=== PATIENT | male | born 1960 | race Caucasian/White ===

== ENCOUNTER 2017-04-12 10:30 | Outpatient (RCR) | payer MEDICARE, MEDICAID, SELFPAY ==
[2017-03-22 10:36] VITALS: BP 139/85; PULSE 89; RESP 20; TEMP 37.2; BMI 22.3
--- NOTE | 2017-03-22 16:49 | PCM.WC.HP ---
(1) Open wound of left forearm Status: Acute Current Visit: Yes Qualifiers: Encounter type: initial encounter Qualified Code(s): S51.802A - Unspecified open wound of left forearm, initial encounter Code(s): S51.802A - Unspecified open wound of left forearm, initial encounter (2) Hx of malignant neoplasm of colon Status: Chronic Current Visit: No Code(s): Z85.038 - Personal history of other malignant neoplasm of large intestine (3) Hx of venous thrombosis and embolism Status: Chronic Current Visit: No Code(s): Z86.718 - Personal history of other venous thrombosis and embolism (4) Status post ventricular shunt placement Status: Chronic Current Visit: No Code(s): Z98.2 - Presence of cerebrospinal fluid drainage device History of Present Illness Date of Service: 03/23/17 Chief Complaint: Left Forearm Wound. History of Wound: Mr. Davis is a 56 pleasant man with PMH as documented who is here due to a nonhealing left forearm wound. He sustained a scratch from his dog about 2 weeks ago and subsequently developed this wound which is not showing any improvement. He has not done anything much since sustaining the wound, has had no treatment and conservatively managed it at home by cleaning and applying none adherent dressing. There is pain and redness around the site however he denies any discharge from the site. He has had no nausea, chills, fever or otherwise feeling of unwell. He states that his dog is fully immunized. He is also up to date on his Tdap immunization. Denies any other complaints at this time. Past Medical History Past Medical History: Chronic Problems Rotator cuff disorder (Chronic) Asthma (Chronic) Esophageal reflux (Chronic) Hx of malignant neoplasm of colon (Chronic) Hx of venous thrombosis and embolism (Chronic) HTN (hypertension) (Chronic) Status post ventricular shunt placement (Chronic) Surgical History: colectomy, - - L shoulder surgery, green field filter, [employer] shunt, RUE clot removal, foot surgery. Allergies/Adverse Reactions: Allergies gluten Allergy (Verified 11/26/16 13:34) Diarrhea Penicillins [PCN] Adverse Reaction (Mild, Verified 11/26/16 13:34) Nausea aspirin [ASA] Adverse Reaction (Verified 11/26/16 13:34) Nausea prednisone Adverse Reaction (Verified 11/26/16 13:34) Unknown CODEINE Adverse Reaction (Intermediate, Uncoded 11/26/16 13:34) nausea, eyes turn white Home Medications: Ambulatory Orders Medication Instructions Recorded Albuterol Inhaler [Ventolin Hfa] 1 - 2 puff INHALATION Q4H PRN PRN 05/05/15 Budesonide/Formoterol 160/4.5 2 puff INHALATION BID 05/05/15 [Symbicort 160/4.5 Mcg Inhaler (SP)] Dexlansoprazole [Dexilant] 60 mg PO DAILY 05/05/15 Montelukast [Singulair] 10 mg PO DAILY 05/05/15 Quetiapine Fumarate [Seroquel] 50 mg PO BID 05/05/15 Rivaroxaban [Xarelto] 10 mg PO DAILY 05/05/15 Lorazepam [Ativan] 0.5 mg PO BID 12/29/16 Baclofen [Lioresal] 10 mg PO BID 03/22/17 Cholecalciferol (Vitamin D3) 5,000 unit PO DAILY 03/22/17 [Vitamin D3] Melatonin 3 mg PO QHS 03/22/17 Sucralfate 1 gm PO 4X/DAY 03/22/17 - Family History Maternal No pertinent history - alive age 88 Paternal Cancer - age 74, bladder Smoking Status: Never smoker Review of Systems Constitutional: Denies: Anorexia, Chills, Fever Eyes: Denies: Drainage, Pain, Redness HEENT: Denies: Difficulty Hearing, Ear Pain Cardiovascular: Denies: Chest Pain, Claudication, Chest Pressure, Chest Tightness, Orthopnea Respiratory: Denies: Cough, Hemoptysis Gastrointestinal: Denies: Abdominal Pain, Hematemesis, Vomiting Musculoskeletal: Reports: Arm Pain Skin: Denies: Jaundice, Pruritis - Physical Exam Vital Signs Temp Pulse Resp BP 98.9 F 89 20 H 139/85 H 03/22/17 10:36 03/22/17 10:36 03/22/17 10:36 03/22/17 10:36 General: Alert, Oriented x3, Cooperative, No apparent distress HEENT: Atraumatic Oral: Moist Mucosa Neck: Supple, No JVD Lungs: Clear to auscultation, Normal air movement Cardiovascular: Regular rate, Regular Rhythm, Normal S1, Normal S2 Abdomen: Soft, Non Tender Extremities: No cyanosis, No edema Wound Measurements and Assessment WC - Nurse 1 - General Ulcer Measurement Start: 03/22/17 10:36 Freq: Status: Active Protocol: Activity Type Activity Date Activity User E-Sign Co-Sign Detail Recorded Client Recorded Date Recorded By Document 03/22/17 10:36 [facility] [id number] 03/22/17 10:42 [facility] 03/22/17 10:36 Wound Center Nurse 1 [Ulcer Assessment Protocol: WC.WD.LOC] #2- LFA -Combined with other wound No -Current Size (cm) - Length 0.8 -Current Size (cm) - Width 3.6 -Current Size (cm) - Depth 0.1 -Total Square Cm 2.88 -Date of Last Picture (Recall this 03/22/17 field) -Photo Taken Yes -Epithelialization None Present -Tunneling No -Undermining/Tunneling No -Exudate Amt None Present (0 %) -Wound Margin Distinct, Outline Attached -Granulation Amt None Present (0 %) -Slough/Fibrin Yes -Necrosis Amt Large (67-100%) -Necrotic Tissue Type Adherent Slough -Structure Exposed N/A -Texture (Yessica-wound Skin Appearance) Localized Edema Scarring -Moisture (Yessica-wound Skin Appearance Dry/Scaly ) -Color (Yessica-wound Skin Appearance) Erythema -Temperature (Yessica-wound Skin No Abnormality Appearance) (Pt Warm) -Tenderness on Palpation (Yessica-wound No Skin Appearance) -Ulcer Cleansing Rinsed/ Irrigated with Saline -Foul Odor after Cleansing No -Anesthetic Used 4% Lidocaine Solution BATOOL - Nurse 2 - General Ulcer CM Notes Start: 03/22/17 10:36 Freq: Status: Active Protocol: Activity Type Activity Date Activity User E-Sign Co-Sign Detail Recorded Client Recorded Date Recorded By Document 03/22/17 11:33 [id number] 03/22/17 11:37 DV 03/22/17 11:33 Wound Center Nurse 2 [Procedure/Treatment] -Time 11:35 -Correct Patient Yes -Correct Side, Site, Position Yes -Correct Procedure Yes -Procedure Performed Yes -Type of Procedure Debridement -Clinical Debridement Subcutaneous -Post Debridement Size (cm) - Length 1.0 -Post Debridement Size (cm) - Width 4.0 -Post Debridement Size (cm) - Depth 0.1 -Total Square Cm 4.00 -Wound/Ulcer Outcome Not Healed -Ulcer Cleansing Rinsed/ Irrigated with Saline -Foul Odor after Cleansing No -Bioengineered Tissue No -Cetacaine [place] No -Bleeding Controlled with Pressure -Other silver nitrate -Treatment Response Procedure Tolerated Well [See Physician Procedure note for Specifics] Pain Scale: 0-10 Numeric [Pain] -Is Patient Pain Free? Yes Musculoskeletal: No Muscle Wasting Lymphatic: No Cervical, Supraclavicular, or Inguinal Adenopathy Neurological: Cranial nerves II-XII grossly intact, Neuro grossly intact Psych/Mental Status: Alert and oriented to time, place, person, mood and affect Debridement Note Post-Debridement Measurements/Treatment WC - Nurse 2 - General Ulcer CM Notes Start: 03/22/17 10:36 Freq: Status: Active Protocol: Activity Type Activity Date Activity User E-Sign Co-Sign Detail Recorded Client Recorded Date Recorded By Document 03/22/17 11:33 DV [id number] 03/22/17 11:37 DV 03/22/17 11:33 Wound Center Nurse 2 #2- LFA -Time 11:35 -Correct Patient Yes -Correct Side, Site, Position Yes -Correct Procedure Yes -Procedure Performed Yes -Type of Procedure Debridement -Clinical Debridement Subcutaneous -Post Debridement Size (cm) - Length 1.0 -Post Debridement Size (cm) - Width 4.0 -Post Debridement Size (cm) - Depth 0.1 -Total Square Cm 4.00 -Wound/Ulcer Outcome Not Healed -Ulcer Cleansing Rinsed/ Irrigated with Saline -Foul Odor after Cleansing No -Bioengineered Tissue No -Cetacaine [place] No -Bleeding Controlled with Pressure -Other silver nitrate -Treatment Response Procedure Tolerated Well Pain Scale: 0-10 Numeric Is Patient Pain Free? Yes Wound debrided: Left Forearm Wound Type of Debridement: Excisional debridement Anesthesia Used: 4% Lidocaine Solution Depth: Down to and including healthy tissue, in the subcutaneous layer Percentage of wound debrided: 100 Instrument Used: 5mm curette Tissue Removed: Biofil, Slough Amount of bleeding with debridement: Moderate Bleeding Controlled with: Pressure, Silver Nitrate Patient tolerated procedure well Assessment/Plan Active Problems Open wound of left forearm (Acute) Assessment: Left Forearm wound s/p dog scratch. 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 There appears to be some evidence of cellulitis with redness and tenderness around the area. Wound is also covered in slough/biofilm. Debridement of the wound was done using a 5 mm curet. Moderate bleeding however patient is on Xarelto. Bleeding was stopped by pressure and silver nitrate. Will start him on Augmentin due to nature of the wound. Aquacel AG dressing daily. Follow-up in 1 week. This note was generated with [employer] dictation software. It may contain incorrect words, spelling, and punctuation that were not noted in checking the note before signing.
--- NOTE | 2017-03-22 17:01 | HP.PCM_ITS ---
(1) Open wound of left forearm Status: Acute Current Visit: Yes Qualifiers: Encounter type: initial encounter Qualified Code(s): S51.802A - Unspecified open wound of left forearm, initial encounter Code(s): S51.802A - Unspecified open wound of left forearm, initial encounter (2) Hx of malignant neoplasm of colon Status: Chronic Current Visit: No Code(s): Z85.038 - Personal history of other malignant neoplasm of large intestine (3) Hx of venous thrombosis and embolism Status: Chronic Current Visit: No Code(s): Z86.718 - Personal history of other venous thrombosis and embolism (4) Status post ventricular shunt placement Status: Chronic Current Visit: No Code(s): Z98.2 - Presence of cerebrospinal fluid drainage device History of Present Illness Date of Service: 03/23/17 Chief Complaint: Left Forearm Wound. History of Wound: Mr. Davis is a 56 pleasant man with PMH as documented who is here due to a nonhealing left forearm wound. He sustained a scratch from his dog about 2 weeks ago and subsequently developed this wound which is not showing any improvement. He has not done anything much since sustaining the wound, has had no treatment and conservatively managed it at home by cleaning and applying none adherent dressing. There is pain and redness around the site however he denies any discharge from the site. He has had no nausea, chills, fever or otherwise feeling of unwell. He states that his dog is fully immunized. He is also up to date on his Tdap immunization. Denies any other complaints at this time. 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 Allergies/Adverse Reactions: Allergies gluten Allergy (Verified 11/26/16 13:34) Diarrhea Penicillins [PCN] Adverse Reaction (Mild, Verified 11/26/16 13:34) Nausea aspirin [ASA] Adverse Reaction (Verified 11/26/16 13:34) Nausea prednisone Adverse Reaction (Verified 11/26/16 13:34) Unknown CODEINE Adverse Reaction (Intermediate, Uncoded 11/26/16 13:34) nausea, eyes turn white Home Medications: Ambulatory Orders Medication Instructions Recorded Albuterol Inhaler [Ventolin Hfa] 1 - 2 puff INHALATION Q4H PRN PRN 05/05/15 Budesonide/Formoterol 160/4.5 2 puff INHALATION BID 05/05/15 [Symbicort 160/4.5 Mcg Inhaler (SP)] Dexlansoprazole [Dexilant] 60 mg PO DAILY 05/05/15 Montelukast [Singulair] 10 mg PO DAILY 05/05/15 Quetiapine Fumarate [Seroquel] 50 mg PO BID 05/05/15 Rivaroxaban [Xarelto] 10 mg PO DAILY 05/05/15 Lorazepam [Ativan] 0.5 mg PO BID 12/29/16 Baclofen [Lioresal] 10 mg PO BID 03/22/17 Cholecalciferol (Vitamin D3) 5,000 unit PO DAILY 03/22/17 [Vitamin D3] Melatonin 3 mg PO QHS 03/22/17 Sucralfate 1 gm PO 4X/DAY 03/22/17 - Family History Maternal No pertinent history - alive age 88 Paternal Cancer - age 74, bladder Smoking Status: Never smoker Review of Systems Constitutional: Denies: Anorexia, Chills, Fever Eyes: Denies: Drainage, Pain, Redness HEENT: Denies: Difficulty Hearing, Ear Pain Cardiovascular: Denies: Chest Pain, Claudication, Chest Pressure, Chest Tightness, Orthopnea Respiratory: Denies: Cough, Hemoptysis Gastrointestinal: Denies: Abdominal Pain, Hematemesis, Vomiting Musculoskeletal: Reports: Arm Pain Skin: Denies: Jaundice, Pruritis - Physical Exam Vital Signs Temp Pulse Resp BP 98.9 F 89 20 H 139/85 H 03/22/17 10:36 03/22/17 10:36 03/22/17 10:36 03/22/17 10:36 General: Alert, Oriented x3, Cooperative, No apparent distress HEENT: Atraumatic Oral: Moist Mucosa Neck: Supple, No JVD Lungs: Clear to auscultation, Normal air movement Cardiovascular: Regular rate, Regular Rhythm, Normal S1, Normal S2 Abdomen: Soft, Non Tender Extremities: No cyanosis, No edema Wound Measurements and Assessment WC - Nurse 1 - General Ulcer Measurement Start: 03/22/17 10:36 Freq: Status: Active Protocol: Activity Type Activity Date Activity User E-Sign Co-Sign Detail Recorded Client Recorded Date Recorded By Document 03/22/17 10:36 [facility] [id number] 03/22/17 10:42 [facility] 03/22/17 10:36 Wound Center Nurse 1 [Ulcer Assessment Protocol: WC.WD.LOC] #2- LFA -Combined with other wound No -Current Size (cm) - Length 0.8 -Current Size (cm) - Width 3.6 -Current Size (cm) - Depth 0.1 -Total Square Cm 2.88 -Date of Last Picture (Recall this 03/22/17 field) -Photo Taken Yes -Epithelialization None Present -Tunneling No -Undermining/Tunneling No -Exudate Amt None Present (0 %) -Wound Margin Distinct, Outline Attached -Granulation Amt None Present (0 %) -Slough/Fibrin Yes -Necrosis Amt Large (67-100%) -Necrotic Tissue Type Adherent Slough -Structure Exposed N/A -Texture (Yessica-wound Skin Appearance) Localized Edema Scarring -Moisture (Yessica-wound Skin Appearance Dry/Scaly ) -Color (Yessica-wound Skin Appearance) Erythema -Temperature (Yessica-wound Skin No Abnormality Appearance) (Pt Warm) -Tenderness on Palpation (Yessica-wound No Skin Appearance) -Ulcer Cleansing Rinsed/ Irrigated with Saline -Foul Odor after Cleansing No -Anesthetic Used 4% Lidocaine Solution BATOOL - Nurse 2 - General Ulcer CM Notes Start: 03/22/17 10:36 Freq: Status: Active Protocol: Activity Type Activity Date Activity User E-Sign Co-Sign Detail Recorded Client Recorded Date Recorded By Document 03/22/17 11:33 [id number] 03/22/17 11:37 DV 03/22/17 11:33 Wound Center Nurse 2 [Procedure/Treatment] -Time 11:35 -Correct Patient Yes -Correct Side, Site, Position Yes -Correct Procedure Yes -Procedure Performed Yes -Type of Procedure Debridement -Clinical Debridement Subcutaneous -Post Debridement Size (cm) - Length 1.0 -Post Debridement Size (cm) - Width 4.0 -Post Debridement Size (cm) - Depth 0.1 -Total Square Cm 4.00 -Wound/Ulcer Outcome Not Healed -Ulcer Cleansing Rinsed/ Irrigated with Saline -Foul Odor after Cleansing No -Bioengineered Tissue No -Cetacaine [place] No -Bleeding Controlled with Pressure -Other silver nitrate -Treatment Response Procedure Tolerated Well [See Physician Procedure note for Specifics] Pain Scale: 0-10 Numeric [Pain] -Is Patient Pain Free? Yes Musculoskeletal: No Muscle Wasting Lymphatic: No Cervical, Supraclavicular, or Inguinal Adenopathy Neurological: Cranial nerves II-XII grossly intact, Neuro grossly intact Psych/Mental Status: Alert and oriented to time, place, person, mood and affect Debridement Note Post-Debridement Measurements/Treatment WC - Nurse 2 - General Ulcer CM Notes Start: 03/22/17 10:36 Freq: Status: Active Protocol: Activity Type Activity Date Activity User E-Sign Co-Sign Detail Recorded Client Recorded Date Recorded By Document 03/22/17 11:33 DV [id number] 03/22/17 11:37 DV 03/22/17 11:33 Wound Center Nurse 2 #2- LFA -Time 11:35 -Correct Patient Yes -Correct Side, Site, Position Yes -Correct Procedure Yes -Procedure Performed Yes -Type of Procedure Debridement -Clinical Debridement Subcutaneous -Post Debridement Size (cm) - Length 1.0 -Post Debridement Size (cm) - Width 4.0 -Post Debridement Size (cm) - Depth 0.1 -Total Square Cm 4.00 -Wound/Ulcer Outcome Not Healed -Ulcer Cleansing Rinsed/ Irrigated with Saline -Foul Odor after Cleansing No -Bioengineered Tissue No -Cetacaine [place] No -Bleeding Controlled with Pressure -Other silver nitrate -Treatment Response Procedure Tolerated Well Pain Scale: 0-10 Numeric Is Patient Pain Free? Yes Wound debrided: Left Forearm Wound Type of Debridement: Excisional debridement Anesthesia Used: 4% Lidocaine Solution Depth: Down to and including healthy tissue, in the subcutaneous layer Percentage of wound debrided: 100 Instrument Used: 5mm curette Tissue Removed: Biofil, Slough Amount of bleeding with debridement: Moderate Bleeding Controlled with: Pressure, Silver Nitrate Patient tolerated procedure well Assessment/Plan Active Problems Open wound of left forearm (Acute) Assessment: Left Forearm wound s/p dog scratch. 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 There appears to be some evidence of cellulitis with redness and tenderness around the area. Wound is also covered in slough/ biofilm. Debridement of the wound was done using a 5 mm curet. Moderate bleeding however patient is on Xarelto. Bleeding was stopped by pressure and silver nitrate. Will start him on Augmentin due to nature of the wound. Aquacel AG dressing daily. Follow-up in 1 week. This note was generated with [employer] dictation software. It may contain incorrect words, spelling, and punctuation that were not noted in checking the note before signing.
[2017-03-30 12:22] VITALS: BP 113/76; PULSE 85; RESP 24; TEMP 37.9; BMI 22.3
[2017-04-05 09:57] VITALS: BP 151/92; PULSE 78; RESP 18; TEMP 37.3; BMI 22.3
--- NOTE | 2017-04-05 13:24 | PCM.WC.PN ---
(1) Open wound of left forearm Status: Acute Current Visit: Yes Qualifiers: Encounter type: initial encounter Qualified Code(s): S51.802A - Unspecified open wound of left forearm, initial encounter Code(s): S51.802A - Unspecified open wound of left forearm, initial encounter (2) Hx of malignant neoplasm of colon Status: Chronic Current Visit: No Code(s): Z85.038 - Personal history of other malignant neoplasm of large intestine (3) Hx of venous thrombosis and embolism Status: Chronic Current Visit: No Code(s): Z86.718 - Personal history of other venous thrombosis and embolism (4) Status post ventricular shunt placement Status: Chronic Current Visit: No Code(s): Z98.2 - Presence of cerebrospinal fluid drainage device Type of Wound Date of Service: 04/05/17 Chief Complaint: Left Forearm Wound. History of Wound: Mr. Davis is a 56 pleasant man with PMH as documented who is here due to a nonhealing left forearm wound. He sustained a scratch from his dog about 2 weeks ago and subsequently developed this wound which is not showing any improvement. He has not done anything much since sustaining the wound, has had no treatment and conservatively managed it at home by cleaning and applying none adherent dressing. There is pain and redness around the site however he denies any discharge from the site. He has had no nausea, chills, fever or otherwise feeling of unwell. He states that his dog is fully immunized. He is also up to date on his Tdap immunization. Denies any other complaints at this time. Progress of Wound: Improving. No new complaints. - Physical Exam Vital Signs Temp Pulse Resp BP 99.1 F 78 18 151/92 H 04/05/17 09:57 04/05/17 09:57 04/05/17 09:57 04/05/17 09:57 General: Alert, Oriented x3, Cooperative, No apparent distress HEENT: Atraumatic Oral: Moist Mucosa Neck: Supple Lungs: Normal air movement Cardiovascular: Regular rate Extremities: No cyanosis, No edema Wound Measurements and Assessment WC - Nurse 1 - General Ulcer Measurement Start: 03/22/17 10:36 Freq: Status: Active Protocol: Activity Type Activity Date Activity User E-Sign Co-Sign Detail Recorded Client Recorded Date Recorded By Document 04/05/17 09:57 [facility] [id number] 04/05/17 10:02 [facility] 04/05/17 09:57 Wound Center Nurse 1 [Ulcer Assessment Protocol: WC.WD.LOC] #2- LFA -Combined with other wound No -Current Size (cm) - Length 0.4 -Current Size (cm) - Width 1.9 -Current Size (cm) - Depth 0.1 -Total Square Cm 0.76 -Photo Taken No -Epithelialization Medium 34-66% -Tunneling No -Undermining/Tunneling No -Exudate Amt None Present (0 %) -Wound Margin Distinct, Outline Attached -Granulation Amt Large (67-100%) -Granulation Quality Red -Slough/Fibrin Yes -Necrosis Amt Small (1-33%) -Necrotic Tissue Type Adherent Slough -Structure Exposed None/Limited to Skin Breakdown -Texture (Yessica-wound Skin Appearance) Scarring -Moisture (Yessica-wound Skin Appearance Dry/Scaly ) -Color (Yessica-wound Skin Appearance) No Abnormality Assessed -Temperature (Yessica-wound Skin No Abnormality Appearance) (Pt Warm) -Tenderness on Palpation (Yessica-wound Yes Skin Appearance) -Ulcer Cleansing Rinsed/ Irrigated with Saline -Foul Odor after Cleansing No -Anesthetic Used 4% Lidocaine Solution - Nurse 2 - General Ulcer CM Notes Start: 03/22/17 10:36 Freq: Status: Active Protocol: Activity Type Activity Date Activity User E-Sign Co-Sign Detail Recorded Client Recorded Date Recorded By Document 04/05/17 11:29 [id number] 04/05/17 11:31 DV 04/05/17 11:29 Wound Center Nurse 2 [Procedure/Treatment] -Time 11:29 -Correct Patient Yes -Correct Side, Site, Position Yes -Correct Procedure Yes -Procedure Performed Yes -Type of Procedure Debridement -Clinical Debridement Subcutaneous -Post Debridement Size (cm) - Length 0.8 -Post Debridement Size (cm) - Width 1.1 -Post Debridement Size (cm) - Depth 0.1 -Total Square Cm 0.88 -Wound/Ulcer Outcome Not Healed -Ulcer Cleansing Rinsed/ Irrigated with Saline -Foul Odor after Cleansing No -Bioengineered Tissue No -Cetacaine [place] No -Bleeding Controlled with Pressure -Treatment Response Procedure Tolerated Well [See Physician Procedure note for Specifics] Pain Scale: 0-10 Numeric [Pain] -Is Patient Pain Free? Yes Musculoskeletal: No Muscle Wasting Psych/Mental Status: Alert and oriented to time, place, person, mood and affect Debridement Note Post-Debridement Measurements/Treatment WC - Nurse 2 - General Ulcer CM Notes Start: 03/22/17 10:36 Freq: Status: Active Protocol: Activity Type Activity Date Activity User E-Sign Co-Sign Detail Recorded Client Recorded Date Recorded By Document 03/22/17 11:33 DV [id number] 03/22/17 11:37 DV Document 04/05/17 11:29 DV [id number] 04/05/17 11:31 DV 03/22/17 04/05/17 11:33 11:29 Wound Center Nurse 2 #2- LFA -Time 11:35 11:29 -Correct Patient Yes Yes -Correct Side, Site, Position Yes Yes -Correct Procedure Yes Yes -Procedure Performed Yes Yes -Type of Procedure Debridement Debridement -Clinical Debridement Subcutaneous Subcutaneous -Post Debridement Size (cm) - Length 1.0 0.8 -Post Debridement Size (cm) - Width 4.0 1.1 -Post Debridement Size (cm) - Depth 0.1 0.1 -Total Square Cm 4.00 0.88 -Wound/Ulcer Outcome Not Healed Not Healed -Ulcer Cleansing Rinsed/ Rinsed/ Irrigated with Irrigated with Saline Saline -Foul Odor after Cleansing No No -Bioengineered Tissue No No -Cetacaine [place] No No -Bleeding Controlled with Pressure Pressure -Other silver nitrate -Treatment Response Procedure Procedure Tolerated Well Tolerated Well Pain Scale: 0-10 Numeric Is Patient Pain Free? Yes Yes Anesthesia Used: 4% Lidocaine Solution Depth: Down to and including healthy tissue Percentage of wound debrided: 100 Instrument Used: 5mm curette Tissue Removed: Slough Amount of bleeding with debridement: Mild Bleeding Controlled with: Pressure Patient tolerated procedure well Assessment/Plan Active Problems Open wound of left forearm (Acute) Assessment: Left Forearm wound s/p dog scratch. 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 Small area of wound left as compared to his initial presentation.He has completed his course of antibiotics. Continue Aquacel Ag daily. Continue high protein diet. Follow up in 1 week. This note was generated with [employer] software. It may contain incorrect words, spelling, and punctuation that were not noted in checking the note before signing.
--- NOTE | 2017-04-05 13:29 | PN.PCM_ITS ---
(1) Open wound of left forearm Status: Acute Current Visit: Yes Qualifiers: Encounter type: initial encounter Qualified Code(s): S51.802A - Unspecified open wound of left forearm, initial encounter Code(s): S51.802A - Unspecified open wound of left forearm, initial encounter (2) Hx of malignant neoplasm of colon Status: Chronic Current Visit: No Code(s): Z85.038 - Personal history of other malignant neoplasm of large intestine (3) Hx of venous thrombosis and embolism Status: Chronic Current Visit: No Code(s): Z86.718 - Personal history of other venous thrombosis and embolism (4) Status post ventricular shunt placement Status: Chronic Current Visit: No Code(s): Z98.2 - Presence of cerebrospinal fluid drainage device Type of Wound Date of Service: 04/05/17 Chief Complaint: Left Forearm Wound. History of Wound: Mr. Davis is a 56 pleasant man with PMH as documented who is here due to a nonhealing left forearm wound. He sustained a scratch from his dog about 2 weeks ago and subsequently developed this wound which is not showing any improvement. He has not done anything much since sustaining the wound, has had no treatment and conservatively managed it at home by cleaning and applying none adherent dressing. There is pain and redness around the site however he denies any discharge from the site. He has had no nausea, chills, fever or otherwise feeling of unwell. He states that his dog is fully immunized. He is also up to date on his Tdap immunization. Denies any other complaints at this time. Progress of Wound: Improving. No new complaints. - Physical Exam Vital Signs Temp Pulse Resp BP 99.1 F 78 18 151/92 H 04/05/17 09:57 04/05/17 09:57 04/05/17 09:57 04/05/17 09:57 General: Alert, Oriented x3, Cooperative, No apparent distress HEENT: Atraumatic Oral: Moist Mucosa Neck: Supple Lungs: Normal air movement Cardiovascular: Regular rate Extremities: No cyanosis, No edema Wound Measurements and Assessment WC - Nurse 1 - General Ulcer Measurement Start: 03/22/17 10:36 Freq: Status: Active Protocol: Activity Type Activity Date Activity User E-Sign Co-Sign Detail Recorded Client Recorded Date Recorded By Document 04/05/17 09:57 [facility] [id number] 04/05/17 10:02 [facility] 04/05/17 09:57 Wound Center Nurse 1 [Ulcer Assessment Protocol: WC.WD.LOC] #2- LFA -Combined with other wound No -Current Size (cm) - Length 0.4 -Current Size (cm) - Width 1.9 -Current Size (cm) - Depth 0.1 -Total Square Cm 0.76 -Photo Taken No -Epithelialization Medium 34-66% -Tunneling No -Undermining/Tunneling No -Exudate Amt None Present (0 %) -Wound Margin Distinct, Outline Attached -Granulation Amt Large (67-100%) -Granulation Quality Red -Slough/Fibrin Yes -Necrosis Amt Small (1-33%) -Necrotic Tissue Type Adherent Slough -Structure Exposed None/Limited to Skin Breakdown -Texture (Yessica-wound Skin Appearance) Scarring -Moisture (Yessica-wound Skin Appearance Dry/Scaly ) -Color (Yessica-wound Skin Appearance) No Abnormality Assessed -Temperature (Yessica-wound Skin No Abnormality Appearance) (Pt Warm) -Tenderness on Palpation (Yessica-wound Yes Skin Appearance) -Ulcer Cleansing Rinsed/ Irrigated with Saline -Foul Odor after Cleansing No -Anesthetic Used 4% Lidocaine Solution - Nurse 2 - General Ulcer CM Notes Start: 03/22/17 10:36 Freq: Status: Active Protocol: Activity Type Activity Date Activity User E-Sign Co-Sign Detail Recorded Client Recorded Date Recorded By Document 04/05/17 11:29 [id number] 04/05/17 11:31 DV 04/05/17 11:29 Wound Center Nurse 2 [Procedure/Treatment] -Time 11:29 -Correct Patient Yes -Correct Side, Site, Position Yes -Correct Procedure Yes -Procedure Performed Yes -Type of Procedure Debridement -Clinical Debridement Subcutaneous -Post Debridement Size (cm) - Length 0.8 -Post Debridement Size (cm) - Width 1.1 -Post Debridement Size (cm) - Depth 0.1 -Total Square Cm 0.88 -Wound/Ulcer Outcome Not Healed -Ulcer Cleansing Rinsed/ Irrigated with Saline -Foul Odor after Cleansing No -Bioengineered Tissue No -Cetacaine Jackson No -Bleeding Controlled with Pressure -Treatment Response Procedure Tolerated Well [See Physician Procedure note for Specifics] Pain Scale: 0-10 Numeric [Pain] -Is Patient Pain Free? Yes Musculoskeletal: No Muscle Wasting Psych/Mental Status: Alert and oriented to time, place, person, mood and affect Debridement Note Post-Debridement Measurements/Treatment WC - Nurse 2 - General Ulcer CM Notes Start: 03/22/17 10:36 Freq: Status: Active Protocol: Activity Type Activity Date Activity User E-Sign Co-Sign Detail Recorded Client Recorded Date Recorded By Document 03/22/17 11:33 DV [id number] 03/22/17 11:37 DV Document 04/05/17 11:29 DV [id number] 04/05/17 11:31 DV 03/22/17 04/05/17 11:33 11:29 Wound Center Nurse 2 #2- LFA -Time 11:35 11:29 -Correct Patient Yes Yes -Correct Side, Site, Position Yes Yes -Correct Procedure Yes Yes -Procedure Performed Yes Yes -Type of Procedure Debridement Debridement -Clinical Debridement Subcutaneous Subcutaneous -Post Debridement Size (cm) - Length 1.0 0.8 -Post Debridement Size (cm) - Width 4.0 1.1 -Post Debridement Size (cm) - Depth 0.1 0.1 -Total Square Cm 4.00 0.88 -Wound/Ulcer Outcome Not Healed Not Healed -Ulcer Cleansing Rinsed/ Rinsed/ Irrigated with Irrigated with Saline Saline -Foul Odor after Cleansing No No -Bioengineered Tissue No No -Cetacaine Jackson No No -Bleeding Controlled with Pressure Pressure -Other silver nitrate -Treatment Response Procedure Procedure Tolerated Well Tolerated Well Pain Scale: 0-10 Numeric Is Patient Pain Free? Yes Yes Anesthesia Used: 4% Lidocaine Solution Depth: Down to and including healthy tissue Percentage of wound debrided: 100 Instrument Used: 5mm curette Tissue Removed: Slough Amount of bleeding with debridement: Mild Bleeding Controlled with: Pressure Patient tolerated procedure well Assessment/Plan Active Problems Open wound of left forearm (Acute) Assessment: Left Forearm wound s/p dog scratch. 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 Small area of wound left as compared to his initial presentation.He has completed his course of antibiotics. Continue Aquacel Ag daily. Continue high protein diet. Follow up in 1 week. This note was generated with [employer] software. It may contain incorrect words, spelling, and punctuation that were not noted in checking the note before signing.
[2017-04-12 11:27] VITALS: BP 114/88; PULSE 92; RESP 20; TEMP 37.4; BMI 22.3
--- NOTE | 2017-04-12 14:05 | PCM.WC.PN ---
(1) Open wound of left forearm Status: Acute Current Visit: Yes Qualifiers: Encounter type: initial encounter Qualified Code(s): S51.802A - Unspecified open wound of left forearm, initial encounter Code(s): S51.802A - Unspecified open wound of left forearm, initial encounter (2) Hx of malignant neoplasm of colon Status: Chronic Current Visit: No Code(s): Z85.038 - Personal history of other malignant neoplasm of large intestine (3) Hx of venous thrombosis and embolism Status: Chronic Current Visit: No Code(s): Z86.718 - Personal history of other venous thrombosis and embolism (4) Status post ventricular shunt placement Status: Chronic Current Visit: No Code(s): Z98.2 - Presence of cerebrospinal fluid drainage device Type of Wound Date of Service: 04/12/17 Chief Complaint: Left Forearm Wound. History of Wound: Mr. Davis is a 56 pleasant man with PMH as documented who is here due to a nonhealing left forearm wound. He sustained a scratch from his dog about 2 weeks ago and subsequently developed this wound which is not showing any improvement. He has not done anything much since sustaining the wound, has had no treatment and conservatively managed it at home by cleaning and applying none adherent dressing. There is pain and redness around the site however he denies any discharge from the site. He has had no nausea, chills, fever or otherwise feeling of unwell. He states that his dog is fully immunized. He is also up to date on his Tdap immunization. Denies any other complaints at this time. Progress of Wound: Healed. - Physical Exam Vital Signs Temp Pulse Resp BP 99.3 F H 92 20 H 114/88 H 04/12/17 11:27 04/12/17 11:27 04/12/17 11:27 04/12/17 11:27 General: Alert, Oriented x3, Cooperative, No apparent distress HEENT: Atraumatic, Normocephalic Oral: Moist Mucosa Neck: Supple Abdomen: Soft Wound Measurements and Assessment WC - Nurse 1 - General Ulcer Measurement Start: 03/22/17 10:36 Freq: Status: Active Protocol: Activity Type Activity Date Activity User E-Sign Co-Sign Detail Recorded Client Recorded Date Recorded By Document 04/12/17 11:27 [facility] [id number] 04/12/17 11:32 [facility] 04/12/17 11:27 Wound Center Nurse 1 [Ulcer Assessment Protocol: WC.WD.LOC] #2- LFA -Combined with other wound No -Current Size (cm) - Length 0 -Current Size (cm) - Width 0 -Current Size (cm) - Depth 0 -Total Square Cm 0 -Date of Last Picture (Recall this 04/12/17 field) -Photo Taken Yes -Epithelialization Large 67-100% WC - Nurse 2 - General Ulcer CM Notes Start: 03/22/17 10:36 Freq: Status: Active Protocol: Activity Type Activity Date Activity User E-Sign Co-Sign Detail Recorded Client Recorded Date Recorded By Document 04/12/17 12:15 DV [id number] 04/12/17 12:17 DV 04/12/17 12:15 Wound Center Nurse 2 [Procedure/Treatment] -Time 12:15 -Correct Patient Yes -Correct Side, Site, Position Yes -Correct Procedure Yes -Procedure Performed No -Post Debridement Size (cm) - Length 0 -Post Debridement Size (cm) - Width 0 -Post Debridement Size (cm) - Depth 0 -Total Square Cm 0 -Wound/Ulcer Outcome Healed- Epithelialized [See Physician Procedure note for Specifics] Pain Scale: 0-10 Numeric [Pain] -Is Patient Pain Free? Yes Psych/Mental Status: Normal Affect Debridement Note Post-Debridement Measurements/Treatment BATOOL - Nurse 2 - General Ulcer CM Notes Start: 03/22/17 10:36 Freq: Status: Active Protocol: Activity Type Activity Date Activity User E-Sign Co-Sign Detail Recorded Client Recorded Date Recorded By Document 03/22/17 11:33 DV [id number] 03/22/17 11:37 DV Document 04/05/17 11:29 DV [id number] 04/05/17 11:31 DV Document 04/12/17 12:15 DV [id number] 04/12/17 12:17 DV 03/22/17 04/05/17 04/12/17 11:33 11:29 12:15 Wound Center Nurse 2 #2- LFA -Time 11:35 11:29 12:15 -Correct Patient Yes Yes Yes -Correct Side, Site, Position Yes Yes Yes -Correct Procedure Yes Yes Yes -Procedure Performed Yes Yes No -Type of Procedure Debridement Debridement -Clinical Debridement Subcutaneous Subcutaneous -Post Debridement Size (cm) - Length 1.0 0.8 0 -Post Debridement Size (cm) - Width 4.0 1.1 0 -Post Debridement Size (cm) - Depth 0.1 0.1 0 -Total Square Cm 4.00 0.88 0 -Wound/Ulcer Outcome Not Healed Not Healed Healed- Epithelialized -Ulcer Cleansing Rinsed/ Rinsed/ Irrigated with Irrigated with Saline Saline -Foul Odor after Cleansing No No -Bioengineered Tissue No No -Cetacaine [place] No No -Bleeding Controlled with Pressure Pressure -Other silver nitrate -Treatment Response Procedure Procedure Tolerated Well Tolerated Well Pain Scale: 0-10 Numeric Is Patient Pain Free? Yes Yes Yes No debridement was completed today Assessment/Plan Active Problems Open wound of left forearm (Acute) Assessment: Left Forearm wound s/p dog scratch. Recurrent DVT on Xarelto Plan: Healed. Advised to moisturize and hydrate skin daily and deeply. Follow-up as needed. This note was generated with [employer] dictation software. It may contain incorrect words, spelling, and punctuation that were not noted in checking the note before signing.
--- NOTE | 2017-04-12 14:09 | PN.PCM_ITS ---
(1) Open wound of left forearm Status: Acute Current Visit: Yes Qualifiers: Encounter type: initial encounter Qualified Code(s): S51.802A - Unspecified open wound of left forearm, initial encounter Code(s): S51.802A - Unspecified open wound of left forearm, initial encounter (2) Hx of malignant neoplasm of colon Status: Chronic Current Visit: No Code(s): Z85.038 - Personal history of other malignant neoplasm of large intestine (3) Hx of venous thrombosis and embolism Status: Chronic Current Visit: No Code(s): Z86.718 - Personal history of other venous thrombosis and embolism (4) Status post ventricular shunt placement Status: Chronic Current Visit: No Code(s): Z98.2 - Presence of cerebrospinal fluid drainage device Type of Wound Date of Service: 04/12/17 Chief Complaint: Left Forearm Wound. History of Wound: Mr. Davis is a 56 pleasant man with PMH as documented who is here due to a nonhealing left forearm wound. He sustained a scratch from his dog about 2 weeks ago and subsequently developed this wound which is not showing any improvement. He has not done anything much since sustaining the wound, has had no treatment and conservatively managed it at home by cleaning and applying none adherent dressing. There is pain and redness around the site however he denies any discharge from the site. He has had no nausea, chills, fever or otherwise feeling of unwell. He states that his dog is fully immunized. He is also up to date on his Tdap immunization. Denies any other complaints at this time. Progress of Wound: Healed. - Physical Exam Vital Signs Temp Pulse Resp BP 99.3 F H 92 20 H 114/88 H 04/12/17 11:27 04/12/17 11:27 04/12/17 11:27 04/12/17 11:27 General: Alert, Oriented x3, Cooperative, No apparent distress HEENT: Atraumatic, Normocephalic Oral: Moist Mucosa Neck: Supple Abdomen: Soft Wound Measurements and Assessment WC - Nurse 1 - General Ulcer Measurement Start: 03/22/17 10:36 Freq: Status: Active Protocol: Activity Type Activity Date Activity User E-Sign Co-Sign Detail Recorded Client Recorded Date Recorded By Document 04/12/17 11:27 [facility] [id number] 04/12/17 11:32 BMF 04/12/17 11:27 Wound Center Nurse 1 [Ulcer Assessment Protocol: WC.WD.LOC] #2- LFA -Combined with other wound No -Current Size (cm) - Length 0 -Current Size (cm) - Width 0 -Current Size (cm) - Depth 0 -Total Square Cm 0 -Date of Last Picture (Recall this 04/12/17 field) -Photo Taken Yes -Epithelialization Large 67-100% WC - Nurse 2 - General Ulcer CM Notes Start: 03/22/17 10:36 Freq: Status: Active Protocol: Activity Type Activity Date Activity User E-Sign Co-Sign Detail Recorded Client Recorded Date Recorded By Document 04/12/17 12:15 DV [id number] 04/12/17 12:17 DV 04/12/17 12:15 Wound Center Nurse 2 [Procedure/Treatment] -Time 12:15 -Correct Patient Yes -Correct Side, Site, Position Yes -Correct Procedure Yes -Procedure Performed No -Post Debridement Size (cm) - Length 0 -Post Debridement Size (cm) - Width 0 -Post Debridement Size (cm) - Depth 0 -Total Square Cm 0 -Wound/Ulcer Outcome Healed- Epithelialized [See Physician Procedure note for Specifics] Pain Scale: 0-10 Numeric [Pain] -Is Patient Pain Free? Yes Psych/Mental Status: Normal Affect Debridement Note Post-Debridement Measurements/Treatment BATOOL - Nurse 2 - General Ulcer CM Notes Start: 03/22/17 10:36 Freq: Status: Active Protocol: Activity Type Activity Date Activity User E-Sign Co-Sign Detail Recorded Client Recorded Date Recorded By Document 03/22/17 11:33 DV [id number] 03/22/17 11:37 DV Document 04/05/17 11:29 DV [id number] 04/05/17 11:31 DV Document 04/12/17 12:15 DV [id number] 04/12/17 12:17 DV 03/22/17 04/05/17 04/12/17 11:33 11:29 12:15 Wound Center Nurse 2 #2- LFA -Time 11:35 11:29 12:15 -Correct Patient Yes Yes Yes -Correct Side, Site, Position Yes Yes Yes -Correct Procedure Yes Yes Yes -Procedure Performed Yes Yes No -Type of Procedure Debridement Debridement -Clinical Debridement Subcutaneous Subcutaneous -Post Debridement Size (cm) - Length 1.0 0.8 0 -Post Debridement Size (cm) - Width 4.0 1.1 0 -Post Debridement Size (cm) - Depth 0.1 0.1 0 -Total Square Cm 4.00 0.88 0 -Wound/Ulcer Outcome Not Healed Not Healed Healed- Epithelialized -Ulcer Cleansing Rinsed/ Rinsed/ Irrigated with Irrigated with Saline Saline -Foul Odor after Cleansing No No -Bioengineered Tissue No No -Cetacaine Silver No No -Bleeding Controlled with Pressure Pressure -Other silver nitrate -Treatment Response Procedure Procedure Tolerated Well Tolerated Well Pain Scale: 0-10 Numeric Is Patient Pain Free? Yes Yes Yes No debridement was completed today Assessment/Plan Active Problems Open wound of left forearm (Acute) Assessment: Left Forearm wound s/p dog scratch. Recurrent DVT on Xarelto Plan: Healed. Advised to moisturize and hydrate skin daily and deeply. Follow- up as needed. This note was generated with [employer] dictation software. It may contain incorrect words, spelling, and punctuation that were not noted in checking the note before signing.
== END 2017-04-15 23:59 ==
LOC: WC 10:30
PROVIDERS: Family Provider Family Medicine; PCP Family Medicine; Visit Provider Internal Medicine
DX: S50.812A Abrasion of left forearm, initial encounter (principal); W45.8XXA Other foreign body or object entering through skin, initial encounter; Z86.711 Personal history of pulmonary embolism; Z86.718 Personal history of other venous thrombosis and embolism; Z85.038 Personal history of other malignant neoplasm of large intestine; Z98.2 Presence of cerebrospinal fluid drainage device; I10 Essential (primary) hypertension; K21.9 Gastro-esophageal reflux disease without esophagitis; J45.909 Unspecified asthma, uncomplicated
CPT/HCPCS: 11042; 97597; 99211; 99212; 99213; G0463

== ENCOUNTER → 2017-05-24 11:02 | Outpatient (CLI) | payer MEDICARE, MEDICAID, SELFPAY ==
--- NOTE | 2017-05-24 11:05 | RAD_ITS ---
STUDY: X-RAY - LEFT KNEE REASON FOR EXAM: Male, 56 years old. Pain TECHNIQUE: 4 view(s) of the knee. COMPARISON: None. FINDINGS: Normal visualized distal femur. Normal visualized proximal tibia and fibula. Normal proximal tibiofibular articulation. Normal medial femorotibial compartment. Normal lateral femorotibial compartment. Normal patellofemoral articulation. The soft tissue structures are unremarkable. RAD/Knee 4 or More Views IMPRESSION: Normal x-ray examination of the knee. Electronically Signed: Catalino Garrison DO at 18:44 EST Tel [phone], Service support ,
== END ==
PROVIDERS: Family Provider Family Medicine; PCP Family Medicine; Visit Provider Anesthesiology Pain Medicine
DX: M25.562 Pain in left knee (principal)
CPT/HCPCS: 73564

== ENCOUNTER → 2017-06-14 09:28 | Outpatient (CLI) | payer MEDICARE, MEDICAID, SELFPAY ==
--- NOTE | 2017-06-14 09:35 | RAD_ITS ---
CLINICAL HISTORY: Male, 56 years old. Left knee pain. PROCEDURE: ARTHROGRAM - LEFT KNEE CONSENT: The procedure as well as the benefits and possible complications including infection and bleeding were expanded to the patient. Informed consent was obtained. FLUOROSCOPY TIME (if supplied): (1:05) minutes/seconds Injection Information: 15 cc of dilute MRI contrast. Number of images obtained: 1 TECHNIQUE: (All elements of maximal sterile barrier technique followed, including US elements as applicable) The patient was in the supine position. The overlying skin was prepped and draped and digital sterile fashion. Following local anesthetic application and under direct fluoroscopic guidance, a 22-gauge spinal needle was advanced into the synovial joint. 2 cc of Isovue-300 was injected for confirmation. Following this, 15 cc of dilute MRI contrast was injected. The patient tolerated procedure well. A CT scan will follow. RAD/Arthrogram Knee IMPRESSION: Successful left knee arthrogram. The patient tolerated the procedure well. Electronically Signed: Blake Oliveira MD at 12:54 EST Tel [phone], Service support ,
--- NOTE | 2017-06-14 09:36 | CT_ITS ---
STUDY: CT LEFT KNEE WITH CONTRAST REASON FOR EXAM: Male, 56 years old. Chronic knee pain. RADIATION DOSAGE (If Supplied By Facility): CTDIvol = ( 15.35 ) mGy, DLP = ( 422.84 ) mGycm TECHNIQUE: Transaxial CT imaging of the knee was performed post contrast administration. The examination was performed with intra-articular contrast material. 50 mL of dilute Magnevist was injected. COMPARISON: None. FINDINGS: There is demineralization of the femoral condyle and medial tibial plateau. Mild degree of joint space narrowing involving the medial and lateral joint spaces. There is demineralization of the lateral femoral condyle and lateral tibial plateau. Normal proximal tibiofibular articulation. There is no joint effusion. There is no demonstrated abnormal enhancement. The quadriceps tendon is grossly normal. The patellar tendon is grossly normal. Normal Hoffa's fat pad. The soft tissues are unremarkable. CT/Extremity Lower WITH Contrast IMPRESSION: Mild degenerative changes of the medial and lateral knee compartments. Demineralization of the osseous structures. Electronically Signed: Blake Oliveira MD at 8:53 EST Tel [phone], Service support ,
--- NOTE | 2017-06-14 11:00 | NURSING ---
PT VERBALIZES TO [employer]ATION OFFICER THAT HE WOULD LIKE IT NOTED IN HIS CHART THAT HE IS UNABLE TO HAVE MRI STUDIES D/T SHUNT AND HIS RIGHT ARM IS NOT TO BE USED FOR BLOOD DRAWS, BLOOD PRESSURES, ETC.
== END ==
PROVIDERS: Family Provider Family Medicine; PCP Family Medicine; Visit Provider Specialist
DX: M17.12 Unilateral primary osteoarthritis, left knee (principal)
CPT/HCPCS: 27370; 73580; 73701; A9577; Q9967

== ENCOUNTER 2017-07-10 17:34 | Emergency (ER) | payer MEDICARE, MEDICAID, SELFPAY ==
[2017-07-10 17:34] VITALS: BP 129/74; PULSE 94; RESP 16; TEMP 37.2; O2SAT 100; BMI 23.1
--- NOTE | 2017-07-10 17:55 | ED.VISSUMM ---
- ER Visit Summary Date of Service: 07/10/17 Chief Complaint: Skin avulsion History of Present Illness: The patient is a 56 M who was playing with his dog last night when she scratches left forearm. He is on Xarelto and notes he continues to bleed. His last tetanus was in 2011. Physical Examination: There is a superficial skin tear of about 0.5 cm on the left forearm. There is no active bleeding. There is no evidence of infection Emergency Department Course and Treatment: Dressing was applied. Care discussed with patient. Return instructions given and patient notes understanding Impression:. 0.5 cm skin tear secondary to dog scratch left forearm This note was generated with [employer] dictation software. It may contain incorrect words, spelling, and punctuation that were not noted in review of the chart prior to signing ED Disposition - Plan for ED Patient: Disposition: Home or Assisted Living Chief Complaint: Bite Instructions: ED Avulsion Dermal Referrals: Rafael Quiros MD [Primary Care Provider] - As Needed Additional Instructions: This change the dressing on evening and then use antibiotic ointment and standard dressing changes.
--- NOTE | 2017-07-10 18:03 | ED.DCSUM_ITS ---
- ER Visit Summary Date of Service: 07/10/17 Chief Complaint: Skin avulsion History of Present Illness: The patient is a 56 M who was playing with his dog last night when she scratches left forearm. He is on Xarelto and notes he continues to bleed. His last tetanus was in 2011. Physical Examination: There is a superficial skin tear of about 0.5 cm on the left forearm. There is no active bleeding. There is no evidence of infection Emergency Department Course and Treatment: Dressing was applied. Care discussed with patient. Return instructions given and patient notes understanding Impression:. 0.5 cm skin tear secondary to dog scratch left forearm This note was generated with [employer] dictation software. It may contain incorrect words, spelling, and punctuation that were not noted in review of the chart prior to signing ED Disposition - Plan for ED Patient: Disposition: Home or Assisted Living Chief Complaint: Bite Instructions: ED Avulsion Dermal Referrals: Rafael Quiros MD [Primary Care Provider] - As Needed Additional Instructions: This change the dressing on evening and then use antibiotic ointment and standard dressing changes.
[2017-07-10 18:07] VITALS: BP 138/81; PULSE 72; RESP 16; O2SAT 97
== END 2017-07-10 18:08 | disposition home or self-care (01) ==
LOC: ED 18:06
PROVIDERS: Emergency Provider Emergency Medicine; Family Provider Family Medicine; PCP Family Medicine
DX: S50.812A Abrasion of left forearm, initial encounter (principal); W54.0XXA Bitten by dog, initial encounter; Y93.9 Activity, unspecified; Y92.89 Other specified places as the place of occurrence of the external cause; Y99.9 Unspecified external cause status; J45.909 Unspecified asthma, uncomplicated; K21.9 Gastro-esophageal reflux disease without esophagitis; I10 Essential (primary) hypertension; Z86.718 Personal history of other venous thrombosis and embolism
CPT/HCPCS: 99282

== ENCOUNTER 2017-07-29 17:55 | Emergency (ER) | payer MEDICARE, MEDICAID, SELFPAY ==
[2017-07-29 17:56] VITALS: BP 126/72; PULSE 91; RESP 22; TEMP 37; O2SAT 100; BMI 23.1
[2017-07-29 18:14] VITALS: O2SAT 100
--- NOTE | 2017-07-29 19:03 | EKG12_ITS ---
Test Reason : SOB Blood Pressure : / mmHG Vent. Rate : 081 BPM Atrial Rate : 081 BPM P-R Int : 164 ms QRS Dur : 086 ms QT Int : 388 ms P-R-T Axes : 037 028 012 degrees QTc Int : 450 ms Sinus rhythm with Premature supraventricular complexes and with occasional Premature ventricular comp lexes Abnormal ECG Confirmed by CHERYL STRINGER, PB ([id number]), art editor PHIL TEMPLETON ([id number]) on 07/31/2017 3:00:00 PM Referred By: CARLIN Confirmed By:PB LUNA MD
--- NOTE | 2017-07-29 19:20 | RAD_ITS ---
STUDY: X-RAY CHEST REASON FOR EXAM: Male, 56 years old. COUGH TECHNIQUE: Frontal and lateral views of the chest. COMPARISON: 01.17.16. FINDINGS: Chronic appearing increased interstitial lung markings. Scoliosis of the thoracic spine. Kyphoplasty changes of the thoracic spine. Increased density overlying the right chest is likely related to technique. Stable right lower lobe atelectasis. There is no demonstrated pleural abnormality. Normal heart size. Normal mediastinum and kai. Normal visualized pulmonary arteries. There is atherosclerotic calcification of the aortic arch with tortuosity. There are diffuse degenerative changes of the visualized thoracic spine. There is degenerative osteoarthritis of the bilateral shoulders. There is no demonstrated abnormality of the visualized soft tissue structures of the upper abdomen. RAD/Chest PA and Lateral IMPRESSION: There are no acute findings. Electronically Signed: Benny Abarca MD at 20:01 EDT , Service support ,
[2017-07-29 19:32] LABS: Hematocrit 29.4 % (40-54); Hemoglobin 8.6 g/dl (13.0-16.5); Mean Corp Hgb Conc 29.3 g/gl (32-36); Mean Corpuscular Hgb 19.2 pg (27.0-32.0); Mean Corpuscular Volume 65.5 fL (80-94); Mean Platelet Vol. 9.3 fl (6.2-12.0); Platelet Count 240 K/mm3 (150-450); RBC Distribution Width CV 20.4 % (11.6-14.6); RBC Distribution Width SD 47.6 fl (35.1-43.9); Red Blood Count 4.49 M/mm3 (4.6-6.2); White Blood Count 4.8 K/mm3 (4.4-11.0)
[2017-07-29 19:38] VITALS: BP 125/87; PULSE 86; RESP 22; O2SAT 100
[2017-07-29 19:45] LABS: Anion Gap 7 (5-15); BUN 15 mg/dL (7-18); BUN/Creat Ratio 20.3 RATIO (10-20); Calcium,Total 8.4 mg/dL (8.5-10.1); Chloride 111 mmol/L (98-107); Creatinine, Serum 0.74 mg/dL (0.70-1.30); EST Glomerular Filtration Rate 116 mL/min (>60); Est Glom Filt Rate - Afr Amer 140 mL/min (>60); Estimated Creatinine Clearance 92.22 ml/min; Glucose 99 mg/dL (74-106); Potassium 3.8 mmol/L (3.5-5.1); Sodium Level 143 mmol/L (136-145)
[2017-07-29 20:04] LABS: D-Dimer Quantitative (DVT/PE) 1.68 FEU/ug/m (0.27-0.49)
[2017-07-29 20:05] LABS: Scan Indicated on CBC? Y/N YES- FLAGS NOTED
[2017-07-29 20:06] LABS: Differential Comment SCANNED
--- NOTE | 2017-07-29 20:22 | CT_ITS ---
STUDY: CTA CHEST REASON FOR EXAM: Male, 56 years old. SOB X 1 DAY, HX HYDROCEPHALUS, COLON CA, SKIN CA, ASTHMA RADIATION DOSAGE (If Supplied By Facility): CTDIvol = ( 6.93 ) mGy, DLP = ( 244.90 ) mGycm TECHNIQUE: The examination was performed with the intravenous administration of 75ML ml of Isovue 370 contrast material. Post-processing of the angiographic images was performed, with multiplanar reformation and 3D reconstruction. Individualized dose optimization techniques were used for this CT. COMPARISON: None. FINDINGS: Normal enhancement of the main pulmonary artery and right and left pulmonary arteries. Normal enhancement of the bilateral peripheral pulmonary arteries. There is no demonstrated pulmonary embolism. Normal thoracic aorta and visualized great vessels. There is no demonstrated aortic dissection. Normal heart and pericardium. Normal mediastinum. Normal hilar regions. Normal visualized trachea and bronchi. The lungs are well expanded. Normal pulmonary parenchyma. Normal pleura. There are degenerative changes of the shoulders. There are degenerative changes of thoracic spine. Old appearing compression deformities of the midthoracic spine. Kyphoplasty changes are visualized. Large hiatal hernia. Diffuse esophageal dilation containing air-fluid level suggesting presbyesophagus. CT/CTA Chest W/WO Contrast IMPRESSION: Normal CTA chest examination, without a demonstrated pulmonary embolism or arterial dissection. Diffuse esophageal dilation containing air-fluid level suggesting presbyesophagus. Electronically Signed: Benny Abarca MD at 21:01 EDT , Service support ,
--- NOTE | 2017-07-29 21:21 | ED.VISSUMM ---
- ER Visit Summary Date of Service: 07/29/17 Chief Complaint: Shortness of breath History of Present Illness: The patient is a 56 M who presents with shortness of breath. He is felt short of breath over the last 3 days. He complains of a nonproductive cough. No fevers congestion rhinorrhea sore throat chest pain vomiting or diarrhea. 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 Physical Examination: Afebrile vitals unremarkable except respiratory rate 22 pulse ox is 100% Heart regular rate and rhythm Lungs are clear no rales rhonchi or wheezing Kyphosis noted Abdomen soft Alert Test Results: EKG shows sinus rhythm at a rate of 81. There are occasional PVCs. Chest x-ray shows no acute process. Laboratory studies notable for hemoglobin of 8.6. This is decreased from normal on labs 2 years ago. Troponin negative. D-dimer returned at 1.68. CTA of the chest shows no evidence of pulmonary embolism. Emergency Department Course and Treatment: Patient is resting comfortably on evaluation and his workup is essentially unremarkable. I discussed the finding of anemia which he was aware of and states that he is supposed to have some further workup in regards to this. He is in no distress he is not wheezing. I do not believe he is having acute asthma exacerbation. This may just be a viral bronchitis. He was instructed on supportive care. He was advised to follow-up with his primary care physician was discharged home. Treatment Plan: [] Disposition: Discharge Impression: Bronchitis This note was generated with [employer] dictation software. It may contain incorrect words, spelling, and punctuation that were not noted in review of the chart prior to signing ED Disposition - Plan for ED Patient: Chief Complaint: Shortness of Breath Referrals: Rafael Quiros MD [Primary Care Provider] -
--- NOTE | 2017-07-29 21:24 | ED.DEP ---
ED Disposition - Plan for ED Patient: Chief Complaint: Shortness of Breath Instructions: Acute Bronchitis Referrals: Rafael Quiros MD [Primary Care Provider] -
[2017-07-29 21:34] VITALS: BP 147/96; PULSE 79; RESP 15; O2SAT 98
== END 2017-07-29 21:34 | disposition home or self-care (01) ==
PROVIDERS: Emergency Provider Emergency Medicine; Family Provider Family Medicine; PCP Family Medicine
DX: J40 Bronchitis, not specified as acute or chronic (principal); Z85.038 Personal history of other malignant neoplasm of large intestine; F32.9 Major depressive disorder, single episode, unspecified; F41.9 Anxiety disorder, unspecified
CPT/HCPCS: 71046; 71275; 80048; 84484; 85027; 85379; 93005; 99283; Q9967; A4216

== ENCOUNTER → 2017-09-03 11:11 | Outpatient (CLI) | payer MEDICARE, MEDICAID, SELFPAY ==
--- NOTE | 2017-09-03 11:25 | RAD_ITS ---
STUDY: X-RAY CHEST REASON FOR EXAM: Male, 56 years old. SOB/DYSPNEA; ASTHMA; H/O COLON CA; SHUNT/HYDROCEPHALUS TECHNIQUE: Frontal and lateral views of the chest. COMPARISON: July 29 2017 FINDINGS: Chronic appearing increased interstitial lung markings. Scoliosis of the thoracic spine. Left DRAPERY CUTTER shunt catheter visualized. There is no demonstrated pleural abnormality. Kyphoplasty changes in the thoracic spine. Increased kyphosis of the chest. Normal heart size. Normal mediastinum and kai. Normal visualized pulmonary arteries. There is atherosclerotic calcification of the aortic arch with tortuosity. There are diffuse degenerative changes of the visualized thoracic spine. There is degenerative osteoarthritis of the bilateral shoulders. There is no demonstrated abnormality of the visualized soft tissue structures of the upper abdomen. RAD/Chest PA and Lateral IMPRESSION: There are no acute findings. Electronically Signed: Benny Abarca MD at 23:52 EDT , Service support ,
== END ==
PROVIDERS: Family Provider Family Medicine; PCP Family Medicine; Visit Provider Physician Assistant
DX: R07.9 Chest pain, unspecified (principal)
CPT/HCPCS: 71046

== ENCOUNTER → 2017-09-05 06:09 | Outpatient (CLI) | payer MEDICARE, MEDICAID, SELFPAY ==
--- NOTE | 2017-09-05 09:09 | STRESSREP ---
Stress Test Report 56-year-old man with a history of shortness of breath. Exercise myocardial perfusion stress test. Stress protocol: Resting EKG demonstrates normal sinus rhythm with a rate of 74 bpm occasional premature ventricular complexes noted resting blood pressure is 126/90 mmHg. The patient exercised according to the regular Tino protocol for a total duration of 7 minutes completing 1 minute and just stage III of the Tino protocol. The maximum heart rate attained was 123 bpm which was 75% maximum predicted heart rate maximum workload attained was 7 metabolic equivalents. At rest there were no ST or T-wave changes noted to suggest ischemia peak exercise upsloping ST changes were noted with no meet the criteria for ischemia. The resting blood pressure is 126/90 with a peak blood pressure 172/80 mmHg rate pressure product was 20,800. The test was terminated due to market shortness of breath. No obvious clinical angina was noted. Myocardial perfusion protocol. 11.8 mCi of technetium 99m sestamibi was injected. The patient exercised to consider couples protocol for 7 minutes and at peak exercise 32.4 mCi of technetium 99m sestamibi was injected stress images were obtained stress and rest images were reconstructed and compared in the short axis vertical long and horizontal long axis. Gated images were also obtained. Perfusion SPECT analysis: Review of the stress images demonstrate mild reduction of perfusion noted in the mid anterior wall towards the apex. The septum lateral wall and inferior wall on the stress images appear to be well perfused. On the resting images there is normal perfusion in all areas, the above suggesting mild anterior ischemia. No evidence of infarct is noted. Gated SPECT analysis: The gated ejection fraction is noted to be 44% with mild anterior hypokinesis noted. Conclusion: Abnormal exercise myocardial perfusion stress test with mild anterior ischemia. Mild cardiomyopathy present.
== END ==
PROVIDERS: Family Provider Family Medicine; PCP Family Medicine; Visit Provider Internal Medicine Cardiovascular Disease
DX: R06.09 Other forms of dyspnea (principal)
CPT/HCPCS: 78452; 93017; A9500; A4216; J2785

== ENCOUNTER → 2017-11-22 08:13 | Outpatient (CLI) | payer MEDICARE, MEDICAID, SELFPAY ==
[2017-11-22 08:40] VITALS: PULSE 81; PULSE 82; PULSE 91; PULSE 94; PULSE 95; PULSE 96; O2SAT 96; O2SAT 98; O2SAT 99
--- NOTE | 2017-11-22 12:07 | WT_ITS ---
PSN 6 Minute Walk Test - 6 Minute Walk Test 6 Minute Walk Test: 6 Minute Walk Test PSN:6-Minute Walk Test Start: 11/22/17 08: 40 Freq: Status: Active Protocol: [id number].6MINW Document 11/22/17 08:40 SMB (Rec: 11/22/17 08:42 SMB [id number]) 6 Minute Walk Test Date Performed 11/22/17 Time Performed 08:26 Height 5 ft 5 in Weight: 58.967 kg Weight in Pounds 130.[address]: Tino Irwni Assistive device used: None Pre-test Oxygen Delivery Method Room Air Pulse Ox (%) 99 Pulse Rate (60-100 beats/min) 82 Dyspnea Yash Scale (0-10) 2 Exertion Yash Scale (6-20) 12 1st minute Oxygen Delivery Method Room Air Pulse Ox (%) 96 Pulse Rate (60-100 beats/min) 82 2nd minute Oxygen Delivery Method Room Air Pulse Ox (%) 98 Pulse Rate (60-100 beats/min) 96 3rd minute Oxygen Delivery Method Room Air Pulse Ox (%) 98 Pulse Rate (60-100 beats/min) 96 4th minute Oxygen Delivery Method Room Air Pulse Ox (%) 98 Pulse Rate (60-100 beats/min) 91 5th minute Oxygen Delivery Method Room Air Pulse Ox (%) 99 Pulse Rate (60-100 beats/min) 94 6th minute Oxygen Delivery Method Room Air Pulse Ox (%) 99 Pulse Rate (60-100 beats/min) 95 Post-test Oxygen Delivery Method Room Air Pulse Ox (%) 98 Pulse Rate (60-100 beats/min) 81 Dyspnea Yash Scale (0-10) 3 Exertion Yash Scale (6-20) 15 Reported Symptoms Increased Work of Breathing Full Laps Walked 16 Partial Lap, Number of Tiles Walked 5 Total Distance Walked (ft) 949 - Interpretation Interpretation: Patient was able to ambulate 949 feet over the course of 6 minutes on room air with no significant desaturation or tachycardia. These findings are consistent with a normal walking oximetry. - Recommendations Recommendations: No indication for supplemental oxygen at this time.
== END ==
PROVIDERS: Family Provider Family Medicine; PCP Family Medicine; Visit Provider Internal Medicine Critical Care Medicine
DX: M41.9 Scoliosis, unspecified (principal); J45.40 Moderate persistent asthma, uncomplicated
CPT/HCPCS: 94618

== ENCOUNTER 2017-11-24 17:25 | Emergency (ER) | payer MEDICARE, MEDICAID, SELFPAY ==
[2017-11-24 17:27] VITALS: BP 122/90; PULSE 88; RESP 17; TEMP 37.1; O2SAT 96; BMI 25.1
--- NOTE | 2017-11-24 17:42 | ED.VISSUMM ---
- ER Visit Summary Date of Service: 11/24/17 Chief Complaint: Bee sting History of Present Illness: The patient is a 57 M presenting with bee sting to left hand and left ear. This occurred half hour prior to arrival. He put baking soda on his left ear. He complains of itching all over. He denies any difficulty breathing or swallowing. Denies tongue swelling. Denies sensation of throat swelling. Denies other complaints. Physical Examination: Vitals are stable. Patient is afebrile. Alert no acute distress. HEENT exam is mild erythema to left ear. No tongue swelling. No pharyngeal edema Neck is supple. Lungs are clear and equal bilaterally. Heart is regular rate and rhythm. Abdomen is soft nontender nondistended. Extremities mild erythema to left hand Skin is warm and dry. No focal neurologic deficit. Remainder of exam is unremarkable. Emergency Department Course and Treatment: Patient was given Solu-Medrol, Benadryl. Patient was observed in the ED. He states he is feeling much improved. On repeat exam, he continues to have no tongue swelling or pharyngeal edema. He is advised signs and symptoms for which to return to ED. Advised to follow with primary care physician. Disposition: Discharge home Impression: Bee sting This note was generated with [employer] dictation software. It may contain incorrect words, spelling, and punctuation that were not noted in review of the chart prior to signing ED Disposition - Plan for ED Patient: Chief Complaint: Allergic Reaction Referrals: Rafael Quiros MD [Primary Care Provider] -
[2017-11-24] MEDS: MethylPREDNISolone 125 MG/2 ML Vial IV (17:48)
[2017-11-24] MEDS: DiphenhydrAMINE 50 MG/ML Syringe 25 MG IV (17:48)
[2017-11-24 18:48] VITALS: BP 115/80; PULSE 81; RESP 14; O2SAT 94
--- NOTE | 2017-11-24 18:56 | ED.DEP ---
ED Disposition - Plan for ED Patient: Chief Complaint: Allergic Reaction Instructions: ED Bite Sting Insect Local Allergic React Referrals: Rafael Quiros MD [Primary Care Provider] -
[2017-11-24 19:11] VITALS: BP 107/80; PULSE 83; RESP 14; O2SAT 97
== END 2017-11-24 19:11 | disposition home or self-care (01) ==
PROVIDERS: Emergency Provider Emergency Medicine; Family Provider Family Medicine; PCP Family Medicine
DX: T63.441A Toxic effect of venom of bees, accidental (unintentional), initial encounter (principal); Y92.9 Unspecified place or not applicable; J45.909 Unspecified asthma, uncomplicated; F32.9 Major depressive disorder, single episode, unspecified; F41.9 Anxiety disorder, unspecified
CPT/HCPCS: 99282; A4216

== ENCOUNTER → 2017-11-26 07:06 | Outpatient (CLI) | payer MEDICARE, MEDICAID, SELFPAY ==
--- NOTE | 2017-11-26 12:55 | PFT ---
INTRODUCTION: The patient is a 57-year-old male that presents for pulmonary function testing secondary to a diagnosis of asthma. Respiratory therapy reports good patient effort. Bronchodilators were used during testing. INTERPRETATION: Forced expiration spirometry demonstrates no evidence of a large airways obstructive ventilatory defect. There was no significant response to aerosolized bronchodilators, based upon strict ATS criteria. Spirograms are of good quality and plateau normally. Body plethysmography was performed and reveals lung volumes to be within normal limits. Diffusing capacity by single breath CO is within normal limits at 95% of predicted. IMPRESSION: Grossly normal pulmonary function testing.
== END ==
PROVIDERS: Family Provider Family Medicine; PCP Family Medicine; Visit Provider Internal Medicine Critical Care Medicine
DX: M41.9 Scoliosis, unspecified (principal); J45.40 Moderate persistent asthma, uncomplicated
CPT/HCPCS: 94060; 94726; 94729

== ENCOUNTER 2017-12-04 12:47 | Emergency (ER) | payer MEDICARE, MEDICAID, SELFPAY ==
[2017-12-04 12:48] VITALS: BP 116/76; PULSE 101; RESP 22; TEMP 38.4; O2SAT 98; BMI 21.6
[2017-12-04 13:43] LABS: Absolute Lymphocyte Count 0.84 X10^3/ul (0.83-4.51); Absolute Neutrophil Count 8.1 X10^3/uL (2.0-7.7); Basophil# 0.02 X10^3/uL; Basophil% 0.2 % (0-1); Eosinophil# 0.06 X10^3/uL; Eosinophils% 0.6 % (0-5); Hematocrit 43.6 % (40-54); Hemoglobin 14.4 g/dl (13.0-16.5); Lymphocyte # 0.84 X10^3/ul (4.0); Lymphocyte % 8.8 % (19-41); Mean Corpuscular Hgb 27.3 pg (27.0-32.0); Mean Corpuscular Volume 82.7 fL (80-94); Mean Platelet Vol. 9.4 fl (6.2-12.0); Monocyte# 0.55 X10^3/uL; Monocyte% 5.8 % (0-10); Neutrophil # 8.06 X10^3/uL (2.7-7.7); Neutrophil % 84.5 % (47-70); Platelet Count 147 K/mm3 (150-450); RBC Distribution Width CV 15.9 % (11.6-14.6); RBC Distribution Width SD 47.1 fl (35.1-43.9); Red Blood Count 5.27 M/mm3 (4.6-6.2); White Blood Count 9.5 K/mm3 (4.4-11.0)
[2017-12-04 13:44] LABS: POSITIVE COUNT NO; POSITIVE DIFFERENTIAL NO; POSITIVE MORPHOLOGY NO
[2017-12-04] MEDS: Ondansetron 4 MG/2 ML Vial IV (13:45)
[2017-12-04] MEDS: Acetaminophen 500 MG Tablet 1000 MG PO (13:46)
[2017-12-04 13:56] LABS: Anion Gap 7 (5-15); BUN 10 mg/dL (7-18); Calcium,Total 8.9 mg/dL (8.5-10.1); Chloride 111 mmol/L (98-107); Creatinine, Serum 0.77 mg/dL (0.70-1.30); EST Glomerular Filtration Rate 110 mL/min (>60); Est Glom Filt Rate - Afr Amer 133 mL/min (>60); Estimated Creatinine Clearance 87.22 ml/min; Glucose 77 mg/dL (74-106); Potassium 3.8 mmol/L (3.5-5.1); Sodium Level 143 mmol/L (136-145)
[2017-12-04 14:09] LABS: Lactic Acid 0.9 mmol/L (0.4-2.0)
[2017-12-04 14:34] LABS: Bacteria 0 SEEN /hpf (None Seen); Mucous, Urine 0 SEEN /hpf (<or=2+); Red Blood Cells-Urine 0 SEEN /hpf (0-5); Squamous Epithelial Cells - UA 0 SEEN /hpf (0-5); White Blood Cells 0 SEEN /hpf (0-5)
[2017-12-04 14:39] LABS: Color, Urine Yellow (Yellow); Glucose, Dipstick Normal (Normal); Ketone-Dipstick 5 mg/dl (Negative); Leukocyte Esterase-Dipstick Negative /ul (Negative); Nitrite-Dipstick Negative (Negative); Occult Blood-Urine Negative /ul (Negative); Protein-Dipstick Negative (Negative); Specific Gravity, Urine 1.015 (1.002-1.030); Urine Bilirubin Dipstick Negative (Negative); Urine Clarity Clear (Clear); Urine Urobilinogen Normal (Normal)
[2017-12-04 15:13] VITALS: BP 116/66; PULSE 86; RESP 16; O2SAT 98
[2017-12-04] MEDS: MethylPREDNISolone 125 MG/2 ML Vial IV (15:21)
[2017-12-04] MEDS: Ipratropium/Albuterol Sulfate 3 ML AMPUL.NEB INHALATION (15:32)
[2017-12-04 15:36] VITALS: PULSE 86; RESP 20
[2017-12-04] MEDS: levoFLOXacin IV 750 MG/150 ML BAG 100 MG IV (16:05)
--- NOTE | 2017-12-04 16:23 | ED.VISSUMM ---
- ER Visit Summary Date of Service: 12/04/17 Chief Complaint: Shortness of breath History of Present Illness: The patient is a [address] Quiros. He reports his shortness of breath began this morning. States is moderate in severity. It is increased with walking. There is no change with lying flat. Reports he has had a temperature to 101.2? and chills. Reports that he has constant right lower chest pain that is 3 out of 10 severity. Describes the pain as dull. She has been nausea and vomited 4 times. No blood in his emesis. Physical Examination: Vitals: 99.0, 116/76, 101, 22, 90% on room air which is not hypoxic. General: Well-nourished and well-developed. Head: Normocephalic atraumatic. Neck: Supple, no lymphadenopathy. No JVD. Nontender. Cardiovascular: Regular rate and rhythm. No murmurs. Respiratory: No respiratory distress. Mild wheezing bilaterally with greatly decreased air movement. Abdominal: Soft, nontender, nondistended, normal bowel sounds. No guarding, rebound, or peritoneal signs. Back: Nontender. Extremities: Nontender, no edema. Skin: Normal color, no rash. Neurologic: Alert and oriented ?3. Cranial nerves II through XII are intact. Normal strength and sensation. Psych: Normal affect. Test Results: Chest x-ray shows a patchy infiltrate at the right base. CBC is more for platelets 147, 7 neutrophils 85, lymphocytes and 9. Chem-7 is more for chloride 111. UA is normal. Lactic acid is 0.9. EKG is sinus at [address] changes. Emergency Department Course and Treatment: Patient was treated with Levaquin and Solu-Medrol IV. Is given albuterol and Atrovent aerosol. He feels much improved and would like to go home. Treatment Plan: Patient reports he is allergic to prednisone and will not be placed on steroids. Is just discharged with 5 days of Levaquin. He has albuterol for his nebulizer at home. Instructed follow-up his primary care physician 3-5 days if not improving. Return to the emergency department for any worsening symptoms. Disposition: To home in improved and stable condition. Impression: 1. Pneumonia, community-acquired. 2. Asthma. 3. Coagulopathy on Xarelto. 4. Skin tear left forearm. This note was generated with [employer] dictation software. It may contain incorrect words, spelling, and punctuation that were not noted in review of the chart prior to signing ED Disposition - Plan for ED Patient: Chief Complaint: Shortness of Breath Instructions: ED Pneumonia Adult Prescriptions: Levofloxacin [Levaquin] 750 mg PO DAILY #4 tablet Referrals: Rafael Quiros MD [Primary Care Provider] - 3-5 Days if not improving
[2017-12-04 17:38] VITALS: BP 126/66; PULSE 87; RESP 16; TEMP 37.1; O2SAT 99
--- NOTE | 2017-12-05 13:46 | CM.ED ---
Addendum entered by Mandi 12/05/17 14:32: Patient returned call stating that he feels much better. He thanks staff for the great care he received. Patient denies needs/questions/concerns at this time. Original Note: ED CALLBACK: Follow-up call placed to patient with no answer. Voicemail left with return contact information.
== END 2017-12-04 17:41 | disposition home or self-care (01) ==
PROVIDERS: Emergency Provider Emergency Medicine; Family Provider Family Medicine; PCP Family Medicine
DX: J18.9 Pneumonia, unspecified organism (principal); J45.909 Unspecified asthma, uncomplicated; D68.9 Coagulation defect, unspecified; S51.812A Laceration without foreign body of left forearm, initial encounter; X58.XXXA Exposure to other specified factors, initial encounter; Y93.89 Activity, other specified; Y92.9 Unspecified place or not applicable; Y99.9 Unspecified external cause status; I10 Essential (primary) hypertension; E78.00 Pure hypercholesterolemia, unspecified
CPT/HCPCS: 71045; 80048; 81001; 83605; 85025; 93005; 94640; 99284; J7030; J7040; A4216; J2405

== ENCOUNTER 2017-12-17 11:42 | Emergency (ER) | payer MEDICARE, MEDICAID, SELFPAY ==
[2017-12-17 11:43] VITALS: BP 129/84; PULSE 86; RESP 18; TEMP 36.9; O2SAT 99; BMI 22.5
[2017-12-17 12:50] LABS: Absolute Lymphocyte Count 1.49 X10^3/ul (0.83-4.51); Absolute Neutrophil Count 4.7 X10^3/uL (2.0-7.7); Basophil# 0.01 X10^3/uL; Basophil% 0.1 % (0-1); Eosinophil# 0.07 X10^3/uL; Hematocrit 42.2 % (40-54); Hemoglobin 13.2 g/dl (13.0-16.5); Lymphocyte # 1.49 X10^3/ul (4.0); Lymphocyte % 21.9 % (19-41); Mean Corp Hgb Conc 31.3 g/gl (32-36); Mean Corpuscular Hgb 26.5 pg (27.0-32.0); Mean Corpuscular Volume 84.6 fL (80-94); Mean Platelet Vol. 9.6 fl (6.2-12.0); Monocyte% 7.4 % (0-10); Neutrophil # 4.69 X10^3/uL (2.7-7.7); Neutrophil % 69.2 % (47-70); Platelet Count 161 K/mm3 (150-450); RBC Distribution Width CV 16.4 % (11.6-14.6); RBC Distribution Width SD 50.2 fl (35.1-43.9); Red Blood Count 4.99 M/mm3 (4.6-6.2); White Blood Count 6.8 K/mm3 (4.4-11.0)
[2017-12-17 12:51] LABS: POSITIVE COUNT NO; POSITIVE DIFFERENTIAL NO; POSITIVE MORPHOLOGY NO
[2017-12-17 12:57] LABS: Anion Gap 7 (5-15); BUN 12 mg/dL (7-18); Calcium,Total 8.5 mg/dL (8.5-10.1); Chloride 107 mmol/L (98-107); Creatinine, Serum 0.75 mg/dL (0.70-1.30); EST Glomerular Filtration Rate 114 mL/min (>60); Est Glom Filt Rate - Afr Amer 138 mL/min (>60); Estimated Creatinine Clearance 93.24 ml/min; Glucose 83 mg/dL (74-106); Potassium 3.6 mmol/L (3.5-5.1); Sodium Level 143 mmol/L (136-145)
[2017-12-17 13:34] LABS: International Normalized Ratio 1.2; Prothrombin Time (Protime)PT. 15.5 SECONDS (11.7-14.9)
[2017-12-17 13:35] LABS: Partial Thromboplast Time 30.9 Seconds (24.1-36.2)
--- NOTE | 2017-12-17 14:17 | ED.VISSUMM ---
- ER Visit Summary Date of Service: 12/17/17 Chief Complaint: Rectal bleeding History of Present Illness: The patient is a 57 M resents with rectal bleeding that began today. Patient states he has a history of hemorrhoids. Patient states he is on blood thinners and his hemorrhoids started bleeding today. Patient states he was unable to get it to stop. Patient states there is a large amount of bleeding from the rectum. Patient denies any abdominal pain. Patient denies any nausea or vomiting. Patient denies any fevers or chills. Patient states he is on Xarelto for DVT in his right upper extremity. Physical Examination: Vital signs are stable. Patient is afebrile. Patient is in no acute distress. Oral mucosa is pink and moist. Neck is supple. Trachea is midline. Is no JVD noted. Heart was regular rate and rhythm. Lungs are clear and equal bilaterally. Abdomen is soft. Bowel sounds are normal. There is no tenderness noted. There is no rebound or guarding noted. Rectal exam showed dry blood on the rectal area. There is no active bleeding noted. There is an external hemorrhoid that is not thrombosed. There is no tenderness. Cranial nerves II through XII are intact. There are no focal motor or sensory deficits noted. The remaining physical exam is within normal limits. Test Results: CBC, basic metabolic profile, PT with INR, and PTT were obtained and were all within normal limits. Emergency Department Course and Treatment: Rectal bleeding stopped here in the emergency department. Patient had no further episodes of bleeding. Patient was given a dose of Anusol HC here. Patient was given a prescription for Anusol HC suppositories. Patient was instructed to follow-up with his primary care physician in 5-7 days. Patient understood and was agreeable with the plan. All questions were answered. Disposition: Discharge home Impression: External hemorrhoid This note was generated with [employer] dictation software. It may contain incorrect words, spelling, and punctuation that were not noted in review of the chart prior to signing ED Disposition - Plan for ED Patient: Disposition: Home or Assisted Living Chief Complaint: GI Bleed Diagnosis: Bleeding external hemorrhoids Instructions: ED Hemorrhoids Prescriptions: Hydrocortisone [Anusol Hc] 25 mg RECTAL DAILY PRN PRN #6 suppos. PRN Reason: Hemorrhoids Referrals: Rafael Quiros MD [Primary Care Provider] -
[2017-12-17 14:34] VITALS: BP 124/81; PULSE 83; RESP 16; O2SAT 98
[2017-12-17] MEDS: Hydrocortisone 25 MG Suppository RECTAL (14:34)
== END 2017-12-17 14:44 | disposition home or self-care (01) ==
PROVIDERS: Emergency Provider Emergency Medicine; Family Provider Family Medicine; PCP Family Medicine
DX: K64.4 Residual hemorrhoidal skin tags (principal); J45.909 Unspecified asthma, uncomplicated; F32.9 Major depressive disorder, single episode, unspecified; F41.9 Anxiety disorder, unspecified; Z86.718 Personal history of other venous thrombosis and embolism; Z85.038 Personal history of other malignant neoplasm of large intestine
CPT/HCPCS: 80048; 85025; 85610; 85730; 99283; A4216

== ENCOUNTER → 2018-01-17 08:43 | Outpatient (CLI) | payer MEDICARE, MEDICAID, SELFPAY ==
--- NOTE | 2018-01-17 08:48 | RAD_ITS ---
STUDY: X-RAY - LEFT KNEE REASON FOR EXAM: Male, 57 years old. Fall. TECHNIQUE: 4 view(s) of the knee. COMPARISON: None. FINDINGS: Normal visualized distal femur. Normal visualized proximal tibia and fibula. Normal proximal tibiofibular articulation. Normal medial femorotibial compartment. Normal lateral femorotibial compartment. There is mild degenerative arthrosis of the patellofemoral articulation. The soft tissue structures are unremarkable. RAD/Knee 4 or More Views IMPRESSION: Degenerative changes. Electronically Signed: Emmy Aguiar MD at 16:50 EDT Tel , Service support ,
--- NOTE | 2018-01-17 08:48 | RAD_ITS ---
STUDY: X-RAY - RIGHT HAND, ATTENTION THIRD FINGER REASON FOR EXAM: Male, 57 years old. FALL, RT MIDDLE FINGER PAIN TECHNIQUE: 3 view(s) of the finger were obtained. COMPARISON: None. FINDINGS: Normal metacarpal head. Normal metacarpophalangeal joint. Normal proximal phalanx. Normal middle phalanx. Normal distal phalanx. Normal proximal interphalangeal joint. There is mild degenerative arthrosis of the distal interphalangeal joint. 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 Electronically Signed: Alejandrina Bhatt MD at 13:15 EDT Tel , Service support ,
== END ==
PROVIDERS: Family Provider Family Medicine; PCP Family Medicine; Referring Provider Nurse Practitioner Family; Visit Provider Nurse Practitioner Family
DX: M79.646 Pain in unspecified finger(s) (principal); M25.562 Pain in left knee
CPT/HCPCS: 73140; 73564

== ENCOUNTER 2018-07-12 08:12 | Outpatient (RCR) | payer MEDICARE, BC, SELFPAY ==
[2018-07-12 09:04] VITALS: BP 110/68; PULSE 85; RESP 18; TEMP 36.4; BMI 22.8
--- NOTE | 2018-07-12 10:05 | PCM.WC.HP ---
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 Went back a week later to tell him that it looked infected. The pickle maker did not do anything and so he went to urgent care and was put on cephalexin and sent here. New buds of skin showing some crusted yellow brown discharge around some edges and well-demarcated right lower leg medial ulcer. Does have some redness around the perimeter of the ulcer patient denies pain. Past Medical History Past Medical History: Surgical wound infected Allergies/Adverse Reactions: Allergies aspirin Allergy (Verified 07/12/18 09:19) Hives codeine Allergy (Verified 07/12/18 09:19) Hives Home Medications: Ambulatory Orders Medication Instructions Recorded Atorvastatin Calcium [Lipitor] 20 mg PO QHS 07/12/18 Baclofen 10 mg PO BID PRN PRN 07/12/18 Cephalexin [Keflex] 500 mg PO Q8 07/12/18 Cetirizine HCl 10 mg PO DAILY 07/12/18 Citalopram [Celexa] 40 mg PO DAILY 07/12/18 Dexlansoprazole [Dexilant] 60 mg PO DAILY 07/12/18 Isosorbide Mononitrate [Isosorbide 30 mg PO DAILY 07/12/18 Mononitrate ER] Montelukast [Singulair] 10 mg PO DAILY 07/12/18 Quetiapine Fumarate [Seroquel Xr] 150 mg PO QHS 07/12/18 Quetiapine Fumarate [Seroquel] 25 mg PO BID PRN PRN 07/12/18 Rivaroxaban [Xarelto] 20 mg PO DAILY 07/12/18 Lives: Alone Smoking Status: Never smoker Review of Systems Constitutional: Denies: Chills, Fever Eyes: Denies: Blurred vision, Drainage, Pain HEENT: Denies: Difficulty Hearing, Difficulty Swallowing, Sore Throat, Visual Changes Cardiovascular: Denies: Chest Pain, Palpitations, Syncope Respiratory: Denies: Cough, Shortness of Breath Gastrointestinal: Reports: Nausea - From his antibiotic. Denies: Abdominal Pain, Vomiting Genitourinary: Denies: Dysuria, Frequency Musculoskeletal: Denies: Joint Pain, Muscle pain Skin: Reports: Wounds - Right lower leg. Denies: Jaundice, Rash Neurological: Denies: Balance problems, Change in Speech, Difficulty swallowing, Focal weakness Psychiatric: Denies: Anxiety, Depression Endocrine: Denies: Change in Body Habitus Hematologic/ Lymphatic: Denies: Adenopathy - Physical Exam Vital Signs Temp Pulse Resp BP 97.5 F L 85 18 110/68 07/12/18 09:04 07/12/18 09:04 07/12/18 09:04 07/12/18 09:04 General: Oriented x3, Cooperative, Well developed HEENT: Atraumatic, PERRLA Oral: Moist Mucosa Neck: Supple, No JVD Lungs: Clear to auscultation, Normal air movement Cardiovascular: Regular rate, Regular Rhythm Abdomen: Bowel Sounds Present, Soft, Non Tender, No Hepato-splenomegaly Extremities: No clubbing, No edema, - - Right medial lower leg ulcer surgical Wound Measurements and Assessment WC - Nurse 1 - General Ulcer Measurement Start: 07/12/18 09:03 Freq: Status: Active Protocol: Activity Type Activity Date Activity User E-Sign Co-Sign Detail Recorded Client Recorded Date Recorded By Document 07/12/18 09:04 RB [id number] 07/12/18 09:18 RB 07/12/18 09:04 Wound Center Nurse 1 [Ulcer Assessment] 1. R medial LE -Combined with other wound No -Current Size (cm) - Length 1.5 -Current Size (cm) - Width 1.3 -Current Size (cm) - Depth 0.1 -Total Square Cm 1.95 -Photo Taken Yes -Tunneling No -Undermining/Tunneling No -Circular Undermining No -Exudate Amt Small -Exudate Type Serosanguineous -Wound Margin Distinct, Outline Attached -Granulation Amt Large (67-100%) -Granulation Quality Red -Slough/Fibrin Yes -Necrosis Amt Small (1-33%) -Necrotic Tissue Type Adherent Slough -Structure Exposed N/A -Texture (Yessica-wound Skin Appearance) Assessed -Moisture (Yessica-wound Skin Appearance Assessed ) -Color (Yessica-wound Skin Appearance) Assessed -Temperature (Yessica-wound Skin No Abnormality Appearance) (Pt Warm) -Tenderness on Palpation (Yessica-wound No Skin Appearance) -Ulcer Cleansing Rinsed/ Irrigated with Saline -Foul Odor after Cleansing No -Anesthetic Used 5% Lidocaine Gel [Edema Assessment] -Lower Limb Edema Present Yes -Right Calf (cm) 32 -Right Ankle (cm) 20.4 -Left Calf (cm) 32.2 -Left Ankle (cm) 22 WC - Nurse 2 - General Ulcer CM Notes Start: 07/12/18 09:03 Freq: Status: Active Protocol: Activity Type Activity Date Activity User E-Sign Co-Sign Detail Recorded Client Recorded Date Recorded By Document 07/12/18 09:58 MW [id number] 07/12/18 10:03 MW 07/12/18 09:58 Wound Center Nurse 2 [Procedure/Treatment] 1. R medial LE -Time 09:59 -Correct Patient Yes -Correct Side, Site, Position Yes -Correct Procedure Yes -Procedure Performed Yes -Type of Procedure Debridement -Clinical Debridement Subcutaneous -Post Debridement Size (cm) - Length 1.4 -Post Debridement Size (cm) - Width 1.5 -Post Debridement Size (cm) - Depth 0.2 -Total Square Cm 2.10 -Wound/Ulcer Outcome Not Healed -Ulcer Cleansing Rinsed/ Irrigated with Saline -Foul Odor after Cleansing No -Bioengineered Tissue No -Bleeding Controlled with Pressure -Offloading No -Treatment Response Procedure Tolerated Well [See Physician Procedure note for Specifics] Pain Scale: 0-10 Numeric [Pain] -Is Patient Pain Free? Yes Musculoskeletal: No Tenderness to Palpation of Joints or Extremities Lymphatic: No Cervical, Supraclavicular, or Inguinal Adenopathy Neurological: Cranial nerves II-XII grossly intact, Neuro grossly intact Psych/Mental Status: Normal Affect, Appropriate Debridement Note Post-Debridement Measurements/Treatment WC - Nurse 2 - General Ulcer CM Notes Start: 07/12/18 09:03 Freq: Status: Active Protocol: Activity Type Activity Date Activity User E-Sign Co-Sign Detail Recorded Client Recorded Date Recorded By Document 07/12/18 09:58 MW [id number] 07/12/18 10:03 MW 07/12/18 09:58 Wound Center Nurse 2 1. R medial LE -Time 09:59 -Correct Patient Yes -Correct Side, Site, Position Yes -Correct Procedure Yes -Procedure Performed Yes -Type of Procedure Debridement -Clinical Debridement Subcutaneous -Post Debridement Size (cm) - Length 1.4 -Post Debridement Size (cm) - Width 1.5 -Post Debridement Size (cm) - Depth 0.2 -Total Square Cm 2.10 -Wound/Ulcer Outcome Not Healed -Ulcer Cleansing Rinsed/ Irrigated with Saline -Foul Odor after Cleansing No -Bioengineered Tissue No -Bleeding Controlled with Pressure -Offloading No -Treatment Response Procedure Tolerated Well Pain Scale: 0-10 Numeric Is Patient Pain Free? 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 Apply Aquacel extra to wound base cover with Adaptic gauze dressing and tape. Follow-up 1 week. Continue cephalexin antibiotic.
--- NOTE | 2018-07-12 10:10 | HP.PCM_ITS ---
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 Went back a week later to tell him that it looked infected. The beam house inspector did not do anything and so he went to urgent care and was put on cephalexin and sent here. New buds of skin showing some crusted yellow brown discharge around some edges and well-demarcated right lower leg medial ulcer. Does have some redness around the perimeter of the ulcer patient denies pain. Past Medical History Past Medical History: Surgical wound infected Allergies/Adverse Reactions: Allergies aspirin Allergy (Verified 07/12/18 09:19) Hives codeine Allergy (Verified 07/12/18 09:19) Hives Home Medications: Ambulatory Orders Medication Instructions Recorded Atorvastatin Calcium [Lipitor] 20 mg PO QHS 07/12/18 Baclofen 10 mg PO BID PRN PRN 07/12/18 Cephalexin [Keflex] 500 mg PO Q8 07/12/18 Cetirizine HCl 10 mg PO DAILY 07/12/18 Citalopram [Celexa] 40 mg PO DAILY 07/12/18 Dexlansoprazole [Dexilant] 60 mg PO DAILY 07/12/18 Isosorbide Mononitrate [Isosorbide 30 mg PO DAILY 07/12/18 Mononitrate ER] Montelukast [Singulair] 10 mg PO DAILY 07/12/18 Quetiapine Fumarate [Seroquel Xr] 150 mg PO QHS 07/12/18 Quetiapine Fumarate [Seroquel] 25 mg PO BID PRN PRN 07/12/18 Rivaroxaban [Xarelto] 20 mg PO DAILY 07/12/18 Lives: Alone Smoking Status: Never smoker Review of Systems Constitutional: Denies: Chills, Fever Eyes: Denies: Blurred vision, Drainage, Pain HEENT: Denies: Difficulty Hearing, Difficulty Swallowing, Sore Throat, Visual Changes Cardiovascular: Denies: Chest Pain, Palpitations, Syncope Respiratory: Denies: Cough, Shortness of Breath Gastrointestinal: Reports: Nausea - From his antibiotic. Denies: Abdominal Pain, Vomiting Genitourinary: Denies: Dysuria, Frequency Musculoskeletal: Denies: Joint Pain, Muscle pain Skin: Reports: Wounds - Right lower leg. Denies: Jaundice, Rash Neurological: Denies: Balance problems, Change in Speech, Difficulty swallowing, Focal weakness Psychiatric: Denies: Anxiety, Depression Endocrine: Denies: Change in Body Habitus Hematologic/ Lymphatic: Denies: Adenopathy - Physical Exam Vital Signs Temp Pulse Resp BP 97.5 F L 85 18 110/68 07/12/18 09:04 07/12/18 09:04 07/12/18 09:04 07/12/18 09:04 General: Oriented x3, Cooperative, Well developed HEENT: Atraumatic, PERRLA Oral: Moist Mucosa Neck: Supple, No JVD Lungs: Clear to auscultation, Normal air movement Cardiovascular: Regular rate, Regular Rhythm Abdomen: Bowel Sounds Present, Soft, Non Tender, No Hepato-splenomegaly Extremities: No clubbing, No edema, - - Right medial lower leg ulcer surgical Wound Measurements and Assessment WC - Nurse 1 - General Ulcer Measurement Start: 07/12/18 09:03 Freq: Status: Active Protocol: Activity Type Activity Date Activity User E-Sign Co-Sign Detail Recorded Client Recorded Date Recorded By Document 07/12/18 09:04 RB [id number] 07/12/18 09:18 RB 07/12/18 09:04 Wound Center Nurse 1 [Ulcer Assessment] 1. R medial LE -Combined with other wound No -Current Size (cm) - Length 1.5 -Current Size (cm) - Width 1.3 -Current Size (cm) - Depth 0.1 -Total Square Cm 1.95 -Photo Taken Yes -Tunneling No -Undermining/Tunneling No -Circular Undermining No -Exudate Amt Small -Exudate Type Serosanguineous -Wound Margin Distinct, Outline Attached -Granulation Amt Large (67-100%) -Granulation Quality Red -Slough/Fibrin Yes -Necrosis Amt Small (1-33%) -Necrotic Tissue Type Adherent Slough -Structure Exposed N/A -Texture (Yessica-wound Skin Appearance) Assessed -Moisture (Yessica-wound Skin Appearance Assessed ) -Color (Yessica-wound Skin Appearance) Assessed -Temperature (Yessica-wound Skin No Abnormality Appearance) (Pt Warm) -Tenderness on Palpation (Yessica-wound No Skin Appearance) -Ulcer Cleansing Rinsed/ Irrigated with Saline -Foul Odor after Cleansing No -Anesthetic Used 5% Lidocaine Gel [Edema Assessment] -Lower Limb Edema Present Yes -Right Calf (cm) 32 -Right Ankle (cm) 20.4 -Left Calf (cm) 32.2 -Left Ankle (cm) 22 WC - Nurse 2 - General Ulcer CM Notes Start: 07/12/18 09:03 Freq: Status: Active Protocol: Activity Type Activity Date Activity User E-Sign Co-Sign Detail Recorded Client Recorded Date Recorded By Document 07/12/18 09:58 MW [id number] 07/12/18 10:03 MW 07/12/18 09:58 Wound Center Nurse 2 [Procedure/Treatment] 1. R medial LE -Time 09:59 -Correct Patient Yes -Correct Side, Site, Position Yes -Correct Procedure Yes -Procedure Performed Yes -Type of Procedure Debridement -Clinical Debridement Subcutaneous -Post Debridement Size (cm) - Length 1.4 -Post Debridement Size (cm) - Width 1.5 -Post Debridement Size (cm) - Depth 0.2 -Total Square Cm 2.10 -Wound/Ulcer Outcome Not Healed -Ulcer Cleansing Rinsed/ Irrigated with Saline -Foul Odor after Cleansing No -Bioengineered Tissue No -Bleeding Controlled with Pressure -Offloading No -Treatment Response Procedure Tolerated Well [See Physician Procedure note for Specifics] Pain Scale: 0-10 Numeric [Pain] -Is Patient Pain Free? Yes Musculoskeletal: No Tenderness to Palpation of Joints or Extremities Lymphatic: No Cervical, Supraclavicular, or Inguinal Adenopathy Neurological: Cranial nerves II-XII grossly intact, Neuro grossly intact Psych/Mental Status: Normal Affect, Appropriate Debridement Note Post-Debridement Measurements/Treatment WC - Nurse 2 - General Ulcer CM Notes Start: 07/12/18 09:03 Freq: Status: Active Protocol: Activity Type Activity Date Activity User E-Sign Co-Sign Detail Recorded Client Recorded Date Recorded By Document 07/12/18 09:58 MW [id number] 07/12/18 10:03 MW 07/12/18 09:58 Wound Center Nurse 2 1. R medial LE -Time 09:59 -Correct Patient Yes -Correct Side, Site, Position Yes -Correct Procedure Yes -Procedure Performed Yes -Type of Procedure Debridement -Clinical Debridement Subcutaneous -Post Debridement Size (cm) - Length 1.4 -Post Debridement Size (cm) - Width 1.5 -Post Debridement Size (cm) - Depth 0.2 -Total Square Cm 2.10 -Wound/Ulcer Outcome Not Healed -Ulcer Cleansing Rinsed/ Irrigated with Saline -Foul Odor after Cleansing No -Bioengineered Tissue No -Bleeding Controlled with Pressure -Offloading No -Treatment Response Procedure Tolerated Well Pain Scale: 0-10 Numeric Is Patient Pain Free? 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 Apply Aquacel extra to wound base cover with Adaptic gauze dressing and tape. Follow-up 1 week. Continue cephalexin antibiotic.
== END 2018-07-14 23:59 ==
LOC: WC 08:12
PROVIDERS: Visit Provider Nurse Practitioner
DX: T81.49XA Infection following a procedure, other surgical site, initial encounter (principal); Y83.9 Surgical procedure, unspecified as the cause of abnormal reaction of the patient, or of later complication, without mention of misadventure at the time of the procedure
CPT/HCPCS: 11042; 99203; G0463

== ENCOUNTER 2018-07-13 14:10 | Emergency (ER) | payer MEDICARE, MEDICAID, SELFPAY ==
[2018-07-07 13:16] VITALS: BMI 24.0
[2018-07-13 14:11] VITALS: BP 123/93; PULSE 91; RESP 20; TEMP 37.2; O2SAT 99; BMI 21.4
--- NOTE | 2018-07-13 16:14 | CT_ITS ---
STUDY: CT CERVICAL SPINE WITHOUT CONTRAST REASON FOR EXAM: Male, 57 years old. Fall. RADIATION DOSAGE (If Supplied By Facility): CTDIvol = ( 16.37 ) mGy, DLP = ( 285.17 ) mGycm TECHNIQUE: High resolution transaxial imaging was performed without contrast material. Sagittal and coronal images were reconstructed. Individualized dose optimization techniques were used for this CT. COMPARISON: 03/10/2014 FINDINGS: No definite acute fracture/dislocation. The cervical junction is intact. C1-C2 articulation is intact. There is exaggerated cervical lordosis. There is normal alignment. Facet joints are intact at all levels bilaterally. No jumped facets. There is multilevel spondyloarthropathy. Multilevel degenerative disc disease seen. Multilevel loss of disc height. Multilevel posterior marginal osteophytes and disc bulges. Multilevel neural foraminal narrowing. Visualized paraspinal soft tissues and structures are unremarkable. CT/Spine Cervical without Contras IMPRESSION: There is no definite acute fracture/dislocation. Degenerative changes. No change since previous exam. Electronically Signed: Dalton Dsouza MD at 17:42 EDT , Service support ,
--- NOTE | 2018-07-13 16:19 | ED.VISSUMM ---
- ER Visit Summary Date of Service: 07/13/18 Chief Complaint: Fall with neck and tailbone pain History of Present Illness: The patient is a 57 M who presents for neck pain and tailbone pain after a fall. Patient was at the store and trying to walk around another person when he fell. She landed on his buttocks. He did not fall backwards or hit his head, but he did jar his neck. Patient is complaining of neck pain midline and tailbone pain. Patient has history of osteoporosis, poliosis, kyphosis, hydrocephalus, and is on Xarelto. Patient is not taking anything for medications. Physical Examination: Vital signs: afebrile, hemodynamically stable, no hypoxia on room air General: well nourished, well developed, obvious scoliosis and kyphosis, in no distress Skin: warm, dry, no rash, no pallor HEENT: normocephalic and atraumatic; PERRL, EOMI, moist mucous membranes the neck is tender in the midline without any step-offs or remedies, no paraspinal tenderness Cardiovascular: regular rate and rhythm without murmurs, no peripheral edema, 2+ pulses all distal extremities Respiratory: No increased work of breathing, lungs are clear to auscultation bilaterally, no rales, rhonchi or wheezing Abdominal: Abdomen is soft, nontender with normoactive bowel sounds, no guarding or rebound, no masses MSK: Moves all extremities, no deformities, normal strength, tenderness to palpation in the sacral region Neuro: Awake and alert, oriented ?4. No facial droop, sensation and motor function intact and symmetric Test Results: Clinical Impression(s) from Imaging Studies Cervical Spine CT 07/13/18 16:14 IMPRESSION: There is no definite acute fracture/dislocation. Degenerative changes. No change since previous exam. Electronically Signed: Dalton Dsouza MD at 17:42 EDT , Service support , Lumbar Spine X-Ray 07/13/18 16:40 IMPRESSION: No acute abnormality of the lumbar spine. Electronically Signed: Dalton Dsouza MD at 17:10 EDT , Service support , Medications Given Discontinued Medications Ketorolac Tromethamine (Toradol) 30 mg IM X1 ONE Stop: 07/13/18 16:16 Last Admin: 07/13/18 16:31 Dose: 30 mg Emergency Department Course and Treatment: Patient was given IM Toradol. Given patient's history of being on Xarelto and his musculoskeletal issues, a CT of the C-spine was performed. X-ray of the lumbosacral spine performed. C-spine showed no fractures or dislocations. X-ray of the lumbosacral spine showed no fractures or dislocations. Patient had great improvement in his pain after the IM Toradol. He was able to ambulate without any difficulty. Patient felt comfortable with discharge. He was discharged home in improved condition. Treatment Plan: [] Disposition: [] Impression: Cervical strain, tailbone contusion This note was generated with [employer] dictation software. It may contain incorrect words, spelling, and punctuation that were not noted in review of the chart prior to signing ED Disposition - Plan for ED Patient: Disposition: Home or Assisted Living Instructions: ED Contusion Sacrum Coccyx, ED Sprain Strain Neck Referrals: Rafael Quiros MD [Primary Care Provider] - 3-5 Days if not improving Additional Instructions: You had no broken bones on your imaging. Please use [id number] pain medication as needed for any pain. You may try heat or ice on the sore areas, which ever works better for you. If you have any worsening of your condition or any new concerning symptoms, please return immediately to the emergency department for another evaluation.
--- NOTE | 2018-07-13 16:22 | ED.DCSUM_ITS ---
- ER Visit Summary Date of Service: 07/13/18 Chief Complaint: Fall with neck and tailbone pain History of Present Illness: The patient is a 57 M who presents for neck pain and tailbone pain after a fall. Patient was at the store and trying to walk around another person when he fell. She landed on his buttocks. He did not fall backwards or hit his head, but he did jar his neck. Patient is complaining of neck pain midline and tailbone pain. Patient has history of osteoporosis, poliosis, kyphosis, hydrocephalus, and is on Xarelto. Patient is not taking anything for medications. Physical Examination: Vital signs: afebrile, hemodynamically stable, no hypoxia on room air General: well nourished, well developed, obvious scoliosis and kyphosis, in no distress Skin: warm, dry, no rash, no pallor HEENT: normocephalic and atraumatic; PERRL, EOMI, moist mucous membranes the neck is tender in the midline without any step-offs or remedies, no paraspinal tenderness Cardiovascular: regular rate and rhythm without murmurs, no peripheral edema, 2+ pulses all distal extremities Respiratory: No increased work of breathing, lungs are clear to auscultation bilaterally, no rales, rhonchi or wheezing Abdominal: Abdomen is soft, nontender with normoactive bowel sounds, no guarding or rebound, no masses MSK: Moves all extremities, no deformities, normal strength, tenderness to palpation in the sacral region Neuro: Awake and alert, oriented ?4. No facial droop, sensation and motor f unction intact and symmetric Test Results: Clinical Impression(s) from Imaging Studies Cervical Spine CT 07/13/18 16:14 IMPRESSION: There is no definite acute fracture/dislocation. Degenerative changes. No change since previous exam. Electronically Signed: Dalton Dsouza MD at 17:42 EDT , Service support , Lumbar Spine X-Ray 07/13/18 16:40 IMPRESSION: No acute abnormality of the lumbar spine. Electronically Signed: Dalton Dsouza MD at 17:10 EDT , Service support , Medications Given Discontinued Medications Ketorolac Tromethamine (Toradol) 30 mg IM X1 ONE Stop: 07/13/18 16:16 Last Admin: 07/13/18 16:31 Dose: 30 mg Emergency Department Course and Treatment: Patient was given IM Toradol. Given patient's history of being on Xarelto and his musculoskeletal issues, a CT of the C-spine was performed. X-ray of the lumbosacral spine performed. C-spine showed no fractures or dislocations. X-ray of the lumbosacral spine showed no fractures or dislocations. Patient had great improvement in his pain after the IM Toradol. He was able to ambulate without any difficulty. Patient felt comfortable with discharge. He was discharged home in improved condition. Treatment Plan: [] Disposition: [] Impression: Cervical strain, tailbone contusion This note was generated with [employer] dictation software. It may contain incorrect words, spelling, and punctuation that were not noted in review of the chart prior to signing ED Disposition - Plan for ED Patient: Disposition: Home or Assisted Living Instructions: ED Contusion Sacrum Coccyx, ED Sprain Strain Neck Referrals: Rafael Quiros MD [Primary Care Provider] - 3-5 Days if not improving Additional Instructions: You had no broken bones on your imaging. Please use [id number] pain medication as needed for any pain. You may try heat or ice on the sore areas, which ever works better for you. If you have any worsening of your condition or any new concerning symptoms, please return immediately to the emergency department for another evaluation.
[2018-07-13] MEDS: Ketorolac 30 MG/ML Syringe IM (16:31)
--- NOTE | 2018-07-13 16:40 | RAD_ITS ---
STUDY: X-RAY - LUMBAR SPINE REASON FOR EXAM: Male, 57 years old. Fall. Low back pain. TECHNIQUE: 5 view(s) of the lumbar spine were obtained. COMPARISON: 12/23/2014 FINDINGS: Normal lumbar lordosis. There is no substantial scoliosis. There is a normal alignment of the vertebrae. Normal vertebral bodies and endplates. Normal disc space heights. No acute compression fracture in the lumbar spine. Stable lower thoracic compression fractures. The soft tissue structures are unremarkable. 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 RAD/L/S Spine Min 4 Views IMPRESSION: No acute abnormality of the lumbar spine. Electronically Signed: Dalton Dsouza MD at 17:10 EDT , Service support ,
[2018-07-13 18:37] VITALS: RESP 18
== END 2018-07-13 18:38 | disposition home or self-care (01) ==
PROVIDERS: Emergency Provider Emergency Medicine; Family Provider Family Medicine; PCP Family Medicine
DX: S16.1XXA Strain of muscle, fascia and tendon at neck level, initial encounter (principal); S30.0XXA Contusion of lower back and pelvis, initial encounter; W01.0XXA Fall on same level from slipping, tripping and stumbling without subsequent striking against object, initial encounter; Y93.9 Activity, unspecified; Y92.512 Supermarket, store or market as the place of occurrence of the external cause; Y99.9 Unspecified external cause status; J45.909 Unspecified asthma, uncomplicated; M81.0 Age-related osteoporosis without current pathological fracture; Z79.01 Long term (current) use of anticoagulants; Z85.038 Personal history of other malignant neoplasm of large intestine
CPT/HCPCS: 72110; 72125; 96372; 99282

== ENCOUNTER 2018-08-02 08:15 | Outpatient (RCR) | payer MEDICARE, MEDICAID, SELFPAY ==
[2018-07-19 08:25] VITALS: BP 122/84; PULSE 78; RESP 18; TEMP 37; BMI 21.4
[2018-07-26 08:23] VITALS: BP 151/97; PULSE 76; RESP 18; TEMP 37; BMI 21.4
--- NOTE | 2018-07-26 09:17 | PCM.WC.PN ---
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 Went back a week later to tell him that that looked infected. The physical therapy teacher felt it looked all right so he left and went to an urgent care and was put on cephalexin and sent to the wound center. Patient shows some crusted yellow brown discharge around the edge and well-demarcated areas around the right lower leg with cellulitis. Denies pain. The wound today is much smaller using Promogran. He was approved for puraply and we applied #1 today on the right lower right inner leg. Patient is to follow-up in 1 week. Progress of Wound: Today the wound is much smaller and we applied number puraply #1 to the area. Tolerated procedure well - Physical Exam Vital Signs Temp Pulse Resp BP 98.6 F 76 18 151/97 H 07/26/18 08:23 07/26/18 08:23 07/26/18 08:23 07/26/18 08:23 General: Oriented x3, Cooperative, Well developed HEENT: Atraumatic, PERRLA Oral: Moist Mucosa Neck: Supple, No JVD Lungs: Clear to auscultation, Normal air movement Cardiovascular: Regular rate, Regular Rhythm Abdomen: Bowel Sounds Present, Soft, Non Tender, No Hepato-splenomegaly Extremities: No clubbing, No edema Skin: Ulcer/ Wound - Surgical wound right inner lower leg Wound Measurements and Assessment WC - Nurse 1 - General Ulcer Measurement Start: 07/19/18 08:24 Freq: Status: Active Protocol: Activity Type Activity Date Activity User E-Sign Co-Sign Detail Recorded Client Recorded Date Recorded By Document 07/26/18 08:23 DV [id number] 07/26/18 08:26 DV 07/26/18 08:23 Wound Center Nurse 1 [Ulcer Assessment] #2- LFA -Combined with other wound No -Current Size (cm) - Length 0.9 -Current Size (cm) - Width 0.3 -Current Size (cm) - Depth 0.1 -Total Square Cm 0.27 -Photo Taken No -Epithelialization Small 1-33% -Tunneling No -Undermining/Tunneling No -Circular Undermining No -Classification - Thickness Full Thickness without Exposed Support Structure -Exudate Amt None Present -Wound Margin Flat & Intact -Granulation Amt Small (1-33%) -Granulation Quality Red -Slough/Fibrin Yes -Necrosis Amt Small (1-33%) -Necrotic Tissue Type Adherent Slough -Structure Exposed None/Limited to Skin Breakdown -Texture (Yessica-wound Skin Appearance) Assessed Scarring -Moisture (Yessica-wound Skin Appearance No Abnormality ) Assessed -Color (Yessica-wound Skin Appearance) Assessed Erythema -Temperature (Yessica-wound Skin No Abnormality Appearance) (Pt Warm) -Tenderness on Palpation (Yessica-wound Yes Skin Appearance) -Ulcer Cleansing Rinsed/ Irrigated with Saline -Foul Odor after Cleansing No -Anesthetic Used 5% Lidocaine Gel [Edema Assessment] -Lower Limb Edema Present No WC - Nurse 2 - General Ulcer CM Notes Start: 07/19/18 08:24 Freq: Status: Active Protocol: Activity Type Activity Date Activity User E-Sign Co-Sign Detail Recorded Client Recorded Date Recorded By Document 07/26/18 08:51 MW [id number] 07/26/18 08:57 MW 07/26/18 08:51 Wound Center Nurse 2 [Procedure/Treatment] #2- LFA -Time 08:52 -Correct Patient Yes -Correct Side, Site, Position Yes -Correct Procedure Yes -Procedure Performed Yes -Type of Procedure Debridement -Clinical Debridement Subcutaneous -Post Debridement Size (cm) - Length 0.8 -Post Debridement Size (cm) - Width 0.3 -Post Debridement Size (cm) - Depth 0.1 -Total Square Cm 0.24 -Wound/Ulcer Outcome Not Healed -Ulcer Cleansing Rinsed/ Irrigated with Saline -Foul Odor after Cleansing No -Bioengineered Tissue Yes -Type of bioengineered Tissue [id number] -Expiration Date 07/19/20 -Product Lot Number [id number] -Percent Used 100 -Saline Lot Number [id number] -Bleeding Controlled with Pressure -Offloading No -Treatment Response Procedure Tolerated Well [See Physician Procedure note for Specifics] Pain Scale: 0-10 Numeric [Pain] -Is Patient Pain Free? Yes Musculoskeletal: No Tenderness to Palpation of Joints or Extremities Lymphatic: No Cervical, Supraclavicular, or Inguinal Adenopathy Neurological: Cranial nerves II-XII grossly intact, Neuro grossly intact Psych/Mental Status: Normal Affect, Appropriate, Alert and oriented to time, place, person, mood and affect Debridement Note Post-Debridement Measurements/Treatment WC - Nurse 2 - General Ulcer CM Notes Start: 07/19/18 08:24 Freq: Status: Active Protocol: Activity Type Activity Date Activity User E-Sign Co-Sign Detail Recorded Client Recorded Date Recorded By Document 07/19/18 08:36 MW [id number] 07/19/18 08:37 MW Document 07/26/18 08:51 MW [id number] 07/26/18 08:57 MW 07/19/18 07/26/18 08:36 08:51 Wound Center Nurse 2 #2- LFA -Time 08:36 08:52 -Correct Patient Yes Yes -Correct Side, Site, Position Yes Yes -Correct Procedure Yes Yes -Procedure Performed Yes Yes -Type of Procedure Debridement Debridement -Clinical Debridement Subcutaneous Subcutaneous -Post Debridement Size (cm) - Length 1.4 0.8 -Post Debridement Size (cm) - Width 1.0 0.3 -Post Debridement Size (cm) - Depth 0.2 0.1 -Total Square Cm 1.40 0.24 -Wound/Ulcer Outcome Not Healed Not Healed -Ulcer Cleansing Rinsed/ Rinsed/ Irrigated with Irrigated with Saline Saline -Foul Odor after Cleansing No No -Bioengineered Tissue No Yes -Type of bioengineered Tissue [id number] -Expiration Date 07/19/20 -Product Lot Number [id number] -Percent Used 100 -Saline Lot Number [id number] -Bleeding Controlled with Pressure Pressure -Offloading No No -Treatment Response Procedure Procedure Tolerated Well Tolerated Well Pain Scale: 0-10 Numeric Is Patient Pain Free? Yes Yes Wound debrided: Right medial inner leg Type of Debridement: Excisional debridement Anesthesia Used: 5% Lidocaine Gel Depth: Down to and including healthy tissue, in the subcutaneous layer Percentage of wound debrided: 100 Instrument Used: 5mm curette Tissue Removed: Fibrin and devitalized tissue Severity: Limited To Skin Breakdown Amount of bleeding with debridement: Mild Bleeding Controlled with: Compression and gauze Patient tolerated procedure well Assessment/Plan Active Problems (Last Updated 07/07/18 @ 13:31 by Michelle Samaniego) Non-healing surgical wound (Acute) Cancer of the skin, basal cell (Acute) 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 Skin cancer basal cell. DVT. Cellulitis Plan: Leave dressing alone for 1 week follow-up in 1 week. puraply #1 applied. This note was generated with [employer] software. It may contain incorrect words, spelling, and punctuation that were not noted in checking the note before signing.
--- NOTE | 2018-07-26 09:28 | PN.PCM_ITS ---
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 Went back a week later to tell him that that looked infected. The sulfur burner felt it looked all right so he left and went to an urgent care and was put on cephalexin and sent to the wound center. Patient shows some crusted yellow brown discharge around the edge and well-demarcated areas around the right lower leg with cellulitis. Denies pain. The wound today is much smaller using Promogran. He was approved for puraply and we applied #1 today on the right lower right inner leg. Patient is to follow-up in 1 week. Progress of Wound: Today the wound is much smaller and we applied number puraply #1 to the area. Tolerated procedure well - Physical Exam Vital Signs Temp Pulse Resp BP 98.6 F 76 18 151/97 H 07/26/18 08:23 07/26/18 08:23 07/26/18 08:23 07/26/18 08:23 General: Oriented x3, Cooperative, Well developed HEENT: Atraumatic, PERRLA Oral: Moist Mucosa Neck: Supple, No JVD Lungs: Clear to auscultation, Normal air movement Cardiovascular: Regular rate, Regular Rhythm Abdomen: Bowel Sounds Present, Soft, Non Tender, No Hepato-splenomegaly Extremities: No clubbing, No edema Skin: Ulcer/ Wound - Surgical wound right inner lower leg Wound Measurements and Assessment WC - Nurse 1 - General Ulcer Measurement Start: 07/19/18 08:24 Freq: Status: Active Protocol: Activity Type Activity Date Activity User E-Sign Co-Sign Detail Recorded Client Recorded Date Recorded By Document 07/26/18 08:23 DV [id number] 07/26/18 08:26 DV 07/26/18 08:23 Wound Center Nurse 1 [Ulcer Assessment] #2- LFA -Combined with other wound No -Current Size (cm) - Length 0.9 -Current Size (cm) - Width 0.3 -Current Size (cm) - Depth 0.1 -Total Square Cm 0.27 -Photo Taken No -Epithelialization Small 1-33% -Tunneling No -Undermining/Tunneling No -Circular Undermining No -Classification - Thickness Full Thickness without Exposed Support Structure -Exudate Amt None Present -Wound Margin Flat & Intact -Granulation Amt Small (1-33%) -Granulation Quality Red -Slough/Fibrin Yes -Necrosis Amt Small (1-33%) -Necrotic Tissue Type Adherent Slough -Structure Exposed None/Limited to Skin Breakdown -Texture (Yessica-wound Skin Appearance) Assessed Scarring -Moisture (Yessica-wound Skin Appearance No Abnormality ) Assessed -Color (Yessica-wound Skin Appearance) Assessed Erythema -Temperature (Yessica-wound Skin No Abnormality Appearance) (Pt Warm) -Tenderness on Palpation (Yessica-wound Yes Skin Appearance) -Ulcer Cleansing Rinsed/ Irrigated with Saline -Foul Odor after Cleansing No -Anesthetic Used 5% Lidocaine Gel [Edema Assessment] -Lower Limb Edema Present No WC - Nurse 2 - General Ulcer CM Notes Start: 07/19/18 08:24 Freq: Status: Active Protocol: Activity Type Activity Date Activity User E-Sign Co-Sign Detail Recorded Client Recorded Date Recorded By Document 07/26/18 08:51 MW [id number] 07/26/18 08:57 MW 07/26/18 08:51 Wound Center Nurse 2 [Procedure/Treatment] #2- LFA -Time 08:52 -Correct Patient Yes -Correct Side, Site, Position Yes -Correct Procedure Yes -Procedure Performed Yes -Type of Procedure Debridement -Clinical Debridement Subcutaneous -Post Debridement Size (cm) - Length 0.8 -Post Debridement Size (cm) - Width 0.3 -Post Debridement Size (cm) - Depth 0.1 -Total Square Cm 0.24 -Wound/Ulcer Outcome Not Healed -Ulcer Cleansing Rinsed/ Irrigated with Saline -Foul Odor after Cleansing No -Bioengineered Tissue Yes -Type of bioengineered Tissue [id number] -Expiration Date 07/19/20 -Product Lot Number [id number] -Percent Used 100 -Saline Lot Number [id number] -Bleeding Controlled with Pressure -Offloading No -Treatment Response Procedure Tolerated Well [See Physician Procedure note for Specifics] Pain Scale: 0-10 Numeric [Pain] -Is Patient Pain Free? Yes Musculoskeletal: No Tenderness to Palpation of Joints or Extremities Lymphatic: No Cervical, Supraclavicular, or Inguinal Adenopathy Neurological: Cranial nerves II-XII grossly intact, Neuro grossly intact Psych/Mental Status: Normal Affect, Appropriate, Alert and oriented to time, place, person, mood and affect Debridement Note Post-Debridement Measurements/Treatment WC - Nurse 2 - General Ulcer CM Notes Start: 07/19/18 08:24 Freq: Status: Active Protocol: Activity Type Activity Date Activity User E-Sign Co-Sign Detail Recorded Client Recorded Date Recorded By Document 07/19/18 08:36 MW [id number] 07/19/18 08:37 MW Document 07/26/18 08:51 MW [id number] 07/26/18 08:57 MW 07/19/18 07/26/18 08:36 08:51 Wound Center Nurse 2 #2- LFA -Time 08:36 08:52 -Correct Patient Yes Yes -Correct Side, Site, Position Yes Yes -Correct Procedure Yes Yes -Procedure Performed Yes Yes -Type of Procedure Debridement Debridement -Clinical Debridement Subcutaneous Subcutaneous -Post Debridement Size (cm) - Length 1.4 0.8 -Post Debridement Size (cm) - Width 1.0 0.3 -Post Debridement Size (cm) - Depth 0.2 0.1 -Total Square Cm 1.40 0.24 -Wound/Ulcer Outcome Not Healed Not Healed -Ulcer Cleansing Rinsed/ Rinsed/ Irrigated with Irrigated with Saline Saline -Foul Odor after Cleansing No No -Bioengineered Tissue No Yes -Type of bioengineered Tissue [id number] -Expiration Date 07/19/20 -Product Lot Number [id number] -Percent Used 100 -Saline Lot Number [id number] -Bleeding Controlled with Pressure Pressure -Offloading No No -Treatment Response Procedure Procedure Tolerated Well Tolerated Well Pain Scale: 0-10 Numeric Is Patient Pain Free? Yes Yes Wound debrided: Right medial inner leg Type of Debridement: Excisional debridement Anesthesia Used: 5% Lidocaine Gel Depth: Down to and including healthy tissue, in the subcutaneous layer Percentage of wound debrided: 100 Instrument Used: 5mm curette Tissue Removed: Fibrin and devitalized tissue Severity: Limited To Skin Breakdown Amount of bleeding with debridement: Mild Bleeding Controlled with: Compression and gauze Patient tolerated procedure well Assessment/Plan Active Problems (Last Updated 07/07/18 @ 13:31 by Michelle Samaniego) Non-healing surgical wound (Acute) Cancer of the skin, basal cell (Acute) 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 Skin cancer basal cell. DVT. Cellulitis Plan: Leave dressing alone for 1 week follow-up in 1 week. puraply #1 applied. This note was generated with [employer] software. It may contain incorrect words, spelling, and punctuation that were not noted in checking the note before signing.
[2018-08-02 08:19] VITALS: BP 102/74; PULSE 80; RESP 18; TEMP 37.3; BMI 21.4
--- NOTE | 2018-08-02 09:06 | PN.PCM_ITS ---
(1) Non-healing surgical wound Status: Acute Current Visit: Yes Code(s): T81.89XA - Other complications of procedures, not elsewhere classified, initial encounter (2) Cancer of the skin, basal cell Status: Acute Current Visit: Yes Code(s): C44.91 - Basal cell carcinoma of skin, unspecified (3) Hx of [facility] use of blood thinners Status: Acute Current Visit: Yes Code(s): Z92.29 - Personal history of other drug therapy (4) Cellulitis Status: Acute Current Visit: No Code(s): L03.90 - Cellulitis, unspecified Type of Wound Chief Complaint: Follow-up right lower medial leg wound post surgical nonhealing History of Wound: 87-year-old white male that was seen by his cart attendant mid June for removal of an abnormal spot on his right medial lower leg. Went back a week later to tell him that that looked infected. The cart attendant felt it looked all right so he left and went to an urgent care and was put on cephalexin and sent to the wound center. Patient shows some crusted yellow brown discharge around the edge and well-demarcated areas around the right lower leg with cellulitis. Denies pain. The wound today is much smaller using Promogran. He was approved for puraply and we applied #1 today on the right lower right inner leg. Patient is to follow-up in 1 week. Progress of Wound: Today the wound is healed - Physical Exam Vital Signs Temp Pulse Resp BP 99.1 F 80 18 102/74 08/02/18 08:19 08/02/18 08:19 08/02/18 08:19 08/02/18 08:19 General: Oriented x3, Cooperative, Well developed HEENT: Atraumatic, PERRLA Oral: Moist Mucosa Neck: Supple, No JVD Lungs: Clear to auscultation, Normal air movement Cardiovascular: Regular rate, Regular Rhythm Abdomen: Bowel Sounds Present, Soft, Non Tender, No Hepato-splenomegaly Extremities: No clubbing, No edema, - - Left lower extremity surgical nonhealing wound Wound Measurements and Assessment WC - Nurse 1 - General Ulcer Measurement Start: 07/19/18 08:24 Freq: Status: Active Protocol: Activity Type Activity Date Activity User E-Sign Co-Sign Detail Recorded Client Recorded Date Recorded By Document 08/02/18 08:19 AN [id number] 08/02/18 08:26 AN 08/02/18 08:19 Wound Center Nurse 1 [Ulcer Assessment] #1 R medial LE -Current Size (cm) - Length 1.3 -Current Size (cm) - Width 0.3 -Current Size (cm) - Depth 0.1 -Total Square Cm 0.39 -Tunneling No -Undermining/Tunneling No -Classification - Thickness Full Thickness without Exposed Support Structure -Exudate Amt None Present -Wound Margin Flat & Intact -Granulation Amt None Present (0 %) -Slough/Fibrin No -Necrosis Amt Large (67-100%) -Necrotic Tissue Type Eschar -Structure Exposed None/Limited to Skin Breakdown -Texture (Yessica-wound Skin Appearance) Assessed -Moisture (Yessica-wound Skin Appearance Assessed ) -Color (Yessica-wound Skin Appearance) Not Assessed -Temperature (Yessica-wound Skin No Abnormality Appearance) (Pt Warm) -Tenderness on Palpation (Yessica-wound No Skin Appearance) -Ulcer Cleansing Rinsed/ Irrigated with Saline -Foul Odor after Cleansing No -Anesthetic Used 4% Lidocaine Solution [Edema Assessment] -Right Calf (cm) 30.8 -Right Ankle (cm) 19.9 WC - Nurse 2 - General Ulcer CM Notes Start: 07/19/18 08:24 Freq: Status: Active Protocol: Activity Type Activity Date Activity User E-Sign Co-Sign Detail Recorded Client Recorded Date Recorded By Document 08/02/18 08:52 MW [id number] 08/02/18 08:54 MW 08/02/18 08:52 Wound Center Nurse 2 [Procedure/Treatment] #1 R medial LE -Time 08:53 -Correct Patient Yes -Correct Side, Site, Position Yes -Correct Procedure Yes -Procedure Performed No -Post Debridement Size (cm) - Length 0 -Post Debridement Size (cm) - Width 0 -Post Debridement Size (cm) - Depth 0 -Total Square Cm 0 -Wound/Ulcer Outcome Healed- Epithelialized [See Physician Procedure note for Specifics] Pain Scale: 0-10 Numeric [Pain] -Is Patient Pain Free? Yes Musculoskeletal: No Tenderness to Palpation of Joints or Extremities Lymphatic: No Cervical, Supraclavicular, or Inguinal Adenopathy Neurological: Cranial nerves II-XII grossly intact, Neuro grossly intact Psych/Mental Status: Normal Affect, Appropriate Debridement Note Post-Debridement Measurements/Treatment WC - Nurse 2 - General Ulcer CM Notes Start: 07/19/18 08:24 Freq: Status: Active Protocol: Activity Type Activity Date Activity User E-Sign Co-Sign Detail Recorded Client Recorded Date Recorded By Document 07/19/18 08:36 MW [id number] 07/19/18 08:37 MW Document 07/26/18 08:51 MW [id number] 07/26/18 08:57 MW Document 08/02/18 08:52 MW [id number] 08/02/18 08:54 MW 07/19/18 07/26/18 08/02/18 08:36 08:51 08:52 Wound Center Nurse 2 #1 R medial LE -Time 08:36 08:52 08:53 -Correct Patient Yes Yes Yes -Correct Side, Site, Position Yes Yes Yes -Correct Procedure Yes Yes Yes -Procedure Performed Yes Yes No -Type of Procedure Debridement Debridement -Clinical Debridement Subcutaneous Subcutaneous -Post Debridement Size (cm) - Length 1.4 0.8 0 -Post Debridement Size (cm) - Width 1.0 0.3 0 -Post Debridement Size (cm) - Depth 0.2 0.1 0 -Total Square Cm 1.40 0.24 0 -Wound/Ulcer Outcome Not Healed Not Healed Healed- Epithelialized -Ulcer Cleansing Rinsed/ Rinsed/ Irrigated with Irrigated with Saline Saline -Foul Odor after Cleansing No No -Bioengineered Tissue No Yes -Type of bioengineered Tissue [id number] -Expiration Date 07/19/20 -Product Lot Number [id number] -Percent Used 100 -Saline Lot Number [id number] -Bleeding Controlled with Pressure Pressure -Offloading No No -Treatment Response Procedure Procedure Tolerated Well Tolerated Well Pain Scale: 0-10 Numeric Is Patient Pain Free? 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 Skin cancer basal cell resolved. DVT. Cellulitis resolved Plan: Keep covered for a week for protection of the new skin patient is discharged from the wound center follow-up as needed. This note was generated with Dragon dictation software. It may contain incorrect words, spelling, and punctuation that were not noted in checking the note before signing.
== END 2018-08-13 23:59 ==
LOC: WC 08:15
PROVIDERS: Family Provider Family Medicine; PCP Family Medicine; Visit Provider Nurse Practitioner
DX: T81.89XA Other complications of procedures, not elsewhere classified, initial encounter (principal); L03.90 Cellulitis, unspecified; L03.115 Cellulitis of right lower limb; Y83.9 Surgical procedure, unspecified as the cause of abnormal reaction of the patient, or of later complication, without mention of misadventure at the time of the procedure
CPT/HCPCS: 11042; 15271; 99213; Q4196; G0463

== ENCOUNTER → 2019-02-14 11:00 | Outpatient (CLI) | payer MEDICARE, MEDICAID, SELFPAY ==
[2018-12-04 12:36] VITALS: BMI 24.1
== END ==
PROVIDERS: Family Provider Family Medicine; PCP Family Medicine; Referring Provider Nurse Practitioner Acute Care; Visit Provider Nurse Practitioner Acute Care
DX: G47.33 Obstructive sleep apnea (adult) (pediatric) (principal)
CPT/HCPCS: 98960; G0463

== ENCOUNTER 2019-04-13 18:43 | Emergency (ER) | payer MEDICARE, SELFPAY ==
[2019-04-13 18:43] VITALS: BP 115/71; PULSE 91; RESP 16; TEMP 36.9; O2SAT 97; BMI 22.1
[2019-04-13 18:48] VITALS: BP 115/71; PULSE 91; RESP 16; TEMP 36.9; O2SAT 97
[2019-04-13] MEDS: Ipratropium/Albuterol Sulfate 3 ML AMPUL.NEB INHALATION (19:41)
[2019-04-13 19:42] VITALS: PULSE 83; RESP 18
[2019-04-13 19:48] VITALS: BP 127/80; PULSE 84; RESP 18; TEMP 37.2; O2SAT 93
[2019-04-13] MEDS: Triamcinolone Acetonide 40 MG/ML Vial IM (19:52)
[2019-04-13 20:00] VITALS: BP 127/80; PULSE 84; RESP 18; TEMP 37.2; O2SAT 93
--- NOTE | 2019-04-13 20:54 | ED.VISSUMM ---
- ER Visit Summary Date of Service: 04/13/19 Chief Complaint: Shortness of breath, asthma History of Present Illness: The patient is a 58 M who presents with shortness of breath that is been getting progressively worse over the past 4 days. Patient states he has a history of asthma and this feels similar to prior asthma exacerbations. Patient admits to a cough but denies any sputum production. Patient states he has been wheezing. Patient states nothing has been helping. Patient states nothing is been making his breathing worse. Patient has been using home aerosols with no improvement. Patient denies any fevers or chills. Patient denies any chest pain patient denies any upper respiratory congestion. Physical Examination: Vital signs are stable. Patient is afebrile. Patient is in no acute distress. Oral mucosa is pink and moist. Neck is supple. Trachea is midline. There is no JVD. Heart was regular rate and rhythm. Lungs showed diffuse expiratory wheezing. Abdomen is soft and nontender. Cranial nerves II through XII are intact. There are no focal motor or sensory deficits noted. Emergency Department Course and Treatment: Patient states he does not tolerate steroids well except for Kenalog. Patient was given an injection of Kenalog here. Patient was given a DuoNeb aerosol. Patient felt better on reevaluation. Patient's wheezing has resolved. Patient was given a prescription for DuoNeb aerosols. Patient was instructed to follow-up with his primary care physician in 5 to 7 days. Patient understood and was agreeable with the plan. All questions were answered. Disposition: Discharge home Impression: Asthma exacerbation This note was generated with [employer] dictation software. It may contain incorrect words, spelling, and punctuation that were not noted in review of the chart prior to signing ED Disposition - Plan for ED Patient: Disposition: Home or Assisted Living Diagnosis: Asthma exacerbation Instructions: ASTHMA, Acute (Adult) Prescriptions: Ipratropium/Albuterol Sulfate [Duoneb] 3 ml INHALATION Q6H.RT PRN #[id number] ampul.neb PRN Reason: Wheezing Prescription Printed Referrals: Zoltan Plummer PA [Primary Care Provider] - 3-5 Days
[2019-04-13 21:06] VITALS: BP 141/95; PULSE 83; RESP 18; O2SAT 93
== END 2019-04-13 21:06 | disposition home or self-care (01) ==
PROVIDERS: Emergency Provider Emergency Medicine; Family Provider Physician Assistant; PCP Physician Assistant
DX: J45.901 Unspecified asthma with (acute) exacerbation (principal); F41.9 Anxiety disorder, unspecified; F32.9 Major depressive disorder, single episode, unspecified; Z85.038 Personal history of other malignant neoplasm of large intestine; Z79.01 Long term (current) use of anticoagulants; Z79.899 Other long term (current) drug therapy
CPT/HCPCS: 94640; 96372; 99282

== ENCOUNTER → 2019-06-23 14:01 | Outpatient (CLI) | payer MEDICARE, MEDICAID, SELFPAY ==
[2019-06-23 13:59] VITALS: BMI 21.9
--- NOTE | 2019-06-23 14:08 | RAD_ITS ---
STUDY: X-RAY - RIGHT FOOT CLINICAL: Male, 58 years old. Injury to big toe TECHNIQUE: 3 view(s) of the foot. COMPARISON: None. FINDINGS: There is a plantar calcaneal spur. Normal visualized subtalar, talonavicular, calcaneocuboid, tarsal and tarsometatarsal articulations. Normal metatarsi. Normal metatarsophalangeal joint of the great toe. Normal tibial and fibular sesamoid bones. Normal interphalangeal joint of the great toe. Nondisplaced fracture at the base of the proximal phalanx of the great toe. Normal second through fifth metatarsophalangeal joints. Normal interphalangeal joints and phalanges of the lesser toes. Soft tissue swelling. RAD/Foot min 3 Views IMPRESSION: Soft tissue swelling. Small plantar spur. Nondisplaced avulsion type fracture at the base of the proximal phalanx of the great toe. Electronically Signed: Blake Oliveira, at 14:33 EDT , Service support ,
== END ==
PROVIDERS: PCP Physician Assistant; Referring Provider Physician Assistant; Visit Provider Physician Assistant
DX: S99.921A Unspecified injury of right foot, initial encounter (principal)
CPT/HCPCS: 73630

== ENCOUNTER 2019-07-27 18:41 | Emergency (ER) | payer MEDICARE, MEDICAID, SELFPAY ==
[2019-06-23 13:59] VITALS: BMI 21.9
[2019-07-27 18:41] VITALS: BP 125/78; PULSE 87; RESP 20; TEMP 36; O2SAT 97; BMI 22.9
[2019-07-27 19:26] VITALS: O2SAT 98
[2019-07-27 19:30] VITALS: BP 133/84; PULSE 89; RESP 17; TEMP 36.2; O2SAT 100
--- NOTE | 2019-07-27 19:36 | ED.DCSUM_ITS ---
- ER Visit Summary Date of Service: 07/27/19 Chief Complaint: Shortness of breath [] History of Present Illness: The patient is a 58 M [presents to the emergency department with complaint of shortness of breath that started 2 days ago. Patient believes that he is having an asthma attack. Patient has had these multiple times in the past. He has been using his DuoNeb every couple of hours. Patient states that when he gets this way typically he needs a shot of Kenalog because he cannot tolerate the p.o. prednisone very well due to her GERD. Patient denies any fevers. He does have a cough related to his asthma but is nonproductive. The cough is just occasional. He denies recent travel. He denies sick contacts. No exposures to known novel coronavirus patients. Patient with history of asthma and history of colon cancer.] Physical Examination: [HEENT-PERRLA, EOMI. Cranial nerves II through XII grossly intact. TMs clear. Mucous membranes moist. No adenopathy. Cardiovascular-regular rate and rhythm without murmur or ectopy Lungs-good aeration bilaterally. No accessory muscle use or retractions. He does have some faint expiratory wheezes noted bilaterally. No conversational dyspnea. Abdomen-normoactive bowel sounds, soft, nontender, no rebound or rigidity, no peritoneal signs. Extremities-intact ?4, normal range of motion, normal pulses, atraumatic] Test Results: [None indicated] Emergency Department Course and Treatment: [Patient was given an albuterol MDI with 6 puffs. Patient was given a shot of Kenalog.] Treatment Plan: [Patient hemodynamically stable. Patient advised to follow-up with his primary care physician within next 3 to 5 days.] Disposition: [Discharged home in stable condition] Impression: [Acute exacerbation of asthma] This note was generated with [employer] dictation software. It may contain incorrect words, spelling, and punctuation that were not noted in review of the chart prior to signing ED Disposition - Plan for ED Patient: Referrals: Zoltan Plummer PA [Primary Care Provider] -
--- NOTE | 2019-07-27 19:38 | ED.DEP ---
ED Disposition - Plan for ED Patient: Instructions: Asthma Referrals: Zoltan Plummer PA [Primary Care Provider] - 3-5 Days
[2019-07-27] MEDS: Triamcinolone Acetonide 40 MG/ML Vial 80 MG IM (20:06)
[2019-07-27 20:10] VITALS: BP 122/75; PULSE 79; RESP 17; O2SAT 99
[2019-07-27] MEDS: Albuterol Sulfate 8 gm Inhaler 6 PUFF INHALATION (20:29)
[2019-07-27 20:30] VITALS: BP 127/74; PULSE 85; RESP 15; O2SAT 98
== END 2019-07-27 20:33 | disposition home or self-care (01) ==
LOC: ED 19:25
PROVIDERS: Emergency Provider Emergency Medicine; PCP Physician Assistant
DX: J45.901 Unspecified asthma with (acute) exacerbation (principal); K21.9 Gastro-esophageal reflux disease without esophagitis; Z85.038 Personal history of other malignant neoplasm of large intestine
CPT/HCPCS: 96372; 99283; A4216

== ENCOUNTER 2019-08-12 08:26 | Emergency (ER) | payer MEDICARE, MEDICAID, SELFPAY ==
[2019-08-06 14:56] VITALS: BMI 22.9
[2019-08-12] VITALS (7 sets, daily range): BP systolic 123–132; BP diastolic 75–98; PULSE 87–96; RESP 14–26; TEMP 37.1–37.7; O2SAT 94–100; BMI 23.0
--- NOTE | 2019-08-12 08:59 | RAD_ITS ---
STUDY: X-RAY CHEST REASON FOR EXAM: Male, 58 years old. FEVER,BODY ACHES, SOB, HYPERINFLATION TECHNIQUE: Single AP portable view of the chest. COMPARISON: Comparison is made with prior study December 04, 2017. FINDINGS: A left-sided ventriculoperitoneal shunt tube is seen. EKG electrodes are present. Focal infiltrate in the right mid lung as well as in the right infrahilar region. Stable mild increased markings at the left lung base. There is no demonstrated pleural abnormality. Normal size heart. Normal mediastinum and kai. Normal visualized pulmonary arteries. Normal visualized aortic arch and descending thoracic aorta. There is a dextroscoliosis of the thoracic spine. Deformity of the proximal left humerus due to prior fracture. There is no demonstrated abnormality of the visualized soft tissue structures of the upper abdomen. RAD/Chest 1 View (Portable) IMPRESSION: Focal infiltrate in the right mid lung as well as in the right infrahilar region. Stable mild increased markings at the left lung base suggestive of scarring. Electronically Signed: Blake Oliveira, at 11:03 EDT , Service support ,
--- NOTE | 2019-08-12 08:59 | EKG12_ITS ---
Test Reason : ILLNESS Blood Pressure : / mmHG Vent. Rate : 088 BPM Atrial Rate : 088 BPM P-R Int : 158 ms QRS Dur : 094 ms QT Int : 348 ms P-R-T Axes : 008 026 019 degrees QTc Int : 421 ms Normal sinus rhythm Septal infarct , age undetermined Abnormal ECG Confirmed by BRENNA CARLTON ([id number]), newspaper editor managing PHIL TEMPLETON ([id number]) on 08/18/2019 2:49:00 PM Referred By: ZHANNA Confirmed By:BRENNA CARLTON
--- NOTE | 2019-08-12 09:02 | ED.VIS.GEN ---
History of Present Illness Chief Complaint: Fever Informant: Patient Narrative: Patient noticed a temperature of 102 this morning as well as myalgias. He denies any shortness of breath he has a slight cough which is nonproductive he has no back pain he has no skin rash she has no lower extremity weakness he has no dysuria or hematuria. He has a SUPERVISOR GRIPS shunt but he has no headache vision changes or weakness. Past Medical History - Allergies and Home Meds Allergies/Adverse Reactions: Allergies codeine Allergy (Verified 08/12/19 08:30) Hives gluten Allergy (Verified 08/12/19 08:30) Diarrhea Penicillins [PCN] Adverse Reaction (Mild, Verified 08/12/19 08:30) Nausea aspirin [ASA] Adverse Reaction (Verified 08/12/19 08:30) Nausea bee venom protein (honey bee) Adverse Reaction (Verified 08/12/19 08:30) Shortness of breath prednisone Adverse Reaction (Verified 08/12/19 08:30) Unknown CODEINE Adverse Reaction (Intermediate, Uncoded 08/12/19 08:30) nausea, eyes turn white Primary Care Physician: Yany Pederson MD [Primary Care Provider] - Past Medical History: - - Hydrocephalus with SUPERVISOR GRIPS shunt, anxiety Surgical History: colectomy, - Smoking Status: Never smoker - Family History Maternal Family History: Family History (This Medical Record has been edited. Action required.) Daughter Cancer Sister Cancer Father Hypertension Family History: Reports: No pertinent history - alive age 88 Paternal Family History: Family History (This Medical Record has been edited. Action required.) Daughter Cancer Sister Cancer Father Hypertension Family History: Reports: Cancer - age 74, bladder Review of Systems All systems negative except as indicated General: Reports: Fever Eyes: Denies: Visual changes - bilaterally ENT: Denies: Rhinorrhea, Sore throat Cardiovascular: Denies: Chest pain Respiratory: Reports: Cough. Denies: Dyspnea, Sputum Gastrointestinal: Denies: Abdominal pain, Nausea, Vomiting Musculoskeletal: Reports: Myalgias. Denies: Arthralgias, Neck pain, Back pain Skin: Denies: Rash Neurological: Denies: Headache, Weakness, Parasthesia, Numbness Psych: Reports: Anxiety Endocrine: Denies: Polyuria Physical Exam Vital Signs/Narrative: Vital Signs Temp Pulse Resp BP Pulse Ox 08/12/19 08:52 99.9 F H 96 26 H 128/98 H 98 08/12/19 08:27 99.9 F H 96 26 H 128/98 H 98 General: - - He does not appear in significant distress he is slightly anxious Head: Normocephalic Eyes: Negative for: Pale conjunctiva ENT: Moist mucous membranes. Negative for: No rhinorrhea Neck: Negative for: Supple Cardiovascular: Negative for: Regular rate, No murmurs Respiratory: Negative for: No distress, CTA bilaterally Abdomen: Soft, Nontender Back: Nontender, Normal Inspection Extremities: Nontender, No edema Skin: Normal color, No rash Neurological: Alert, Oriented x3, Normal Strength, Normal Sensation Psychological: - - Anxious Diagnostic/Tx/Re-eval - Rhythm Strip Rhythm Strip: Sinus Rhythm Rate: 88 Ectopy: None - EKG Initial EKG Interpretation: - - Normal sinus rhythm with a rate of 88. Normal AL and QTc intervals. Nonspecific ST changes, otherwise normal EKG Interpreted by emergency doctor - Medical Decision Making Patient has an unremarkable emergency department work-up he does have a slight small pneumonia which is unilateral I ambulated him around the emergency department his pulse ox stayed at 98% he appears well there is no significant concern for COVID however I did get approval from [facility], if he worsens he needs to return he understands this he is quite reliable and will do so. I will treat him with outpatient antibiotics. ED Disposition - Plan for ED Patient: Disposition: Home or Assisted Living Diagnosis: Pneumonia, concern for COVID Instructions: What Is Pneumonia? Prescriptions: Levofloxacin [Levaquin] 750 mg PO DAILY #5 tab Transmission Status: Pending to [id number] Albuterol IH (ProAir) [Proair Hfa (SP)Vent Pts] 1 puff INHALATION Q4H PRN PRN #1 inhaler PRN Reason: Sob &/Or Wheezing Transmission Status: Pending to [facility] Referrals: Yany Pederson MD [Primary Care Provider] - 3-5 Days
[2019-08-12] MEDS: Acetaminophen 500 MG Tablet PO (09:58)
[2019-08-12 10:16] LABS: Absolute Lymphocyte Count 0.85 X10^3/uL (0.83-4.51); Absolute Neutrophil Count 6.9 X10^3/uL (2.0-7.7); Basophil# 0.03 X10^3/uL; Basophil% 0.4 % (0-1); Eosinophil# 0.11 X10^3/uL; Eosinophils% 1.3 % (0-5); Hematocrit 37.5 % (40-54); Hemoglobin 11.4 g/dL (13.0-16.5); Lymphocyte # 0.85 X10^3/ul (4.0); Mean Corp Hgb Conc 30.4 g/dL (32-36); Mean Corpuscular Hgb 23.9 pg (27.0-32.0); Mean Corpuscular Volume 78.8 fL (80-94); Mean Platelet Vol. 9.6 fl (6.2-12.0); Monocyte# 0.58 X10^3/uL; Monocyte% 6.8 % (0-10); NRBC Flagged by Analyzer 0 % (0-5); Neutrophil % 81.3 % (47-70); Platelet Count 202 K/mm3 (150-450); RBC Distribution Width CV 17.5 % (11.6-14.6); RBC Distribution Width SD 49.6 fl (35.1-43.9); Red Blood Count 4.76 M/mm3 (4.6-6.2); White Blood Count 8.5 K/mm3 (4.4-11.0)
[2019-08-12 10:26] LABS: International Normalized Ratio 1.4; Prothrombin Time (Protime)PT. 16.2 SECONDS (11.7-14.9)
[2019-08-12 10:27] LABS: Partial Thromboplast Time 33.3 Seconds (24.1-36.2)
[2019-08-12 10:27] LABS: Bacteria 0 SEEN /hpf (None Seen); Mucous, Urine 0 SEEN /hpf (<or=2+); Red Blood Cells-Urine 0 SEEN /hpf (0-5)
[2019-08-12 10:39] LABS: AST(SGOT) 29 U/L (15-37); Alanine Aminotransfer ALT/SGPT 45 U/L (16-61); Albumin, Serum 3.3 g/dL (3.2-5.0); Alkaline Phosphatase 53 U/L (45-117); Anion Gap 5 (5-15); BUN 18 mg/dL (7-18); BUN/Creat Ratio 30.3 RATIO (10-20); Calcium,Total 8.6 mg/dL (8.5-10.1); Chloride 108 mmol/L (98-107); EST Glomerular Filtration Rate 148 mL/min (>60); Est Glom Filt Rate - Afr Amer 179 mL/min (>60); Estimated Creatinine Clearance 106.69 ml/min; Globulin 3.2 g/dL (2.2-4.2); Glucose 73 mg/dL (74-106); Lactic Acid 0.8 mmol/L (0.4-1.9); Potassium 3.5 mmol/L (3.5-5.1); Protein, Total 6.5 g/dL (6.4-8.2); Sodium Level 141 mmol/L (136-145)
[2019-08-12 10:40] LABS: Color, Urine Yellow (Yellow); Glucose, Dipstick Normal (Normal); Ketone-Dipstick Negative (Negative); Leukocyte Esterase-Dipstick Negative /ul (Negative); Nitrite-Dipstick Negative (Negative); Occult Blood-Urine Negative /ul (Negative); Protein-Dipstick Negative (Negative); Urine Bilirubin Dipstick Negative (Negative); Urine Clarity Clear (Clear); Urine Urobilinogen Normal (Normal)
[2019-08-12 10:47] LABS: Squamous Epithelial Cells - UA 0-5 SEEN /hpf (0-5); White Blood Cells 0-5 SEEN /hpf (0-5)
== END 2019-08-12 13:03 | disposition home or self-care (01) ==
PROVIDERS: Emergency Provider Emergency Medicine; PCP Internal Medicine
DX: J18.9 Pneumonia, unspecified organism (principal); F41.9 Anxiety disorder, unspecified; Z82.49 Family history of ischemic heart disease and other diseases of the circulatory system; Z88.0 Allergy status to penicillin; Z88.5 Allergy status to narcotic agent; Z88.6 Allergy status to analgesic agent; Z98.2 Presence of cerebrospinal fluid drainage device; R06.02 Shortness of breath
CPT/HCPCS: 71045; 80053; 81001; 83605; 85025; 85610; 85730; 87040; 87086; 87088; 87635; 93005; 99284; G2023; U0004

== ENCOUNTER 2019-08-14 15:34 | Emergency (ER) | payer MEDICARE, MEDICAID, SELFPAY ==
[2019-08-13 14:51] VITALS: BMI 23.0
[2019-08-14 15:35] VITALS: BP 141/88; PULSE 75; RESP 21; TEMP 36.9; O2SAT 100; BMI 22.6
[2019-08-14] MEDS: Triamcinolone Acetonide 40 MG/ML Vial 80 MG IM (16:00)
--- NOTE | 2019-08-14 16:10 | RAD_ITS ---
STUDY: X-RAY CHEST REASON FOR EXAM: Male, 58 years old. sob and cough. recent diagnosis of pneumonia. he is on antibiotics. hx of asthma. TECHNIQUE: Single AP portable view of the chest. COMPARISON: August 12, 2019 FINDINGS: Consolidation previously seen in the inferior aspect of the right upper lobe has slightly diminished since the prior study, with minimal residual disease remaining. Medial right lower lobe consolidation has also decreased from what was seen on the prior study. The left lung is clear. No new opacities are present in either lung. Normal size heart. The remaining visualized structures are stable. Stable left-sided SLEEVE BOTTOM FELLER shunt catheter. Healed fracture deformity of the left humeral neck noted. RAD/Chest 1 View (Portable) IMPRESSION: Decrease in consolidation of the right lung compared to the previous study. Electronically Signed: Darryl Hoskins MD at 16:35 EDT , Service support ,
--- NOTE | 2019-08-14 16:32 | ED.DCSUM_ITS ---
- ER Visit Summary Date of Service: 08/14/19 Chief Complaint: Cough History of Present Illness: The patient is a [address] Pederson. He reports that he was seen in the emerge department 2 days ago and diagnosed with pneumonia. He was placed on Levaquin. He states that he took his dog for a walk today and began coughing very hard. He denies having a cough prior to this. He denies any fever or chills. He reports he had severe shortness of breath at worst when he was coughing hard. Is now mild. He states this is similar to when he has had asthma exacerbations in the past. Physical Examination: Vitals: Stable. Afebrile. General: Well-nourished and well-developed. Head: Normocephalic atraumatic. Neck: Supple, no lymphadenopathy. No JVD. Nontender. Cardiovascular: Regular rate and rhythm. No murmurs. Respiratory: No respiratory distress. Clear to auscultation bilaterally. Abdominal: Soft, nontender, nondistended, normal bowel sounds. No guarding, rebound, or peritoneal signs. Back: Nontender. Extremities: Nontender, no edema. Skin: Normal color, no rash. Neurologic: Alert and oriented ?3. Cranial nerves II through XII are intact. Normal strength and sensation. Psych: Normal affect. Test Results: Portable chest x-ray actually looks improved from 2 days ago. Emergency Department Course and Treatment: Patient is allergic to prednisone is asking for Kenalog IM. He is given a shot of this here. Treatment Plan: Patient is instructed to continue his Levaquin. Use his nebulizer at home. Follow-up his primary care physician in 3 to 5 days for another exam. Return to the emergency department for any worsening symptoms. Disposition: To home in improved and stable condition. Impression: 1. Pneumonia. 2. Asthma exacerbation. This note was generated with [employer] dictation software. It may contain incorrect words, spelling, and punctuation that were not noted in review of the chart prior to signing ED Disposition - Plan for ED Patient: Disposition: Home or Assisted Living Instructions: ED Bronchitis Asthmatic Referrals: Yany Pederson MD [Primary Care Provider] - 3-5 Days
[2019-08-14 16:44] VITALS: O2SAT 96
--- NOTE | 2019-08-14 19:51 | ED.RN ---
NEGATIVE COVID RESULT TO KIT THIS EVENING BY THIS RN. PATIENT VERBALIZED UNDERSTANDING OF TEST RESULTS
== END 2019-08-14 16:45 | disposition home or self-care (01) ==
LOC: ED 16:29
PROVIDERS: Emergency Provider Emergency Medicine; PCP Internal Medicine
DX: J18.9 Pneumonia, unspecified organism (principal); J45.901 Unspecified asthma with (acute) exacerbation; Z88.8 Allergy status to other drugs, medicaments and biological substances
CPT/HCPCS: 71045; 96372; 99283

== ENCOUNTER → 2019-08-15 14:52 | Outpatient (CLI) | payer MEDICARE, MEDICAID, SELFPAY ==
[2019-08-15 08:51] VITALS: BMI 23.0
== END ==
PROVIDERS: PCP Internal Medicine; Referring Provider Nurse Practitioner Acute Care; Visit Provider Nurse Practitioner Acute Care
DX: Z46.89 Encounter for fitting and adjustment of other specified devices (principal)
CPT/HCPCS: 94667

== ENCOUNTER → 2019-10-09 13:32 | Outpatient (CLI) | payer MEDICARE, SELFPAY ==
[2019-09-30 08:18] VITALS: BMI 23.6
--- NOTE | 2019-10-09 13:36 | RAD_ITS ---
STUDY: X-RAY CHEST REASON FOR EXAM: Male, 58 years old. Fever and cough TECHNIQUE: PA and lateral views of the chest. COMPARISON: 08/14/2019 FINDINGS: Left-sided MANAGER PLAY shunt tube again noted Lungs are expanded, development of patchy opacifications in the mid and lower right lung field since the previous study without effusion. Left lung remains free of a superimposed pulmonary process. There is no demonstrated pleural abnormality. Normal size heart. Normal mediastinum and kai. Normal visualized pulmonary arteries. Normal visualized aortic arch and descending thoracic aorta. There are diffuse degenerative changes of the visualized thoracic spine. There is degenerative osteoarthritis of the bilateral shoulders. There is no demonstrated abnormality of the visualized soft tissue structures of the upper abdomen. RAD/Chest PA and Lateral IMPRESSION: Development of subtle opacifications in the mid and lower right lung field since the previous study, follow-up recommended to assure resolution Electronically Signed: Enrike Milan MD at 14:12 EDT , Service support ,
== END ==
PROVIDERS: PCP Internal Medicine; Referring Provider Otolaryngology; Visit Provider Otolaryngology
DX: R06.00 Dyspnea, unspecified (principal)
CPT/HCPCS: 71046

== ENCOUNTER → 2019-10-13 10:32 | Outpatient (CLI) | payer MEDICARE, SELFPAY ==
[2019-10-09 18:18] VITALS: BMI 23.6
== END ==
PROVIDERS: PCP Internal Medicine; Visit Provider Nurse Practitioner Acute Care
DX: R05 Cough (principal)
CPT/HCPCS: 87635; G2023; U0003

== ENCOUNTER 2019-10-26 14:16 | Emergency (ER) | payer MEDICARE, MEDICAID, SELFPAY ==
[2019-10-26 13:26] VITALS: BMI 23.6
[2019-10-26 14:18] VITALS: BP 120/88; PULSE 88; RESP 24; TEMP 37.3; O2SAT 98; BMI 22.9
[2019-10-26 14:21] VITALS: BP 120/88; PULSE 88; RESP 24; TEMP 37.3; O2SAT 98
--- NOTE | 2019-10-26 14:38 | RAD_ITS ---
STUDY: X-RAY CHEST REASON FOR EXAM: Male, 59 years old. VERY SOB X 2 DAYS, FEVER, PNEUMONIA TECHNIQUE: PA and lateral views of the chest. COMPARISON: 10/09/2019 FINDINGS: EKG leads project over the chest. RESEARCH ATTORNEY shunt catheter noted. Persistent, more conspicuous localized infiltrate involving the right middle lobe and lower portion of the anterior right upper lobe seen both on frontal and lateral views. No sizable effusion. Normal size heart. Normal mediastinum and kai. Normal visualized pulmonary arteries. There is atherosclerotic calcification of the aortic arch with tortuosity. Diffuse osteopenia with exaggerated thoracic kyphosis. Prior vertebral augmentation. Stable compression deformities. There is an old fracture of the left humeral neck, stable. There is no demonstrated abnormality of the visualized soft tissue structures of the upper abdomen. RAD/Chest PA and Lateral IMPRESSION: 1. Worsening right middle and upper lobe (anterior/lower portion) airspace disease compatible with history provided of pneumonia. Continued follow-up to ensure complete resolution recommended. Electronically Signed: Taiwo Hernandez MD ([place]) at 15:27 EDT , Service support ,
[2019-10-26 14:48] LABS: Absolute Lymphocyte Count 1.02 X10^3/uL (0.83-4.51); Absolute Neutrophil Count 10.1 X10^3/uL (2.0-7.7); Basophil# 0.04 X10^3/uL; Basophil% 0.3 % (0-1); Eosinophil# 0.11 X10^3/uL; Eosinophils% 0.9 % (0-5); Hematocrit 35.9 % (40-54); Hemoglobin 10.6 g/dL (13.0-16.5); Lymphocyte # 1.02 X10^3/ul (4.0); Lymphocyte % 8.3 % (19-41); Mean Corp Hgb Conc 29.5 g/dL (32-36); Mean Corpuscular Volume 74.5 fL (80-94); Mean Platelet Vol. 8.9 fl (6.2-12.0); Monocyte# 0.89 X10^3/uL; Monocyte% 7.3 % (0-10); NRBC Flagged by Analyzer 0 % (0-5); Neutrophil # 10.13 X10^3/uL (2.7-7.7); Neutrophil % 82.9 % (47-70); Platelet Count 263 K/mm3 (150-450); RBC Distribution Width CV 18.5 % (11.6-14.6); Red Blood Count 4.82 M/mm3 (4.6-6.2); White Blood Count 12.2 K/mm3 (4.4-11.0)
[2019-10-26] MEDS: 0.9% Normal Saline 1,000 ML 150 ML IV (14:57)
[2019-10-26 15:03] VITALS: O2SAT 94
[2019-10-26 15:03] LABS: Anion Gap 6 (5-15); BUN 22 mg/dL (7-18); BUN/Creat Ratio 39.5 RATIO (10-20); Calcium,Total 8.4 mg/dL (8.5-10.1); Chloride 110 mmol/L (98-107); Creatinine, Serum 0.56 mg/dL (0.70-1.30); EST Glomerular Filtration Rate 159 mL/min (>60); Est Glom Filt Rate - Afr Amer 193 mL/min (>60); Estimated Creatinine Clearance 117.46 ml/min; Glucose 102 mg/dL (74-106); Potassium 3.7 mmol/L (3.5-5.1); Sodium Level 141 mmol/L (136-145)
[2019-10-26 15:10] LABS: Lactic Acid 0.7 mmol/L (0.4-1.9)
[2019-10-26 15:21] VITALS: BP 139/87; PULSE 87; RESP 22; TEMP 37.4; O2SAT 97
--- NOTE | 2019-10-26 15:26 | ED.VISSUMM ---
- ER Visit Summary Date of Service: 10/26/19 Chief Complaint: Cough History of Present Illness: The patient is a [address] Pederson and Dr. Irwin. He reports that he had pneumonia 2 weeks ago and was treated with Augmentin. He improved. However, he has a cough that began again 2 days ago. It is not productive. He had a fever to 100.3 degrees. He reports that he has moderate shortness of breath when he is bending over or coughing. Mild currently. He reports is relieved by albuterol and standing up. Patient denies sick contacts. He reports that he has been careful about wearing a mask. He has had 2 COVID tests that are negative. The last of these was 2 weeks ago. Physical Examination: Vitals: Stable. Afebrile. General: Well-nourished and well-developed. Head: Normocephalic atraumatic. Neck: Supple, no lymphadenopathy. No JVD. Nontender. Cardiovascular: Regular rate and rhythm. No murmurs. Respiratory: No respiratory distress. Clear to auscultation bilaterally. Abdominal: Soft, nontender, nondistended, normal bowel sounds. No guarding, rebound, or peritoneal signs. Back: Nontender. Kyphotic. Extremities: Nontender, no edema. Skin: Normal color, no rash. Neurologic: Alert and oriented ?3. Cranial nerves II through XII are intact. Normal strength and sensation. Psych: Normal affect. Test Results: CBC shows a white count of 12.2 with an H&H 10.6 and 35.9, stable neutrophils 83, lymphocytes of 8. Chem-7 shows a chloride 110, BUN 22, creatinine 0.56, calcium 8.4. Lactic acid is 0.7. COVID-19 is negative. Clinical Impression(s) from Imaging Studies Chest X-Ray 10/26/19 14:38 IMPRESSION: 1. Worsening right middle and upper lobe (anterior/lower portion) airspace disease compatible with history provided of pneumonia. Continued follow-up to ensure complete resolution recommended. Electronically Signed: Taiwo Hernandez MD ([place]) at 15:27 EDT , Service support , Emergency Department Course and Treatment: I discussed treatment options with the patient. His pneumonia severity index is 60. He would like to go home. He was recently treated with Augmentin. We discussed the possibility that this does not cover an atypical pneumonia and he was given Omnicef and Zithromax p.o. Treatment Plan: Patient will be discharged with Zithromax and Cefpodoxime. Instructed to follow-up his primary care physician in 3 to 5 days for another exam. Return to the emergency department for any worsening symptoms. Disposition: To home in improved and stable condition. Impression: 1. Pneumonia. This note was generated with [employer] dictation software. It may contain incorrect words, spelling, and punctuation that were not noted in review of the chart prior to signing ED Disposition - Plan for ED Patient: Disposition: Home or Assisted Living Instructions: ED PNEUMONITIS Adult Prescriptions: Cefpodoxime Proxetil 200 mg PO BID #14 tab Prescription Printed Azithromycin [Zithromax Z-Lucio] 250 mg PO UD #1 box Prescription Printed Referrals: Yany Pederson MD [Primary Care Provider] - 3-5 Days
[2019-10-26 16:00] VITALS: BP 133/91; PULSE 91; RESP 16; TEMP 37.5; O2SAT 96
[2019-10-26 16:15] LABS: Probe Check PASS; Specimen Processing Control PASS
[2019-10-26] MEDS: Azithromycin 250 MG Tablet 500 MG PO (16:44)
[2019-10-26] MEDS: Cefdinir 300 MG Capsule PO (16:44)
[2019-10-26 16:47] VITALS: BP 135/82; PULSE 87; RESP 18; O2SAT 97
== END 2019-10-26 16:48 | disposition home or self-care (01) ==
LOC: ED 15:36
PROVIDERS: Emergency Provider Emergency Medicine; PCP Internal Medicine
DX: J18.9 Pneumonia, unspecified organism (principal)
CPT/HCPCS: 71046; 80048; 83605; 85025; 87040; 87633; 87635; 96360; 96361; 99285; G2023; J7030; A4216; U0003

== ENCOUNTER 2019-10-27 14:28 | Inpatient (IN) | payer MEDICARE, MEDICAID, SELFPAY ==
[2019-10-27 13:05] VITALS: BMI 22.9
[2019-10-27 14:45] VITALS: BP 119/86; PULSE 96; RESP 18; TEMP 37.7; O2SAT 95; BMI 22.1
--- NOTE | 2019-10-27 15:57 | PCM.HP.STD ---
<David Winter - Last Filed: 10/27/19 16:59> Problem List (1) Sepsis Status: Acute (2) Asthma Status: Chronic (3) KULWANT (obstructive sleep apnea) Status: Chronic (4) Allergic rhinitis Status: Chronic (5) Kyphoscoliosis Status: Chronic (6) History of colonoscopy Status: Resolved (7) History of colectomy Status: Resolved (8) Colon cancer Status: Resolved (9) GERD (gastroesophageal reflux disease) Status: Chronic (10) Chronic iron deficiency anemia Status: Chronic (11) Endocarditis Status: Resolved (12) Anxiety and depression Status: Chronic (13) History of kyphoplasty Status: Resolved (14) Congenital hydrocephalus Status: Chronic (15) Hearing loss Status: Chronic (16) Asthma Status: Chronic (17) KULWANT (obstructive sleep apnea) Status: Chronic (18) DVT (deep venous thrombosis) Status: Chronic Comment: RUE (19) Hyperlipidemia Status: Chronic (20) Essential (primary) hypertension Status: Chronic (21) Pneumonia Status: Acute History of Present Illness Date of Admission: 10/27/19 Chief Complaint: SOB The patient is a 59 year old M with extensive pmhx notably asthma and KULWANT for which he follows Dr. Irwin, who has had multiple bouts of pna in the past 3 months. She was on augmentin two weeks ago for pna. 4 days ago he developed worsening SOB and fatigue. [facility] and was sent to the ER from there. In the ER he appeared to have sepsis and CXR showed worsening pna however he refused admission. He states he needed to go home and take care of his wally arias. 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 He was direct admitted from the pulm office. There is concern for aspiration pna as he has had previous esophageal dilitations. Currently he c/o SOB, fevers and chills, denies cough, denies CP. His SOB is worse with exertion. His O2 sats are stable on room air. [] Past Medical History Past Medical History (Chronic Problems): Chronic Problems (Last Reviewed 10/27/19 @ 13:04 by Stefanie Salas) Chronic seasonal allergic rhinitis (Chronic) Asthma (Chronic) KULWANT (obstructive sleep apnea) (Chronic) Allergic rhinitis (Chronic) Kyphoscoliosis (Chronic) GERD (gastroesophageal reflux disease) (Chronic) Chronic iron deficiency anemia (Chronic) Anxiety and depression (Chronic) Congenital hydrocephalus (Chronic) Hearing loss (Chronic) Osteoporosis (Chronic) History of hemorrhoids (Chronic) Cancer of the skin, basal cell (Chronic) Osteoporosis (Chronic) Hx of assisted use of blood thinners (Chronic) Asthma (Chronic) KULWANT (obstructive sleep apnea) (Chronic) DVT (deep venous thrombosis) (Chronic) RUE Hyperlipidemia (Chronic) Shortness of breath (Chronic) Essential (primary) hypertension (Chronic) Medical History: Medical History (Last Reviewed 10/27/19 @ 13:04 by Stefanie Salas) Asthma (Chronic) J45.909 KULWANT (obstructive sleep apnea) (Chronic) G47.33 Allergic rhinitis (Chronic) J30.9 Kyphoscoliosis (Chronic) M41.9 Colon cancer (Resolved) C18.9 GERD (gastroesophageal reflux disease) (Chronic) K21.9 Chronic iron deficiency anemia (Chronic) D50.9 Endocarditis (Resolved) I38 Anxiety and depression (Chronic) F41.9, F32.9 Congenital hydrocephalus (Chronic) Q03.9 Hearing loss (Chronic) H91.90 Osteoporosis (Chronic) M81.0 Arthritis (Acute) M19.90 History of hemorrhoids (Chronic) Z87.19 Severe headache (Acute) R51 Cancer of the skin, basal cell (Chronic) C44.91 DVT (deep venous thrombosis) (Chronic) I82.409 RUE Hyperlipidemia (Chronic) E78.5 Essential (primary) hypertension (Chronic) I10 Knee pain (Resolved) M25.569 Open wound of left forearm (Resolved) S51.802A Rotator cuff disorder (Resolved) M67.919 history of broken shoulder (Resolved) Allergies codeine Allergy (Verified 10/27/19 13:04) Hives gluten Allergy (Verified 10/27/19 13:04) Diarrhea Penicillins [PCN] Adverse Reaction (Mild, Verified 10/27/19 13:04) Nausea aspirin [ASA] Adverse Reaction (Verified 10/27/19 13:04) Nausea bee venom protein (honey bee) Adverse Reaction (Verified 10/27/19 13:04) Shortness of breath prednisone Adverse Reaction (Verified 10/27/19 13:04) Unknown CODEINE Adverse Reaction (Intermediate, Uncoded 10/27/19 13:04) nausea, eyes turn white Home Medications: Ambulatory Orders Medication Instructions Recorded Albuterol IH (ProAir) [Proair Hfa 1 puff INHALATION Q4H PRN PRN #1 08/12/19 (SP)Vent Pts] inhaler Atorvastatin Calcium [Lipitor] 20 mg PO DAILY 08/12/19 Baclofen [Lioresal] 10 mg PO BID PRN 08/12/19 Cetirizine HCl [All Day Allergy] 10 mg PO DAILY 08/12/19 Citalopram [Celexa] 40 mg PO DAILY 08/12/19 Dexlansoprazole [Dexilant] 60 mg PO DAILY 08/12/19 Isosorbide Mononitrate [Isosorbide 30 mg PO DAILY 08/12/19 Mononitrate ER] Quetiapine Fumarate [Seroquel Xr] 150 mg PO QHS 08/12/19 Quetiapine Fumarate [Seroquel] 25 mg PO BID 08/12/19 Rivaroxaban [Xarelto] 20 mg PO DAILY 08/12/19 Sucralfate 1 gm PO 4X/DAY 08/12/19 PEP device See Rx Instructions .ROUTE 08/15/19 .MEDSUPPLY #1 ea guaifenesin 200 mg/5 mL oral liquid 400 mg PO Q4H PRN #473 ml 08/15/19 promethazine 12.5 mg tablet 12.5 mg PO TID PRN #30 tab 10/09/19 Azithromycin [Zithromax Z-Lucio] 250 mg PO DAILY 10/27/19 Budesonide/Formoterol Fumarate 2 puff INHALATION BID 10/27/19 [Budesonide-Formoterol 160-4.5] Cefdinir [Omnicef [equiv]] 300 mg PO Q12H 10/27/19 Montelukast Sodium 10 mg PO QHS 10/27/19 Surgical History: Surgical History (Last Reviewed 10/27/19 @ 13:04 by Stefanie Salas) History of colonoscopy (Resolved) Onset Date: ~2016 Z98.890 History of colectomy (Resolved) Z90.49 History of kyphoplasty (Resolved) Z98.890 H/O left inguinal hernia repair (Resolved) Z98.890, Z87.19 History of carpal tunnel release (Resolved) Z98.890 History of shoulder surgery (Resolved) Z98.890 History of creation of ventriculoperitoneal shunt (Resolved) Z92.89 History of left heart catheterization (Resolved) Onset Date: 09/11/17 Z98.890 Surgical History: colectomy, - Psychiatric History: Anxiety, Depression Lives: Alone Smoking Status: Never smoker Tobacco Use: Non-smoker Alcohol: None Drugs: None - *Family History Maternal Family History: Family History (Last Reviewed 10/27/19 @ 16:16 by ROCHELLE Sagastume) Daughter Cancer Sister Cancer Father Hypertension History Items: No pertinent history - alive age 88 Paternal Family History: Family History (Last Reviewed 10/27/19 @ 16:16 by ROCHELLE Sagastume) Daughter Cancer Sister Cancer Father Hypertension History Items: Cancer - age 74, bladder Review of Systems Constitutional: Reports: Chills, Fever, Fatigue. Denies: Weight Change HEENT: Denies: Head Aches, Sinus Congestion, Sinus Drainage Cardiovascular: Denies: Chest Pain, Chest Pressure, Chest Tightness, Edema, Heaviness, Light Headedness, Palpitations, Syncope Respiratory: Reports: Shortness of Breath, Shortness of breath at rest, Shortness of breath upon exertion. Denies: Cough, Hemoptysis, Pleuritic Pain, Sputum production, Wheezing Gastrointestinal: Denies: Abdominal Pain, Nausea, Vomiting Genitourinary: Denies: Dysuria Musculoskeletal: Denies: Joint Pain, Joint Tenderness Skin: Denies: Lesions, Rash, Wounds Neurological: Denies: Numbness, Tingling, Focal weakness Psychiatric: Denies: Anxiety, Depression, Homicidal Ideations, Suicidal Ideations Hematologic/ Lymphatic: Denies: Easy Bruising, Easy Bleeding VTE Information - Inpt Only VTE Present on Admission: No VTE Mechan Device Prophylaxis: None VTE Pharm Prophylaxis ordered?: Yes Patient Problems: Active and Suspected Problems (Last Reviewed 10/27/19 @ 13:04 by Stefanie Salas) Sepsis (Acute) - Physical Exam Vitals/I&O's: Vital Signs Temp Pulse Resp BP Pulse Ox 100 F H 96 18 119/86 H 95 10/27/19 14:45 10/27/19 14:45 10/27/19 14:45 10/27/19 14:45 10/27/19 14:45 Oxygen Delivery Method Room Air Weight: 128 lb 15.527 oz Body Mass Index (BMI) 22.1 Finger Stick Blood Glucose 0 General: Alert, Oriented x3, Cooperative HEENT: Atraumatic, PERRLA, EOMI, Normocephalic Neck: Supple, No JVD, Negative Carotid Bruits Lungs: Diminished, Rales - scant rales Cardiovascular: Regular rate, No murmurs Abdomen: Bowel Sounds Present, Soft, Non Tender Extremities: No edema, Capillary Refill Less than 3 Seconds Skin: No rashes, No breakdown Musculoskeletal: No Tenderness to Palpation of Joints or Extremities, - - severe kyphosis Neurological: Cranial nerves II-XII grossly intact Psych/Mental Status: Normal Affect, Appropriate, Alert and oriented to time, place, person, mood and affect Current Medications Sodium Chloride () 10 - 40 ml IV UD PRN PRN Reason: SALINE FLUSH Assessment/Plan All Active Problems (Last Reviewed 10/27/19 @ 13:04 by Stefanie Salas) Sepsis (Acute) Pneumonia (Acute) History of colonoscopy (Resolved ~2016) History of colectomy (Resolved) Colon cancer (Resolved) Endocarditis (Resolved) History of kyphoplasty (Resolved) H/O left inguinal hernia repair (Resolved) History of carpal tunnel release (Resolved) History of shoulder surgery (Resolved) History of creation of ventriculoperitoneal shunt (Resolved) History of left heart catheterization (Resolved 09/11/17) Arthritis (Acute) Severe headache (Acute) Bilateral hearing loss due to cerumen impaction (Acute) 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 (Acute) Nonhealing surgical wound (Acute) Skin cancer, basal cell (Acute) Cellulitis (Acute) 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 Acute sepsis 2/2 Recurrent pna - pulmonary concerned for aspiration given his esophageal dilatation. also KULWANT and GERD so likely silent aspiration, does have bouts of waking up coughing at night. Start zosyn. Per pulmonary note concern for drug resistant pseudomonas, diffuse alveolar hemorrhage. Hold xarelto. pt No cough so no sputum to culture. Check urine antigens, blood culture. CXR with Right sided infiltrates. C/s pulm. + fever, pulse >90, leukocytosis, negative lactate. -Failed augmentin/azithro/omnicef. 2. Asthma - no exacerbation - continue aerosols, incentive spirometer. 3. Congenital hydrocephalus - has [employer] shunt. 4. GERD - PPI/carafate 5. KULWANT - home CPAP 6. Hx colon cancer in remission 7. Hx DVT - on xarelto 8. Anx/depression - seroquel, celexa 9. Anemia with iron deficiency - check iron/tibc. DVT ppx: SCDs This patient was seen by David Winter PA-C under the supervision of Doctor Miguel. <Neena Rivera - Last Filed: 10/27/19 20:38> History of Present Illness The patient is a 59 year old M [] Past Medical History Medical History: Medical History (Last Reviewed 10/27/19 @ 13:04 by Stefanie Salas) Asthma (Chronic) J45.909 KULWANT (obstructive sleep apnea) (Chronic) G47.33 Allergic rhinitis (Chronic) J30.9 Kyphoscoliosis (Chronic) M41.9 Colon cancer (Resolved) C18.9 GERD (gastroesophageal reflux disease) (Chronic) K21.9 Chronic iron deficiency anemia (Chronic) D50.9 Endocarditis (Resolved) I38 Anxiety and depression (Chronic) F41.9, F32.9 Congenital hydrocephalus (Chronic) Q03.9 Hearing loss (Chronic) H91.90 Osteoporosis (Chronic) M81.0 Arthritis (Acute) M19.90 History of hemorrhoids (Chronic) Z87.19 Severe headache (Acute) R51 Cancer of the skin, basal cell (Chronic) C44.91 DVT (deep venous thrombosis) (Chronic) I82.409 RUE Hyperlipidemia (Chronic) E78.5 Essential (primary) hypertension (Chronic) I10 Knee pain (Resolved) M25.569 Open wound of left forearm (Resolved) S51.802A Rotator cuff disorder (Resolved) M67.919 history of broken shoulder (Resolved) Allergies codeine Allergy (Verified 10/27/19 13:04) Hives gluten Allergy (Verified 10/27/19 13:04) Diarrhea Penicillins [PCN] Adverse Reaction (Mild, Verified 10/27/19 13:04) Nausea aspirin [ASA] Adverse Reaction (Verified 10/27/19 13:04) Nausea bee venom protein (honey bee) Adverse Reaction (Verified 10/27/19 13:04) Shortness of breath prednisone Adverse Reaction (Verified 10/27/19 13:04) Unknown CODEINE Adverse Reaction (Intermediate, Uncoded 10/27/19 13:04) nausea, eyes turn white Surgical History: Surgical History (Last Reviewed 10/27/19 @ 13:04 by Stefanie Salas) History of colonoscopy (Resolved) Onset Date: ~2016 Z98.890 History of colectomy (Resolved) Z90.49 History of kyphoplasty (Resolved) Z98.890 H/O left inguinal hernia repair (Resolved) Z98.890, Z87.19 History of carpal tunnel release (Resolved) Z98.890 History of shoulder surgery (Resolved) Z98.890 History of creation of ventriculoperitoneal shunt (Resolved) Z92.89 History of left heart catheterization (Resolved) Onset Date: 09/11/17 Z98.890 - *Family History Maternal Family History: Family History (Last Reviewed 10/27/19 @ 16:16 by ROCHELLE Sagastume) Daughter Cancer Sister Cancer Father Hypertension Paternal Family History: Family History (Last Reviewed 10/27/19 @ 16:16 by ROCHELLE Sagastume) Daughter Cancer Sister Cancer Father Hypertension - Physical Exam Vitals/I&O's: Vital Signs Temp Pulse Resp BP Pulse Ox 100 F H 93 18 119/86 H 95 10/27/19 14:45 10/27/19 16:00 10/27/19 14:45 10/27/19 14:45 10/27/19 14:45 Oxygen Delivery Method Room Air Weight: 128 lb 15.527 oz Body Mass Index (BMI) 22.1 Finger Stick Blood Glucose 0 Current Medications Acetaminophen (Tylenol) 650 mg PO Q6H PRN PRN PRN Reason: Pain 1-10 or Fever Albuterol Sulfate (Ventolin Aerosols) 2.5 mg INHALATION Q6H PRN PRN PRN Reason: SOB &/OR WHEEZING Albuterol/Ipratropium (Duoneb) 3 ml INHALATION Q6HWA.RT [facility] Atorvastatin Calcium (Lipitor) 20 mg PO QHS [facility] Baclofen (Lioresal) 10 mg PO BID PRN PRN PRN Reason: HEADACHE Budesonide (Pulmicort Aerosol) 0.5 mg INHALATION Q12H.RT [facility] Citalopram Hydrobromide (Celexa) 40 mg PO QHS [facility] Guaifenesin (Mucinex) 1,200 mg PO BID [facility] Sodium Chloride () 1,000 mls @ 100 mls/hr IV .Q10H [facility] Piperacillin Sod/Tazobactam (Sod 3.375 gm/ Sodium Chloride) 50 mls @ 12.5 mls/hr IV Q8 [facility] Isosorbide Mononitrate (Imdur) 30 mg PO QHS [facility] Montelukast Sodium (Singulair) 10 mg PO QHS [facility] Non-Formulary Medication (Budesonide/Formoterol Fumarate [Budesonide-Formoterol 160-4.5]) 2 puff inhalation BID [facility] Non-Formulary Medication (Cetirizine Hcl [All Day Allergy]) 10 mg PO DAILY [facility] Non-Formulary Medication (Dexlansoprazole [Dexilant]) 60 mg PO DAILY [facility] Non-Formulary Medication (Promethazine Hcl) 12.5 mg PO TID PRN PRN Reason: nausea and vomiting Ondansetron HCl (Zofran) 4 mg PO Q6H PRN PRN PRN Reason: NAUSEA Quetiapine Fumarate (Seroquel) 25 mg PO BID [facility] Quetiapine Fumarate (Seroquel Xr) 150 mg PO QHS [facility] Sodium Chloride () 10 - 40 ml IV UD PRN PRN Reason: SALINE FLUSH Sucralfate (Carafate) 1 gm PO 4X/DAY [facility] Assessment/Plan Patient seen by David Winter PA-C under my supervision Patient is a 59-year-old male with a past medical history as a above was admitted directly from his title insurance examiner office on account of worsening shortness of breath. Patient states he has had 3 episodes of pneumonia over the past couple of months and has remained short of breath. His shortness of breath has gradually worsened and today he felt so short of breath he could even take a couple of steps when he was going to his title insurance examiner office. He was placed on Augmentin about 2 weeks ago for pneumonia and states [facility] and once into the ED. In the ED he was deemed to have sepsis and chest x-ray showed worsening pneumonia but he refused admission. He went to his title insurance examiner office today with the same symptoms and was directly admitted. He complained of fever and states his temperature was usually 100 Fahrenheit. He denied any chills or chest pain and denied any productive cough. He denied any nausea or vomiting. Review of systems otherwise negative. O/e Vital Signs Temp Pulse Resp BP Pulse Ox 100 F H 93 18 119/86 H 95 10/27/19 14:45 10/27/19 16:00 10/27/19 14:45 10/27/19 14:45 10/27/19 14:45 General: Alert, Oriented x3, Cooperative HEENT: Atraumatic, PERRLA, EOMI, Normocephalic Neck: Supple, No JVD, Negative Carotid Bruits Lungs: Diminished, breath sounds bibasally, no wheezes or crackles. on room air Cardiovascular: Regular rate, No murmurs Abdomen: Bowel Sounds Present, Soft, Non Tender Extremities: No edema, Capillary Refill Less than 3 Seconds Skin: No rashes, No breakdown Musculoskeletal: No Tenderness to Palpation of Joints or Extremities, - - severe kyphosis Neurological: Cranial nerves II-XII grossly intact Psych/Mental Status: Normal Affect, Appropriate, Alert and oriented to time, place, person, mood and affect Per discussion with his title insurance examiner, there have been concerns about recurrent aspiration. Vitals are significant for temperature 100 Fahrenheit respiratory rate is 18 and pulse rate is 93. Patient therefore does not meet criteria for sepsis. He has been admitted to be managed for recurrent pneumonia likely due to aspiration pneumonia. He has had a history of esophageal dilatation and also had KULWANT and GERD and so this is concerning for silent aspiration. Will start patient on IV Zosyn. Xarelto on hold on account of concerns for diffuse alveolar hemorrhage. Pulmonology notes. He does have a history of DVT in the right upper extremity that is why he was on Xarelto but this will be held for now. Urine for strep and Legionella antigens checked and blood cultures ordered. Chest x-ray done on 10/26/2019 showed worsening right middle and upper lobe airspace disease compatible with pneumonia. Will consult pulmonology. SCDs for DVT prophylaxis: Titrate oxygen to maintain saturation above 90%. CBC and BMP ordered and results pending. Code status: Full code Patient counseled extensively about different types of CODE STATUS including full code, DNR CCA and DNR CCA. Patient elects to be full code. Total [id number] time 16 minutes. Rest as per ROCHELLE Sagastume having C's notes which I reviewed and endorsed. Inpatient E&M: 77192 Init Hosp L3 Procedures: 60272 Advncd Care Plan 30 Min
[2019-10-27 16:00] VITALS: PULSE 93
[2019-10-27 16:30] VITALS: BMI 22.1
[2019-10-27] MEDS: 0.9% Normal Saline 1,000 ML 100 ML IV (17:28)
[2019-10-27] MEDS: 0.9% Saline Lock 10 ML Syringe IV (17:29)
[2019-10-27 18:01] LABS: Absolute Lymphocyte Count 0.91 X10^3/uL (0.83-4.51); Absolute Neutrophil Count 8.1 X10^3/uL (2.0-7.7); Basophil# 0.03 X10^3/uL; Basophil% 0.3 % (0-1); Hematocrit 33.8 % (40-54); Hemoglobin 10.1 g/dL (13.0-16.5); Lymphocyte # 0.91 X10^3/ul (4.0); Lymphocyte % 9.2 % (19-41); Mean Corp Hgb Conc 29.9 g/dL (32-36); Mean Corpuscular Volume 76.8 fL (80-94); Mean Platelet Vol. 9.5 fl (6.2-12.0); Monocyte# 0.69 X10^3/uL; NRBC Flagged by Analyzer 0 % (0-5); Neutrophil # 8.13 X10^3/uL (2.7-7.7); Neutrophil % 82.2 % (47-70); Platelet Count 242 K/mm3 (150-450); RBC Distribution Width CV 19.2 % (11.6-14.6); RBC Distribution Width SD 50.4 fl (35.1-43.9); White Blood Count 9.9 K/mm3 (4.4-11.0)
[2019-10-27 19:00] VITALS: PULSE 91
[2019-10-27 19:09] VITALS: PULSE 93; RESP 18; O2SAT 99
[2019-10-27] MEDS: Budesonide Respules 0.5 MG/2 ML AMPUL.NEB. INHALATION (19:09)
[2019-10-27] MEDS: Ipratropium/Albuterol Sulfate 3 ML AMPUL.NEB INHALATION (19:09)
[2019-10-27 20:44] LABS: Anion Gap 6 (5-15); BUN 17 mg/dL (7-18); BUN/Creat Ratio 28.9 RATIO (10-20); Calcium,Total 8.4 mg/dL (8.5-10.1); Chloride 110 mmol/L (98-107); Creatinine, Serum 0.59 mg/dL (0.70-1.30); EST Glomerular Filtration Rate 150 mL/min (>60); Est Glom Filt Rate - Afr Amer 181 mL/min (>60); Estimated Creatinine Clearance 110.17 ml/min; Glucose 83 mg/dL (74-106); Iron 20 ug/dL (65-175); Iron Binding Capacity,Total 380 ug/dL (250-450); PERCENT IRON SATURATION 5.3 % (15.0-55.0); Potassium 3.6 mmol/L (3.5-5.1); Sodium Level 142 mmol/L (136-145)
[2019-10-27 20:45] VITALS: BP 109/71; PULSE 91; RESP 20; TEMP 36.9; O2SAT 93
[2019-10-27] MEDS: QUEtiapine 25 MG Tablet PO (20:52)
[2019-10-27] MEDS: Sucralfate 1 GM Tablet PO (20:52)
[2019-10-27] MEDS: guaiFENesin 1,200 MG Tablet 1200 MG PO (20:53)
[2019-10-27] MEDS: Citalopram 40 MG TABLET PO (20:53)
[2019-10-27] MEDS: Atorvastatin Calcium 20 MG Tablet PO (20:53)
[2019-10-27] MEDS: Montelukast 10 MG Tablet PO (20:53)
[2019-10-27] MEDS: QUEtiapine 25 MG Tablet 75 MG PO (21:23)
[2019-10-28] VITALS (13 sets, daily range): BP systolic 100–141; BP diastolic 56–89; PULSE 64–110; RESP 18–105; TEMP 37.1–39.4; O2SAT 95–98
[2019-10-28] MEDS: 0.9% Normal Saline 1,000 ML 100 ML IV ×3 (02:42→23:40)
[2019-10-28 05:34] LABS: Hematocrit 34.1 % (40-54); Mean Corp Hgb Conc 29.3 g/dL (32-36); Mean Corpuscular Hgb 22.6 pg (27.0-32.0); Mean Platelet Vol. 9.4 fl (6.2-12.0); Platelet Count 210 K/mm3 (150-450); RBC Distribution Width CV 19.2 % (11.6-14.6); RBC Distribution Width SD 50.4 fl (35.1-43.9); Red Blood Count 4.43 M/mm3 (4.6-6.2); White Blood Count 8.9 K/mm3 (4.4-11.0)
[2019-10-28 06:04] LABS: Anion Gap 5 (5-15); BUN 14 mg/dL (7-18); Calcium,Total 7.7 mg/dL (8.5-10.1); Chloride 111 mmol/L (98-107); Creatinine, Serum 0.56 mg/dL (0.70-1.30); EST Glomerular Filtration Rate 158 mL/min (>60); Est Glom Filt Rate - Afr Amer 191 mL/min (>60); Estimated Creatinine Clearance 116.07 ml/min; Glucose 82 mg/dL (74-106); Potassium 3.7 mmol/L (3.5-5.1); Sodium Level 141 mmol/L (136-145)
[2019-10-28] MEDS: Sucralfate 1 GM Tablet PO ×3 (06:05→21:11)
--- NOTE | 2019-10-28 06:16 | CT_ITS ---
STUDY: CT CHEST WITH CONTRAST REASON FOR EXAM: Male, 59 years old. RECURRENT PNEUMONIA, EVAL FOR ESOPHAGEAL ABNORMALITIES/HIATAL HERNIA,SEPSIS, COLON CA-COLECTOMY, HTN, HYDROCEPHALUS, shunt in brain, KYPHOPLASTY RADIATION DOSAGE (If Supplied By Facility): CTDIvol = ( 12.07 ) mGy, DLP = ( 350.63 ) mGycm TECHNIQUE: Transaxial imaging was performed following intravenous administration of IV 100mL Isovue-370. Multiplanar coronal and sagittal images were reformatted. Exam is somewhat limited by respiratory motion artifacts. Individualized dose optimization techniques were used for this CT. COMPARISON: CTA chest 07/29/2017. FINDINGS: As seen on series 2, axial images 49-53, there is a 2.1 x 1.9 cm nodular density in the right lower lobe. Lesion is not optimally delineated due to respiratory motion blur. As seen on axial images 46-47, there is an 8 mm noncalcified right lower lobe lung nodule. There are areas of peribronchial infiltration in the right middle lobe There are areas of atelectasis in the lung bases bilaterally. There are small bilateral pleural effusions. Normal heart and pericardium. Normal mediastinum. Normal hilar regions. Normal enhanced pulmonary arteries. Normal aorta arch and descending thoracic aorta. There is exaggerated thoracic kyphosis. There are multiple old thoracic vertebral compression fractures and there is a cyst present in the T8 vertebral body, similar to previous exam. There are multiple old rib fractures bilaterally. There is a moderately large hiatal hernia. CT/Chest WITH Contrast IMPRESSION: Limited exam due to respiratory motion artifacts. 2.1 cm an 8 mm right lower lobe lung nodules, possibly representing bronchogenic carcinoma or a static disease. Consider CT PET scan for further evaluation. Peribronchial infiltrates in the right middle lobe may represent atypical infection or early typical pneumonia. Small bilateral pleural effusions. Atelectasis in the lung bases. Large hiatal hernia. Electronically Signed: Jack Carrero MD at 7:09 EDT , Service support ,
[2019-10-28] MEDS: 0.9% Saline Lock 10 ML Syringe IV ×4 (06:24→21:14)
--- NOTE | 2019-10-28 07:13 | CON.PCM_ITS ---
Reason for Consult Date of Consultation: 10/28/19 Reason for Consultation: Recurrent pneumonia History of Present Illness: The patient is a 59-year-old male, with a history as outlined below, who presented as a direct admission to the hospital from the outpatient pulmonary medicine clinic with increased work of breathing and concern for recurrent aspiration pneumonia. The patient had just been evaluated in the emergency department on October 25 with complaints of a cough of 2 days duration. He was also noted at that time to be complaining of a subjective fever. The patient had just completed a treatment course of Augmentin over concerns for aspiration pneumonia. Chest x-ray completed on October 25 did reveal worsening right middle lobe and upper lobe airspace disease. The patient is currently followed by Dr. Irwin due to a history of moderate persistent asthma and obstructive sleep a pnea. Although the patient does report the continued presence of shortness of breath, his oxygen saturations have been within normal limits on room air. He denies the presence of a cough. On presentation to the hospital, the patient was noted to have a temperature of 100 ?F, but was otherwise hemodynamically stable and maintaining appropriate oxygen saturations on room air. Laboratory evaluation revealed no evidence of a leukocytosis. The patient does have evidence of microcytic anemia. Platelet count was within normal limits. Chemistry profile was largely unremarkable. Troponin was negative. A CT chest with contrast was obtained and revealed a nodular infiltrate in the right lower lobe along with areas of peribronchial infiltration in the right middle lobe. Small bilateral pleural effusions were also noted. The patient's esophagus was dilated with what appeared to be esophageal fluid and a large hiatal hernia. Past Medical History Past Medical History (Chronic Problems): Chronic Problems (Last Reviewed 10/27/19 @ 13:04 by Stefanie Salas) Chronic seasonal allergic rhinitis (Chronic) Asthma (Chronic) KULWANT (obstructive sleep apnea) (Chronic) Allergic rhinitis (Chronic) Kyphoscoliosis (Chronic) GERD (gastroesophageal reflux disease) (Chronic) Chronic iron deficiency anemia (Chronic) Anxiety and depression (Chronic) Congenital hydrocephalus (Chronic) Hearing loss (Chronic) Osteoporosis (Chronic) History of hemorrhoids (Chronic) Cancer of the skin, basal cell (Chronic) Osteoporosis (Chronic) Hx of skilled nursing use of blood thinners (Chronic) Asthma (Chronic) KULWANT (obstructive sleep apnea) (Chronic) DVT (deep venous thrombosis) (Chronic) RUE Hyperlipidemia (Chronic) Shortness of breath (Chronic) Essential (primary) hypertension (Chronic) Medical History: Medical History (Last Reviewed 10/27/19 @ 13:04 by Stefanie Salas) Asthma (Chronic) J45.909 KULWANT (obstructive sleep apnea) (Chronic) G47.33 Allergic rhinitis (Chronic) J30.9 Kyphoscoliosis (Chronic) M41.9 Colon cancer (Resolved) C18.9 GERD (gastroesophageal reflux disease) (Chronic) K21.9 Chronic iron deficiency anemia (Chronic) D50.9 Endocarditis (Resolved) I38 Anxiety and depression (Chronic) F41.9, F32.9 Congenital hydrocephalus (Chronic) Q03.9 Hearing loss (Chronic) H91.90 Osteoporosis (Chronic) M81.0 Arthritis (Acute) M19.90 History of hemorrhoids (Chronic) Z87.19 Severe headache (Acute) R51 Cancer of the skin, basal cell (Chronic) C44.91 DVT (deep venous thrombosis) (Chronic) I82.409 RUE Hyperlipidemia (Chronic) E78.5 Essential (primary) hypertension (Chronic) I10 Knee pain (Resolved) M25.569 Open wound of left forearm (Resolved) S51.802A Rotator cuff disorder (Resolved) M67.919 history of broken shoulder (Resolved) Allergies codeine Allergy (Verified 10/27/19 13:04) Hives gluten Allergy (Verified 10/27/19 13:04) Diarrhea Penicillins [PCN] Adverse Reaction (Mild, Verified 10/27/19 13:04) Nausea aspirin [ASA] Adverse Reaction (Verified 10/27/19 13:04) Nausea bee venom protein (honey bee) Adverse Reaction (Verified 10/27/19 13:04) Shortness of breath prednisone Adverse Reaction (Verified 10/27/19 13:04) Unknown CODEINE Adverse Reaction (Intermediate, Uncoded 10/27/19 13:04) nausea, eyes turn white Home Medications: Ambulatory Orders Medication Instructions Recorded Albuterol IH (ProAir) [Proair Hfa 1 puff INHALATION Q4H PRN PRN #1 08/12/19 (SP)Vent Pts] inhaler Atorvastatin Calcium [Lipitor] 20 mg PO DAILY 08/12/19 Baclofen [Lioresal] 10 mg PO BID PRN 08/12/19 Cetirizine HCl [All Day Allergy] 10 mg PO DAILY 04/28/20 Citalopram [Celexa] 40 mg PO DAILY 08/12/19 Dexlansoprazole [Dexilant] 60 mg PO DAILY 08/12/19 Isosorbide Mononitrate [Isosorbide 30 mg PO DAILY 08/12/19 Mononitrate ER] Quetiapine Fumarate [Seroquel Xr] 150 mg PO QHS 08/12/19 Quetiapine Fumarate [Seroquel] 25 mg PO 0800,1200 08/12/19 Rivaroxaban [Xarelto] 20 mg PO DAILY 08/12/19 Sucralfate 1 gm PO 4X/DAY 08/12/19 PEP device See Rx Instructions .ROUTE 08/15/19 .MEDSUPPLY #1 ea guaifenesin 200 mg/5 mL oral liquid 400 mg PO Q4H PRN #473 ml 08/15/19 promethazine 12.5 mg tablet 12.5 mg PO TID PRN #30 tab 10/09/19 Azithromycin [Zithromax Z-Lucio] 250 mg PO DAILY 10/27/19 Budesonide/Formoterol Fumarate 2 puff INHALATION BID 10/27/19 [Budesonide-Formoterol 160-4.5] Cefdinir [Omnicef [equiv]] 300 mg PO Q12H 10/27/19 Montelukast Sodium 10 mg PO QHS 10/27/19 Surgical History: Surgical History (Last Reviewed 10/27/19 @ 13:04 by Stefanie Salas) History of colonoscopy (Resolved) Onset Date: ~2016 Z98.890 History of colectomy (Resolved) Z90.49 History of kyphoplasty (Resolved) Z98.890 H/O left inguinal hernia repair (Resolved) Z98.890, Z87.19 History of carpal tunnel release (Resolved) Z98.890 History of shoulder surgery (Resolved) Z98.890 History of creation of ventriculoperitoneal shunt (Resolved) Z92.89 History of left heart catheterization (Resolved) Onset Date: 09/11/17 Z98.890 Surgical History: colectomy, - Psychiatric History: Anxiety, Depression Lives: Alone Smoking Status: Never smoker Tobacco Use: Non-smoker Alcohol: None Drugs: None - *Family History Maternal Family History: Family History (Last Reviewed 10/27/19 @ 16:16 by ROCHELLE Sagastume) Daughter Cancer Sister Cancer Father Hypertension History Items: No pertinent history - alive age 88 Paternal Family History: Family History (Last Reviewed 10/27/19 @ 16:16 by ROCHELLE Sagastume) Daughter Cancer Sister Cancer Father Hypertension History Items: Cancer - age 74, bladder Review of Systems Constitutional: Reports: Chills, Fever, Fatigue Eyes: Denies: Blurred vision, Double vision HEENT: Denies: Head Aches, Sinus Congestion, Sinus Drainage Cardiovascular: Denies: Chest Pain, Palpitations Respiratory: Reports: Shortness of Breath. Denies: Cough, Hemoptysis, Sputum production Gastrointestinal: Denies: Abdominal Pain, Nausea, Vomiting Genitourinary: Denies: Dysuria Musculoskeletal: Denies: Joint Pain, Joint Tenderness Skin: Denies: Rash, Wounds Neurological: Denies: Numbness, Tingling, Focal weakness Psychiatric: Denies: Anxiety, Depression, Homicidal Ideations, Suicidal Ideations Hematologic/ Lymphatic: Reports: Anemia Patient Problems: Active and Suspected Problems (Last Reviewed 10/27/19 @ 13:04 by Stefanie Salas) Sepsis (Acute) Objective: The patient's most recent lab work, culture data and imaging studies have all been personally reviewed. Current Pap Rx: Bilevel ST: 7 RR 12. Pulmonary function studies completed in November 2017 were grossly within normal limits. Strep and urine Legionella antigens were both negative. - Physical Exam Vitals/I&O's: Vital Signs Temp Pulse Resp BP Pulse Ox 98.9 F 64 18 125/76 H 98 10/28/19 02:45 10/28/19 03:00 10/28/19 02:45 10/28/19 02:45 10/28/19 02:45 Oxygen Delivery Method CPAP Weight: 128 lb 15.527 oz Body Mass Index (BMI) 22.1 Finger Stick Blood Glucose 0 Intake and Output for Last 24 Hours 10/26/19 10/27/19 10/28/19 23:59 23:59 23:59 Intake Total 186.875 / 186.875 995.58 / 995.58 Balance 186.875 / 186.875 995.58 / 995.58 General: Alert, Oriented x3, Cooperative, No apparent distress HEENT: Atraumatic, PERRLA, Normocephalic Oral: No Gingival or Mucosal Lesions/ Ulcerations Neck: Supple, No Nodes, Trachea Midline Lungs: - - Faint crackles present in the left lung base. No rhonchi or wheezing. No conversational dyspnea. Speaking in complete sentences. Cardiovascular: Regular rate, Regular Rhythm Abdomen: Bowel Sounds Present, Soft, Non Tender Extremities: No clubbing, No cyanosis, No edema Skin: No breakdown Musculoskeletal: - - Exaggerated kyphoscoliosis Lymphatic: No Cervical, Supraclavicular, or Inguinal Adenopathy Neurological: Cranial nerves II-XII grossly intact, Neuro grossly intact Psych/Mental Status: Alert and oriented to time, place, person, mood and affect Labs (Last 48 Hours) 10/27/19 10/27/19 10/27/19 17:35 17:35 17:35 WBC 9.9 RBC 4.40 L Hgb 10.1 L Hct 33.8 L MCV 76.8 L MCH 23.0 L MCHC 29.9 L RDW Std Deviation 50.4 H RDW Coeff of Ilana 19.2 H Plt Count 242 MPV 9.5 Immature Gran % (Auto) 0.300 Neut % (Auto) 82.2 H Lymph % (Auto) 9.2 L Elmore % (Auto) 7.0 Eos % (Auto) 1.0 Baso % (Auto) 0.3 Absolute Neuts (auto) 8.1 H Absolute Lymphs (auto) 0.91 Nucleated RBC % 0 Sodium 142 Potassium 3.6 Chloride 110 H Carbon Dioxide 26.0 Anion Gap 6 BUN 17 Creatinine 0.59 L Estim Creat Clear Calc 110.17 Est GFR (MDRD) Af Amer 181 Est GFR (MDRD) Non-Af 150 BUN/Creatinine Ratio 28.9 H Glucose 83 Calcium 8.4 L Iron 20 L TIBC 380 Iron Saturation 5.3 L Troponin I < 0.015 10/27/19 10/27/19 10/28/19 20:10 22:47 05:18 WBC 8.9 RBC 4.43 L Hgb 10.0 L Hct 34.1 L MCV 77.0 L MCH 22.6 L MCHC 29.3 L RDW Std Deviation 50.4 H RDW Coeff of Ilana 19.2 H Plt Count 210 MPV 9.4 Immature Gran % (Auto) Neut % (Auto) Lymph % (Auto) Elmore % (Auto) Eos % (Auto) Baso % (Auto) Absolute Neuts (auto) Absolute Lymphs (auto) Nucleated RBC % Sodium Potassium Chloride Carbon Dioxide Anion Gap BUN Creatinine Estim Creat Clear Calc Est GFR (MDRD) Af Amer Est GFR (MDRD) Non-Af BUN/Creatinine Ratio Glucose Calcium Iron TIBC Iron Saturation Troponin I < 0.015 < 0.015 10/28/19 05:18 WBC RBC Hgb Hct MCV MCH MCHC RDW Std Deviation RDW Coeff of Ilana Plt Count MPV Immature Gran % (Auto) Neut % (Auto) Lymph % (Auto) Elmore % (Auto) Eos % (Auto) Baso % (Auto) Absolute Neuts (auto) Absolute Lymphs (auto) Nucleated RBC % Sodium 141 Potassium 3.7 Chloride 111 H Carbon Dioxide 25.0 Anion Gap 5 BUN 14 Creatinine 0.56 L Estim Creat Clear Calc 116.07 Est GFR (MDRD) Af Amer 191 Est GFR (MDRD) Non-Af 158 BUN/Creatinine Ratio 25.0 H Glucose 82 Calcium 7.7 L Iron TIBC Iron Saturation Troponin I Microbiology 10/27/19 21:40 Urine, Clean Catch Streptococcus pneumoniae Antigen (M - Final 10/27/19 21:40 Urine, Clean Catch Legionella Antigen - Final Clinical Impression(s) from Imaging Studies Chest CT 10/28/19 06:16 IMPRESSION: Limited exam due to respiratory motion artifacts. 2.1 cm an 8 mm right lower lobe lung nodules, possibly representing bronchogenic carcinoma or a static disease. Consider CT PET scan for further evaluation. Peribronchial infiltrates in the right middle lobe may represent atypical infection or early typical pneumonia. Small bilateral pleural effusions. Atelectasis in the lung bases. Large hiatal hernia. Electronically Signed: Jack Carrero MD at 7:09 EDT , Service support , Current Medications Acetaminophen (Tylenol) 650 mg PO Q6H PRN PRN PRN Reason: Pain 1-10 or Fever Albuterol Sulfate (Ventolin Aerosols) 2.5 mg INHALATION Q6H PRN PRN PRN Reason: SOB &/OR WHEEZING Albuterol/Ipratropium (Duoneb) 3 ml INHALATION Q6HWA.RT [facility] Last Admin: 10/27/19 19:09 Dose: 3 ml Documented by: Atorvastatin Calcium (Lipitor) 20 mg PO QHS [facility] Last Admin: 10/27/19 20:53 Dose: 20 mg Documented by: Baclofen (Lioresal) 10 mg PO BID PRN PRN PRN Reason: HEADACHE Budesonide (Pulmicort Aerosol) 0.5 mg INHALATION Q12H.RT [facility] Last Admin: 10/27/19 19:09 Dose: 0.5 mg Documented by: Citalopram Hydrobromide (Celexa) 40 mg PO QHS [facility] Last Admin: 10/27/19 20:53 Dose: 40 mg Documented by: Dextrose (D50w Syringe) 0 gm IV X1 PRN; Protocol PRN Reason: Hypoglycemia Glucagon () 1 mg IM .X1 PRN PRN Reason: Hypoglycemia Guaifenesin (Mucinex) 1,200 mg PO BID [facility] Last Admin: 10/27/19 20:53 Dose: 1,200 mg Documented by: Sodium Chloride () 1,000 mls @ 100 mls/hr IV .Q10H [facility] Last Admin: 10/28/19 02:42 Dose: 100 mls/hr Documented by: Piperacillin Sod/Tazobactam (Sod 3.375 gm/ Sodium Chloride) 50 mls @ 12.5 mls/hr IV Q8 [facility] Last Admin: 10/28/19 06:05 Dose: 12.5 mls/hr Documented by: Sodium Chloride () 250 mls @ 15 mls/hr IV .[id number] PRN PRN Reason: Saline Flush Last Infusion: 10/28/19 02:42 Dose: 0 mls/hr Documented by: Sodium Chloride () 250 mls @ 15 mls/hr IV .[id number] PRN PRN Reason: Additional IVPB Infusion Isosorbide Mononitrate (Imdur) 30 mg PO QHS [facility] Loratadine (Claritin) 10 mg PO DAILY [facility] Montelukast Sodium (Singulair) 10 mg PO QHS [facility] Last Admin: 10/27/19 20:53 Dose: 10 mg Documented by: Nitroglycerin (Nitrostat) 0.4 mg SUBLINGUAL Q5M PRN PRN Reason: CARDIAC/CHEST PAIN Ondansetron HCl (Zofran Odt) 4 mg PO Q6H PRN PRN PRN Reason: NAUSEA Ondansetron HCl (Zofran) 4 mg IV Q8H PRN PRN PRN Reason: NAUSEA/VOMITING Pantoprazole Sodium (Protonix) 40 mg PO DAILY [facility] Promethazine HCl (Phenergan Tablet) 12.5 mg PO TID PRN PRN PRN Reason: nausea and vomiting Quetiapine Fumarate (Seroquel) 100 mg PO BID [facility] Sodium Chloride () 10 - 40 ml IV UD PRN PRN Reason: SALINE FLUSH Last Admin: 10/28/19 06:24 Dose: 10 ml Documented by: Sucralfate (Carafate) 1 gm PO 1HR_ACHS [facility] Last Admin: 10/28/19 06:05 Dose: 1 gm Documented by: Assessment/Plan All Active Problems (Last Reviewed 10/27/19 @ 13:04 by Stefanie Salas) Sepsis (Acute) Pneumonia (Acute) History of colonoscopy (Resolved ~2016) History of colectomy (Resolved) Colon cancer (Resolved) Endocarditis (Resolved) History of kyphoplasty (Resolved) H/O left inguinal hernia repair (Resolved) History of carpal tunnel release (Resolved) History of shoulder surgery (Resolved) History of creation of ventriculoperitoneal shunt (Resolved) History of left heart catheterization (Resolved 09/11/17) Arthritis (Acute) Severe headache (Acute) Bilateral hearing loss due to cerumen impaction (Acute) 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 (Acute) Nonhealing surgical wound (Acute) Skin cancer, basal cell (Acute) Cellulitis (Acute) Hx of skilled nursing use of blood thinners (Acute) BCC (basal cell carcinoma of skin) (Resolved) Cellulitis (Resolved) Cellulitis due to MRSA (Resolved) History of upper gastrointestinal hemorrhage (Resolved) Knee pain (Resolved) Non-healing surgical wound (Resolved) Open wound of left forearm (Resolved) Rotator cuff disorder (Resolved) Skin tear of forearm without complication (Resolved) Vomiting (Resolved) Wound, open, scalp with complication (Resolved) history of broken shoulder (Resolved) RECOMMENDATIONS: 1. Continue empiric antimicrobials, pending infectious work-up. 2. Okay to resume systemic anticoagulation. 3. Continue bronchodilator therapy along with scheduled inhaled corticosteroid. 4. Encourage incentive spirometer use while in bed. 5. Recommend follow-up with surgery in [place] to be considered for possible Bernice fundoplication. IMPRESSIONS: 1. Shortness of breath likely secondary to asthma with exacerbation with concern for recurrent aspiration pneumonia The patient's dyspnea is most likely multifactorial in etiology. The patient does have underlying asthma, which is likely being exacerbated by reflux of gastric secretions given the patient's dilated esophagus with retained fluid and large paraesophageal hernia. At this time, I agree with continuing bronchodilators and inhaled corticosteroid. The patient CT chest was personally reviewed. There does appear to be some residual right-sided nodular infil trates, for which antibiotics should be continued. Infectious work-up is currently pending. I would recommend that the patient follow-up with a surgical elastic knitter hand frame in [place] to be evaluated for Bernice fundoplication following discharge. 2. Obstructive sleep apnea Continue nocturnal Pap therapy per home regimen. 3. Esophageal dilation/large hiatal hernia The patient has had evidence of esophageal dilation and large hiatal hernia dating back to 2018. Given the patient's respiratory issues, he would likely benefit from being evaluated by surgery for possible Bernice fundoplication following discharge. 4. Congenital hydrocephalus/GERD/hypertension/hyperlipidemia/history of DVT Complicates care, management, recovery and prognosis. Okay to resume systemic anticoagulation at this time. The remainder of the patient's home medications can be continued from my perspective. This note was generated with [employer] dictation software. It may contain incorrect words, spelling, and punctuation that were not noted in checking the note before signing. Inpatient E&M: 40123 Init Hosp L3
[2019-10-28] MEDS: Ipratropium/Albuterol Sulfate 3 ML AMPUL.NEB INHALATION ×2 (07:15→14:08)
[2019-10-28] MEDS: Budesonide Respules 0.5 MG/2 ML AMPUL.NEB. INHALATION (07:15)
--- NOTE | 2019-10-28 08:19 | CPS ---
Pt using own BIPAP.
[2019-10-28] MEDS: Loratadine 10 MG Tablet PO (09:07)
[2019-10-28] MEDS: guaiFENesin 1,200 MG Tablet 1200 MG PO ×2 (09:07→21:11)
[2019-10-28] MEDS: Pantoprazole Sodium 40 MG Tablet PO (09:07)
[2019-10-28] MEDS: Isosorbide Mononitrate 30 MG Tablet PO ×2 (09:07→21:11)
[2019-10-28] MEDS: QUEtiapine 100 MG Tablet PO ×2 (09:08→21:12)
[2019-10-28] MEDS: Sodium Ferric Gluconat 250 MG in 0.9% Normal Saline 250 ML 135 MG IV (10:12)
--- NOTE | 2019-10-28 11:33 | CASEMGMT ---
KASANDRA ALEXANDRE assessment: Face to Face with patient for initial transition planning/care coordination assessment. KASANDRA ALEXANDRE introduced self and role at [facility], pt voices understanding and consents to assessment at this time. Pt is sitting up in bed in no distress at this time. Pt is A/Ox4 at this time and answers questions appropriately at this time. Care providers, pharmacy, and demographics verified/updated at this time. There is guardianship paperwork in pt's chart but pt states that that is no longer active at this time. Philomena HERNANDEZ aware, voices understanding. Presentation: Pt direct admit from pulmonary office for SOB, fever/chills. Pt had been in [facility] ED the day prior and declined admission d/t his dog at home. Admitting dx: Aspiration pna PCP: [facility] Specialists: zuleyka Irwin; DANIELA Hollingsworth Preferred Pharmacy: [facility] Prescription Benefit: AnthemR Living Will/HPOA: Pt states has LW/HPOA and is aware that they are not on file at [facility] at this time. Pt states that his mother, Leia Davis, is HPOA. LNOK: Leia Davis, mother/HPOA Living Arrangements: Pt states lives alone in 1 story home with 2 railed steps into home and states no concerns at home at this time. Pt states is independent with ADL's. Transportation: Pt states drives self and states no transportation concerns at this time. DME/HHC: Pt states has the following DME: grab bars, shower chair, nebulizer, and cpap thru [facility]. Pt statses no need for any further DME at this time. Pt states has had [facility] in the past and has been to [facility] and [facility] in the past. Pt states no concerns with going home at time of discharge. Pt states is disabled. Pt states does not smoke cigarettes or drink ETOH. Pt states no further concerns/needs at this time. CM to follow for any further discharge planning/needs. Advised pt to ask for CM if any further questions/concerns/needs arise, voices understanding. Pt Goal: Home Plan[place] KASANDRA ALEXANDRE
[2019-10-28 13:18] LABS: M R Staph aureus DNA By PCR Negative (Negative); Probe Check PASS; Specimen Processing Control PASS
--- NOTE | 2019-10-28 14:42 | CHAPLAIN ---
Type of Pastoral Visit _x__ Initial Visit ___ Follow-up Visit ___ On-call Visit ___ General Patient Visit ___ Spiritual Assessment ___ Family Conference ___ Bereavement ___ Rapid Response ___ Code Blue ___ Other (describe below) Pastoral Care Referral From _x__ Patient ___ Family ___ Nurse ___ Physician ___ Natural Resources Extension Educator ___ Molding Machine Setter ___ Other (describe below) Sacrament/Intervention _x__ Active listening ___ Anointing ___ Protestant ___ Bereavement ___ Communion _x__ Deepali exploration ___ _x__ Life review _x__ Prayer ___ Reconciliation ___ Sacrament of Sick _x__ Supportive presence ___ Wedding ___ Other (describe below) Pastoral Comments patient welcoming of spiritual care support; pt mentions current health reason for admission and new discovery which will require a procedure in the future; pt said he is concerned about having procedure/surgery and would welcome prayer; 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
--- NOTE | 2019-10-28 14:54 | PCM.PN.HOSP ---
<David Winter - Last Filed: 10/28/19 14:54> Patient Problems: Active and Suspected Problems (Last Reviewed 10/27/19 @ 13:04 by Stefanie Salas) Sepsis (Acute) Reason for Visit: SOB Subjective: Ongoing SOB with conversational dyspnea. No fever/chills. No abd pain. rare cough without sputum production. No LE edema. Pt tolerating PO no issues. He plans to pursue outpatient follow up with [facility] surgery for hiatal hernia at [facility] or [facility]. Vitals/I&O's: Vital Signs Temp Pulse Resp BP Pulse Ox 98.7 F 92 22 H 122/87 H 98 10/28/19 09:01 10/28/19 09:01 10/28/19 14:08 10/28/19 09:01 10/28/19 09:01 Oxygen Delivery Method Room Air Weight: 128 lb 15.527 oz Body Mass Index (BMI) 22.1 Finger Stick Blood Glucose 0 Intake and Output for Last 24 Hours 10/26/19 10/27/19 10/28/19 23:59 23:59 23:59 Intake Total 186.875 / 262.895 5443.58 / 2835.58 Balance 186.875 / 273.708 7108.58 / 2835.58 General: Alert, Oriented x3, Cooperative HEENT: Atraumatic, PERRLA, EOMI, Normocephalic Neck: Supple, No JVD, Negative Carotid Bruits Lungs: Clear to auscultation, Diminished Cardiovascular: Regular rate, No murmurs Abdomen: Bowel Sounds Present, Soft, Non Tender Extremities: No edema, Capillary Refill Less than 3 Seconds Skin: No rashes, No breakdown Musculoskeletal: No Tenderness to Palpation of Joints or Extremities, - - severe kyphosis Neurological: Cranial nerves II-XII grossly intact Psych/Mental Status: Normal Affect, Appropriate, Alert and oriented to time, place, person, mood and affect Microbiology Past 72 Hours 10/27/19 21:40 Urine, Clean Catch Streptococcus pneumoniae Antigen (M - Final 10/27/19 21:40 Urine, Clean Catch Legionella Antigen - Final Laboratory Results 10/27/19 17:35: WBC 9.9, RBC 4.40 L, Hgb 10.1 L, Hct 33.8 L, MCV 76.8 L, MCH 23.0 L, MCHC 29.9 L, RDW Std Deviation 50.4 H, RDW Coeff of Ilana 19.2 H, Plt Count 242, MPV 9.5, Immature Gran % (Auto) 0.300, Neut % (Auto) 82.2 H, Lymph % (Auto) 9.2 L, Valencia % (Auto) 7.0, Eos % (Auto) 1.0, Baso % (Auto) 0.3, Absolute Neuts (auto) 8.1 H, Absolute Lymphs (auto) 0.91, Nucleated RBC % 0 10/27/19 17:35: Sodium 142, Potassium 3.6, Chloride 110 H, Carbon Dioxide 26.0, Anion Gap 6, BUN 17, Creatinine 0.59 L, Estim Creat Clear Calc 110.17, Est GFR (MDRD) Af Amer 181, Est GFR (MDRD) Non-Af 150, BUN/Creatinine Ratio 28.9 H, Glucose 83, Calcium 8.4 L, Iron 20 L, TIBC 380, Iron Saturation 5.3 L 10/27/19 17:35: Troponin I < 0.015 10/27/19 20:10: Troponin I < 0.015 10/27/19 22:47: Troponin I < 0.015 10/28/19 05:18: WBC 8.9, RBC 4.43 L, Hgb 10.0 L, Hct 34.1 L, MCV 77.0 L, MCH 22.6 L, MCHC 29.3 L, RDW Std Deviation 50.4 H, RDW Coeff of Ilana 19.2 H, Plt Count 210, MPV 9.4 10/28/19 05:18: Sodium 141, Potassium 3.7, Chloride 111 H, Carbon Dioxide 25.0, Anion Gap 5, BUN 14, Creatinine 0.56 L, Estim Creat Clear Calc 116.07, Est GFR (MDRD) Af Amer 191, Est GFR (MDRD) Non-Af 158, BUN/Creatinine Ratio 25.0 H, Glucose 82, Calcium 7.7 L 10/28/19 09:14: MRSA (PCR) Negative Current Medications Acetaminophen (Tylenol) 650 mg PO Q6H PRN PRN PRN Reason: Pain 1-10 or Fever Albuterol Sulfate (Ventolin Aerosols) 2.5 mg INHALATION Q6H PRN PRN PRN Reason: SOB &/OR WHEEZING Albuterol/Ipratropium (Duoneb) 3 ml INHALATION Q6HWA.RT [facility] Last Admin: 10/28/19 14:08 Dose: 3 ml Documented by: Atorvastatin Calcium (Lipitor) 20 mg PO QHS [facility] Last Admin: 10/27/19 20:53 Dose: 20 mg Documented by: Baclofen (Lioresal) 10 mg PO BID PRN PRN PRN Reason: HEADACHE Budesonide (Pulmicort Aerosol) 0.5 mg INHALATION Q12H.RT [facility] Last Admin: 10/28/19 07:15 Dose: 0.5 mg Documented by: Citalopram Hydrobromide (Celexa) 40 mg PO QHS [facility] Last Admin: 10/27/19 20:53 Dose: 40 mg Documented by: Dextrose (D50w Syringe) 0 gm IV X1 PRN; Protocol PRN Reason: Hypoglycemia Glucagon () 1 mg IM .X1 PRN PRN Reason: Hypoglycemia Guaifenesin (Mucinex) 1,200 mg PO BID [facility] Last Admin: 10/28/19 09:07 Dose: 1,200 mg Documented by: Sodium Chloride () 1,000 mls @ 100 mls/hr IV .Q10H [facility] Last Admin: 10/28/19 13:29 Dose: 100 mls/hr Documented by: Piperacillin Sod/Tazobactam (Sod 3.375 gm/ Sodium Chloride) 50 mls @ 12.5 mls/hr IV Q8 [facility] Last Admin: 10/28/19 13:30 Dose: 12.5 mls/hr Documented by: Sodium Chloride () 250 mls @ 15 mls/hr IV .[id number] PRN PRN Reason: Saline Flush Last Infusion: 10/28/19 02:42 Dose: 0 mls/hr Documented by: Sodium Chloride () 250 mls @ 15 mls/hr IV .[id number] PRN PRN Reason: Additional IVPB Infusion Isosorbide Mononitrate (Imdur) 30 mg PO QHS [facility] Last Admin: 10/28/19 09:07 Dose: 30 mg Documented by: Loratadine (Claritin) 10 mg PO DAILY [facility] Last Admin: 10/28/19 09:07 Dose: 10 mg Documented by: Montelukast Sodium (Singulair) 10 mg PO QHS [facility] Last Admin: 10/27/19 20:53 Dose: 10 mg Documented by: Nitroglycerin (Nitrostat) 0.4 mg SUBLINGUAL Q5M PRN PRN Reason: CARDIAC/CHEST PAIN Ondansetron HCl (Zofran Odt) 4 mg PO Q6H PRN PRN PRN Reason: NAUSEA Ondansetron HCl (Zofran) 4 mg IV Q8H PRN PRN PRN Reason: NAUSEA/VOMITING Pantoprazole Sodium (Protonix) 40 mg PO DAILY [facility] Last Admin: 10/28/19 09:07 Dose: 40 mg Documented by: Polysaccharide Iron Complex (Ferrex 150) [facility] Promethazine HCl (Phenergan Tablet) 12.5 mg PO TID PRN PRN PRN Reason: nausea and vomiting Quetiapine Fumarate (Seroquel) 100 mg PO BID [facility] Last Admin: 10/28/19 09:08 Dose: 100 mg Documented by: Sodium Chloride () 10 - 40 ml IV UD PRN PRN Reason: SALINE FLUSH Last Admin: 10/28/19 06:24 Dose: 10 ml Documented by: Sucralfate (Carafate) 1 gm PO 1HR_ACHS [facility] Last Admin: 10/28/19 13:30 Dose: 1 gm Documented by: STROKE Vital Signs/Narrative: Vital Signs Resp 10/28/19 14:08 22 H Medical Necessity - Tobacco Use Smoking Status: Never smoker Tobacco Use: Non-smoker Assessment/Plan All Active Problems (Last Reviewed 10/27/19 @ 13:04 by Stefanie Salas) Sepsis (Acute) Pneumonia (Acute) History of colonoscopy (Resolved ~2016) History of colectomy (Resolved) Colon cancer (Resolved) Endocarditis (Resolved) History of kyphoplasty (Resolved) H/O left inguinal hernia repair (Resolved) History of carpal tunnel release (Resolved) History of shoulder surgery (Resolved) History of creation of ventriculoperitoneal shunt (Resolved) History of left heart catheterization (Resolved 09/11/17) Arthritis (Acute) Severe headache (Acute) Bilateral hearing loss due to cerumen impaction (Acute) 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 (Acute) Nonhealing surgical wound (Acute) Skin cancer, basal cell (Acute) Cellulitis (Acute) 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 Acute sepsis 2/2 Recurrent pna - continue zosyn. pulm following. No fever/leukocytosis. Probably aspiration pna due to large hiatal hernia, GERD, KULWANT. needs ashlee fundoplication : f/u o/p. urine antigens neg. likely no alveolar hemorrhage per pulm ok to resume xarelto. 2. Asthma - no exacerbation - continue aerosols, incentive spirometer. 3. Congenital hydrocephalus - has MDM SR shunt. 4. GERD - PPI/carafate 5. KULWANT - home CPAP 6. Hx colon cancer in remission 7. Hx DVT - on xarelto 8. Anx/depression - seroquel, celexa 9. Anemia with iron deficiency - check iron/tibc. DVT ppx: xarelto DC planning: likely home tomorrow if no issues overnight. outpatient referral to surgeon for hiatal hernia. This patient was seen by David Winter PA-C under the supervision of Doctor Lupillo <Kash Wesley - Last Filed: 10/28/19 15:14> Vitals/I&O's: Vital Signs Temp Pulse Resp BP Pulse Ox 98.7 F 92 22 H 122/87 H 98 10/28/19 09:01 10/28/19 09:01 10/28/19 14:08 10/28/19 09:01 10/28/19 09:01 Oxygen Delivery Method Room Air Weight: 58.5 kg Body Mass Index (BMI) 22.1 Finger Stick Blood Glucose 0 Intake and Output for Last 24 Hours 10/26/19 10/27/19 10/28/19 23:59 23:59 23:59 Intake Total 186.875 / 652.006 9394.58 / 2835.58 Balance 186.875 / 045.813 9570.58 / 2835.58 Microbiology Past 72 Hours 10/27/19 21:40 Urine, Clean Catch Streptococcus pneumoniae Antigen (M - Final 10/27/19 21:40 Urine, Clean Catch Legionella Antigen - Final Laboratory Results 10/27/19 17:35: WBC 9.9, RBC 4.40 L, Hgb 10.1 L, Hct 33.8 L, MCV 76.8 L, MCH 23.0 L, MCHC 29.9 L, RDW Std Deviation 50.4 H, RDW Coeff of Ilana 19.2 H, Plt Count 242, MPV 9.5, Immature Gran % (Auto) 0.300, Neut % (Auto) 82.2 H, Lymph % (Auto) 9.2 L, Valencia % (Auto) 7.0, Eos % (Auto) 1.0, Baso % (Auto) 0.3, Absolute Neuts (auto) 8.1 H, Absolute Lymphs (auto) 0.91, Nucleated RBC % 0 10/27/19 17:35: Sodium 142, Potassium 3.6, Chloride 110 H, Carbon Dioxide 26.0, Anion Gap 6, BUN 17, Creatinine 0.59 L, Estim Creat Clear Calc 110.17, Est GFR (MDRD) Af Amer 181, Est GFR (MDRD) Non-Af 150, BUN/Creatinine Ratio 28.9 H, Glucose 83, Calcium 8.4 L, Iron 20 L, TIBC 380, Iron Saturation 5.3 L 10/27/19 17:35: Troponin I < 0.015 10/27/19 20:10: Troponin I < 0.015 10/27/19 22:47: Troponin I < 0.015 10/28/19 05:18: WBC 8.9, RBC 4.43 L, Hgb 10.0 L, Hct 34.1 L, MCV 77.0 L, MCH 22.6 L, MCHC 29.3 L, RDW Std Deviation 50.4 H, RDW Coeff of Ilana 19.2 H, Plt Count 210, MPV 9.4 10/28/19 05:18: Sodium 141, Potassium 3.7, Chloride 111 H, Carbon Dioxide 25.0, Anion Gap 5, BUN 14, Creatinine 0.56 L, Estim Creat Clear Calc 116.07, Est GFR (MDRD) Af Amer 191, Est GFR (MDRD) Non-Af 158, BUN/Creatinine Ratio 25.0 H, Glucose 82, Calcium 7.7 L 10/28/19 09:14: MRSA (PCR) Negative Current Medications Acetaminophen (Tylenol) 650 mg PO Q6H PRN PRN PRN Reason: Pain 1-10 or Fever Albuterol Sulfate (Ventolin Aerosols) 2.5 mg INHALATION Q6H PRN PRN PRN Reason: SOB &/OR WHEEZING Albuterol/Ipratropium (Duoneb) 3 ml INHALATION Q6HWA.RT [facility] Last Admin: 10/28/19 14:08 Dose: 3 ml Documented by: Atorvastatin Calcium (Lipitor) 20 mg PO QHS [facility] Last Admin: 10/27/19 20:53 Dose: 20 mg Documented by: Baclofen (Lioresal) 10 mg PO BID PRN PRN PRN Reason: HEADACHE Budesonide (Pulmicort Aerosol) 0.5 mg INHALATION Q12H.RT [facility] Last Admin: 10/28/19 07:15 Dose: 0.5 mg Documented by: Citalopram Hydrobromide (Celexa) 40 mg PO QHS [facility] Last Admin: 10/27/19 20:53 Dose: 40 mg Documented by: Dextrose (D50w Syringe) 0 gm IV X1 PRN; Protocol PRN Reason: Hypoglycemia Glucagon () 1 mg IM .X1 PRN PRN Reason: Hypoglycemia Guaifenesin (Mucinex) 1,200 mg PO BID [facility] Last Admin: 10/28/19 09:07 Dose: 1,200 mg Documented by: Sodium Chloride () 1,000 mls @ 100 mls/hr IV .Q10H [facility] Last Admin: 10/28/19 13:29 Dose: 100 mls/hr Documented by: Piperacillin Sod/Tazobactam (Sod 3.375 gm/ Sodium Chloride) 50 mls @ 12.5 mls/hr IV Q8 [facility] Last Admin: 10/28/19 13:30 Dose: 12.5 mls/hr Documented by: Sodium Chloride () 250 mls @ 15 mls/hr IV .[id number] PRN PRN Reason: Saline Flush Last Infusion: 10/28/19 02:42 Dose: 0 mls/hr Documented by: Sodium Chloride () 250 mls @ 15 mls/hr IV .[id number] PRN PRN Reason: Additional IVPB Infusion Isosorbide Mononitrate (Imdur) 30 mg PO QHS [facility] Last Admin: 10/28/19 09:07 Dose: 30 mg Documented by: Loratadine (Claritin) 10 mg PO DAILY [facility] Last Admin: 10/28/19 09:07 Dose: 10 mg Documented by: Montelukast Sodium (Singulair) 10 mg PO QHS [facility] Last Admin: 10/27/19 20:53 Dose: 10 mg Documented by: Nitroglycerin (Nitrostat) 0.4 mg SUBLINGUAL Q5M PRN PRN Reason: CARDIAC/CHEST PAIN Ondansetron HCl (Zofran Odt) 4 mg PO Q6H PRN PRN PRN Reason: NAUSEA Ondansetron HCl (Zofran) 4 mg IV Q8H PRN PRN PRN Reason: NAUSEA/VOMITING Pantoprazole Sodium (Protonix) 40 mg PO DAILY [facility] Last Admin: 10/28/19 09:07 Dose: 40 mg Documented by: Polysaccharide Iron Complex (Ferrex 150) [facility] Promethazine HCl (Phenergan Tablet) 12.5 mg PO TID PRN PRN PRN Reason: nausea and vomiting Quetiapine Fumarate (Seroquel) 100 mg PO BID [facility] Last Admin: 10/28/19 09:08 Dose: 100 mg Documented by: Sodium Chloride () 10 - 40 ml IV UD PRN PRN Reason: SALINE FLUSH Last Admin: 10/28/19 06:24 Dose: 10 ml Documented by: Sucralfate (Carafate) 1 gm PO 1HR_ACHS [facility] Last Admin: 10/28/19 13:30 Dose: 1 gm Documented by: STROKE Vital Signs/Narrative: Vital Signs Resp 10/28/19 14:08 22 H Assessment/Plan This patient was seen in conjunction with David Winter PA-C . I have independently interviewed and examined the patient and reviewed pertinent historical, laboratory, and other data. Please refer to David Winter PA-C note for details of this patient's presentation, findings, and recommendations. I have reviewed David Winter PA-C note and concur with documented findings. In brief, patient is a-year-old gentleman with multiple comorbidities including recurrent admissions for pneumonia admitted with progressive shortness of breath and assessment of aspiration pneumonia secondary to presence of large hiatal hernia was made admitted to a monitored bed with consultation placed to pulmonary medicine Physical Examination: GENERAL: cooperative HEENT: Hydrocephaly EYES; Anicteric, Normal Conjunctiva NECK; supple, normal thyroid, RESPIRATORY: Diminished to auscultation CARDIOVASCULAR: Regular S1 S2, GI: soft, normoactive bowel sounds, : No Renal angle tenderness; EXTREMITIES: No edema, no clubbing, MUSCULOSKELETAL: no muscle waisting NEURO: Awake; no lateralizing signs. SKIN: No Rash PSYCH; Flat affect Assessment: 1. Sepsis secondary to aspiration pneumonia 2. Aspiration pneumonia 3. Large hiatal hernia 4. GERD 5. Hydrocephalus status post MDM SR shunt 6. Obstructive sleep apnea 7. Essential hypertension 8. Mild intermittent asthma 9. History of colon cancer currently in remission 10. History of previous DVT 11. Depression with anxiety Recommendations: 1. I have discussed the results of my overview and impressions with the patient 2. Options for management were reviewed Inpatient E&M: [id number] Subs Hosp L3
[2019-10-28] MEDS: Ondansetron 4 MG/2 ML Vial IV (17:19)
[2019-10-28] MEDS: Acetaminophen 325 MG Tablet 650 MG PO (19:11)
[2019-10-28] MEDS: proMETHazine 25 MG/ML Syringe 6.25 MG IV (19:11)
--- NOTE | 2019-10-28 19:50 | RAD_ITS ---
STUDY: X-RAY CHEST REASON FOR EXAM: Male, 59 years old. POSSIBLE INFECTION, ASPIRATION PNEUMONIA TECHNIQUE: PA and lateral views of the chest. COMPARISON: October 26, 2019 FINDINGS: Interval worsening of bilateral lower lobe edema, right greater than left with appearance of irregular consolidation in the right midlung field. Small bilateral pleural effusions reidentified. Normal size heart. Stable visualized mediastinal and osseous structures. Multiple air-fluid levels of bowel loops reidentified throughout the abdomen suggesting obstruction or ileus. RAD/Chest PA and Lateral IMPRESSION: 1. Interval worsening of bilateral lower lobe edema, right greater than left with appearance of irregular consolidation in the right midlung field. 2. Multiple air-fluid levels of bowel loops reidentified throughout the abdomen suggesting obstruction or ileus. Electronically Signed: Darryl Hoskins MD at 20:16 EDT , Service support ,
[2019-10-28] MEDS: Atorvastatin Calcium 20 MG Tablet PO (21:11)
[2019-10-28] MEDS: Citalopram 40 MG TABLET PO (21:11)
[2019-10-28] MEDS: Montelukast 10 MG Tablet PO (21:12)
--- NOTE | 2019-10-28 22:36 | NURSING ---
Bedside report given to KASANDRA Quintana. Relinquished care of pt at this time.
[2019-10-29] VITALS (9 sets, daily range): BP systolic 101–110; BP diastolic 56–72; PULSE 78–97; RESP 16–20; TEMP 37–37.9; O2SAT 95–98
[2019-10-29] MEDS: Sucralfate 1 GM Tablet PO ×3 (05:50→17:52)
[2019-10-29 06:37] LABS: Absolute Lymphocyte Count 0.84 X10^3/uL (0.83-4.51); Absolute Neutrophil Count 7.5 X10^3/uL (2.0-7.7); Basophil# 0.02 X10^3/uL; Basophil% 0.2 % (0-1); Eosinophil# 0.17 X10^3/uL; Eosinophils% 1.9 % (0-5); Hematocrit 31.7 % (40-54); Hemoglobin 9.4 g/dL (13.0-16.5); Lymphocyte # 0.84 X10^3/ul (4.0); Lymphocyte % 9.2 % (19-41); Mean Corp Hgb Conc 29.7 g/dL (32-36); Mean Corpuscular Hgb 22.7 pg (27.0-32.0); Mean Corpuscular Volume 76.6 fL (80-94); Monocyte# 0.61 X10^3/uL; Monocyte% 6.7 % (0-10); NRBC Flagged by Analyzer 0 % (0-5); Neutrophil # 7.49 X10^3/uL (2.7-7.7); Neutrophil % 81.6 % (47-70); Platelet Count 198 K/mm3 (150-450); RBC Distribution Width CV 18.7 % (11.6-14.6); RBC Distribution Width SD 50.4 fl (35.1-43.9); Red Blood Count 4.14 M/mm3 (4.6-6.2); White Blood Count 9.2 K/mm3 (4.4-11.0)
[2019-10-29] MEDS: Ipratropium/Albuterol Sulfate 3 ML AMPUL.NEB INHALATION ×2 (06:59→13:24)
[2019-10-29] MEDS: Budesonide Respules 0.5 MG/2 ML AMPUL.NEB. INHALATION (06:59)
[2019-10-29 07:02] LABS: Anion Gap 4 (5-15); BUN 15 mg/dL (7-18); Chloride 115 mmol/L (98-107); Creatinine, Serum 0.62 mg/dL (0.70-1.30); EST Glomerular Filtration Rate 139 mL/min (>60); Est Glom Filt Rate - Afr Amer 169 mL/min (>60); Estimated Creatinine Clearance 104.84 ml/min; Glucose 73 mg/dL (74-106); Potassium 3.4 mmol/L (3.5-5.1); Sodium Level 144 mmol/L (136-145)
--- NOTE | 2019-10-29 09:05 | CASEMGMT ---
According to the [facility] website, the following are in-network tertiary facilities: [facility], [place], [facility], [place], [facility], [facility], [facility], [place], [facility], and . Otoniel SLAUGHTER CM
[2019-10-29] MEDS: Loratadine 10 MG Tablet PO (09:18)
[2019-10-29] MEDS: Pantoprazole Sodium 40 MG Tablet PO (09:18)
[2019-10-29] MEDS: guaiFENesin 1,200 MG Tablet 1200 MG PO (09:18)
[2019-10-29] MEDS: QUEtiapine 100 MG Tablet PO (09:19)
[2019-10-29] MEDS: 0.9% Normal Saline 1,000 ML 100 ML IV (09:20)
--- NOTE | 2019-10-29 13:48 | DS.PCM_ITS ---
<David Winter - Last Filed: 10/29/19 13:48> Discharge Date and Diagnosis - Problem List Patient Problems: Active and Suspected Problems (Last Reviewed 10/27/19 @ 13:04 by Stefanie Salas) Sepsis (Acute) Date of Admission: 10/27/19 Date of Discharge: 10/29/19 - Primary Discharge Diagnosis Acute Problems: Active Problems (Last Reviewed 10/27/19 @ 13:04 by Stefanie Salas) Sepsis (Acute) 2/2 recurrent aspiration pna 2/2 large hiatal hernia Severe kyphosis KULWANT Gerd Congential hydrocephalus Iron def anemia Hx colon cancer in remission - Secondary Discharge Diagnosis Chronic Problems: Chronic Problems (Last Reviewed 10/27/19 @ 13:04 by Stefanie Salas) Chronic seasonal allergic rhinitis (Chronic) Asthma (Chronic) KULWANT (obstructive sleep apnea) (Chronic) Allergic rhinitis (Chronic) Kyphoscoliosis (Chronic) GERD (gastroesophageal reflux disease) (Chronic) Chronic iron deficiency anemia (Chronic) Anxiety and depression (Chronic) Congenital hydrocephalus (Chronic) Hearing loss (Chronic) Osteoporosis (Chronic) History of hemorrhoids (Chronic) Cancer of the skin, basal cell (Chronic) Osteoporosis (Chronic) 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 2.1 cm an 8 mm right lower lobe lung nodules, possibly representing bronchogenic carcinoma or a static disease. Consider CT PET scan for further evaluation. Peribronchial infiltrates in the right middle lobe may represent atypical infection or early typical pneumonia. Small bilateral pleural effusions. Atelectasis in the lung bases. Large hiatal hernia. RAD/Chest PA and Lateral IMPRESSION: 1. Interval worsening of bilateral lower lobe edema, right greater than left with appearance of irregular consolidation in the right midlung field. 2. Multiple air-fluid levels of bowel loops reidentified throughout the abdomen suggesting obstruction or ileus. Consults: Pulmonology - [facility] Operations: None Procedures: None Summary of Care Provided: Hospital Course: The patient is a 59 year old M with pmhx of aspiration pna due to hiatal hernia, kyphoscoliosis, gerd, kulwant, asthma otherwise as above who presented to the pulm office for SOB. The patient had recently completed augmentin for pna as an outpatient but became worse at home. The day prior he was sent from urgent care to the ER for pna concerning for sepsis and admission was recommended at the time however he refused. 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 CT showed pna and large hiatal hernia. He was presumed to have aspiration pna. Pulm was consulted and recommended outpatient ashlee after recovery. He was improving however began having sudden onset of vomiting after which his breathing worse, his fever worsened, and his chest xray demonstrated worsening infiltrates. We recommended immediate transfer to a tertiary center with a surgical evaluation for fixing his underlying hernia. He was accepted at [facility] and discharged in stable condition. This patient was seen by David Winter PA-C under the supervision of Dr. Wesley. [] Patient Problems: Active and Suspected Problems (Last Reviewed 10/27/19 @ 13:04 by Stefanie Salas) Sepsis (Acute) - Physical Exam Vitals/I&O's: Vital Signs Temp Pulse Resp BP Pulse Ox 100.3 F H 95 20 H 101/56 L 98 10/29/19 11:50 10/29/19 11:50 10/29/19 11:50 10/29/19 11:50 10/29/19 11:50 Oxygen Flow Rate (L/min) 2 Oxygen Delivery Method Room Air Weight: 128 lb 15.527 oz Body Mass Index (BMI) 22.1 Finger Stick Blood Glucose 0 Intake and Output for Last 24 Hours 10/27/19 10/28/19 10/29/19 23:59 23:59 23:59 Intake Total 186.875 / 026.522 8933.58 / 4305.58 1506.67 / 1506.67 Output Total 600 / 600 Balance 186.875 / 235.563 5622.58 / 3705.58 1506.67 / 1506.67 General: Alert, Oriented x3, Cooperative HEENT: Atraumatic, PERRLA, EOMI, Normocephalic Neck: Supple, No JVD, Negative Carotid Bruits Lungs: Clear to auscultation, Normal air movement Cardiovascular: Regular rate, No murmurs Abdomen: Bowel Sounds Present, Soft, Non Tender Extremities: No edema, Capillary Refill Less than 3 Seconds Skin: No rashes, No breakdown Musculoskeletal: No Tenderness to Palpation of Joints or Extremities Neurological: Cranial nerves II-XII grossly intact Psych/Mental Status: Normal Affect, Appropriate, Alert and oriented to time, place, person, mood and affect Microbiology Past 72 Hours 10/28/19 19:00 Gastric Fluid/Contents Gastric Occult Blood - Final 10/27/19 21:40 Urine, Clean Catch Streptococcus pneumoniae Antigen (M - Final 10/27/19 21:40 Urine, Clean Catch Legionella Antigen - Final Laboratory Results 10/29/19 06:20: WBC 9.2, RBC 4.14 L, Hgb 9.4 L, Hct 31.7 L, MCV 76.6 L, MCH 22.7 L, MCHC 29.7 L, RDW Std Deviation 50.4 H, RDW Coeff of Ilana 18.7 H, Plt Count 198, MPV 9.0, Immature Gran % (Auto) 0.400, Neut % (Auto) 81.6 H, Lymph % (Auto) 9.2 L, [place] % (Auto) 6.7, Eos % (Auto) 1.9, Baso % (Auto) 0.2, Absolute Neuts (auto) 7.5, Absolute Lymphs (auto) 0.84, Nucleated RBC % 0 10/29/19 06:20: Sodium 144, Potassium 3.4 L, Chloride 115 H, Carbon Dioxide 25.0, Anion Gap 4 L, BUN 15, Creatinine 0.62 L, Estim Creat Clear Calc 104.84, Est GFR (MDRD) Af Amer 169, Est GFR (MDRD) Non-Af 139, BUN/Creatinine Ratio 24.0 H, Glucose 73 L, Calcium 7.0 L Current Medications Acetaminophen (Tylenol) 650 mg PO Q6H PRN PRN PRN Reason: Pain 1-10 or Fever Last Admin: 10/28/19 19:11 Dose: 650 mg Documented by: Albuterol Sulfate (Ventolin Aerosols) 2.5 mg INHALATION Q6H PRN PRN PRN Reason: SOB &/OR WHEEZING Albuterol/Ipratropium (Duoneb) 3 ml INHALATION Q6HWA.RT CHASTITY Last Admin: 10/29/19 13:24 Dose: 3 ml Documented by: Atorvastatin Calcium (Lipitor) 20 mg PO QHS [facility] Last Admin: 10/28/19 21:11 Dose: 20 mg Documented by: Baclofen (Lioresal) 10 mg PO BID PRN PRN PRN Reason: HEADACHE Budesonide (Pulmicort Aerosol) 0.5 mg INHALATION Q12H.RT [facility] Last Admin: 10/29/19 06:59 Dose: 0.5 mg Documented by: Citalopram Hydrobromide (Celexa) 40 mg PO QHS [facility] Last Admin: 10/28/19 21:11 Dose: 40 mg Documented by: Dextrose (D50w Syringe) 0 gm IV X1 PRN; Protocol PRN Reason: Hypoglycemia Glucagon () 1 mg IM .X1 PRN PRN Reason: Hypoglycemia Guaifenesin (Mucinex) 1,200 mg PO BID [facility] Last Admin: 10/29/19 09:18 Dose: 1,200 mg Documented by: Sodium Chloride () 1,000 mls @ 100 mls/hr IV .Q10H [facility] Last Admin: 10/29/19 09:20 Dose: 100 mls/hr Documented by: Piperacillin Sod/Tazobactam (Sod 3.375 gm/ Sodium Chloride) 50 mls @ 12.5 mls/hr IV Q8 [facility] Last Admin: 10/29/19 13:32 Dose: 12.5 mls/hr Documented by: Sodium Chloride () 250 mls @ 15 mls/hr IV .[id number] PRN PRN Reason: Saline Flush Last Infusion: 10/28/19 02:42 Dose: 0 mls/hr Documented by: Sodium Chloride () 250 mls @ 15 mls/hr IV .[id number] PRN PRN Reason: Additional IVPB Infusion Isosorbide Mononitrate (Imdur) 30 mg PO QHS [facility] Last Admin: 10/28/19 21:11 Dose: 30 mg Documented by: Loratadine (Claritin) 10 mg PO DAILY [facility] Last Admin: 10/29/19 09:18 Dose: 10 mg Documented by: Montelukast Sodium (Singulair) 10 mg PO QHS [facility] Last Admin: 10/28/19 21:12 Dose: 10 mg Documented by: Nitroglycerin (Nitrostat) 0.4 mg SUBLINGUAL Q5M PRN PRN Reason: CARDIAC/CHEST PAIN Ondansetron HCl (Zofran Odt) 4 mg PO Q6H PRN PRN PRN Reason: NAUSEA Ondansetron HCl (Zofran) 4 mg IV Q8H PRN PRN PRN Reason: NAUSEA/VOMITING Last Admin: 10/28/19 17:19 Dose: 4 mg Documented by: Pantoprazole Sodium (Protonix) 40 mg PO DAILY [facility] Last Admin: 10/29/19 09:18 Dose: 40 mg Documented by: [facility] Last Admin: 10/29/19 09:18 Dose: Not Given Documented by: Promethazine HCl (Phenergan Tablet) 12.5 mg PO TID PRN PRN PRN Reason: nausea and vomiting Promethazine HCl (Phenergan) 6.25 mg IV Q6H PRN PRN PRN Reason: NAUSEA/VOMITING Last Admin: 10/28/19 19:11 Dose: 6.25 mg Documented by: Quetiapine Fumarate (Seroquel) 100 mg PO BID [facility] Last Admin: 10/29/19 09:19 Dose: 100 mg Documented by: Sodium Chloride () 10 - 40 ml IV UD PRN PRN Reason: SALINE FLUSH Last Admin: 10/28/19 21:14 Dose: 10 ml Documented by: Sucralfate (Carafate) 1 gm PO 1HR_ACHS [facility] Last Admin: 10/29/19 11:35 Dose: 1 gm Documented by: Discharge Diet: - - as directed Discharge Activity: - - as directed Home Medications: Medications to take at Discharge Albuterol IH (ProAir) [Proair Hfa (SP)Vent Pts] 1 puff INHALATION Q4H PRN PRN #1 inhaler 08/12/19 Atorvastatin Calcium [Lipitor] 20 mg PO DAILY 08/12/19 Baclofen [Lioresal] 10 mg PO BID PRN 08/12/19 Cetirizine HCl [All Day Allergy] 10 mg PO DAILY 08/12/19 Citalopram [Celexa] 40 mg PO DAILY 08/12/19 Dexlansoprazole [Dexilant] 60 mg PO DAILY 08/12/19 Isosorbide Mononitrate [Isosorbide Mononitrate ER] 30 mg PO DAILY 08/12/19 Quetiapine Fumarate [Seroquel Xr] 150 mg PO QHS 08/12/19 Quetiapine Fumarate [Seroquel] 25 mg PO 0800,1200 08/12/19 Rivaroxaban [Xarelto] 20 mg PO DAILY 08/12/19 Sucralfate 1 gm PO 4X/DAY 08/12/19 PEP device See Rx Instructions .ROUTE .MEDSUPPLY #1 ea 08/15/19 guaifenesin 200 mg/5 mL oral liquid 400 mg PO Q4H PRN #473 ml 08/15/19 promethazine 12.5 mg tablet 12.5 mg PO TID PRN #30 tab 10/09/19 Azithromycin [Zithromax Z-Lucio] 250 mg PO DAILY 10/27/19 Budesonide/Formoterol Fumarate [Budesonide-Formoterol 160-4.5] 2 puff INHALATION BID 10/27/19 Cefdinir [Omnicef [equiv]] 300 mg PO Q12H 10/27/19 Montelukast Sodium 10 mg PO QHS 10/27/19 Primary Care Physician: Yany Pederson MD [Primary Care Provider] - Please follow up with your Primary Care Physician in: as directed Please Follow Up With: Yany Pederson MD Disposition: Acute care Hospital Minutes spent on discharge:: 40 Patient Condition:: Stable Medical Necessity - Tobacco Use Smoking Status: Never smoker Tobacco Use: Non-smoker Meaningful Use Info Meaningful Use Diagnoses (Choose all that apply): None applicable <Kash Wesley - Last Filed: 10/29/19 14:19> Discharge Date and Diagnosis - Primary Discharge Diagnosis Acute Problems: Active Problems (Last Reviewed 10/27/19 @ 13:04 by Stefanie Salas) Sepsis (Acute) - Secondary Discharge Diagnosis Chronic Problems: Chronic Problems (Last Reviewed 10/27/19 @ 13:04 by Stefanie Salas) Chronic seasonal allergic rhinitis (Chronic) Asthma (Chronic) KULWANT (obstructive sleep apnea) (Chronic) Allergic rhinitis (Chronic) Kyphoscoliosis (Chronic) GERD (gastroesophageal reflux disease) (Chronic) Chronic iron deficiency anemia (Chronic) Anxiety and depression (Chronic) Congenital hydrocephalus (Chronic) Hearing loss (Chronic) Osteoporosis (Chronic) History of hemorrhoids (Chronic) Cancer of the skin, basal cell (Chronic) Osteoporosis (Chronic) Hx of 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 I have independently interviewed and examined the patient and reviewed pertinent historical, laboratory, and other data. Please refer to David Winter PA-C note for details of this patient's presentation, findings, and recommendations. I have reviewed David Winter PA-C note and concur with documented findings. In brief, patient is a-year-old gentleman with multiple comorbidities including recurrent admissions for pneumonia admitted with progressive shortness of breath and assessment of aspiration pneumonia secondary to presence of large hiatal hernia was made admitted to a monitored bed with consultation placed to pulmonary medicine Assessment: 1. Sepsis secondary to aspiration pneumonia 2. Aspiration pneumonia 3. Large hiatal hernia 4. GERD 5. 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 Obstructive sleep apnea 7. Essential hypertension 8. Mild intermittent asthma 9. History of colon cancer currently in remission 10. History of previous DVT 11. Depression with anxiety Hospital course: As documented above - Physical Exam Vitals/I&O's: Vital Signs Temp Pulse Resp BP Pulse Ox 100.3 F H 90 16 101/56 L 98 10/29/19 11:50 10/29/19 13:24 10/29/19 13:24 10/29/19 11:50 10/29/19 11:50 Oxygen Flow Rate (L/min) 2 Oxygen Delivery Method Room Air Weight: 58.5 kg Body Mass Index (BMI) 22.1 Finger Stick Blood Glucose 0 Intake and Output for Last 24 Hours 10/27/19 10/28/19 10/29/19 23:59 23:59 23:59 Intake Total 186.875 / 913.670 7772.58 / 4305.58 1506.67 / 1506.67 Output Total 600 / 600 Balance 186.875 / 276.004 6972.58 / 3705.58 1506.67 / 1506.67 Microbiology Past 72 Hours 10/28/19 19:00 Gastric Fluid/Contents Gastric Occult Blood - Final 10/27/19 21:40 Urine, Clean Catch Streptococcus pneumoniae Antigen (M - Final 10/27/19 21:40 Urine, Clean Catch Legionella Antigen - Final Laboratory Results 10/29/19 06:20: WBC 9.2, RBC 4.14 L, Hgb 9.4 L, Hct 31.7 L, MCV 76.6 L, MCH 22.7 L, MCHC 29.7 L, RDW Std Deviation 50.4 H, RDW Coeff of Ilana 18.7 H, Plt Count 198, MPV 9.0, Immature Gran % (Auto) 0.400, Neut % (Auto) 81.6 H, Lymph % (Auto) 9.2 L, [place] % (Auto) 6.7, Eos % (Auto) 1.9, Baso % (Auto) 0.2, Absolute Neuts ( auto) 7.5, Absolute Lymphs (auto) 0.84, Nucleated RBC % 0 10/29/19 06:20: Sodium 144, Potassium 3.4 L, Chloride 115 H, Carbon Dioxide 25.0, Anion Gap 4 L, BUN 15, Creatinine 0.62 L, Estim Creat Clear Calc 104.84, Est GFR (MDRD) Af Amer 169, Est GFR (MDRD) Non-Af 139, BUN/Creatinine Ratio 24.0 H, Glucose 73 L, Calcium 7.0 L Current Medications Acetaminophen (Tylenol) 650 mg PO Q6H PRN PRN PRN Reason: Pain 1-10 or Fever Last Admin: 10/28/19 19:11 Dose: 650 mg Documented by: Albuterol Sulfate (Ventolin Aerosols) 2.5 mg INHALATION Q6H PRN PRN PRN Reason: SOB &/OR WHEEZING Albuterol/Ipratropium (Duoneb) 3 ml INHALATION Q6HWA.RT [facility] Last Admin: 10/29/19 13:24 Dose: 3 ml Documented by: Atorvastatin Calcium (Lipitor) 20 mg PO QHS [facility] Last Admin: 10/28/19 21:11 Dose: 20 mg Documented by: Baclofen (Lioresal) 10 mg PO BID PRN PRN PRN Reason: HEADACHE Budesonide (Pulmicort Aerosol) 0.5 mg INHALATION Q12H.RT [facility] Last Admin: 10/29/19 06:59 Dose: 0.5 mg Documented by: Citalopram Hydrobromide (Celexa) 40 mg PO QHS [facility] Last Admin: 10/28/19 21:11 Dose: 40 mg Documented by: Dextrose (D50w Syringe) 0 gm IV X1 PRN; Protocol PRN Reason: Hypoglycemia Glucagon () 1 mg IM .X1 PRN PRN Reason: Hypoglycemia Guaifenesin (Mucinex) 1,200 mg PO BID [facility] Last Admin: 10/29/19 09:18 Dose: 1,200 mg Documented by: Sodium Chloride () 1,000 mls @ 100 mls/hr IV .Q10H [facility] Last Admin: 10/29/19 09:20 Dose: 100 mls/hr Documented by: Piperacillin Sod/Tazobactam (Sod 3.375 gm/ Sodium Chloride) 50 mls @ 12.5 mls/hr IV Q8 [facility] Last Admin: 10/29/19 13:32 Dose: 12.5 mls/hr Documented by: Sodium Chloride () 250 mls @ 15 mls/hr IV .[id number] PRN PRN Reason: Saline Flush Last Infusion: 10/28/19 02:42 Dose: 0 mls/hr Documented by: Sodium Chloride () 250 mls @ 15 mls/hr IV .[id number] PRN PRN Reason: Additional IVPB Infusion Isosorbide Mononitrate (Imdur) 30 mg PO QHS [facility] Last Admin: 10/28/19 21:11 Dose: 30 mg Documented by: Loratadine (Claritin) 10 mg PO DAILY [facility] Last Admin: 10/29/19 09:18 Dose: 10 mg Documented by: Montelukast Sodium (Singulair) 10 mg PO QHS [facility] Last Admin: 10/28/19 21:12 Dose: 10 mg Documented by: Nitroglycerin (Nitrostat) 0.4 mg SUBLINGUAL Q5M PRN PRN Reason: CARDIAC/CHEST PAIN Ondansetron HCl (Zofran Odt) 4 mg PO Q6H PRN PRN PRN Reason: NAUSEA Ondansetron HCl (Zofran) 4 mg IV Q8H PRN PRN PRN Reason: NAUSEA/VOMITING Last Admin: 10/28/19 17:19 Dose: 4 mg Documented by: Pantoprazole Sodium (Protonix) 40 mg PO DAILY [facility] Last Admin: 10/29/19 09:18 Dose: 40 mg Documented by: Polysaccharide Iron Complex (Ferrex 150) 150 mg PO DAILYCM [facility] Last Admin: 10/29/19 09:18 Dose: Not Given Documented by: Promethazine HCl (Phenergan Tablet) 12.5 mg PO TID PRN PRN PRN Reason: nausea and vomiting Promethazine HCl (Phenergan) 6.25 mg IV Q6H PRN PRN PRN Reason: NAUSEA/VOMITING Last Admin: 10/28/19 19:11 Dose: 6.25 mg Documented by: Quetiapine Fumarate (Seroquel) 100 mg PO BID [facility] Last Admin: 10/29/19 09:19 Dose: 100 mg Documented by: Sodium Chloride () 10 - 40 ml IV UD PRN PRN Reason: SALINE FLUSH Last Admin: 10/28/19 21:14 Dose: 10 ml Documented by: Sucralfate (Carafate) 1 gm PO 1HR_ACHS [facility] Last Admin: 10/29/19 11:35 Dose: 1 gm Documented by: Inpatient E&M: [id number] Disch Hosp
--- NOTE | 2019-10-29 14:11 | PHA.DC.MR ---
Pharmacy Service has performed discharge medication reconciliation for this patient. The patient's discharge medication list was reviewed for discrepancies and discrepancies were resolved. Home Medications Albuterol IH (ProAir) [Proair Hfa (SP)Vent Pts] 1 puff INHALATION Q4H PRN PRN #1 inhaler 08/12/19 Atorvastatin Calcium [Lipitor] 20 mg PO DAILY 08/12/19 Baclofen [Lioresal] 10 mg PO BID PRN 08/12/19 Cetirizine HCl [All Day Allergy] 10 mg PO DAILY 08/12/19 Citalopram [Celexa] 40 mg PO DAILY 08/12/19 Dexlansoprazole [Dexilant] 60 mg PO DAILY 08/12/19 Isosorbide Mononitrate [Isosorbide Mononitrate ER] 30 mg PO DAILY 08/12/19 Quetiapine Fumarate [Seroquel Xr] 150 mg PO QHS 08/12/19 Quetiapine Fumarate [Seroquel] 25 mg PO 0800,1200 08/12/19 Rivaroxaban [Xarelto] 20 mg PO DAILY 08/12/19 Sucralfate 1 gm PO 4X/DAY 08/12/19 PEP device See Rx Instructions .ROUTE .MEDSUPPLY #1 ea 08/15/19 guaifenesin 200 mg/5 mL oral liquid 400 mg PO Q4H PRN #473 ml 08/15/19 promethazine 12.5 mg tablet 12.5 mg PO TID PRN #30 tab 10/09/19 Azithromycin [Zithromax Z-Lucio] 250 mg PO DAILY 10/27/19 Budesonide/Formoterol Fumarate [Budesonide-Formoterol 160-4.5] 2 puff INHALATION BID 10/27/19 Cefdinir [Omnicef [equiv]] 300 mg PO Q12H 10/27/19 Montelukast Sodium 10 mg PO QHS 10/27/19
--- NOTE | 2019-10-29 14:12 | PN_ITS ---
Subjective: The patient was seen and examined at the bedside this morning. Events from the last 24 hours have been reviewed. The patient is currently febrile but remains hemodynamically stable. He is maintaining appropriate oxygen saturations on room air. Last evening the patient developed nausea along with multiple episodes of nonbilious emesis. Chest x-ray obtained this morning did reveal multiple air-fluid levels of bowels identified throughout the abdomen suggesting obstruction or ileus. Nevertheless, the patient denies any abdominal pain complaints at the present time. He is currently without complaints of nausea. Objective: The patient's most recent lab work, culture data and imaging studies have all been personally reviewed. Infectious work-up has been unrevealing to date. - Physical Exam Vitals/I&O's: Vital Signs Temp Pulse Resp BP Pulse Ox 100.3 F H 90 16 101/56 L 98 10/29/19 11:50 10/29/19 13:24 10/29/19 13:24 10/29/19 11:50 10/29/19 11:50 Oxygen Flow Rate (L/min) 2 Oxygen Delivery Method Room Air Weight: 128 lb 15.527 oz Body Mass Index (BMI) 22.1 Finger Stick Blood Glucose 0 Intake and Output for Last 24 Hours 10/27/19 10/28/19 10/29/19 23:59 23:59 23:59 Intake Total 186.875 / 988.403 4518.58 / 4305.58 1506.67 / 1506.67 Output Total 600 / 600 Balance 186.875 / 174.097 3893.58 / 3705.58 1506.67 / 1506.67 General: Alert, Cooperative, No apparent distress, - - Sitting in bedside recliner. HEENT: Atraumatic, Normocephalic Oral: No Gingival or Mucosal Lesions/ Ulcerations Neck: Supple, No Nodes, Trachea Midline Lungs: No rhonchi, No wheeze, Rales Cardiovascular: Regular rate, Regular Rhythm Abdomen: Bowel Sounds Present, Soft Extremities: No clubbing, No cyanosis Skin: No breakdown Musculoskeletal: No Tenderness to Palpation of Joints or Extremities, No Muscle Wasting Lymphatic: No Cervical, Supraclavicular, or Inguinal Adenopathy Neurological: Cranial nerves II-XII grossly intact, Neuro grossly intact Psych/Mental Status: Alert and oriented to time, place, person, mood and affect Labs (Last 48 Hours) 10/27/19 10/27/19 10/27/19 17:35 17:35 17:35 WBC 9.9 RBC 4.40 L Hgb 10.1 L Hct 33.8 L MCV 76.8 L MCH 23.0 L MCHC 29.9 L RDW Std Deviation 50.4 H RDW Coeff of Ilana 19.2 H Plt Count 242 MPV 9.5 Immature Gran % (Auto) 0.300 Neut % (Auto) 82.2 H Lymph % (Auto) 9.2 L Cocke % (Auto) 7.0 Eos % (Auto) 1.0 Baso % (Auto) 0.3 Absolute Neuts (auto) 8.1 H Absolute Lymphs (auto) 0.91 Nucleated RBC % 0 Sodium 142 Potassium 3.6 Chloride 110 H Carbon Dioxide 26.0 Anion Gap 6 BUN 17 Creatinine 0.59 L Estim Creat Clear Calc 110.17 Est GFR (MDRD) Af Amer 181 Est GFR (MDRD) Non-Af 150 BUN/Creatinine Ratio 28.9 H Glucose 83 Calcium 8.4 L Iron 20 L TIBC 380 Iron Saturation 5.3 L Troponin I < 0.015 MRSA (PCR) 10/27/19 10/27/19 10/28/19 20:10 22:47 05:18 WBC 8.9 RBC 4.43 L Hgb 10.0 L Hct 34.1 L MCV 77.0 L MCH 22.6 L MCHC 29.3 L RDW Std Deviation 50.4 H RDW Coeff of Ilana 19.2 H Plt Count 210 MPV 9.4 Immature Gran % (Auto) Neut % (Auto) Lymph % (Auto) Cocke % (Auto) Eos % (Auto) Baso % (Auto) Absolute Neuts (auto) Absolute Lymphs (auto) Nucleated RBC % Sodium Potassium Chloride Carbon Dioxide Anion Gap BUN Creatinine Estim Creat Clear Calc Est GFR (MDRD) Af Amer Est GFR (MDRD) Non-Af BUN/Creatinine Ratio Glucose Calcium Iron TIBC Iron Saturation Troponin I < 0.015 < 0.015 MRSA (PCR) 10/28/19 10/28/19 10/29/19 05:18 09:14 06:20 WBC 9.2 RBC 4.14 L Hgb 9.4 L Hct 31.7 L MCV 76.6 L MCH 22.7 L MCHC 29.7 L RDW Std Deviation 50.4 H RDW Coeff of Ilana 18.7 H Plt Count 198 MPV 9.0 Immature Gran % (Auto) 0.400 Neut % (Auto) 81.6 H Lymph % (Auto) 9.2 L Cocke % (Auto) 6.7 Eos % (Auto) 1.9 Baso % (Auto) 0.2 Absolute Neuts (auto) 7.5 Absolute Lymphs (auto) 0.84 Nucleated RBC % 0 Sodium 141 Potassium 3.7 Chloride 111 H Carbon Dioxide 25.0 Anion Gap 5 BUN 14 Creatinine 0.56 L Estim Creat Clear Calc 116.07 Est GFR (MDRD) Af Amer 191 Est GFR (MDRD) Non-Af 158 BUN/Creatinine Ratio 25.0 H Glucose 82 Calcium 7.7 L Iron TIBC Iron Saturation Troponin I MRSA (PCR) Negative 10/29/19 06:20 WBC RBC Hgb Hct MCV MCH MCHC RDW Std Deviation RDW Coeff of Ilana Plt Count MPV Immature Gran % (Auto) Neut % (Auto) Lymph % (Auto) Cocke % (Auto) Eos % (Auto) Baso % (Auto) Absolute Neuts (auto) Absolute Lymphs (auto) Nucleated RBC % Sodium 144 Potassium 3.4 L Chloride 115 H Carbon Dioxide 25.0 Anion Gap 4 L BUN 15 Creatinine 0.62 L Estim Creat Clear Calc 104.84 Est GFR (MDRD) Af Amer 169 Est GFR (MDRD) Non-Af 139 BUN/Creatinine Ratio 24.0 H Glucose 73 L Calcium 7.0 L Iron TIBC Iron Saturation Troponin I MRSA (PCR) Microbiology 10/28/19 19:00 Gastric Fluid/Contents Gastric Occult Blood - Final 10/27/19 21:40 Urine, Clean Catch Streptococcus pneumoniae Antigen (M - Final 10/27/19 21:40 Urine, Clean Catch Legionella Antigen - Final Clinical Impression(s) from Imaging Studies Chest CT 10/28/19 06:16 IMPRESSION: Limited exam due to respiratory motion artifacts. 2.1 cm an 8 mm right lower lobe lung nodules, possibly representing bronchogenic carcinoma or a static disease. Consider CT PET scan for further evaluation. Peribronchial infiltrates in the right middle lobe may represent atypical infection or early typical pneumonia. Small bilateral pleural effusions. Atelectasis in the lung bases. Large hiatal hernia. Electronically Signed: Jack Carrero MD at 7:09 EDT , Service support , Chest X-Ray 10/28/19 19:50 IMPRESSION: 1. Interval worsening of bilateral lower lobe edema, right greater than left with appearance of irregular consolidation in the right midlung field. 2. Multiple air-fluid levels of bowel loops reidentified throughout the abdomen suggesting obstruction or ileus. Electronically Signed: Darryl Hoskins MD at 20:16 EDT , Service support , Current Medications Acetaminophen (Tylenol) 650 mg PO Q6H PRN PRN PRN Reason: Pain 1-10 or Fever Last Admin: 10/28/19 19:11 Dose: 650 mg Documented by: Albuterol Sulfate (Ventolin Aerosols) 2.5 mg INHALATION Q6H PRN PRN PRN Reason: SOB &/OR WHEEZING Albuterol/Ipratropium (Duoneb) 3 ml INHALATION Q6HWA.RT [facility] Last Admin: 10/29/19 13:24 Dose: 3 ml Documented by: Atorvastatin Calcium (Lipitor) 20 mg PO QHS [facility] Last Admin: 10/28/19 21:11 Dose: 20 mg Documented by: Baclofen (Lioresal) 10 mg PO BID PRN PRN PRN Reason: HEADACHE Budesonide (Pulmicort Aerosol) 0.5 mg INHALATION Q12H.RT [facility] Last Admin: 10/29/19 06:59 Dose: 0.5 mg Documented by: Citalopram Hydrobromide (Celexa) 40 mg PO QHS [facility] Last Admin: 10/28/19 21:11 Dose: 40 mg Documented by: Dextrose (D50w Syringe) 0 gm IV X1 PRN; Protocol PRN Reason: Hypoglycemia Glucagon () 1 mg IM .X1 PRN PRN Reason: Hypoglycemia Guaifenesin (Mucinex) 1,200 mg PO BID [facility] Last Admin: 10/29/19 09:18 Dose: 1,200 mg Documented by: Sodium Chloride () 1,000 mls @ 100 mls/hr IV .Q10H [facility] Last Admin: 10/29/19 09:20 Dose: 100 mls/hr Documented by: Piperacillin Sod/Tazobactam (Sod 3.375 gm/ Sodium Chloride) 50 mls @ 12.5 mls/hr IV Q8 [facility] Last Admin: 10/29/19 13:32 Dose: 12.5 mls/hr Documented by: Sodium Chloride () 250 mls @ 15 mls/hr IV .[id number] PRN PRN Reason: Saline Flush Last Infusion: 10/28/19 02:42 Dose: 0 mls/hr Documented by: Sodium Chloride () 250 mls @ 15 mls/hr IV .[id number] PRN PRN Reason: Additional IVPB Infusion Isosorbide Mononitrate (Imdur) 30 mg PO QHS [facility] Last Admin: 10/28/19 21:11 Dose: 30 mg Documented by: Loratadine (Claritin) 10 mg PO DAILY [facility] Last Admin: 10/29/19 09:18 Dose: 10 mg Documented by: Montelukast Sodium (Singulair) 10 mg PO QHS [facility] Last Admin: 10/28/19 21:12 Dose: 10 mg Documented by: Nitroglycerin (Nitrostat) 0.4 mg SUBLINGUAL Q5M PRN PRN Reason: CARDIAC/CHEST PAIN Ondansetron HCl (Zofran Odt) 4 mg PO Q6H PRN PRN PRN Reason: NAUSEA Ondansetron HCl (Zofran) 4 mg IV Q8H PRN PRN PRN Reason: NAUSEA/VOMITING Last Admin: 10/28/19 17:19 Dose: 4 mg Documented by: Pantoprazole Sodium (Protonix) 40 mg PO DAILY [facility] Last Admin: 10/29/19 09:18 Dose: 40 mg Documented by: Polysaccharide Iron Complex ([facility]rex 150) [facility] Last Admin: 10/29/19 09:18 Dose: Not Given Documented by: Promethazine HCl (Phenergan Tablet) 12.5 mg PO TID PRN PRN PRN Reason: nausea and vomiting Promethazine HCl (Phenergan) 6.25 mg IV Q6H PRN PRN PRN Reason: NAUSEA/VOMITING Last Admin: 10/28/19 19:11 Dose: 6.25 mg Documented by: Quetiapine Fumarate (Seroquel) 100 mg PO BID [facility] Last Admin: 10/29/19 09:19 Dose: 100 mg Documented by: Sodium Chloride () 10 - 40 ml IV UD PRN PRN Reason: SALINE FLUSH Last Admin: 10/28/19 21:14 Dose: 10 ml Documented by: Sucralfate (Carafate) 1 gm PO 1HR_ACHS [facility] Last Admin: 10/29/19 11:35 Dose: 1 gm Documented by: Medical Necessity - Tobacco Use Smoking Status: Never smoker Tobacco Use: Non-smoker Assessment/Plan All Active Problems (Last Reviewed 10/27/19 @ 13:04 by Stefanie Salas) Sepsis (Acute) Pneumonia (Acute) History of colonoscopy (Resolved ~2017) History of colectomy (Resolved) Colon cancer (Resolved) Endocarditis (Resolved) History of kyphoplasty (Resolved) H/O left inguinal hernia repair (Resolved) History of carpal tunnel release (Resolved) History of shoulder surgery (Resolved) History of creation of ventriculoperitoneal shunt (Resolved) History of left heart catheterization (Resolved 09/11/17) Arthritis (Acute) Severe headache (Acute) Bilateral hearing loss due to cerumen impaction (Acute) 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 (Acute) Nonhealing surgical wound (Acute) Skin cancer, basal cell (Acute) Cellulitis (Acute) Hx of shelter use of blood thinners (Acute) BCC (basal cell carcinoma of skin) (Resolved) Cellulitis (Resolved) Cellulitis due to MRSA (Resolved) History of upper gastrointestinal hemorrhage (Resolved) Knee pain (Resolved) Non-healing surgical wound (Resolved) Open wound of left forearm (Resolved) Rotator cuff disorder (Resolved) Skin tear of forearm without complication (Resolved) Vomiting (Resolved) Wound, open, scalp with complication (Resolved) history of broken shoulder (Resolved) RECOMMENDATIONS: 1. Continue empiric antimicrobials. 2. Make patient n.p.o. and consider placing NG tube. Obtain dedicated abdominal CT. 3. Continue bronchodilator therapy along with scheduled inhaled corticosteroid. 4. Encourage incentive spirometer use while in bed. 5. Recommend follow-up with surgery in [place] to be considered for possible Bernice fundoplication. IMPRESSIONS: 1. Shortness of breath likely secondary to asthma with exacerbation with concern for recurrent aspiration pneumonia The patient's dyspnea is most likely multifactorial in etiology. The patient does have underlying asthma, which is likely being exacerbated by reflux of gastric secretions given the patient's dilated esophagus with retained fluid and large paraesophageal hernia. At this time, I agree with continuing bronchodilators and inhaled corticosteroid. The patient CT chest was personally reviewed. There does appear to be some residual right-sided nodular infiltrates, for which antibiotics should be continued. I would recommend that the patient follow-up with a surgical coordinator in [place] to be evaluated for Bernice fundoplication following discharge. Given the findings noted on chest x- ray, I would obtain a dedicated CT abdomen. Consider making the patient n.p.o. and placing NG tube. 2. Obstructive sleep apnea Continue nocturnal Pap therapy per home regimen. 3. Esophageal dilation/large hiatal hernia The patient has had evidence of esophageal dilation and large hiatal hernia dating back to 2018. Given the patient's respiratory issues, he would likely benefit from being evaluated by surgery for possible Bernice fundoplication following discharge. 4. Congenital hydrocephalus/GERD/hypertension/hyperlipidemia/history of DVT Complicates care, management, recovery and prognosis. Okay from my perspective to continue home medications as indicated. This note was generated with [employer] dictation software. It may contain incorrect words, spelling, and punctuation that were not noted in checking the note before signing. Inpatient E&M: 93377 Subs Hosp L2
--- NOTE | 2019-10-29 17:25 | NURSING ---
Report called to nurse Coates for pt transfer to [facility].
== END 2019-10-29 18:47 | disposition short-term general hospital (02) | DRG 178 ==
PROVIDERS: Internal Medicine Critical Care Medicine; Physician Assistant; Admitting Provider Student in an Organized Health Care Education/Training Program; PCP Internal Medicine; Referring Provider Student in an Organized Health Care Education/Training Program; Visit Provider Internal Medicine
DX: J69.0 Pneumonitis due to inhalation of food and vomit (principal); T17.820A Food in other parts of respiratory tract causing asphyxiation, initial encounter; J45.41 Moderate persistent asthma with (acute) exacerbation; G47.33 Obstructive sleep apnea (adult) (pediatric); K21.9 Gastro-esophageal reflux disease without esophagitis; K44.9 Diaphragmatic hernia without obstruction or gangrene; I10 Essential (primary) hypertension; F41.8 Other specified anxiety disorders; D50.9 Iron deficiency anemia, unspecified; E78.5 Hyperlipidemia, unspecified; Z66 Do not resuscitate; M41.9 Scoliosis, unspecified; K22.8 Other specified diseases of esophagus; M81.0 Age-related osteoporosis without current pathological fracture; Z90.49 Acquired absence of other specified parts of digestive tract; Q03.9 Congenital hydrocephalus, unspecified; Z98.2 Presence of cerebrospinal fluid drainage device; Z85.038 Personal history of other malignant neoplasm of large intestine; Z86.718 Personal history of other venous thrombosis and embolism; Z79.01 Long term (current) use of anticoagulants; Z87.01 Personal history of pneumonia (recurrent); Z79.899 Other long term (current) drug therapy; Z82.49 Family history of ischemic heart disease and other diseases of the circulatory system
CPT/HCPCS: 36415; 71046; 71260; 80048; 82271; 83540; 83550; 83605; 84484; 85025; 85027; 87040; 87449; 87633; 87635; 87641; 94640; 94667; 94668; 96360; 96361; 97162; 97166; 99285; G2023; J7030; J7050; Q9967; A4216; J2405; J2916; U0003

== ENCOUNTER → 2019-11-10 20:00 | Outpatient (CLI) | payer MEDICARE, SELFPAY ==
[2019-10-09 18:18] VITALS: BMI 23.6
== END ==
PROVIDERS: PCP Internal Medicine; Referring Provider Nurse Practitioner Acute Care; Visit Provider Nurse Practitioner Acute Care
DX: G47.33 Obstructive sleep apnea (adult) (pediatric) (principal)
CPT/HCPCS: 95811

== ENCOUNTER 2019-11-27 08:30 | Outpatient (RCR) | payer MEDICARE, SELFPAY ==
[2019-09-30 08:18] VITALS: BMI 23.6
--- NOTE | 2019-10-01 13:03 | HP.PTEVAL_ITS ---
Patient's Visit Information KIT PALAFOX is a 58 year old M referred to Physical Therapy by Dr. Yany Pederson MD with a diagnosis of Cervical radiculopathy. Date of Evaluation: 10/01/19 Physical Therapist: Fly Laboy DPT - Visit Plan Frequency: 2x /Week Duration: 4-6 Weeks Plan: Start with gentle cervical ROM, slight cervical retraction, scapular region. Light cervical distraction. Add in postural stability/strength as able. Progress HEP as tolerated. - Subjective Pt. is here today for his initial evaluation with diagnosis fo cervical radiculopathy with radiation into R hand. Pt. reports symptoms have been going on for about 2 weeks now. Pt. reports pain in his neck, bilaterally, but is most conserned with new onset of N/T into 5th finger and medial forearm. Pt. reports symptoms come and go without known trigger. Pt. has been going to chiro with adjustments and trigger point injections. Pt. is also now using an [place] collor for a few minutes at a time a few times a day. Pt. is sleeping okay without issues, but will have some increased N/T upon walking. His symptoms go away, but last occassionally upto 5-10 minutes. Pt. reports no new onset of weakness and is not dropping any objects. pt. is hopeful to reduce symptoms in order to complete all work and household duties without limitations. - Pain Cervical spine Pain Intensity (Out of 10): 3 Pain Intensity Range: 0, 6 R distal arm/hand Pain Intensity (Out of 10): 1 Pain Intensity Range: 0, 4 Comment: its is mostly annoying. - Objective POSTURE: pt. has exaggerated thoracic kyphosis with subsequent cervial lordosis. Elevated R shoulder. Pt. is able to improve, but unable to fully correct. PALPATON: Pt. has pain at B UT, B aspects of cervical erector spinea. Pt. has no pain at subacromial space and no pain throughout distal UE. - Special Tests C/S Radiculapathy - Left Upper limb tension test: Negative C/S Radiculapathy - Right Upper limb tension test: Negative C/S Radiculapathy - Left Spurlings: Negative C/S Radiculapathy - Right Spurlings: Positive C/S Radiculapathy - Left Cervical distraction: Negative C/S Radiculapathy - Right Cervical distraction: Negative C/S Radiculapathy - Left Relief test: Negative C/S Radiculapathy - Right Relief test: Negative Cervical Sitting: Protrusion - Mechanical Response: No effect Cervical Sitting: Protrusion - Symptoms During Testing: No effect Cervical Sitting: Protrusion - Symptoms After Testing: No effect Cervical Sitting: Retraction - Mechanical Response: No effect Cervical Sitting: Retraction - Symptoms During Testing: Increases Cervical Sitting: Retraction - Symptoms After Testing: No worse Cervical Sitting: Retraction-Extension - Mechanical Response: No effect Cerv Sitting: Retraction-Extension - Symptoms During Testing: Increases Cerv Sitting: Retraction-Extension - Symptoms After Testing: No worse Cervical Sitting: Sidebend Right - Mechanical Response: No effect Cervical Sitting: Sidebend Right - Symptoms During Testing: Increases Cervical Sitting: Sidebend Right - Symptoms After Testing: No worse Cervical Sitting: Sidebend Left - Mechanical Response: No effect Cervical Sitting: Sidebend Left - Symptoms After Testing: No worse Cervical Sitting: Rotation Right - Mechanical Response: No effect Cervical Sitting: Rotation Right - Symptoms During Testing: Increases Cervical Sitting: Rotation Right - Symptoms After Testing: No worse Cervical Sitting: Rotation Left - Mechanical Response: No effect Cervical Sitting: Rotation Left - Symptoms During Testing: Increases Cervical Sitting: Rotation Left - Symptoms After Testing: No worse Cervical Sitting: Flexion - Mechanical Response: No effect Cervical Sitting: Flexion - Symptoms During Testing: Increases Cervical Sitting: Flexion - Symptoms After Testing: No worse - Goals Goal 1:: LTG: Pt. to be I with HEP. Goal Time Frame: 4-6 Weeks Goal 2:: STG: Pt. to have improved cervical ROM by 25% in all effected directions without increase in symptoms. Goal Time Frame: 2-4 Weeks Goal 3:: LTG: Pt. to demonstrate improved postural control/awareness as seen in improved posture maintained throughout therapy. Goal Time Frame: 4-6 Weeks Goal 4:: STG: Pt. to reports reduced frequency and severity of N/T in R UE to x3 per week. Goal Time Frame: 2-4 Weeks Goal 5:: LTG: Pt. to have no radicular symptoms down his RUE. Goal Time Frame: 4-6 Weeks - Rehabilitation Potential Physical Therapy Diagnosis: Pt. has signs and symptoms consistent with R sided cervical radiculopathy. Pt. has N/T down his R arm into 5th digit at times. Pt. has marked postural defects including excessive thoracic kyphosis with subsequent lower cervical lordosis. Pt. would benefit from PT to work on postural stability, cervical ROM and prophalaxis training. Rehabilitation Potential: Fair - Anticipated Interventions Patient/Client Instruction: Educate patient on: Condition, Plan of Care, Risk Factors, Benefits of Fitness Program For the Purpose of:: To improve decision making, To facilitate caregiver knowledge, To improve self management, To prevent re-injury, To improve ability to perform tasks related to life management, To improve tolerance to ADL's Therapeutic Exercise to Include: Strength training, Power training, Body mechanics, Postural training, Flexibilty training, Passive ROM, Active ROM, [place] Exercises, Scapular Strength/Stabilization For the Purpose of:: To decrease pain, To decrease swelling/inflammation, To increase ROM, To improve nutrient delivery to tissue, To increase oxygenation perfusion, To improve muscle performance and motor function, To improve ability to perform ADL's, To increase tolerance to activity/condition/position, To improve health of tissue, To decrease soft tissue restriction, To increase flexibility/ROM Manual Therapy Techniques to Include: Mobilization, Passive ROM, Functional dry needling, Soft tissue mobilization For the Purpose of:: To decrease pain, To decrease swelling/inflammation, To increase ROM, To improve nutrient delivery to tissue, To improve muscle performance and motor function, To decrease soft tissue restriction, To increase flexibility/ROM Ultrasound (thermal/non thermal): Yes For the Purpose of:: To decrease pain, To decrease swelling/inflammation, To increase ROM, To improve nutrient delivery to tissue, To increase oxygenation perfusion, To improve muscle performance and motor function, To improve ability to perform ADL's Thank you for the opportunity to evaluate your patient. For Medicare and Medicare HMO plans, please review the plan of care and approve it. It will need to be FAXED BACK to us at [phone] for Medicare purposes. For Medicare only, by signing this I certify the plan of care. Please let me know if there are questions or concerns regarding this plan of care. Physician Signature: Date:
--- NOTE | 2019-11-05 13:40 | HP.PTREVAL ---
Dr. Yany Pederson MD, It has been my pleasure to treat KIT PALAFOX over the last 5 visits for Cervical radiculopathy. Please see the progress note below for an update on the physical therapy plan of care! Subjective: Pt. reports being HEP compliant. He reports only occassional tingling in his R hand now. Pt. reports being in the hospital recently for a bit due to stomach issues. Objective/Function: Cervical spine- extension- mod loss, flexion- nil loss, rotation mod loss bilat. Thoracic spine- extension max loss (high level of thoracic kyphosis, but has improved.) Pt. reports overall decreased N/T in R hadn, but does still have some in AMs occassionally. Pt. is workiong hard at his HEP and coming to gym x3-5 per week. Pt. did have a set back this past week with stomach pains resuting in hospital stay, but is better today. Plan Plan: I will continue to see him with the current POC. Working on thoracic and cervical ROM and progression scapular strengtheing to improve posture and reduce further postural decline. Goals Goal 1:: LTG: Pt. to be I with HEP. Goal Time Frame: 4-6 Weeks Goal Progress: Progressing Goal 2:: STG: Pt. to have improved cervical ROM by 25% in all effected directions without increase in symptoms. Goal Time Frame: 2-4 Weeks Goal Progress: Progressing Goal 3:: LTG: Pt. to demonstrate improved postural control/awareness as seen in improved posture maintained throughout therapy. Goal Time Frame: 4-6 Weeks Goal Progress: Progressing Goal 4:: STG: Pt. to reports reduced frequency and severity of N/T in R UE to x3 per week. Goal Time Frame: 2-4 Weeks Goal Progress: Progressing Goal 5:: LTG: Pt. to have no radicular symptoms down his RUE. Goal Time Frame: 4-6 Weeks Goal Progress: Progressing Anticipated Interventions Patient/Client Instruction: Educate patient on: Condition, Plan of Care, Risk Factors, Benefits of Fitness Program For the Purpose of:: To improve decision making, To facilitate caregiver knowledge, To improve self management, To prevent re-injury, To improve ability to perform tasks related to life management, To improve tolerance to ADL's Therapeutic Exercise to Include: Strength training, Power training, Body mechanics, Postural training, Flexibilty training, Passive ROM, Active ROM, Ashkan Exercises, Scapular Strength/Stabilization For the Purpose of:: To decrease pain, To decrease swelling/inflammation, To increase ROM, To improve nutrient delivery to tissue, To increase oxygenation perfusion, To improve muscle performance and motor function, To improve ability to perform ADL's, To increase tolerance to activity/condition/position, To improve health of tissue, To decrease soft tissue restriction, To increase flexibility/ROM Manual Therapy Techniques to Include: Mobilization, Passive ROM, Functional dry needling, Soft tissue mobilization For the Purpose of:: To decrease pain, To decrease swelling/inflammation, To increase ROM, To improve nutrient delivery to tissue, To improve muscle performance and motor function, To decrease soft tissue restriction, To increase flexibility/ROM Ultrasound (thermal/non thermal): Yes For the Purpose of:: To decrease pain, To decrease swelling/inflammation, To increase ROM, To improve nutrient delivery to tissue, To increase oxygenation perfusion, To improve muscle performance and motor function, To improve ability to perform ADL's Please do not hesitate to contact me at [phone] by phone or if you have questions or concerns regarding this new plan of care! Sincerely, Fly Laboy DPT
== END 2019-11-27 19:00 | disposition home or self-care (01) ==
LOC: PT 08:30
PROVIDERS: PCP Internal Medicine; Referring Provider Internal Medicine; Visit Provider Internal Medicine
DX: M54.12 Radiculopathy, cervical region (principal)
CPT/HCPCS: 97110; 97140; 97161; 97164

== ENCOUNTER 2020-02-09 09:00 | Outpatient (RCR) | payer MEDICARE, MEDICAID, SELFPAY ==
[2020-01-23 09:59] VITALS: BMI 21.6
--- NOTE | 2020-02-09 09:00 | BH.SGPN.GN ---
Behaviors/Verbalizations/Mental Status: []Client alert and oriented, casually dressed. Eye contact good. Motor activity appropriate. Speech within normal limits. Affect restricted, mood anxious. Thoughts linear, logical, no signs of hallucinations or delusions. Reviewed client?s symptom tracker, no risk or plan for suicide ideation as of 02/09/20. Client Response/Progress/Benefit: []Client responded well to group, engaged and participated throughout discussion. Client reported to be motivated and ?ready to get back to normal self? for his first day of IOP. Client hopes to gain coping skills to improve MH symptoms. Client benefited from group as he gained insight of group expectations and established relationships with other group members. Client will continue IOP to increase the use of healthy coping skills and improve daily functioning. Narrative Note: []
--- NOTE | 2020-02-09 10:10 | BH.SGPN.GN ---
Behaviors/Verbalizations/Mental Status: []Client alert and oriented, neatly dressed and groomed. Eye contact good. Motor activity appropriate. Speech within normal limits. Affect constricted, mood dysthymic. Thoughts linear, logical, no signs of hallucinations or delusions. Client Response/Progress/Benefit: [] Client was an engaged participant AEB client providing input throughout discussion and appeared to listen attentively to others. Client connected with the topic of obstacles and solutions and worked with group to identify common obstacles that keep people stuck. Client shared current reality as feeling ?like I?m walking by a volcano of stress? due to client?s multiple responsibilities. Client's realistic, desired reality is to have time for himself and set boundaries with his supports. Group discussed common barriers that keep people stuck to include lack of energy, no coping skills, and feeling defeated. Benefited from group as client was able to identify current and desired mental health state and increase awareness of how barriers can impact progress. Client will continue IOP tx to prevent decompensation, improve the use of healthy coping skills, and learn to set healthy boundaries. Narrative Note: []
--- NOTE | 2020-02-09 11:15 | BH.SGPN.GN ---
Behaviors/Verbalizations/Mental Status: []Client alert and oriented, casually dressed and appropriately groomed. Eye contact fair. Motor activity appropriate. Speech within normal limits. Affect flat, mood anxious and dysthymic. Thoughts linear, logical, no signs of hallucinations or delusions. Client Response/Progress/Benefit: [] Client was a passive participant AEB client providing input only when elicited by therapist and appeared to listen attentively to others. Engaged during activity and provided ideas on how to cope with internal barriers that keep clients stuck from moving towards goals. Barriers identified by client were: guilt, doing to much for others, lack of self-care, and lack of boundaries. Group helped identify strategies to combat barriers identified by group members. Client reported will work on setting boundaries with others to give himself more time for self-care. Seemed to benefit from group by identifying obstacles and solutions to desired reality. client's first day in IOP. Will continue IOP tx to decrease anxiety, improve boundary setting and prevent decompensation. Narrative Note: []
--- NOTE | 2020-02-09 13:04 | BH.MTP_ITS ---
[facility] Treatment Plan - Patient Information Program Physician:: Dr. Renu Garcia Primary Therapist:: Rita Means - Psychiatric Diagnoses Psychiatric Diagnoses:: Major depressive disorder, recurrent, severe without psychosis; anxiety disorder unspecified Diagnosis Code(s):: F 33.2 - Estimated LOS Estimated LOS (in weeks):: 6 Problem/Goal #1 - Problem/Goal #1 Stated Goal:: Stabilize anxiety level while increasing ability to function and decreasing ruminative thoughts on a daily basis through Intensive Outpatient Program. Description of Barriers: Client has some physical limitations due to several new and previous health-related issues. Additionally, client receives SSDI as his main source of income and at times struggles with finances which serves as an additional stressor. Client has significant hearing loss which at times impacts his ability to communicate with supports and has previously resulted in increased stressors due to frustration, disappointment, and anxiety about not hearing what others are saying to him. Client has limited insight into how emotions, behaviors, and thoughts impact one another and effect his mental health. Functional Impact: Client is a 62-year-old male with a history of MDD and anxiety. Client was previously in the IOP program approximately three years ago and was recommended to return by his outpatient psychiatrist due to worsening depression and anxiety, as well as limited benefit from traditional outpatient therapy alone. At time of intake, client reported worsening mental health symptoms over the past 6 months due to limited contact with others as a result of ongoing health issues and current COVID-19 pandemic precautions. Client endorsed isolation, hopelessness, increased sadness, guilt, irritability, increased worry and ruminating thoughts, decreased concentration, and increased relationship tension. Client reported his sx were further escalated by a recent stomach surgery which limited his interaction with supports and greatly limited ability to engage in activities he used to enjoy. Client's symptoms were impacting ability to function at his baseline. Goal Relevant Strengths/Supports: Client is highly motivated, he is familiar with mental health treatment, resilient, open to learning new skills, has strong supports, and is positive about treatment - Objectives Objective #1 Stated Objective: Client will learn and implement 2-3 calming skills to reduce overall anxiety and manage anxiety symptoms. Interventions: Therapist will teach client calming/relaxation skills and assign client homework which practices relaxation skills daily. Discharge Criteria: Client will have achieved this goal when can verbalize at least 2 calming skills and implement those skills. Target Date: 03/22/20 Review Date: 03/08/20 Objective #2 Stated Objective: Client will identify 2-3 anxiety triggers and 2 coping skills to reduce anxiety as shown by decreased DSM-5 cross cutting symptom measure scores as well as improve ability to relax at night in order to receive better overall quality of sleep. Interventions: Therapist will help client increase awareness of anxiety triggers and educate client on the ways anxiety impacts overall health and sleep. Therapist will teach client various calming and mindfulness strategies to promote emotional regulation, improve sleep hygiene, and reduction of anxiety. Therapist will encourage client to implement healthy coping skills on a regular basis. Discharge Criteria: Client will have accomplished this goal when can report at least 2 triggers for anxiety and 2 coping strategies to manage symptoms. Additio vikas, client will have accomplished this goal when he can report reduced DSM-5 cross cutting symptoms for anxiety and sleep. Target Date: 03/22/20 Review Date: 03/08/20 Problem/Goal #2 - Problem/Goal #2 Stated Goal:: Client will reduce depressive symptoms, feelings of hopelessness, and guilt due to Major Depressive Disorder through Intensive Outpatient Program. Description of Barriers: Client has some physical limitations due to several new and previous health-related issues. Additionally, client receives SSDI as his main source of income and at times struggles with finances which serves as an additional stressor. Client has significant hearing loss which at times impacts his ability to communicate with supports and has previously resulted in increased stressors due to frustration, disappointment, and anxiety about not hearing what others are saying to him. Client has limited insight into how emotions, behaviors, and thoughts impact one another and effect his mental health. Functional Impact: Client is a 62-year-old male with a history of MDD and anxiety. Client was previously in the IOP program approximately three years ago and was recommended to return by his outpatient psychiatrist due to worsening depression and anxiety, as well as limited benefit from traditional outpatient therapy alone. At time of intake, client reported worsening mental health symptoms over the past 6 months due to limited contact with others as a result of ongoing health issues and current COVID-19 pandemic precautions. Client endorsed isolation, hopelessness, increased sadness, guilt, irritability, increased worry and ruminating thoughts, decreased concentration, and increased relationship tension. Client reported his sx were further escalated by a recent stomach surgery which limited his interaction with supports and greatly limited ability to engage in activities he used to enjoy. Client's symptoms were impacting ability to function at his baseline. Goal Relevant Strengths/Supports: Client is highly motivated, he is familiar with mental health treatment, resilient, open to learning new skills, has strong supports, and is positive about treatment - Objectives Objective #1 Stated Objective: Client will identify and replace 2-3 negative thinking patterns that mediate feelings of hopelessness and helplessness. Interventions: Through groups and individual therapy, pt. will be provided with education on cognitive distortions, mistaken beliefs, and identifying and combating negative self-talk. Therapist will help pt. explore connection between thoughts, feelings, and actions. Discharge Criteria: Pt. will be able to identify 2-3 negative thinking patterns and be able to effectively stop, challenge, or cope with those negative thoughts. Target Date: 03/22/20 Review Date: 03/08/20 Objective #2 Stated Objective: Pt will decrease depressive symptoms AEB pt?s score on the DSM 5 cross-cutting measure and improve pt?s daily functioning. Interventions: Through groups and individual therapy, pt will be provided with education on cognitive distortions, mistaken beliefs, and identifying and combating negative self-talk. Therapist will assist pt with getting back into the activities she once enjoyed as well as increasing healthy coping strategies. Discharge Criteria: Pt will have met this goal when pt?s score on the DSM 5 cross cutting measure for depression has been decreased and per pt?s report daily functioning has improved. Target Date: 03/22/20 Review Date: 03/08/20
--- NOTE | 2020-02-09 13:04 | BH.MDN_ITS ---
Multi-Disciplinary Note - Note 30-min Individual Time Started:: 08:30 Date: 02/09/20 Purpose of session/treatment goals addressed:: The purpose of this session was to gather information on client's current stressors, symptoms, treatment goals, and any changes since intake assessment. Another goal was to re-establish rapport and complete intake paperwork, including CSSR assessment. Eye Contact:: Good Motor Activity:: Appropriate Appearance:: Casual Speech:: Appropriate Mood:: Anxious, Dysthymic Affect:: Congruent Thoughts:: Linear, No evidence of hallucinations/delusions noted Staff Interventions:: Therapist used active listening and open-ended questions to explore client's current symptoms and stressors, as well as changes since intake assessment. Used Motivational Interviewing techniques to aid client in identifying treatment goals and expectations. Provided supportive feedback and empathic responses as client discussed current struggles and areas of concern. Therapist applied strengths perspective to re-establish rapport and help client identify personal strengths and areas of resilience. Therapist aided client in completion of intake paperwork and further assessed for risk utilizing the CSSR assessment. Client Response:: Client responded well to session, open to meeting with therapist and remained engaged throughout. Client shared that he self-referred to the IOP program this time after recognizing a significant decline in his mental health over the past few months and that his outpatient psychiatrist was in agreement with this plan. Client reports recent changes in his overall physical health as the primary trigger for his recent influx in mental health symptoms. Expressed that he had been struggling with multiple cases of pneumonia as a result of an undiagnosed hernia. Reported he had surgery 5 weeks ago on the hernia, but was forced to significantly reduce his activity as a result. Client expressed that he has been unable to socialize much over the past few months due to these physical limitations and since the surgery has been further restricted on his physical activity. Noted he has not been able to vacuum as a result which has been a primary means of coping for client in the past. Noted his diet has also been impacted and that he has had to eliminate his favorite foods as well as caffeine which has been an additional stressor. Client shared struggling with negative thoughts, difficulties identifying new coping skills to replace the ones he is no longer permitted to engage in, and increased irritability impacting his relationships with others as a result. Expressed that he is glad he has returned to the IOP program and feels it will be helpful in improving his motivation and ability to adjust to his ?new normal?, as well as better manage daily stressors impacting client emotion regulation and mental health. Client worked with therapist to identify treatment goals which he noted as: improving emotion regulation and stress management skills, increasing healthy communic ation with supports, and improving overall ability to challenge negative thoughts. Risks/Concerns:: Denies any active suicidal ideations, plan, or intent as of this date. Future oriented and worked with therapist in setting goals for IOP. Therapist completed [place] Suicide Screening Assessment with pt who presents as a Low risk for suicide given no prior SI or self-harming hx, no prior psychiatric hospitalizations. No significant changes since pre-admission screening. Denies active suicidal ideation, plan, or intent. Protective factors include his mother and involvement in the community. Future-oriented. Reports plans to attend IOP group Sunday and this week. Progress Toward Goals/Plan:: Client's first day in IOP. Client previously attended IOP tx in 2017 and successfully completed the program at that time. Client presents with an anxious and depressed mood, which has been further exacerbated due to isolation caused by COVID-19 restrictions and client physical health. Client additionally reports an increase in negative thoughts and difficulties with both stress management and emotion regulation over the past 3 months. stated. Reports wanting to improve his outlook, increase use of healthy coping mechanisms, and better regulate his emotions (specifically irritability) while in IOP tx. Will continue IOP tx to prevent decompensation, reduce anxiety and depression, and improve daily functioning. Time Stopped:: 08:58
--- NOTE | 2020-02-09 13:05 | BH.PSA ---
Development & Family of Origin - Family History Family History: Family History (Last Reviewed 01/23/20 @ 09:59 by Chapis Brasher) Daughter Cancer Sister Cancer Father Hypertension
--- NOTE | 2020-02-11 09:32 | BH.NA ---
Physical Data - Vital Signs Pulse Rate: 76 Blood Pressure: 122/86 - Height/Weight Height: 1.6 m Weight:: 53.524 kg Weight in Pounds: 118.0 lbs Current Medication Compliance - Medication Compliance Do you take your medication as prescribed?: Yes Nutritional History - Appetite Nutritional Instructions:: If client shows signs of a swallowing problem, weight change of 10 pounds or more in the last month, or is on a diabetic diet, the physician will review and request a dietitian consult, as appropriate. All unintentional weight loss will be referred to the physician for decision on need for dietitian consult. Describe your appetite:: Fair Additional nutritional information:: Client states weight loss after recent hernia surgery but states appetite is good. Functional Assessment - Sleep Pattern Describe any problems with sleeping: Client states his sleep is good, stating he sleeps about 8 hours per night. 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 - Respiratory Conditions Respiratory: Asthma, Other (See comments) Comments:: KULWANT- uses pap machine - Neurological Conditions Neurological: Other (See comments) Comments:: hydrocephalus - Gastrointestinal Conditions Gastrointestinal: Other (See comments) Comments:: GERD - Cancer History Type of Cancer:: Skin (non-melanoma) Comments:: colon cancer - Pain Assessment Do you have acute or chronic pain?: No - Family History Family History: Family History (Last Reviewed 01/23/20 @ 09:59 by Chapis Brasher) Daughter Cancer Sister Cancer Father Hypertension Surgical History - Surgical History Have you had any surgeries? If so, list type and date:: Yes - hernia, colectomy, PATIENT SAFETY COORDINATOR shunt, kyphoplasty, carpal tunnel, shoulder Substance Abuse - Substance Abuse Please describe substance abuse in the last 30 days:: Client denies alcohol, tobacco or substance use. Client states he stopped drinking caffiene prior to his hernia surgery. Mental Status Summary - Mental Status Significant Findings/Observations on Appearance and Mood:: Client is alert and oriented x 4. Client is casually groomed with good hygiene. Client is cooperative with assessment. Client is wearing mask due to COVID19 pandemic. Client's voice has normal rate and volume. Client appears mildly depressed during assessment. Client makes logical associations. Client denies hallucinations/delusions. Client denies SI. Suicide Assessment - Suicidal Ideation Are you currently or have you been suicidal in the past?: No - denies SI Suicidal Intentional Rating Scale (SIRS): Suicidal thoughts (past) Physician Notification: If Active suicidal thoughts/Will not contract for safety is checked, contact physician and document in the Physician Notification section below. Past Psychiatric History - MH Treatment Hx Past Psychiatric Medications:: Client states he can not remember names of past medications. Age of first mental health symptoms: Client states he was diagnosed with anxiety and depression in 2013. Describe (age, circumstance, etc) any past hospitalizations: Client was hospitalized in 2014 twice at [facility]. Client was in IOP program in 2017. Current providers for mental health treatment (counselor, psychiatrist, machine adjuster leader case trim, etc.): Client has therapy at [facility] and psychiatry with Charlie Holder at [facility]. Fall Risk Assessment - Age Age: 60-70 - Mental Status Mental Status: Willing & able to ask for assistance when needed - Physical Status Physical Status: Limb, dizziness, syncope, neurological - Impairments Impairments: None - Elimination Elimination: Continent AND independent - Gait or Balance Gait or Balance: Walks independently - Hx of Falls History of falls in the past 6 months: No known history - Medications/Substances Psychotropics:: Antidepressants Medications/substances used within the past 24 hours or ordered to administer: 1-2 of the medications/substances listed above - Total Score Total Points:: 4 RN Summary of Impressions - Impressions Recommendations: Include psychiatric and medical issues, treatment planning recommendations, and discharge planning needs. Impressions: Psychiatric Issues: major depressive disorcer, recurrent, severe without psychosis; anixety disorder unspecified - Level of Care How do the client's current symptoms and functional deficits support need for this level of care?: Client states his mental health has been declining this year after having medical issues. Client states he was hospitalized with pneumonia due to his hernia (aspiration pneumonia). Client states this caused isolation due to COVID19 pandemic. Client states for mental health he could tell things were not going good and states this IOP program helped him in the past so he wanted to come back. Client reports negative thoughts and feeling emotionally drained. Client thought does state positive changes in his life after hernia surgery a month ago. IOP will promote gains and prevent further decompensation while providing social support and skills training.
[2020-02-11 10:33] VITALS: BP 122/86; PULSE 76
--- NOTE | 2020-02-11 11:20 | BH.SGPN.GN ---
Behaviors/Verbalizations/Mental Status: [] Client alert and oriented, casually dressed and groomed. Eye contact fair to good. Motor activity appropriate. Speech within normal limits\, quiet. Affect congruent, mood dysthymic. Thoughts linear, logical, no signs of hallucinations or delusions Client Response/Progress/Benefit: [] Client responded well to session, actively listening and taking notes throughout, though provided limited verbal feedback. Client actively listening as the group discussed the different categories of coping skills which included distraction, emotional release, grounding, self-love, and thought challenging. Appeared to connect with provided examples for each category. Client participated in creating a coping skills ?menu? for the five categories of coping skills. Client's coping skill menu included: going for a walk, dancing, connecting with others, and exercise. Shared wanting to focus on more active application of healthy distraction and self-love skills though struggled to identify specific ways to strengthen skills in these areas. Client at times appeared to struggle with connecting materials to own life which may impede progress moving forward. Appeared to benefit from increasing repertoire of healthy coping skills. Will continue tx to further improve mood stability, develop a more healthy coping repertoire, and prevent decompensation. Narrative Note: []
--- NOTE | 2020-02-11 13:00 | BH.PSY.EVA_ITS ---
Psychiatric Evaluation - Initial Evaluation Initial Evaluation: History of Present Illness: [] The patient is a 59-year-old single male who was referred by himself and his outpatient psychiatrist provider due to increasing symptoms of depression and anxiety. The patient has a longstanding history of depression,anxiety, hydrocephalus and chronic back pain/spasm. He currently lives alone in a house with 1 dog and 2 cats. 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 He states that his stressors and his symptoms worsened since June 2019. At that time he was discovered to have a hiatal hernia and he had surgery for this and was hospitalized for complications from the surgery. The patient got pneumonia and had to be admitted to the hospital. Due to the Covid pandemic and his illness the patient has had quite limited social support or interactions and this also he feels has worsened his depression. In addition his 93-year-old mother continues to decline in health and the patient helps her out and there has been some conflict between them recently. His mother tells him 10 things he has to do all at once in the patient likes to go from one task complete that fully and then go to the next task. The patient gets irritable and overwhelmed when his mother keeps telling him multiple things that she needs him to do all at once. The patient did the [facility] IOP program 2 times in 2017 and he feels that it greatly benefited him. He endorses feeling sadness, occasional hopelessness and guilt. He has been isolating himself more and is irritable with his mother. He denies feeling worthless. He is unable to enjoy a much of anything he does anymore. His appetite is okay and his sleep is good at 8 hours a night. He is compliant with using his CPAP/BiPAP. His energy level is okay overall and his concentration is slightly decreased. He gets very anxious when his mother gives him multiple tasks to do all at once. He endorses ruminating when he is anxious. He denies panic attacks, OCD or eating disorder. 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 He admits to fleeting passive thoughts only on occasion. He denies suicidal or homicidal ideation. He denies hallucinations, delusions or symptoms of [place]. For primary support he has his counselor or his family. Current Psychiatric Medications: [] Celexa 40 mg p.o. daily (started 2 days ago); Seroquel 25 mg p.o. twice daily and 150 mg p.o. nightly (x2 years) Past Psychiatric History: [] He has 2 prior psych admissions at [facility]. The first was in 2013 for depression and psychosis and the second was in 2014. He did the [facility] IOP program in August/September 2016 and again in December 2016. He took his first meds for psychiatric reasons at age 52. He has been on a number of meds possibly but he does not remember any of the past medications he has been on. Substance Use History: [] The patient is a non-smoker. He denies any marijuana or other illicit drug use. He consumes 1 nonalcoholic beer every other day. No rehab ever. 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 His family history is negative for psychiatric issues. He has 1 brother with a history of alcohol use disorder but otherwise negative. No completed suicides in the family. Personal/Social History: [] Patient was born and raised in [facility]. He has 1 brother in [place] and a sister in [place]. He describes his childhood as great. He graduated from high school and is currently living with his dog and 2 cats alone. His mother lives locally and he helps her out with many chores. He had a guardian from 2009 until 2016 but the patient no longer has a guardian. He is not in and has not had any romantic relationships. Legal History: [] None Review of Systems: [] Chronic back pain and back spasm and occasional shortness of breath due to asthma. Vital Signs: [] We will review and nurses notes. Mental Status Examination: [] Patient is a 59-year-old male who has somewhat short stature and has apparent back spasm which caused him to have a slightly hunched over appearance. He was alert and oriented to person place and time. He is ambulatory with a mild limping gait. He is wearing hearing aids. He is casually dressed and groomed and has good hygiene. He has good eye contact and no psychomotor agitation or retardation. Mood is depressed. Affect is constricted. Speech is normal rate and rhythm and fluent with no pressure. Thought processes organized and goal-directed. Thought content: Rare fleeting, passive thoughts only on occasion. No evidence of suicidal or homicidal ideation. No evidence of hallucinations, delusions or symptoms of newton. Insight: Good. Impulsivity: Low. Judgment: Intact. Diagnoses: [] [place] I: [] Major depressive disorder, recurrent, severe without psychosis; anxiety disorder unspecified [place] II: [] Negative [place] III: [] Obstructive sleep apnea CPAP compliant; congenital back spasm and pain; history of hydrocephalus [place] IV: [] Primary support issues Plan: [] The patient will start the IOP program at [facility] as the structure, support, education, individual and group therapy will hopefully prevent worsening of the patient's symptoms which might require hospitalization. He felt safe during the interview and if at any time he does not feel safe he will let us know or go to the emergency room. The risk, options, possible complications and side effects of the medications were discussed with the patient and he understands and accepts these. No changes in his medications were made as they were recently changed by his outpatient provider. Patient will continue to follow-up with their his outpatient psychiatric and medical providers.
--- NOTE | 2020-02-11 13:13 | BH.PSY.EVA_ITS ---
Initial Treatment Plan - Patient Information Visit Information: ADMISSION DATE: EXPECTED LOS: 4-6 weeks - Problems/Symptoms Problem #1:: Depression Symptom:: Sadness, isolating, hopelessness, guilt, fleeting passive thoug [facility] Problem #2:: Anxiety Symptom:: Rumination, flashbacks, avoidance
--- NOTE | 2020-02-12 09:00 | BH.SGPN.GN ---
Behaviors/Verbalizations/Mental Status: []Client alert and oriented, casual dress, hygiene tended to. Eye contact fair. Motor activity appropriate. Speech within normal limits. Affect constricted, mood agitated. Thoughts linear, logical, no signs of hallucinations or delusions. Reviewed client?s symptom tracker, pt denies current suicidal thoughts or intention to date. Client Response/Progress/Benefit: []Patient responded well to session as evidenced by him sharing thoughts and feelings and appeared to listen attentively to others. Pt stated he has been struggling because yesterday he believed his mom was demanding him to do everything she wanted. Pt reported he didn't have any time to do what he wanted to do because had to help his mom. Pt stated he has tried to set boundaries with his mom but he reported it doesn't work. Pt stated he knows he needs to make himself a priority for his own well-being. Progress could be hindered if pt continues to put the needs of others above his own. Pt is to continue IOP to increase self-care, improve boundary setting and prevent decompensation. Narrative Note: []
--- NOTE | 2020-02-12 10:10 | BH.SGPN.GN ---
Behaviors/Verbalizations/Mental Status: []Client alert and oriented, casually dressed and groomed. Eye contact poor. Motor activity appropriate. Speech within normal limits. Affect unable to gather due to wearing mask per COVID-19 protocol, mood anxious. Thoughts linear, logical, no signs of hallucinations or delusions. Client Response/Progress/Benefit: []Client engaged and actively listened to others as client took notes. Client connected with discussion on the difference between ?normal? anxiety and when anxiety becomes problematic. Client gained awareness of personal physical symptoms of anxiety which included: shaking, shortness of breath, decreased sleep, and stomachaches. Client reported his safety behavior as ?avoidance? for temporary relief from anxiety symptoms. Client benefited from group as client gained insight into physical signs of anxiety, safety behaviors, and common cognitive distortions. Client will continue IOP to increase the use of healthy coping skills, decrease depressive symptoms, and improve daily functioning. Narrative Note: []
--- NOTE | 2020-02-12 11:12 | BH.SGPN.GN ---
Behaviors/Verbalizations/Mental Status: []Client alert and oriented, neatly dressed and groomed. Eye contact good. Motor activity appropriate. Speech within normal limits. Affect constricted, mood dysthymic. Thoughts linear, logical, no signs of hallucinations or delusions. Client Response/Progress/Benefit: []Client was an active participant in group discussion and provided insight on group topic. Attentive during psychoeducation on mindfulness coping skills and their impact on mental health wellness. Practiced 5-senses, guided imagery, and PMR with group. Client was able to identify self-soothing and mind-based coping skills client wants to incorporate into current coping skill practice. The skills client chose to practice the 5-senses and focusing on his breathing. Appeared to benefit from practicing in the moment coping skills. Will continue IOP tx to prevent decompensation, learn ways to set boundaries, and improve mood stability. Narrative Note: []
== END 2020-02-14 23:59 ==
LOC: BHIOP 09:00
PROVIDERS: PCP Internal Medicine; Referring Provider Psychiatry & Neurology Psychiatry; Visit Provider Psychiatry & Neurology Psychiatry
DX: F33.2 Major depressive disorder, recurrent severe without psychotic features (principal); F41.9 Anxiety disorder, unspecified; G47.33 Obstructive sleep apnea (adult) (pediatric); M54.9 Dorsalgia, unspecified; G89.29 Other chronic pain; R25.2 Cramp and spasm; Z79.899 Other long term (current) drug therapy; J45.909 Unspecified asthma, uncomplicated
CPT/HCPCS: H0035; 90832; 90853

== ENCOUNTER 2020-02-16 09:00 | Outpatient (RCR) | payer MEDICARE, MEDICAID, SELFPAY ==
[2020-01-23 09:59] VITALS: BMI 21.6
[2020-02-15 00:42] VITALS: BP 122/86; PULSE 76
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
--- NOTE | 2020-02-16 10:14 | BH.SGPN.GN ---
Behaviors/Verbalizations/Mental Status: []Client alert and orient. Appearance casual and appropriately groomed. Speech an appropriate rate and tone, quiet. Eye contact fair, at times client appearing to fall asleep. Motor activity appropriate. Mood dysthymic, affect constricted. No evidence of delusion or hallucinations.? Client Response/Progress/Benefit: []Client responded well to session, mostly attentive throughout AEB taking notes and nodding during discussion, though limited input provided. Client listened as group discussed benefits of healthy communication on mental health. Benefits included: helps us relate to others, feedback on how we?re doing, needs get met, and more able to express ourselves. Group additionally discussed potential barriers to communication including: tone, communicating with behaviors or body language, assumptions, communicating when angry or sad/emotionally overwhelmed, and past experiences. Client self-reports identifying most with the passive and aggressive communication styles, noting that he prefers passive communication as he often saw his father being aggressive with his communication when client was younger. Client shared at times he becomes aggressive as well but is working on better managing his communication when stressed out. Progress noted in increased insight into personal communication styles and barriers, as well as improved use of communication skills over the weekend when discussing concerns with his mother. However, continues to struggle with in the moment distress tolerance skills. Client to continue in IOP tx prevent decompensation, improve application of emotion regulation and self-care skills, and continue to reduce anxiety. Narrative Note: []
--- NOTE | 2020-02-16 16:15 | BH.MDN ---
Multi-Disciplinary Note - Note 30-min Individual Time Started:: 11:42 Date: 02/16/20 Purpose of session/treatment goals addressed:: Purpose of session was to assess pt's current symptoms, stressors, and means of coping. Another purpose was to review healthy stress management skills and discuss the T.H.I.N.K acronym for addressing negative thoughts impacting overall mental health. Eye Contact:: Good Motor Activity:: Appropriate Appearance:: Casual Speech:: Appropriate Mood:: Euthymic Affect:: Congruent Thoughts:: Linear, Logical, No evidence of hallucinations/delusions noted Staff Interventions:: Therapist used open ended and furthering questions to elicit current symptoms, stressors, and means of coping. Therapist provided psychoeducation on healthy stress management skills and worked with client to identify his current means of stress management, as well as areas in which he continues to struggle. Client and therapist reviewed impacts of negative/distorted thoughts on maintaining stress and impacting ability to cope. Therapist taught client the T.H.I.N.K. acronym as a tool for challenging thoughts regarding stressors outside of his control. Provided homework for pt to practice using the T.H.I.N.K. skill over the next week. Client Response:: Pt receptive of session, engaged throughout. Reported he has recently been able to get back involved with [employer] and has been attending several times a week, as well as is able to vacuum with restrictions. Pt discussed feeling much better now that he is beginning to get back into activities he enjoys and finds to be helpful with reducing anxiety and depressive symptoms. Pt went on to share that although he is slowly able to return to his former routine, he is continuing to struggle to adjust to some aspects of daily living he will have to adjust more permanently. Discussed that his diet has changed significantly and that he will continue to be more restricted physically, but that he has been trying to ?throw those negative thoughts out and focus on what is going really well for me?. Reflected on how he has improved in overall stress management since first attending the IOP program in 2017. Shared taking breaks, engaging in physical activities or texting his brother, and playing with his dog as primary means of stress management. Pt noted that he was even able to have a conversation with his mother about setting aside more time for self-care which would have turned into an argument in the past. Went on to discuss that currently his largest area of concern is challenging and reframing anxiety producing thoughts. Described often experiencing catastrophizing thoughts or engages in absolute thought patterns. Shared this has brought on increased anxiety, especially throughout the election period and recently when seeing an ambulance in his neighbor?s driveway. Receptive of discussion reviewing distortions and thought challenge strategies. Client expressed connecting with the T.H.I.N.K. tool to test his anxious thoughts. Expressed wanting to focus more on asking himself ?is this in my control?? and shared plans to actively use the T.H.I.N.K. skill as homework when recognizing potential distortions over the next week. Risks/Concerns:: denies suicidal ideation, plan or intention to date, 02/16/20. Progress Toward Goals/Plan:: Progress noted with pt self-report of reduced isolation, improved engagement in activities he used to enjoy such as [employer] and vacuuming, and reduced conflict with supports. Pt has taken some steps towards beginning to challenge distortions though continues to report struggling in this area and often minimizes or ignores his stressors and negative thoughts as a result. Pt additionally continues to report anxiety and emotion regulation during times of increased stress. Pt is to continue IOP to increase healthy coping, decrease anxiety, and prevent decompensation. Time Stopped:: 12:08
--- NOTE | 2020-02-18 09:00 | BH.SGPN.GN ---
Behaviors/Verbalizations/Mental Status: []Client alert and oriented, casually dressed and groomed. Eye contact fair to good. Motor activity WNL. Speech within normal limits. Affect congruent, mood euthymic. Thoughts linear, logical, no signs of hallucinations or delusions. Reviewed client?s symptom tracker, no risk for suicidal ideation, plan, or intent as of 02/18/20. Client Response/Progress/Benefit: []Pt responded well to session, actively listening throughout and openly processed with group. Pt reports feeling ?fantastic but slightly anxious? this morning. Expressed that he is positive as he was successfully discharged from his stomach specialist and is making a healthy recovery which has been an area of stress in the past six weeks. Noted that focusing on this positive helped to improve his overall mood and reduce anxiety levels when watching election coverage the previous night. Pt shared an additional positive as improved ability to give himself credit for areas in which he has made progress. Denies any stressors at this time. Pt has a hx of minimization and all or nothing thinking which has impeded sustainable progress in the past. Recommended continued IOP tx improve consistent use of stress management and thought challenging skills, maintain stability, as well as prevent decompensation. Narrative Note: []
--- NOTE | 2020-02-18 10:17 | BH.SGPN.GN ---
Behaviors/Verbalizations/Mental Status: []Client alert and oriented, casually dressed and groomed. Eye contact good. Motor activity appropriate. Speech within normal limits. Affect incongruent to mood- flat, mood euthymic. Thoughts linear, logical, no signs of hallucinations or delusions. Client Response/Progress/Benefit: []Client a passive participant during group AEB client often nodding but remaining quiet throughout discussions. Client agreed with group that it is important to have a variety of social supports. Group identified benefits of social support as not feeling alone, gaining different perspectives, and having accountability. Group also identified barriers to using support such as negative thinking and bad past experiences. Appeared to benefit from gaining awareness of barriers that keep people from seeking social support as well as identifying the benefits of increasing support. Client reports progress in mood as client has been taking more time for himself. Will continue IOP tx as client can benefit from socialization, reinforcement of healthy coping skills, and boundary setting. Narrative Note: []
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
--- NOTE | 2020-02-19 10:10 | BH.SGPN.GN ---
Behaviors/Verbalizations/Mental Status: []Client alert and oriented, neatly dressed and groomed. Eye contact good. Motor activity appropriate. Speech within normal limits. Affect constricted, mood euthymic. Thoughts linear, logical, no signs of hallucinations or delusions. Client Response/Progress/Benefit: []Client was an active participant AEB contributing to discussion and participating in activity. Connected with the topic of pitfalls and helped the group discuss barriers that keep them from choosing a healthier path to mental wellness such as pitfalls. Group worked together to identify examples of personal pitfalls which included; isolation, low self-esteem, wanting to quit, increased negative distortions, increased hopelessness, feeling overwhelmed,increased anxiety and stress, and feeling of burnout. Client did not choose to share personal examples of pitfalls. Engaged during the activity and took on a leadership role. Progress noted as client communicated and led group members to complete the activity. Client will continue IOP to increase the use of healthy coping skills to improve daily functioning. Narrative Note: []
--- NOTE | 2020-02-19 11:11 | BH.SGPN.GN ---
Behaviors/Verbalizations/Mental Status: []Client alert and oriented, casual dress, hygiene tended to. Eye contact good. Motor activity appropriate. speech and tone WNL. Affect congruent, mood euthymic. Thoughts linear, logical, no signs of hallucinations or delusions. Client Response/Progress/Benefit: []Client receptive of session, engaged throughout AEB participating in activity and discussion, as well as taking notes throughout. Appeared more connected with materials than in prior groups. Client worked with group to make connections between skills used to overcome ?pitfalls? in activity and addressing own personal pitfalls impacting mental health. Completed a worksheet where he identified personal pitfalls impacting mental health progress. Identified pitfalls as: fear of the unknown, unexpected stressors, physical health issues, and negative thoughts. Attentive and taking notes as group brainstormed strategies to overcome pitfalls. Client stated he wants address personal pitfall of negative thoughts by continuing to ask himself ?how else can I think about this? and begin replacing negative thoughts with positive affirmations. Indicated that this would help in reducing overall stress levels as well. Benefited from identifying personal pitfalls and strategies to overcome these pitfalls. Progress noted in client self-report of improved anxiety management through active application of thought challenge skills. Client to continue IOP level of care to continue to promote healthy skill and thought challenge application, improve emotion regulation, and prevent decompensation. Narrative Note: []
--- NOTE | 2020-02-23 09:00 | BH.SGPN.GN ---
Behaviors/Verbalizations/Mental Status: []Client alert and oriented, casually dressed. Eye contact good. Motor activity appropriate. Speech within normal limits. Affect full, mood anxious. Thoughts linear, logical, no signs of hallucinations or delusions. Reviewed client?s symptom tracker, no risk or plan for suicide ideation as of 02/23/20. Client Response/Progress/Benefit: []Client responded well to session, engaged and participated throughout discussion. Client reported feeling ?excited and curious? as he can eat more salads and healthy food as he was on his 7th week of recovery due to a stomach surgery. Client shared his mother is often calling him and asking him to do many of her errands as it conflicts with his schedule. Client reported feeling guilty because he wants to help her, but also feels frustrated. Client benefited from group as group members could give positive feedback on taking care of himself first before others. Client shared he would increase his self-care. Therapist discussed the importance of boundaries and healthy communication. Client will continue IOP to improve mood and increase the use of healthy coping skills. Narrative Note: []
--- NOTE | 2020-02-23 10:05 | BH.SGPN.GN ---
Behaviors/Verbalizations/Mental Status: []Client alert and oriented, casually dressed and appropriately groomed. Eye contact fair. Motor activity appropriate. Speech within normal limits. Affect constricted, mood anxious. Thoughts linear, logical, no signs of hallucinations or delusions. Client Response/Progress/Benefit: []Client receptive to session, provided input when prompted and listened attentively to peers. Listened as the group brainstormed the positive and negative aspects of stress on physical and mental health. Client identified current stressors in his ?stress jar? to be family, groceries, self-care time, finances, COVID, and his mental and physical health. Client reports his stress jar is mostly full right now, but client recognizes that practicing more self-care can help client cope with stress better. Seemed to benefit from increased awareness of personal stressors and understanding impact of stress of the mind and body. Progress noted in client?s increased use of self-care outside of IOP. Will continue IOP tx to promote gains, improve mood stability, and promote boundary setting. Narrative Note: []
--- NOTE | 2020-02-23 11:11 | BH.SGPN.GN ---
Behaviors/Verbalizations/Mental Status: [] Client alert and oriented, casually dressed and groomed. Eye contact fair to good. Motor activity appropriate. Speech within normal limits. Affect congruent, mood euthymic and anxious. Thoughts linear, logical, no signs of delusions or hallucinations. Client Response/Progress/Benefit: [] Client engaged participant in session AEB listening attentively to others, taking notes during session, and providing input throughout. Client provided input during discussion about the 4 A's of managing stress. Noted that he has struggled with accepting that his supports may not always understand his mental health needs which has resulted in increased frustration and burnout in the past. Client identified wanting to improve his ability to use acceptance in regard to his physical health needs as this is a newer stressor impacting his life. Discussed plans to use positive affirmations and reframing when thinking about the dietary changes he has to make. Discussed that this will help him to stay motivated and stick with the lifestyle changes he is currently faced with. Client seemed to benefit from increased awareness of the impact of stress on mental health and increasing repertoire of stress management strategies. Progress noted in pt reports of continued use of thought challenging and reframing, though continues to struggle with consistent use of thought challenge skills as well as in the moment distress tolerance. Will continue IOP tx to promote use of healthy coping skills, improve anxiety management, as well as prevent decompensation. Narrative Note: []
--- NOTE | 2020-02-25 09:00 | BH.SGPN.GN ---
Behaviors/Verbalizations/Mental Status: []Client alert and oriented, casual dress, hygiene tended to. Eye contact fair to good. Motor activity appropriate. Speech within normal limits. Affect congruent, mood euthymic and positive. Thoughts linear, logical, no signs of hallucinations or delusions. Reviewed client?s symptom tracker, no signs of suicidal ideation, plan, or intent as of today. Client Response/Progress/Benefit: []Client responded well to session AEB actively listening to others and willingly sharing thoughts and feelings. Client identified emotion today as ?curious and excited?. Explained that he is feeling much better since beginning the IOP program and making more of an effort to challenge his negative thoughts. Discussed current positives as being able to reach out to his brother more regularly which has aided in client?s overall ability to challenge negative thoughts and see things from a more positive perspective. Additional win noted as doing better with embracing his new dietary restrictions rather than focusing on what he isn?t allowed to eat. Progress noted in self-report of improved mood and application of calming skills; however, client continues to appear to struggle with communication and consistent mood regulation. Recommended continued IOP tx to maintain gains, continue to work on improving stress management and healthy boundary setting, as well as prevent decompensation. Narrative Note: []
--- NOTE | 2020-02-25 11:05 | BH.SGPN.GN ---
Behaviors/Verbalizations/Mental Status: []Client alert and oriented, neatly dressed and groomed. Eye contact good. Motor activity appropriate. Speech within normal limits. Affect constricted, mood euthymic. Thoughts linear, logical, no signs of hallucinations or delusions. Client Response/Progress/Benefit: []Client engaged in session AEB listening attentively to others and providing input during discussion. Client did well to participate during the activity in which participants were challenged to eliminate various items through group consensus. Client contributed to discussion of the barriers that occurred during the activity as well as the conflict resolution strategies. Client reviewed the worksheet on ten strategies to cope with conflict and client selected wanting to work on not jumping to conclusions or making assumptions about what another person is thinking or feeling. Progress noted AEB client?s report of reduced depression and practicing advocating for self-care. Will continue IOP tx as client can continue to benefit from socialization, reinforcing healthy coping skills, and learning boundary setting skills. Narrative Note: []
--- NOTE | 2020-02-25 13:46 | BH.MDN ---
Multi-Disciplinary Note - Note 30-min Individual Time Started:: 10:45 Date: 02/25/20 Purpose of session/treatment goals addressed:: Purpose of session was to assess pt's current symptoms, stressors, and application of healthy coping skills learned. Another purpose was to begin creating a maintenance plan for maintaining gains made post IOP discharge. Eye Contact:: Good Motor Activity:: Appropriate Appearance:: Casual Speech:: Appropriate Mood:: Euthymic Affect:: Full Thoughts:: Linear, Logical, No evidence of hallucinations/delusions noted Staff Interventions:: Therapist used open ended and furthering questions to elicit current symptoms, stressors, and progress in consistent coping skill application. Therapist provided encouragement and commended client on progress made. Discussed importance of continued skill application in maintaining gains. Used Motivational Interviewing techniques to aid client in beginning a Mental Health Maintenance Plan identifying coping skills, motivations to continue to encourage progress, and strategies for addressing potential barriers. Client Response:: Client receptive of session, engaged throughout. Reported he continues to feel positive and is increasingly confident in his overall ability to manage mental health sx. Client noted feeling he is ?doing better than I had been with balance?. Attributes this to increased use of thought challenge skills and is more consistently reaching out to support. Noted talking to his brother nightly about his day and the positives and negatives experienced throughout. Client shared this has been beneficial in providing him with ?another perspective on things?. Client reports he believes he has made significant progress in treatment but feels he is not quite ready to independently implement his skills without the support of the IOP program and fears he will struggle to do so post discharge. Client receptive of beginning a Mental Health Maintenance Plan aimed at reminding him of healthy coping skills he has as well as strategies for addressing potential barriers he may face in maintaining gains made. Willing to continue working on maintenance plan for homework. Risks/Concerns:: None. Pt denies suicidal ideation, plan or intention to date, 02/25/20. Progress Toward Goals/Plan:: Progress noted AEB pt continued self-report of improved ability to manage mental health sx and expressed reduction in anxiety and loneliness. Pt notes increased sense of balance and is actively utilizing skills learned as well as reaching out to supports to continue to promote sx management. Pt expressed some anxiety regarding sx management post IOP tx and is receptive of creating a concreate Mental Health Maintenance Plan to continue to provide support. Client continues to struggle at times with distorted thinking and often externalizes which impacts his ability to maintain consistent mood stability. Pt is to continue IOP to increase healthy coping, continue to decrease anxiety, and prevent decompensation. Time Stopped:: 11:20
--- NOTE | 2020-02-26 09:00 | BH.SGPN.GN ---
Behaviors/Verbalizations/Mental Status: []Client alert and oriented, casually dressed. Eye contact good. Motor activity appropriate. Speech within normal limits. Affect flat, mood anxious. Thoughts linear, logical, no signs of hallucinations or delusions. Reviewed client?s symptom tracker, no risk or plan for suicide ideation as of 02/26/20. Client Response/Progress/Benefit: []Client responded well to session, engaged and participated throughout discussion. Client reported feeling ?proud? as he challenged his physical ability and raked leaves in his yard. Client shared he has increased his self-care as he has been dancing and eating healthier. Client stated he was able to communicate his needs with his mother and create healthier boundaries, so client feels less obligated to help her at all times. Client benefited from group as other group members gave positive feedback. Progress noted as client is practicing self-care and boundary setting which appears to be increasing confidence. Client will continue to increase the use of healthy coping skills, and improve daily functioning. Narrative Note: []
--- NOTE | 2020-02-26 10:10 | BH.SGPN.GN ---
Behaviors/Verbalizations/Mental Status: []Client alert and oriented, neatly dressed and groomed. Eye contact good. Motor activity appropriate. Speech within normal limits. Affect flat, mood euthymic. Thoughts linear, logical, no signs of hallucinations or delusions. Client Response/Progress/Benefit: []Client receptive of session, attentive in discussion and activity. Client helped group identify barriers that impact one?s ability to communicate when emotions are high. These barriers included; panic attacks, lashing out, decreased communication, increased negative thinking, and becoming physically ill. Attentive during psychoeducation on steps to improve emotional regulation. Client participated in the activity and did well to manage emotions throughout. Client?s role was to provide encouragement and be the buffer. Client appeared to benefit from increasing awareness of how emotions can impact communication and practicing in the moment coping skills. Client benefited from group as he was able to use healthy coping skills to complete the goal of the group activity and recognize personal benefits of regulating emotions. Client will continue IOP to improve daily functioning and increase the use of healthy coping skills. Narrative Note: []
--- NOTE | 2020-02-26 11:17 | BH.SGPN.GN ---
Behaviors/Verbalizations/Mental Status: []Client alert and oriented, casually dressed and appropriately groomed. Eye contact fair. Motor activity appropriate. Speech within normal limits; quiet. Affect constricted. mood euthymic and anxious. Thoughts linear, logical, no signs of hallucinations or delusions. Client Response/Progress/Benefit: []Client engaged in session AEB contributing some to discussion, taking notes, and willing to complete Zones of Regulation worksheet. Attentive, though provided limited input during psychoeducation on 4 zones of regulation. Client able to identify feelings and behaviors he experiences for each zone. Reported that he currently feels he is in the ?green ?baseline? zone since more actively applying healthy coping skills over the past two weeks. Group identified coping skills to support themselves in each zone. Client reported he will practice the skills of: eliminating toxic stressors, continuing to reach out to supports, and beginning a more consistent exercise routine to aid in remaining in the green zone. Benefited from increased education on zones of regulation or stages of alertness for emotions and healthy coping skills to use for each zone. Progress noted in self-report of improved mood and increased motivation, though remains variable as client continues to struggle with consistent mood management when experiencing increased external stressors or changes in routine. Will continue IOP tx to continue to continue to promote use of healthy coping skills, maintain stability, as well as prevent decompensation. Narrative Note: []
--- NOTE | 2020-03-01 09:05 | BH.SGPN.GN ---
Behaviors/Verbalizations/Mental Status: [] Client alert and oriented, casual dress, hygiene tended to. Eye contact fair to good. Motor activity appropriate. Speech within normal limits. Affect congruent, mood dysthymic and anxious. Thoughts linear, logical, no signs of hallucinations or delusions. Reviewed client?s symptom tracker, no signs of suicidal ideation, plan, or intent as of today. Client Response/Progress/Benefit: [] Client responded well to session, actively listening and willing to process with group. Client identified emotion today as ?happy and also sad and feeling guilty about being happy?.? Explained that he had encountered several unexpected stressors over the weekend including news that his sister will need a surgery this week as well as discovering that a family friend had completed suicide over the weekend. Shared that he initially struggled with negative thoughts related to these stressors and struggling to accept that both are outside of his control. Noted however that reaching out to his brother, practicing thought challenging, and focusing on the positives within his own life helped him to cope. Noted guilt associated with feeling he has made progress with his own mental health while others in his life are struggling to do so. Receptive of and appeared to benefit from supportive feedback provided by fellow participants regarding their own similar experiences. Client progress noted in improved application of thought challenging skills to best cope with emotional overwhelm. Continues to struggle with distress tolerance when faced with unexpected external stressors. Recommended continued IOP tx to improve application of skills, continue to work on independent anxiety management, and prevent decompensation. Narrative Note: []
--- NOTE | 2020-03-01 10:20 | BH.SGPN.GN ---
Behaviors/Verbalizations/Mental Status: []Client alert and oriented, casually dressed. Eye contact good. Motor activity appropriate. Speech within normal limits. Affect constricted, mood anxious and dysthymic. Thoughts linear, logical, no signs of hallucinations or delusions. Client Response/Progress/Benefit: []Client engaged throughout session AEB providing input when prompted, remaining attentive throughout, as well as taking notes. Remained a mostly passive participant, however. Appeared to connect with discussion on crisis development and how unhealthy coping could result in a personal crisis. Group reflected on the importance of having awareness of personal warning signs in order to prevent reaching crisis point. Group identified potential warning signs for crisis and client completed the personal warning signs worksheet. Client identified personal crisis warning signs to include: mood changes, increased worry and anxiety producing thoughts, as well as feeling more emotionally overwhelmed. Client benefited from increasing awareness of what leads to crisis and personal warning signs. Progress noted in self-report of improved implementation of self-talk and thought challenging skills when struggling with an unexpected stressor over the weekend. Though continues to struggle with consistently managing emotions and challenging intrusive thoughts causing anxiety. Will continue IOP tx to increase consistency of healthy coping and use of thought challenge skills, improve anxiety/stress management, as well as prevent decompensation. Narrative Note: []
--- NOTE | 2020-03-04 09:00 | BH.SGPN.GN ---
Behaviors/Verbalizations/Mental Status: []Client alert and oriented, casually dressed. Eye contact good. Motor activity appropriate. Speech within normal limits. Affect constricted, mood euthymic and anxious. Thoughts linear, logical, no signs of hallucinations or delusions. Reviewed client?s symptom tracker, no risk or plan for suicide ideation as of 03/04/20. Client Response/Progress/Benefit: []Client responded well to session, engaged and participated with self-check in. Client reported feeling ?positive? as client gained positive feedback from his asthma doctor on the improvement of his physical health. Client stated ?it felt like 100 boulders being lifted off his shoulders.? Client reported feeling anxious as his sister, a big support, was currently in surgery. Client shared he has a positive outlook on the situation and reminds himself of his affirmations. Client benefited from group as other group members could give positive feedback and reminded him of practicing self-care. Client will continue IOP to decrease anxiety symptoms. Narrative Note: []
--- NOTE | 2020-03-04 10:10 | BH.SGPN.GN ---
Behaviors/Verbalizations/Mental Status: []Client alert and oriented, casually dressed, hygiene appeared to be tended to. Eye contact fair. Motor activity appropriate. Speech within normal limits. Affect constricted, mood anxious and euthymic. Thoughts linear, logical, no signs of hallucinations or delusions. Client Response/Progress/Benefit: []Client responded well to session, engaged in group activity. The group concluded many impacts of fear of failure: cognitive distortions increase, keeps us from trying something new, keeps us from revisiting previous experiences, fear of judgement from others or forming new relationships. Client declined to give personal examples, but he was attentive while peers shared. Client seemed to connect how failures can lead to positive changes. Client appeared to benefit from gaining awareness of the impact of fear of failure can have on one?s mental health and wellbeing. Will continue IOP to continue the use of healthy coping skills and improve daily functioning. Narrative Note: []
--- NOTE | 2020-03-04 13:46 | BH.MDN ---
Multi-Disciplinary Note - Note 30-min Individual Time Started:: 11:30 Date: 03/04/20 Purpose of session/treatment goals addressed:: Purpose of session was to assess pt's current symptoms, stressors, and progress in treatment. Another purpose was to address worries associated with his physical health and the health of his family, as well as review strategies client can use to manage identified stressors. Discussed aftercare plans. Eye Contact:: Good Motor Activity:: Appropriate Appearance:: Casual Speech:: Appropriate Mood:: Euthymic, Anxious Affect:: Congruent Thoughts:: Linear, Logical, Circular - at times struggling with returning to topic of his diet and recent stomach surgery Staff Interventions:: Therapist used open ended and furthering questions to elicit information regarding current stressors leading to an increase in client anxiety, discussed coping skill client is implementing to address sx. Therapist provided encouragement and emotional support. Utilized components of CBT to challenge distortions and aid client in reducing anxious thoughts. Discussed importance of thought challenging in ongoing anxiety management. Reviewed Mental Health Maintenance Plan and discussed which coping skills client could apply this afternoon to cope with ongoing stressors. Client Response:: Client receptive of session, engaged throughout. Reported he is feeling more anxious today as his sister is receiving an unexpected surgery. Client noted fear for his sister as her health has been struggling for some time. He did well to challenge anxious thoughts with help from this therapist. Able to identify that there is nothing he can do to control the situation while she is in the surgery and recognized the importance of healthy distraction and self-care during that time. Client noted he had been planning to go to the gym to help distract himself but feels pressure not to as his mother feels this would be unsafe due to client risk of caryl COVID. Client noted that he and his mother often ?butt heads? on this topic and has become increasingly frustrated by feeling he must stay home to avoid conflict. Client and therapist discussed the importance of healthy communication and self-advocacy. Reports willingness to discuss with his mother. Additionally, did well to review potential alternative skills he could use to manage his anxiety the remainder of the day. Client identified talking with his brother and reaching out to his friend Alex. Continues to struggle with externalization and absolute thinking patterns. Client often experiences difficulties in identifying and challenging thought distortions outside treatment environment which continues to reinforce anxiety and contribute to ongoing relationship tension with his mother whom is client?s main support. Risks/Concerns:: None noted. Pt denies suicidal ideation, plan or intention to date, 03/04/20. Progress Toward Goals/Plan:: Some regression related to client difficulties in addressing recent stressor without becoming fixed on his anxious thoughts. Client continues to struggle with independently recognizing when his thoughts are distorted therefore struggling to challenge and replace these thoughts in the moment. Continues to work with therapist on this area and is making some limited progress. Client often struggles with absolute thinking, and frequently reports either doing ?fantastic? or struggling significantly. Continues to remain motivated to address ongoing difficulties in managing mental health sx consistently. Pt is to continue IOP to increase healthy coping, continue to decrease anxiety, and prevent decompensation. Time Stopped:: 11:56
--- NOTE | 2020-03-05 09:00 | BH.SGPN.GN ---
Behaviors/Verbalizations/Mental Status: []Client alert and oriented, casually dressed. Eye contact fair. Motor activity appropriate. Speech within normal limits. Affect flat, mood anxious and euthymic. Thoughts linear, logical, no signs of hallucinations or delusions. Reviewed client?s symptom tracker, no risk or plan for suicide ideation as of 03/05/20. Client Response/Progress/Benefit: []Client responded well to session, engaged and participated throughout discussion. Client reported feeling ?happy and hopeful? as he shared his goal has been to remind himself of the positives as his sister has surgery and he has had increased anxiety as a result. Client shared he felt conflicted on whether he wanted to spend time with his mother. Client benefited from group as other group members could remind client of pros and cons and the importance of self-care. Client shared he is extending his IOP experience to next week as he no longer feels ready to discharge with his current stressors. Client will continue IOP to decrease anxiety symptoms brought on by sister?s surgery and continue the use of healthy coping skills. Narrative Note: []
--- NOTE | 2020-03-05 10:05 | BH.SGPN.GN ---
Behaviors/Verbalizations/Mental Status: []Client alert and oriented, casual dress, hygiene tended to. Eye contact fair. Motor activity appropriate. Speech within normal limits. Affect constricted, mood anxious. Thoughts linear, logical, no signs of hallucinations or delusions. Client Response/Progress/Benefit: []Client responded well to session, listened to others share throughout discussion. Client related to session quote and said ?change was once viewed as scary, but now looking back can view change as an opportunity.? Client connected with traits of the fixed mindset and worked with group to identify how a fixed mindset can impact our mental health which included: increased distortions, negative self-talk, ruminations, all or nothing thinking, self-fulfilling prophecies, unchanging mindset, and keeps us from accomplishing tasks/goals. Benefited from group by increasing awareness of how one's mindset impacts mental health. Progress noted AEB client increased self-awareness on personal growth within reframing negative thoughts. Client will continue IOP to decrease anxiety symptoms and continue setting healthy boundaries. Narrative Note: []
--- NOTE | 2020-03-05 11:15 | BH.SGPN.GN ---
Behaviors/Verbalizations/Mental Status: [] Client alert and oriented, casually dressed and groomed. Eye contact fair to good. Motor activity appropriate. Speech within normal limits, quiet. Affect constricted. mood anxious, dysthymic. Thoughts linear, logical, no signs of hallucinations or delusions. Client Response/Progress/Benefit: []Client actively listening during discussion and taking notes throughout, though remained mostly passive throughout. Client did well to remain attentive as group worked on identifying characteristics and benefits of adopting a growth mindset. Client listened during activity in which participants helped reframe example fixed thoughts into growth mindset thoughts. Reports that being able to reframe his own fixed thoughts could help improve relationships and maintain a positive outlook. Client worked to apply skills learned to reframe own personal fixed thoughts. Reframed thought of ?I can?t go to the gym like I want because my family is worried about COVID and will be upset with me? with growth mindset thought of ?I can at least try and talk with them and let them know the precautions I?ve been taking?. Benefitted from discussing benefits of growth mindset and brainstorming strategies for prompting a growth-mindset. Client progress variable as client struggles with in the moment distress tolerance skills; however, making some progress in this area. Will continue IOP tx to continue to promote active thought challenging and skill application as well as improve healthy coping repertoire. Narrative Note: []
--- NOTE | 2020-03-08 09:00 | BH.SGPN.GN ---
Behaviors/Verbalizations/Mental Status: []Client alert and oriented, casually dressed. Eye contact fair. Motor activity appropriate. Speech within normal limits. Affect constricted, mood euthymic and anxious. Thoughts linear, logical, no signs of hallucinations or delusions. Reviewed client?s symptom tracker, no risk or plan for suicide ideation as of 03/08/20. Client Response/Progress/Benefit: []Client responded well to session, engaged with self check-in and actively listened to others in discussion. Client reported feeling ?good? after sharing that he continues to work on setting boundaries with his mother. Client said he will talk with her soon, to communicate his needs and the importance of taking care of himself first. Benefited from group as group members offered ideas and feedback on boundary setting. Progress noted as client recognized the importance of setting boundaries with his mother and advocating for self. Client will continue IOP to continue working on boundary setting and reinforce healthy coping skills to manage depression. Narrative Note: []
--- NOTE | 2020-03-08 10:13 | BH.SGPN.GN ---
Behaviors/Verbalizations/Mental Status: []Client alert and oriented, casually dressed and appropriately groomed. Eye contact good. Motor activity appropriate. Speech within normal limits-quiet. Affect flat, mood euthymic. Thoughts linear, logical, no signs of hallucinations or delusions. Client Response/Progress/Benefit: []Client a passive participant as client was attentive, but did not contribute to discussion. Client nodded during the discussion about how distorted thought patterns can reinforce mental health symptoms and impact relationships. Client agreed with peers that a low or anxious mood can cause more negative automatic thoughts. Client reports he connects most with catastrophizing which increases anxiety. Appeared to benefit from increasing awareness of cognitive distortions and how they can impact emotions and behaviors. Will continue IOP tx to promote use of healthy coping skills and establish aftercare. Narrative Note: []
--- NOTE | 2020-03-08 14:28 | BH.MDN_ITS ---
Multi-Disciplinary Note - Note 30-min Individual Time Started:: 11:46 Date: 03/08/20 Purpose of session/treatment goals addressed:: The purpose of this session was to assess current symptoms, stressors, and treatment progress. Reviewed DSM-5 scores from time of admission to now, given upcoming discharge. Another purpose was to review aftercare plan and identify strategies for success following discharge. Additional topics included: review of healthy boundary setting Eye Contact:: Good Motor Activity:: Appropriate Appearance:: Casual Speech:: Appropriate Mood:: Euthymic, Anxious Affect:: Congruent Thoughts:: Linear, Logical, No evidence of hallucinations/delusions noted Staff Interventions:: Therapist asked open ended and furthering questions to elicit information regarding client perception of current symptoms, stressors, application of coping skills, and treatment goal progress. Provided supportive feedback and used strengths-based approaches to assist pt in identifying areas of progress. Assisted client in completion of DSM-5 assessment and reviewed scores from admission to discharge. Used NH techniques to promote healthy change behaviors and discussed client ongoing concerns with maintaining and communicating healthy boundaries with supports post discharge. Worked with client to review discharge planning. Client Response:: Client was receptive of meeting with therapist and responded well to session. Discussed that he is doing well today and reflected upon skills he was able to use throughout the weekend when struggling with stress related to communication with his mother. Noted that his mother had been struggling with her own anxiety which began to impact client?s stress and anxiety levels. Additionally, shared that she had scheduled several appointments in which she would need client to transport her without first asking. Client noted that he initially became upset by this but then was able to take a break and vent to his brother before readdressing the issue. Noted he then talked to his mother about boundaries and the importance of communicating when she has appointments so that client is not overwhelmed or risk not having time for self-care. Client reported this was helpful, he and this therapist reviewed strategies for continuing to assert and maintain healthy boundaries with his mother post IOP discharge. Strategies included: creating a weekly schedule and reviewing it with his mother weekly, setting aside a specific day for his mother to plan appointments, and continuing to practice calming and thought challenge skills when feeling triggered by a miscommunication with his mother. Client and therapist additionally reviewed skills he has been implementing throughout the IOP program which contributed to his overall success. Expressed that thought challenging and reframing has been most beneficial. Additionally, noted use of grounding, mindfulness via aromatherapy, opposite action, and reaching out to supports as beneficial. Client completed DSM-5 cross-cutting analysis reviewing overall symptom progress from admission to discharge in IOP program. Client reported feeling encouraged and proud of his progress as he has seen an overall reduction of symptoms by 94%. Upon further review, client noted feeling he has made most significant progress in reducing depression and anxiety levels by improving his overall application of positive affirmation, communicating needs with his supports, and challenging use of catastrophizing thoughts. Noted plans to [facility] for ongoing [facility]ry services, as well as individual counseling at [facility] following IOP discharge. Risks/Concerns:: No risks or concerns noted. Pt denies any active SI, plan, or intent as of this date. 03/08/20. Progress Toward Goals/Plan:: Client to discharge from [facility] treatment 03/12/20 as he has made significant progress in treatment and successfully accomplished identified mental health goals. Client reports decreased depression, improved communication with supports, reduced anxiety, and improved functioning. Client's DSM-5 symptoms have significantly decreased since admission as he has seen an over 94% reduction in mental health sx. Client continues to report improved use of healthy coping skills which has helped him better manage in the moment stressors, reduce catastrophizing thoughts, and improved overall emotion regulation. Both self-report and DSM-5 scores indicate that client?s symptoms have decreased in intensity and duration since beginning treatment. Client recommended to follow up with outpatient provider, Steven, at [facility] for outpatient counseling and [facility] for medication management. Time Stopped:: 12:16
--- NOTE | 2020-03-08 17:00 | BH.IGGP_ITS ---
Aftercare Plan - Demographics Treatment End Date:: 03/12/20 Psychiatrist:: Renu Langston Psychiatrist Office #:: [phone] [facility]/IOP Therapist:: Rita Means Therapist Phone #:: [phone] - Medications Home Medications: Home Medications Atorvastatin Calcium [Lipitor] 20 mg PO DAILY 08/12/19 Baclofen [Lioresal] 10 mg PO BID PRN 08/12/19 Citalopram [Celexa] 40 mg PO DAILY 08/12/19 Quetiapine Fumarate [Seroquel Xr] 150 mg PO QHS 08/12/19 Quetiapine Fumarate [Seroquel] 25 mg PO 0800,1200 08/12/19 Rivaroxaban [Xarelto] 20 mg PO DAILY 08/12/19 Montelukast Sodium 10 mg PO QHS 10/27/19 cetirizine 10 mg capsule 10 mg PO DAILY #30 cap 12/16/19 isosorbide mononitrate 30 mg tablet,extended release 24 hr 30 mg PO DAILY #90 tab 01/15/20 denosumab 60 mg/mL subcutaneous syringe 60 mg SC [id number] #1 ml 02/10/20 - Plan Details Progress/Aftercare Plan Details:: Client has made significant strides since starting IOP as shown by his improved mood, decreased isolation, and increased ability to cope with daily stressors impacting overall mental health symptoms. Client was an active participant in group as he often took notes and provided positive contributions to discussion when prompted. Client was active during individual sessions and he remained actively engaged throughout the treatment process. Client struggled at times with remembering the internal coping skills learned, though self-reported regularly referring to notes in his binder and applying coping skills identified. When client started IOP he was experiencing a nxiety, depression, isolative behaviors, and anxious thoughts daily. Now, client can more easily recognize when he is getting stressed or anxious and use calming skills to prevent escalating to crisis. Additionally, reports he has been isolating less, communicating better with his supports regarding boundaries and mental health needs, as well as making more consistent efforts to ensure self-care is a daily priority. Client has worked to challenge negative thoughts that reinforce depression, apply healthy coping skills daily, spent time daily catching up with supports, and has started to volunteer at [facility] again. Client has shown strides in managing anxiety, setting and working towards small daily goals, and staying positive. Client?s DSM-5 scores decreased by 94% since admission. Client?s scores for depression decreased from 2/8 to 0/8 by discharge. Client?s scores for anxiety decreased from 3/12 at admission to 1/12 at discharge, with irritability reducing from 2/4 to 0/4. Strategies for Success:: 1. Continue engaging with [employer] and [facility]. 2. Affirmations. Continue with positive self-talk and challenging those negative thoughts! 3. Schedule your self-care time and communicate when you need this with your supports- keep up with the calendar so mom knows when you are available too! 4. Think about your wins and remember the progress you have made. 5. Go back to the gym or get outside with [employer] for regular walks! 6. Challenge thoughts! Thoughts are thoughts NOT FACTS! 7. Mindfulness and grounding! Use the 5 senses, aromatherapy, and deep breathing. 8. Reach out to friends! especially when you want to isolate or find yourself getting caught up in your own head! - Appointments Appointments/Referrals to Other Services:: Client was recommended to follow up with his outpatient providers for continuity of care. Client will follow up at [facility] for [facility]. Client is also encouraged to follow up with Steven at [facility] for individual therapy. Client plans to continue to go to [employer] regularly for social support and to prevent isolation.
--- NOTE | 2020-03-10 09:02 | BH.SGPN.GN ---
Behaviors/Verbalizations/Mental Status: []Client alert and oriented, casual dress, hygiene tended to. Eye contact fair. Motor activity appropriate. Speech within normal limits. Affect congruent, mood euthymic. Thoughts linear, logical, no signs of hallucinations or delusions. Reviewed client?s symptom tracker, pt denies current suicidal thoughts or intention to date. Client Response/Progress/Benefit: []Pt responded well to session AEB pt openly sharing thoughts and feelings and appeared to listen attentively to others. Pt stated things are going well. Pt stated he has been using his healthy coping skills and is able to manage his stressors more effectively. Pt reported he is feeling more hopeful and notes significant progress since starting the program 4 weeks ago. Progress noted AEB pt reporting improved mood. Pt is to discharge from [facility] this week due to significant progress since starting IOP. Narrative Note: []
--- NOTE | 2020-03-10 10:15 | BH.SGPN.GN ---
Behaviors/Verbalizations/Mental Status: []Client alert and oriented, casually dressed and groomed. Eye contact fair. Motor activity appropriate. Speech within normal limits, quiet. Affect constricted, mood euthymic. Thoughts linear, logical, no signs of hallucinations or delusions. Client Response/Progress/Benefit: []Client was a mostly engaged participant AEB taking notes and attentively listening throughout. Connected with group topic of perspective and the impacts of one?s perspective on mental health. Client listened as the group worked to identify how a negative perspective can impact mental health which included: self-fulfilling prophecy, maintain unhealthy mental health cycles, and lead to more negative thinking.?Client listening as group discussed ways a positive perspective can impact mental health such as: be more willing to keep trying when faced with setbacks, be more open to new experiences and new relationships, as well as improve self-confidence. Client shared ?I?m trying to use positive affirmations to help focus on the good and get rid of the bad?. Client appeared to benefit from increasing understanding of mental health benefits of a positive perspective and potential consequences to progress when perspective is negative. Progress noted in self-report of improved mindset and reduced anxiety. Client will continue IOP tx to prevent decompensation, improve emotional regulation skills, and improve daily functioning. Narrative Note: []
--- NOTE | 2020-03-10 11:17 | BH.SGPN.GN ---
Behaviors/Verbalizations/Mental Status: []Eye contact is good. Motor activity is appropriate. Appearance is casual. Speech is Appropriate. Mood is euthymic. Affect is flat. Thoughts are linear and logical. No evidence of psychosis. Client Response/Progress/Benefit: []Client was an active participant in group discussion. Attentive during psychoeducation. Active participant in group discussion on the impact of perspective on how we view ourselves. Client worked with the group to develop a working definition of the term strengths and the importance of recognizing one's strengths. Client was given a worksheet and was asked to standing rock at least 3 strengths which included: logic, spirituality, and flexibility. Group then worked together to identify strategies to remind themselves of their strengths and client selected taping up affirmations around the house as their strategy. Progress noted AEB client?s self-report of improve mood and functioning. Benefited from increased awareness of the role of perspective and strengths in daily mental health wellness. Will continue IOP tx to promote gains and will discharge from IOP on Sunday. Narrative Note: []
--- NOTE | 2020-03-12 09:00 | BH.SGPN.GN ---
Behaviors/Verbalizations/Mental Status: [] Eye contact is good. Motor activity is appropriate. Appearance is casual. Speech is Appropriate. Mood is euthymic. Affect is full. Thoughts are linear and logical. No evidence of psychosis. Reviewed daily check in sheet and no reports of suicidal ideations or intent. Client Response/Progress/Benefit: [] Pt participated when prompted. Emotion for today is glad. States I challenge everyone to challenge their thoughts. He then discussed an small event which he could have turned into a crisis however was able to challenge and reframe his thoughts to not catastrophize. Discussed the benefits of this skill. Mentioned that today would be his last day in [facility]. He discussed the benefits of the program and the topics that were most helpful. He plans to continue with local [facility] groups. Progress noted. Pt benefits from group support and encouragement. Pt will be discharged today. Narrative Note: []
--- NOTE | 2020-03-12 10:15 | BH.SGPN.GN ---
Behaviors/Verbalizations/Mental Status: []Client alert and oriented, casually dressed and appropriately groomed. Eye contact fair. Motor activity appropriate. Speech within normal limits. Affect constricted, mood euthymic. Thoughts linear, logical, no signs of hallucinations or delusions. Client Response/Progress/Benefit: []Client mostly engaged during session AEB taking notes and listening attentively to others, though remained a mostly passive participant throughout. Client listened as peers worked on defining goals and brainstorming the benefits of goal setting. Benefits included: improved motivation, increased self-confidence, sense of accomplishment, and less stress. Discussed connecting with several of the benefits shared by fellow participants and noted that this has helped him to focus more on the positives rather than the negatives. Client again actively listened as group discussed the barriers that keep people from either setting or following through with goals. Client however opted not to share his own personal barriers to following through with goals. Client attentive during psychoeducation on SMART goals. Appeared to benefit from learning the mental health benefits of setting goals using SMART criteria. Progress noted in client self-report of improved mood and ability to manage anxiety. Client to discharge from [facility] tx on this date and continue with individual outpatient counseling to promote healthy coping, maintain mood stability and symptom management, and prevent decompensation. Narrative Note: []
--- NOTE | 2020-03-12 11:25 | BH.SGPN.GN ---
Behaviors/Verbalizations/Mental Status: [] Eye contact is good. Motor activity is appropriate. Appearance is casual. Speech is Appropriate. Mood is anxious. Affect is congruent. Thoughts are linear and logical. No evidence of psychosis. Client Response/Progress/Benefit: [] Pt was an active participant in group discussions and activities. Along with group members was able to identify barriers during group beach ball activity (over-thinking, environmental restrictions, self-doubt, and what-if thinking) and strategies they utilized to overcome these barriers (communicating, encouraging others). Able to identify a SMART goal for the next week which was Use one positive affirmation a day for a week He was able to identify barriers and obstacles to this goals and strategies to overcome these barriers. Benefited from group by being able to utilize SMART educate to create a goal. Narrative Note: []
--- NOTE | 2020-03-12 16:28 | BH.DS_ITS ---
Discharge Summary - Demographics Date of Admission:: 02/09/20 Discharge Date: 03/12/20 Presenting Problems at Admission:: Client is a 62-year-old male with a history of MDD and anxiety. Client was previously in the IOP program approximately three years ago and was recommended to return by his outpatient psychiatrist due to worsening depression and anxiety, as well as limited benefit from traditional outpatient therapy alone. At time of intake, client reported worsening mental health symptoms over the past 6 months due to limited contact with others as a result of ongoing health issues and current COVID-19 pandemic precautions. Client endorsed isolation, hopelessness, increased sadness, guilt, irritability, increased worry and ruminating thoughts, decreased concentration, and increased relationship tension. Client reported his sx were further escalated by a recent stomach surgery which limited his interaction with supports and greatly limited ability to engage in activities he used to enjoy. Client's symptoms were impacting ability to function at his baseline. 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 Client's DSM-5 scores for depression and anxiety have decreased and client reports an overall improved mood. Client no longer meets criteria for IOP level of care. - Treatment Progress During Treatment & Response: Client has made significant strides since starting IOP as shown by his improved mood, decreased isolation, and increased ability to cope with daily stressors impacting overall mental health symptoms. Client was an active participant in group as he often took notes and provided positive contributions to discussion when prompted. Client was active during individual sessions and he remained actively engaged throughout the treatment process. Client struggled at times with remembering the internal coping skills learned, though self-reported regularly referring to notes in his binder and applying coping skills identified. When client started IOP he was experiencing anxiety, depression, isolative behaviors, and anxious thoughts daily. Now, client can more easily recognize when he is getting stressed or anxious and use calming skills to prevent escalating to crisis. Additionally, reports he has been isolating less, communicating better with his supports regarding boundaries and mental health needs, as well as making more consistent efforts to ensure self-care is a daily priority. Client has worked to challenge negative thoughts that reinforce depression, apply healthy coping skills daily, spent time daily catching up with supports, and has started to volunteer at [facility] again. Client has shown strides in managing anxiety, setting and working towards small daily goals, and staying positive. Client?s DSM-5 scores decreased by 94% since admission. Client?s scores for depression decreased from 2/8 to 0/8 by discharge. Client?s scores for anxiety decreased from 3/12 at admission to 1/12 at discharge, with irritability reducing from 2/4 to 0/4. Issues Still to be Addressed:: Client has made significant strides in improving his mood and reducing intensity of symptoms while in IOP. However, client can continue to benefit from participating in outpatient counseling to maintain gains and promote mood stability. Client completed a maintenance plan prior to discharge which included warning signs, coping skills, and supports client can use to promote progress. Lastly, client's mother's health is rapidly declining and client can benefit from improving independent living skills and expanding his support network to better help cope with anxiety associated with this. Client continues to struggle with distress tolerance and stress management skills which could further be improved upon in the individual counseling setting. Discharge Recommendations/Instructions:: Client was recommended to follow up with his outpatient providers for continuity of care. Client will follow up at [facility] for medication management. Client is also encouraged to follow up with Steven at [facility] for individual therapy. Client plans to continue to go to [employer] regularly for social support and to prevent isolation. Discharge Handout: Complete Discharge Handout with client on aftercare options and continuity of care.
== END 2020-03-12 15:16 | disposition home or self-care (01) ==
LOC: BHIOP 09:00
PROVIDERS: PCP Internal Medicine; Referring Provider Psychiatry & Neurology Psychiatry; Visit Provider Psychiatry & Neurology Psychiatry
DX: F33.2 Major depressive disorder, recurrent severe without psychotic features (principal); F41.1 Generalized anxiety disorder
CPT/HCPCS: H0035; 90832; 90853

== ENCOUNTER → 2020-02-18 15:47 | Outpatient (CLI) | payer MEDICARE, MEDICAID, SELFPAY ==
[2020-01-23 09:59] VITALS: BMI 21.6
--- NOTE | 2020-02-18 15:59 | VDLE_ITS ---
Reason For Study: PAIN Procedure LEFT Exam performed in department. GSV is normal. A preliminary report was called and/or faxed CFV is compressible, spontaneous, phasic, to DR COLE. competent, and demonstrates normal augmentation. FV is compressible, spontaneous, phasic, competent and demonstrates normal augmentation. POP V is compressible, spontaneous, phasic, competent and demonstrates normal augmentation. T/P Trunk is compressible. PTV is compressible. LT PerV is compressible. Interpretation Summary Deep veins of the left lower extremity are patent and compressible segmentally. There is no evidence of left lower extremity deep vein thrombosis. Valvular competence appears intact within the proximal deep venous system on the left . The left great saphenous vein appears patent and compressible segmentally. Ordering Physician: Tito Cole Referring Physician: Yany Pederson Performed By: Lita Odonnell, TELLO, RVT
== END ==
PROVIDERS: PCP Internal Medicine; Referring Provider Podiatrist; Visit Provider Podiatrist
DX: M79.662 Pain in left lower leg (principal); M79.89 Other specified soft tissue disorders
CPT/HCPCS: 93971

== ENCOUNTER → 2020-03-08 17:14 | Outpatient (CLI) | payer MEDICARE, MEDICAID, SELFPAY ==
--- NOTE | 2020-03-08 17:16 | RAD_ITS ---
STUDY: X-RAY - LEFT SHOULDER REASON FOR EXAM: Male, 59 years old. Follow-up yesterday. Left shoulder pain. History of prior proximal humeral fracture TECHNIQUE: 2 view(s) of the shoulder on 4 images. COMPARISON: 05/19/2015 FINDINGS: Normal glenohumeral articulation. Normal acromioclavicular joint. Normal acromion. Healed fracture of the left proximal humerus with deformity. Deformity of the left third rib laterally compatible with healed rib fracture. The soft tissue structures are unremarkable. Normal visualized pulmonary apex. RAD/Shoulder min 2 Views IMPRESSION: Healed fracture of the left proximal humerus. Left third rib deformity compatible with healed rib fracture. No acute fracture. Electronically Signed: Amaury Garnett MD at 17:39 EST , Service support ,
== END ==
PROVIDERS: PCP Internal Medicine; Referring Provider Physician Assistant Surgical; Visit Provider Physician Assistant Surgical
DX: S40.012A Contusion of left shoulder, initial encounter (principal)
CPT/HCPCS: 73030

== ENCOUNTER → 2020-05-13 12:26 | Outpatient (CLI) | payer MEDICARE, MEDICAID, SELFPAY ==
[2020-03-30 09:12] VITALS: BMI 21.1
== END ==
PROVIDERS: PCP Internal Medicine; Visit Provider Internal Medicine Critical Care Medicine
DX: G47.33 Obstructive sleep apnea (adult) (pediatric) (principal)
CPT/HCPCS: 98960; G0463

== ENCOUNTER 2020-08-05 11:49 | Emergency (ER) | payer MEDICARE, MEDICAID, SELFPAY ==
[2020-06-23 10:46] VITALS: BMI 21.7
[2020-08-05 11:51] VITALS: BP 95/65; PULSE 82; RESP 16; TEMP 36.6; O2SAT 98; BMI 20.8
--- NOTE | 2020-08-05 12:00 | RAD_ITS ---
STUDY: X-RAY - PELVIS AND RIGHT HIP REASON FOR EXAM: Male, 59 years old. Injury TECHNIQUE: 3 views of the pelvis and hip. COMPARISON: Comparison is made with prior study dated 06/21/2014. FINDINGS: There is a non-specific bowel gas pattern. A catheter is seen in the right upper quadrant. Normal bilateral iliac wings, sacroiliac joints and visualized sacrum. Normal bilateral superior and inferior pubic rami. Normal pubic symphysis. Normal bilateral ischial tuberosities. Normal visualized femoral head. Normal acetabulum. Normal hip joint. RAD/HIP, UNI W/ Pelvis 2-3 Views IMPRESSION: Normal x-ray examination of the pelvis and hip. Electronically Signed: Blake Oliveira MD at 12:25 EDT , Service support ,
--- NOTE | 2020-08-05 12:01 | ED.DCSUM_ITS ---
History of Present Illness Chief Complaint: Fall Informant: Patient Narrative: 59-year-old male states that last night he slipped on the wet floor in the kitchen landing on his right side injuring his right hip and thigh. He tells me that is been very painful to bear weight. He has been holding onto the wall. He has not been using a cane walker or crutches. Patient denies any other injuries. - Past Medical History (1) Asthma Status: Chronic (2) Chronic iron deficiency anemia Status: Chronic (3) DVT (deep venous thrombosis) Status: Chronic Comment: RUE (4) Essential (primary) hypertension Status: Chronic (5) Hyperlipidemia Status: Chronic (6) Kyphoscoliosis Status: Chronic (7) KULWANT (obstructive sleep apnea) Status: Chronic Past Medical History - Allergies and Home Meds Allergies/Adverse Reactions: Allergies codeine Allergy (Verified 08/05/20 11:55) Hives gluten Allergy (Verified 08/05/20 11:55) Diarrhea aspirin [ASA] Adverse Reaction (Verified 08/05/20 11:55) Nausea bee venom protein (honey bee) Adverse Reaction (Verified 08/05/20 11:55) Shortness of breath prednisone Adverse Reaction (Verified 08/05/20 11:55) Unknown CODEINE Adverse Reaction (Intermediate, Uncoded 08/05/20 11:55) nausea, eyes turn white Primary Care Physician: Yany Pederson MD [Primary Care Provider] - Surgical History: colectomy, - Smoking Status: Never smoker Drugs: None - Family History Maternal Family History: Family History (Last Reviewed 06/23/20 @ 10:57 by Judi Mackey NP, PERCUSSION TEACHER-C) Daughter Cancer Sister Cancer Father Hypertension Family History: Reports: No pertinent history - alive age 88 Paternal Family History: Family History (Last Reviewed 06/23/20 @ 10:57 by Judi Mackey NP, PERCUSSION TEACHER-C) Daughter Cancer Sister Cancer Father Hypertension Family History: Reports: Cancer - age 74, bladder Review of Systems General: Denies: Chills, Fever, Sweats Eyes: Denies: Visual changes - bilaterally, Diplopia ENT: Denies: Rhinorrhea, Sore throat Cardiovascular: Denies: Chest pain, Palpitations Respiratory: Denies: Dyspnea, Cough, Dyspnea on exertion Gastrointestinal: Denies: Abdominal pain, Nausea, Vomiting, Diarrhea, Melena, Hematochezia Genitourinary: Denies: Dysuria, Hematuria, Frequency Musculoskeletal: Reports: Extremity Pain. Denies: Back pain Skin: Denies: Rash, Wounds Neurological: Denies: Headache, Weakness, Numbness Physical Exam Vital Signs/Narrative: Vital Signs Temp Pulse Resp BP Pulse Ox 08/05/20 11:51 97.8 F 82 16 95/65 98 Inital Vital Signs reviewed: Yes General: Well nourished, Well developed, No Acute Distress Head: Normocephalic, Atraumatic Eyes: Perrl, EOMI ENT: Moist mucous membranes, No rhinorrhea Neck: Supple, Nontender Cardiovascular: Regular rate, Regular rhythm, No murmurs Respiratory: No distress, CTA bilaterally, Chest nontender Abdomen: Soft, Nontender, Nondistended, Normal bowel sounds Back: Nontender, Normal Inspection Extremities: No edema, Tenderness - Tender to palpation out of proportion to the examination of the right greater trochanter and hip. Positive logroll. Skin: Normal color, No rash Neurological: Alert, Oriented x3, Cranial nerves II-XII grossly intact, Normal Strength, Normal Sensation Psychological: Normal affect, Normal Mood Diagnostic/Tx/Re-eval Clinical Impression(s) from Imaging Studies Hip/Pelvis X-Ray 08/05/20 12:00 IMPRESSION: Normal x-ray examination of the pelvis and hip. Electronically Signed: Blake Oliveira MD at 12:25 EDT , Service support , - Medical Decision Making My interpretation of the plain films of the hip and pelvis are negative for acute fracture. Patient will be treated for soft tissue contusion. He has very painful ambulation and I suggested a walker or crutches to help him offload some of the weight which he is in agreement to. ED Disposition - Plan for ED Patient: Disposition: Home or Assisted Living Diagnosis: Contusion of right hip Instructions: ED Contusion, Lower Extremity Referrals: Yany Pederson MD [Primary Care Provider] - 10-14 Days if not better
[2020-08-05 13:42] VITALS: BP 115/74; PULSE 77; RESP 16; O2SAT 97
== END 2020-08-05 13:42 | disposition home or self-care (01) ==
PROVIDERS: Emergency Provider Emergency Medicine; PCP Internal Medicine
DX: S70.01XA Contusion of right hip, initial encounter (principal); W01.0XXA Fall on same level from slipping, tripping and stumbling without subsequent striking against object, initial encounter; E78.5 Hyperlipidemia, unspecified; G47.33 Obstructive sleep apnea (adult) (pediatric); I10 Essential (primary) hypertension; J45.909 Unspecified asthma, uncomplicated; Z82.49 Family history of ischemic heart disease and other diseases of the circulatory system; Z86.718 Personal history of other venous thrombosis and embolism; Z88.5 Allergy status to narcotic agent; Z88.6 Allergy status to analgesic agent; D50.9 Iron deficiency anemia, unspecified; M41.9 Scoliosis, unspecified; Z90.49 Acquired absence of other specified parts of digestive tract
CPT/HCPCS: 73502; 99285

== ENCOUNTER → 2020-08-28 09:28 | Outpatient (CLI) | payer MEDICARE, MEDICAID, SELFPAY ==
[2020-08-17 09:44] VITALS: BMI 20.9
--- NOTE | 2020-08-28 07:01 | CT_ITS ---
EXAM: CT LEFT LOWER EXTREMITY WITHOUT INTRAVENOUS CONTRAST : 1960 CLINICAL INDICATION: OSTEOARTHRITIS, PERONEAL TENDONITIS TECHNIQUE: Helically acquired images were obtained of the left lower extremity without intravenous contrast. 2-D reformats were performed by the technologist. This CT exam was performed using one or more of the following dose reduction techniques: automated exposure control, adjustment of the mA and/or kV according to patient size, and/or use of iterative reconstruction technique. This report was created using [employer] report [employer] technology. COMPARISON: None. FINDINGS: BONES/JOINTS: There are no bony abnormalities. No acute fracture. No subluxation. Normal alignment. Preservation of the joint space. No sclerotic or destructive changes. SOFT TISSUES: There is edema in the subcutaneous tissues. There is no mass or fluid collection. There are no abnormalities seen within the tendons or ligaments. The peroneal tendons are intact with no obvious evidence of tear or rupture. There is no obvious inflammatory change. No radiopaque foreign body. CT/Extremity Lower without Contra IMPRESSION: Edema in the subcutaneous tissues. No other abnormalities are identified. If indicated further evaluation with MRI may be beneficial. Individualized dose optimization techniques were used for this CT. at 1504 Reported and signed by: Gavin Kulkarni MD Electronically Signed: Gavin Kulkarni MD at 15:03 EDT Tel , Service support ,
== END ==
PROVIDERS: PCP Internal Medicine; Referring Provider Podiatrist; Visit Provider Podiatrist
DX: M76.72 Peroneal tendinitis, left leg (principal); M19.90 Unspecified osteoarthritis, unspecified site
CPT/HCPCS: 73700

== ENCOUNTER 2020-08-31 08:30 | Outpatient (RCR) | payer MEDICARE, SELFPAY ==
[2020-06-23 10:46] VITALS: BMI 21.7
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
--- NOTE | 2020-08-24 13:18 | HP.PTREVAL ---
Dr. Tito Cole, DPM, It has been my pleasure to treat KIT PALAFOX over the last 9 visits for L ankle instability. Please see the progress note below for an update on the physical therapy plan of care! Subjective: Pt. states that he is having some pain in the right hip and the left ankle today. The pt. states that his hip is doing better than what it was the other day. Today is his last scheduled visit, but he plans to have a few more visits before d/c. Objective/Function: Pt. seems to have more pain in the ankle than he had before, but this could be due to the pain he is having in the right hip. The pt. is tender to palpation at the lateral aspect of the ankle. He tolerated PT well today and did not have any new concerns. The pt. had pain with AROM in DF, eversion, and inversion. The pt. will continue to see PT to decrease his pain in his ankle. ROM: DF limited with pain 10deg, Inversion limited with pain 10deg, Eversion limited with pain 12 deg, PF 40deg NE. MMT: 4/5 throughout L ankle except, PF 5/5, DF 4+/5. R hip ROM min loss in all directions secondary to increased pain. Pt. reports increased R hip pain with increased flexion and adduction. Abduction is doing well, but pain at lateral hip. SL on LLE: 18sec mild incrase NW in L ankle pain. STAIRS: Pt. is able to complete with reciprocal pattern with 2 HR with mild increase in R hip pain, no ankle pain. gait: Pt. has overall improved gait pattern since his initial evaluation. He is tolerating walking better, stairs, and CKC exercises. He did recently fall at home resultsing in a R hip contusion. He had an xray showing no acute fracture and is slowly getting better. Pt. is walking without AD now, but is methodical with his pattern secondary to R hip pain. Plan Plan: Pt. continue to progress strength and mobility in the L ankle and work on progressing back to his normal gait. I am requesting 6 more visits to work both on L ankle functional strengthening and progression of R hip strength/functional tolerance. Goals Goal 1:: LTG: Pt. to be I with HEP. Goal Time Frame: 2-4 Weeks Goal Progress: Progressing Goal 2:: LTG: Pt. to walk on Treadmill upto 10 minutes allowing for return to gym activities. Goal Time Frame: 2-4 Weeks Goal Progress: Progressing Goal 3:: LTG: Pt. to ambulate unlimited distances in community allowing him to return to walking his dog without increase in symptoms. Goal Time Frame: 4-6 Weeks Goal Progress: Progressing Goal 4:: STG: pt. to have full L ankle ROM activitly without increase in symptoms. Goal Time Frame: 2-4 Weeks Goal Progress: Progressing Goal 5:: LTG: Pt. to have increased L ankle and L hip strength increased to atleast 5-/5 throughout. Goal Time Frame: 4-6 Weeks Goal Progress: Progressing Goal 6:: LTG: Pt. to be able to maintain SLS on LLE for atleast 30sec with out use of UEs. Goal Progress: Progressing Anticipated Interventions Patient/Client Instruction: Educate patient on: Condition, Plan of Care, Risk Factors, Benefits of Fitness Program For the Purpose of:: To improve decision making, To facilitate caregiver knowledge, To improve self management, To prevent re-injury, To improve ability to perform tasks related to life management, To improve tolerance to ADL's Therapeutic Exercise to Include: Strength training, Power training, Endurance training, Balance training, Body mechanics, Flexibilty training, Gait and locomotor training, Passive ROM, Active ROM For the Purpose of:: To decrease pain, To increase ROM, To improve nutrient delivery to tissue, To increase oxygenation perfusion, To improve muscle performance and motor function, To improve ability to perform ADL's, To increase tolerance to activity/condition/position, To improve performance and independence with ADL's, To decrease level of supervision to perform tasks, To improve ability of physical actions for home/community/work/leisure, To improve gait and locomotor functions Please do not hesitate to contact me at [phone] by phone or if you have questions or concerns regarding this new plan of care! Sincerely, Fly Laboy DPT
== END 2020-08-31 19:00 | disposition home or self-care (01) ==
LOC: PT 08:30
PROVIDERS: PCP Internal Medicine; Referring Provider Podiatrist; Visit Provider Podiatrist
DX: M25.372 Other instability, left ankle (principal); R29.898 Other symptoms and signs involving the musculoskeletal system
CPT/HCPCS: 97035; 97110; 97161

== ENCOUNTER → 2020-10-26 17:45 | Outpatient (CLI) | payer MEDICARE, MEDICAID, SELFPAY ==
[2020-10-12 16:40] VITALS: BMI 20.9
[2020-10-21 08:12] VITALS: BMI 20.9
--- NOTE | 2020-10-26 17:49 | CT_ITS ---
EXAMINATION : Head CT w/out contrast HISTORY : SUDDEN IDIOPATHIC HEARING LOSS. COMPARISON : 06/22/2014 TECHNIQUE : Multiple contiguous axial images were obtained from the skull base to the vertex without intravenous contrast. A radiation dose optimization technique was used for this scan. FINDINGS : Unchanged left frontal ventricular catheter which terminates in the third ventricle. There is stable mild widening of the body and posterior horn of the right lateral ventricle. Mild widening of the fourth ventricle is also stable. An area of CSF density just above the left frontal horn and adjacent to the catheter is unchanged. There is cortical atrophy and severe loss of white matter volume in the parietal lobes. 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 There is normal patel-white differentiation, without CT evidence of acute ischemia or infarct. No abnormal enhancement. No intracranial hemorrhage. The skull base and calvarium are unremarkable. The orbits are unremarkable. The paranasal sinuses are clear. The mastoid air cells are well-aerated. The soft tissues are unremarkable. CT/Brain/Head W/WO Contrast IMPRESSION: No acute intracranial abnormality. Stable exam when compared to CT Brain dated 06/22/2014. Electronically Signed: Jf Lizama MD at 18:33 EDT Tel , Service support ,
[2020-10-26 18:00] LABS: CREATININE FINGERSTICK 0.8 mg/dL (0.70-1.30); EGFR FINGERSTICK > 60.0000 mL/min (>60)
== END ==
PROVIDERS: PCP Internal Medicine; Referring Provider Otolaryngology; Visit Provider Otolaryngology
DX: H91.21 Sudden idiopathic hearing loss, right ear (principal)
CPT/HCPCS: 70470; Q9967

== ENCOUNTER → 2020-12-28 08:24 | Outpatient (CLI) | payer MEDICARE, MEDICAID, SELFPAY ==
[2020-12-28 12:11] LABS: Absolute Lymphocyte Count 1.23 X10^3/uL (0.83-4.51); Absolute Neutrophil Count 2.1 X10^3/uL (2.0-7.7); Basophil# 0.03 X10^3/uL; Basophil% 0.7 % (0-1); Eosinophil# 0.33 X10^3/uL; Hematocrit 41.7 % (40-54); Hemoglobin 13.1 g/dL (13.0-16.5); Lymphocyte # 1.23 X10^3/ul (0.83-4.51); Mean Corp Hgb Conc 31.4 g/dL (32-36); Mean Corpuscular Hgb 28.9 pg (27.0-32.0); Mean Corpuscular Volume 91.9 fL (80-94); Mean Platelet Vol. 9.9 fl (6.2-12.0); Monocyte# 0.38 X10^3/uL; Monocyte% 9.3 % (0-10); NRBC Flagged by Analyzer 0 % (0-5); Neutrophil # 2.13 X10^3/uL (2.7-7.7); Platelet Count 168 K/mm3 (150-450); RBC Distribution Width CV 15.2 % (11.6-14.6); RBC Distribution Width SD 50.7 fl (35.1-43.9); Red Blood Count 4.54 M/mm3 (4.6-6.2); White Blood Count 4.1 K/mm3 (4.4-11.0)
[2020-12-28 12:35] LABS: ALB/GLOB Ratio 0.9 RATIO (0.9-2.4); AST(SGOT) 34 U/L (15-37); Alanine Aminotransfer ALT/SGPT 50 U/L (16-61); Albumin, Serum 2.8 g/dL (3.2-5.0); Alkaline Phosphatase 50 U/L (45-117); Anion Gap 4 (5-15); BUN 24 mg/dL (7-18); BUN/Creat Ratio 44.4 RATIO (10-20); Calcium,Total 8.3 mg/dL (8.5-10.1); Chloride 110 mmol/L (98-107); Cholesterol 120 mg/dL (200); Creatinine, Serum 0.54 mg/dL (0.70-1.30); EST Glomerular Filtration Rate 164 mL/min (>60); Est Glom Filt Rate - Afr Amer 199 mL/min (>60); Globulin 3.2 g/dL (2.2-4.2); Glucose 98 mg/dL (74-106); High Density Lipoprotein 64 mg/dL; Potassium 3.6 mmol/L (3.5-5.1); Sodium Level 141 mmol/L (136-145); Triglycerides 32 mg/dL; Very Low Density Lipoprotein 6 mg/dL (5-40)
== END ==
PROVIDERS: PCP Internal Medicine; Referring Provider Internal Medicine; Visit Provider Internal Medicine
DX: I10 Essential (primary) hypertension (principal); E78.5 Hyperlipidemia, unspecified
CPT/HCPCS: 36415; 80053; 80061; 85025

== ENCOUNTER 2021-02-02 08:30 | Outpatient (RCR) | payer MEDICARE, MEDICAID, SELFPAY ==
--- NOTE | 2021-01-12 10:17 | HP.OTEVAL_ITS ---
Patient's Visit Information KIT PALAFOX is a 60 year old M, referred to Occupational Therapy by ROCHELLE Casillas, with a diagnosis of right finger/wrist pain. Date of Evaluation: 01/11/21 Occupational Therapist: Sylvia Carrasco, BELLAR/Bonnie, CHT - Subjective This 60 year old male was seen for OT eval with dx of right MF pain/wrist pain- pt reports pain started in Nov. and no know cause of pain or injury- pt is right handed. 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 pt states he does cooking and will wash dishes. pt states he can perform his ADLs but is very careful not to hit his MF. pt would like to know what he can do to decrease pain and return to using his right hand without limits. - Pain right hand 4 Pain Intensity Range: 7 - ROM MP: right 85 left 85 PIP: right 75 left 105 DIP: right 45 left +10/65 ROM Comments: tremor. slight decrease in pts ROM - Strength Roll Coating Machine Operator: right 20# left 25# Lateral Pinch: right 8# left 8# Strength Comments: tremor on right greater than left - Quick DASH-Disab of Arm,Shoulder& Hand Quick DASH Score: 50.0000 - Goals Goal:: pt will demo a increase in right dishwasher busser strength by 10# or greater to increase pts ind./ with ADLs and IADLs by dc Goal:: pt will demo a full composite fist to hold small objects by dc Goal:: pt will report no pain greater than 2/10 with use of right hand with ADLs and IADLs Goal:: Pt will demo understanding of joint protection and ergonomics when performing BADLs and IADLs by d/c. Pt will demo understanding of adaptive Equipment use to decrease stress on joints to allow pt to perform BADSL and IADLS at GUS level. - Rehabilitation General Assessment: pt demo with right MF painful ROM and this limits his ind with ADLs and IADLS. Pt would benefit from skilled OT services 1-2x week for 3 weeks to ed. pt on joint protection, modalities that mt pts pain and ad. eq. to return pt to using is right hand with ADLS at GUS level. pt agree with POC. Rehabilitation Potential: Good - Anticipated Interventions A/AAROM/PROM, Orthoses, Joint Protection/Energy Conservation, Ergonomic Education - Visit Plan Frequency: 1-2x /Week Duration: 3 Weeks TEXT: Thank you for the opportunity to evaluate your patient. For Medicare and Medicare HMO plans, please review the plan of care and approve it. It will need to be FAXED BACK to us at [phone] for Medicare purposes. Please let me know if there are questions or concerns regarding this plan of care. Physician Signature: Date:
--- NOTE | 2021-02-02 08:56 | HP.OTDCSUM ---
It has been my pleasure to treat KIT PALAFOX under orders from ROCHELLE Casillas, for the diagnosis of right finger/wrist pain for a total of 5 visit(s). Please see the following information for a summary of their discharge status. % Improvement: 100 Objective/Function: pt demo the ability to form tight composite fist without pain today- right MF PIP 0/100 DIP 0/70. right reconciliation machine operator 20# left 25# no change in strength. pt has been ed. on joint protection, modalities and possible use of arthritis glove. pt arrives states his finger feels cold this am- Therapist has advised pt to wear glove when is is cooler out- possibly wear gloves when temp. gets below 50*. therapist has ed. pt to return to dr. if pain becomes greater than 7/10 for weeks. pt demo understanding and agree. Patient Goals: Decrease Pain Goal:: pt will demo a increase in right reconciliation machine operator strength by 10# or greater to increase pts ind./ with ADLs and IADLs by dc Goal:: pt will demo a full composite fist to hold small objects by dc Goal:: pt will report no pain greater than 2/10 with use of right hand with ADLs and IADLs Goal:: Pt will demo understanding of joint protection and ergonomics when performing BADLs and IADLs by d/c. Pt will demo understanding of adaptive Equipment use to decrease stress on joints to allow pt to perform BADSL and IADLS at GUS level. Plan: D/C Discharge Comments: pt was seen for 5 OT visits- pt made good gains with decreasing pain, demo understanding of joint protection and modalities that decrease his pain. pt met goals and is d/c with HEP- pt demo understanding and agree to POC. If there are questions or concerns regarding this patient's occupational therapy, please fell free to call me at [phone]. Thank you for the referral of this patient. Sincerely, Sylvia Carrasco, OTR/L, CHT
== END 2021-02-02 12:59 | disposition home or self-care (01) ==
LOC: OT 08:30
PROVIDERS: PCP Internal Medicine; Referring Provider Physician Assistant Surgical; Visit Provider Physician Assistant Surgical
DX: S69.91XD Unspecified injury of right wrist, hand and finger(s), subsequent encounter (principal); X58.XXXD Exposure to other specified factors, subsequent encounter
CPT/HCPCS: 97140; 97166; 97530; 97763

== ENCOUNTER → 2021-03-29 09:08 | Outpatient (CLI) | payer MEDICARE, MEDICAID, SELFPAY ==
[2021-03-29 12:27] LABS: Vitamin D,25 Hydroxy 64.7 ng/mL
[2021-03-29 12:32] LABS: Anion Gap 6 (5-15); BUN 24 mg/dL (7-18); BUN/Creat Ratio 46.2 RATIO (10-20); Calcium,Total 8.7 mg/dL (8.5-10.1); Chloride 110 mmol/L (98-107); Creatinine, Serum 0.52 mg/dL (0.70-1.30); EST Glomerular Filtration Rate 172 mL/min (>60); Est Glom Filt Rate - Afr Amer 208 mL/min (>60); Glucose 86 mg/dL (74-106); Potassium 3.7 mmol/L (3.5-5.1); Sodium Level 143 mmol/L (136-145)
== END ==
PROVIDERS: PCP Internal Medicine; Visit Provider Internal Medicine
DX: M81.0 Age-related osteoporosis without current pathological fracture (principal)
CPT/HCPCS: 36415; 80048; 82306

== ENCOUNTER 2021-07-04 18:41 | Emergency (ER) | payer MEDICARE, MEDICAID, SELFPAY ==
[2021-07-04 18:43] VITALS: BP 122/91; PULSE 85; RESP 16; TEMP 36.8; O2SAT 97; BMI 22.6
--- NOTE | 2021-07-04 19:36 | RAD_ITS ---
STUDY: X-RAY CHEST REASON FOR EXAM: Male, 60 years old. sob TECHNIQUE: Single frontal view of the chest. COMPARISON: 10/28/2019 FINDINGS: The lungs are clear and expanded. There is no demonstrated pleural abnormality. Normal size heart. Normal mediastinum and kai. Normal visualized pulmonary arteries. Normal visualized aortic arch and descending thoracic aorta. Normal visualized thoracic spine. Normal visualized ribs, clavicles, and shoulders. There is no demonstrated abnormality of the visualized soft tissue structures of the upper abdomen. Left-sided SOLAR SYSTEMS DESIGNER shunt catheter RAD/Chest 1 View (Portable) IMPRESSION: Normal x-ray examination of the chest. Electronically Signed: Jesse Ambrose DO at 20:20 EDT ,
--- NOTE | 2021-07-04 19:38 | EX.ED.DYSGE1 ---
HPI History of Present Illness Chief Complaint: Asthma Informant: patient Onset/Context/Timing Onset: Days Current Severity: Mild Maximum Severity: Mild Narrative Narrative: Patient presents with shortness of breath that he believes is secondary to asthma. He reports feeling more short of breath in the past 3 days. He denies chest pain. He has had mild cough but no sputum production. He states his allergies will usually flareup this time a year causing an asthma exacerbation. He is currently on Breo inhaler but does not have an albuterol inhaler for rescue. 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 DVT (deep venous thrombosis) Endocarditis Essential (primary) hypertension GERD (gastroesophageal reflux disease) Health care maintenance Hearing loss Hiatal hernia history of broken shoulder History of hemorrhoids Hyperlipidemia Impacted cerumen, right ear Knee pain Kyphoscoliosis Major depressive disorder, recurrent severe without psychotic features Nonhealing surgical wound KULWANT (obstructive sleep apnea) Osteoporosis Pneumonia Rotator cuff disorder Sepsis Severe headache Skin cancer, basal cell Trigger thumb, left thumb Home Medications baclofen 10 mg PO BID PRN 08/12/19 [History Last Taken 10/27/19 09:00] citalopram 40 mg PO DAILY 08/12/19 [History Last Taken 10/26/19 21:00] quetiapine 25 mg PO 0800,1200 08/12/19 [History Last Taken Unknown] quetiapine 150 mg PO QHS 08/12/19 [History Last Taken Unknown] rivaroxaban 20 mg tablet 20 mg PO DAILY #90 tab 05/20/20 [Rx Last Taken Unknown] azelastine 205.5 mcg (0.15 %) nasal spray 1 spray INTRANASAL BID #30 ml 07/30/20 [Rx Last Taken Unknown] denosumab 60 mg/mL subcutaneous syringe 60 mg SC [id number] #1 ml 08/17/20 [Rx Last Taken Unknown] montelukast 10 mg tablet 10 mg PO QHS #90 tab 09/17/20 [Rx Last Taken Unknown] atorvastatin 20 mg tablet 20 mg PO DAILY #90 tab 02/07/21 [Rx Last Taken Unknown] cetirizine 10 mg capsule 10 mg PO DAILY #90 cap 03/17/21 [Rx Last Taken Unknown] isosorbide mononitrate 30 mg tablet,extended release 24 hr 30 mg PO DAILY #90 tab 05/05/21 [Rx Last Taken Unknown] fluticasone furoate 200 mcg-vilanterol 25 mcg/dose inhalation powder 1 inh INHALATION DAILY #60 ea 05/16/21 [Rx Last Taken Unknown] Allergy/AdvReac Type Severity Reaction Status Date / Time codeine Allergy Hives Verified 07/04/21 18:43 gluten Allergy Diarrhea Verified 07/04/21 18:43 aspirin [ASA] AdvReac Nausea Verified 07/04/21 18:43 bee venom protein (honey bee) AdvReac Shortness Verified 07/04/21 18:43 of breath prednisone AdvReac Unknown Verified 07/04/21 18:43 CODEINE AdvReac Intermediate nausea, Uncoded 07/04/21 18:43 eyes turn white Family History Daughter Cancer Sister Cancer Father Hypertension Surgical History H/O left inguinal hernia repair History of carpal tunnel release History of colectomy History of colonoscopy (~2016) History of creation of ventriculoperitoneal shunt History of kyphoplasty History of left heart catheterization (09/11/17) History of shoulder surgery Social History housing: house pets and animals: Yes pets and animals: cat(s) and dog(s) Smoking Status: Never smoker second hand exposure: No alcohol intake: never substance use type: does not use ROS ROS ED Constitutional Constitutional ED: Denies chills or fever(s) Eyes Eyes: Denies change in vision ENT ENT ED: Denies sore throat Cardiovascular Cardiovascular: Denies chest pain Respiratory/Chest Respiratory/Chest: Reports cough and dyspnea; Denies sputum Gastrointestinal Gastrointestinal: Denies abdominal pain, nausea or vomiting Musculoskeletal Musculoskeletal: Denies back pain or neck pain Integumentary Denies rash Neurologic Neurologic: Denies headache(s) or weakness Allergic/Immunologic Allergic/Immunologic ED: Denies urticaria EXAM Physical Exam Const Vital Signs: 07/04/21 18:43 07/04/21 20:30 07/04/21 21:12 Temperature 98.2 F Temperature Source Temporal Pulse Rate 85 89 Respiratory Rate 16 Respiratory Effort Normal Non-Labored Respiratory Depth Normal Respiratory Pattern Normal Blood Pressure 122/91 H Blood Pressure Mean 101 Pulse Ox 97 98 Oxygen Delivery Method Room Air Positive well nourished and well developed General Appearance ED: well developed HEENT Reports normocephalic and head/scalp atraumatic Eyes PERRL and EOMs intact bilaterally Neck supple Chest Wall inspection of chest normal and palpation of chest normal Resp normal respiratory effort and clear to auscultation bilaterally Cardio regular rate and regular rhythm GI normal to inspection, nondistended, normoactive bowel sounds and non-tender Palpation: soft Extremity normal to inspection Neuro oriented x3 Sensorium / Orientation: alert Psych mental status grossly normal Skin no rashes or lesions noted MDM MDM MDM Narrative Medical decision making narrative: Patient given DuoNeb treatment here along with IM Kenalog. Chest x-ray obtained. Radiography Chest X-Ray - ED: 1 View, Read by ED Physician and Chronic Changes Diagnostic Testing: Clinical Impression(s) from Imaging Studies Chest X-Ray 07/04/21 19:36 IMPRESSION: Normal x-ray examination of the chest. Electronically Signed: Jesse Ambrose DO at 20:20 EDT Reading Location ID and State: [address] [place] [address] Tel , Service support , Treatment and Re-Evaluation Narrative: Repeat evaluation patient does have improved air movement. Chest x-ray per my interpretation reveals no focal infiltrate. Radiologist interpretation also reviewed. Patient is given an albuterol MDI inhaler here and will have that as a rescue inhaler at home. Return instructions given. Discharge Plan Triage Chief Complaint: Asthma ED Provider: Luisana Manzo Dx/Rx/DC Orders Clinical Impression: Asthma exacerbation Instructions: ED Asthma, Acute (Adult) Prescriptions: No Action quetiapine 25 MG tablet 25 mg PO 0800,1200 RF: 0 citalopram 40 MG tablet 40 mg PO DAILY RF: 0 baclofen 10 MG tablet 10 mg PO BID PRN (Reason: Headache) RF: 0 quetiapine 150 MG tablet extended release 24 hr 150 mg PO QHS RF: 0 rivaroxaban 20 mg tablet 20 mg PO DAILY Qty: 90 RF: 3 azelastine 205.5 mcg (0.15 %) spray,non-aerosol 1 spray INTRANASAL BID Qty: 30 RF: 11 Prolia 60 mg/mL syringe 60 mg SC [id number] Qty: 1 RF: 1 montelukast 10 mg tablet 10 mg PO QHS Qty: 90 RF: 3 atorvastatin 20 mg tablet 20 mg PO DAILY Qty: 90 RF: 2 cetirizine 10 mg capsule 10 mg PO DAILY Qty: 90 RF: 3 isosorbide mononitrate 30 mg tablet extended release 24 hr 30 mg PO DAILY Qty: 90 RF: 1 Breo Ellipta 200-25 mcg/dose blister with device 1 inh INHALATION DAILY Qty: 60 RF: 3 Primary Care Provider: Yany Pederson Referrals: Yany Pederson MD [Primary Care Provider] - 1 Week if not improving Disposition Disposition: Home, Self Care Discharge Date/Time: 07/04/21 21:14
[2021-07-04] MEDS: Triamcinolone Acetonide 40 MG/ML Vial IM (19:42)
[2021-07-04] MEDS: Ipratropium/Albuterol Sulfate 3 ML AMPUL.NEB INHALATION (19:56)
[2021-07-04 21:12] VITALS: PULSE 89; O2SAT 98
== END 2021-07-04 21:14 | disposition home or self-care (01) ==
PROVIDERS: Emergency Provider Emergency Medicine; PCP Internal Medicine; Visit Provider Emergency Medicine
DX: J45.901 Unspecified asthma with (acute) exacerbation (principal); F31.9 Bipolar disorder, unspecified; E78.5 Hyperlipidemia, unspecified; I10 Essential (primary) hypertension; F41.9 Anxiety disorder, unspecified; Z85.828 Personal history of other malignant neoplasm of skin; Z86.718 Personal history of other venous thrombosis and embolism; K21.9 Gastro-esophageal reflux disease without esophagitis; G47.33 Obstructive sleep apnea (adult) (pediatric); M81.0 Age-related osteoporosis without current pathological fracture; Z87.01 Personal history of pneumonia (recurrent); Z86.19 Personal history of other infectious and parasitic diseases; Z85.038 Personal history of other malignant neoplasm of large intestine; Z79.899 Other long term (current) drug therapy
CPT/HCPCS: 71045; 94640; 96372; 99283

== ENCOUNTER 2021-07-27 09:52 | Outpatient (CLI) | payer MEDICARE, SELFPAY ==
[2021-08-03 13:08] LABS: Alternaria tenuis <0.10 kU/L (Class 0); Ash, White <0.10 kU/L (Class 0); Aspergillus fumigatus 0.19 kU/L (Class 0/I); Bermuda Grass <0.10 kU/L (Class 0); Birch <0.10 kU/L (Class 0); Black Walnut <0.10 kU/L (Class 0); Cat Hair / Dander,Stand <0.10 kU/L (Class 0); Cedar, Mountain <0.10 kU/L (Class 0); Cladosporium herbarum <0.10 kU/L (Class 0); Cockroach, American <0.10 kU/L (Class 0); Cottonwood <0.10 kU/L (Class 0); D farinae Mite <0.10 kU/L (Class 0); D pteronyssinus <0.10 kU/L (Class 0); Dog Epithelia <0.10 kU/L (Class 0); Elm, American White <0.10 kU/L (Class 0); Immunoglobulin E 8 IU/mL (6-495); Maple/Box Elder <0.10 kU/L (Class 0); Mulberry, White <0.10 kU/L (Class 0); Oak, White <0.10 kU/L (Class 0); Pecan <0.10 kU/L (Class 0); Penicillium Notatum 0.18 kU/L (Class 0/I); Pigweed, Rough <0.10 kU/L (Class 0); Ragweed, Short/Common <0.10 kU/L (Class 0); Russian Thistle <0.10 kU/L (Class 0); Sheep Sorrel <0.10 kU/L (Class 0); Sycamore, American <0.10 kU/L (Class 0); Timothy Grass <0.10 kU/L (Class 0)
[2021-08-04 17:32] LABS: Mouse Urine <0.10 kU/L (Class 0)
== END 2021-07-27 23:59 | disposition home or self-care (01) ==
PROVIDERS: PCP Internal Medicine; Visit Provider Otolaryngology
DX: T78.40XA Allergy, unspecified, initial encounter (principal)
CPT/HCPCS: 36415; 82785; 86003

== ENCOUNTER 2021-09-05 19:49 | Emergency (ER) | payer MEDICARE, MEDICAID, SELFPAY ==
[2021-09-05 19:50] VITALS: BP 115/93; PULSE 86; RESP 15; TEMP 36.2; O2SAT 97; BMI 22.6
--- NOTE | 2021-09-05 19:52 | RAD_ITS ---
EXAM: XR LEFT FOOT COMPLETE, 3 OR MORE VIEWS CLINICAL INDICATION: PAIN TECHNIQUE: Frontal, lateral and oblique views of the left foot. This report was created using [employer] report generation technology. COMPARISON: February 03, 2016. FINDINGS: BONES/JOINTS: No fracture identified. Hypertrophic changes and small chronic ossifications at the tip of a calcaneal spur appear stable. Mild hallux valgus deformity of the great toe again noted. Preservation of the joint space. No sclerotic or destructive changes observed. SOFT TISSUES: There is mild soft tissue swelling at the dorsum of the foot at the level of the metatarsals and proximal phalanges on the lateral view. No soft tissue gas. No radiopaque foreign body. RAD/Foot min 3 Views IMPRESSION: Dorsal soft tissue swelling. No underlying soft tissue gas or fracture. Electronically Signed: Cami Bill MD at 20:16 EDT ,
--- NOTE | 2021-09-05 20:23 | ED.VIS.LOWEX ---
HPI History of Present Illness Chief Complaint: Lower Extremity Injury Informant: patient Narrative Narrative: Patient states he was walking his dog when he started to suddenly get a burning sensation in the back of his heel on the left. He denies numbness or tingling. No sensory loss. He is able to bear weight but it hurts. He does not have a loss of function or range of motion. No pain higher than just the distal Achilles area. No pain in his calf or knee. He is on Xarelto for history of DVT in his right arm. He has no other areas of bleeding or known bleeding at all. He is on inhaled steroids for asthma but is not having an asthma exacerbation and has not been on recent steroids or alber quinolone antibiotics. 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 DVT (deep venous thrombosis) Endocarditis Essential (primary) hypertension GERD (gastroesophageal reflux disease) Health care maintenance Hearing loss Hiatal hernia history of broken shoulder History of hemorrhoids Hyperlipidemia Impacted cerumen, right ear Knee pain Kyphoscoliosis Major depressive disorder, recurrent severe without psychotic features Nonhealing surgical wound KULWANT (obstructive sleep apnea) Osteoporosis Pneumonia Rotator cuff disorder Sepsis Severe headache Skin cancer, basal cell Trigger thumb, left thumb Home Medications baclofen 10 mg PO BID PRN 08/12/19 [History Last Taken 10/27/19 09:00] citalopram 40 mg PO DAILY 08/12/19 [History Last Taken 10/26/19 21:00] quetiapine 25 mg PO 0800,1200 08/12/19 [History Last Taken Unknown] quetiapine 150 mg PO QHS 08/12/19 [History Last Taken Unknown] azelastine 205.5 mcg (0.15 %) nasal spray 1 spray INTRANASAL BID #30 ml 07/30/20 [Rx Last Taken Unknown] denosumab 60 mg/mL subcutaneous syringe 60 mg SC [id number] #1 ml 08/17/20 [Rx Last Taken Unknown] atorvastatin 20 mg tablet 20 mg PO DAILY #90 tab 02/07/21 [Rx Last Taken Unknown] albuterol sulfate 90 mcg/actuation aerosol inhaler 2 puff INHALATION Q6H PRN #18 g 07/06/21 [Rx Last Taken Unknown] rivaroxaban 20 mg tablet 20 mg PO DAILY #90 tab 07/15/21 [Rx Last Taken Unknown] montelukast 10 mg tablet 10 mg PO QHS #90 tab 08/19/21 [Rx Last Taken Unknown] fluticasone furoate 200 mcg-vilanterol 25 mcg/dose inhalation powder 1 inh INHALATION DAILY #60 ea 09/01/21 [Rx Last Taken Unknown] Allergy/AdvReac Type Severity Reaction Status Date / Time codeine Allergy Hives Verified 09/01/21 07:47 gluten Allergy Diarrhea Verified 09/01/21 07:47 aspirin [ASA] AdvReac Nausea Verified 09/01/21 07:47 bee venom protein (honey bee) AdvReac Shortness Verified 09/01/21 07:47 of breath prednisone AdvReac Unknown Verified 09/01/21 07:47 CODEINE AdvReac Intermediate nausea, Uncoded 09/01/21 07:47 eyes turn white Family History Daughter Cancer Sister Cancer Father Hypertension Surgical History H/O left inguinal hernia repair History of carpal tunnel release History of colectomy History of colonoscopy (~2017) History of creation of ventriculoperitoneal shunt History of kyphoplasty History of left heart catheterization (09/11/17) History of shoulder surgery Social History housing: house pets and animals: Yes pets and animals: cat(s) and dog(s) Smoking Status: Never smoker second hand exposure: No alcohol intake: never substance use type: does not use ROS ROS ED Constitutional Constitutional ED: Denies chills or fever(s) ENT ENT ED: Denies rhinorrhea Cardiovascular Cardiovascular: Denies chest pain Respiratory/Chest Respiratory/Chest: Denies cough or dyspnea Gastrointestinal Gastrointestinal: Denies nausea or vomiting Genitourinary Genitourinary ED: Denies dysuria or hematuria Musculoskeletal Musculoskeletal: Reports other Details: See history of present illness. Integumentary Denies rash Neurologic Neurologic: Denies paresthesias or weakness Endocrine Endocrinology: Denies polydipsia Hematologic/Lymphatic Hematologic/Lymphatic: Reports easy bleeding and easy bruising Allergic/Immunologic Allergic/Immunologic ED: Denies urticaria EXAM Physical Exam Const Vital Signs: 09/05/21 19:50 Temperature 97.2 F L Temperature Source Temporal Pulse Rate 86 Respiratory Rate 15 Blood Pressure 115/93 H Blood Pressure Mean 100 Pulse Ox 97 Oxygen Delivery Method Room Air Positive well nourished and well developed General Appearance ED: well developed and NAD HEENT normocephalic; Negative for trauma Neck Thyroid: Negative for tender Resp normal respiratory effort Cardio regular rate and regular rhythm Back/Spine no CVA tenderness Extremity Extremity Narrative: Patient does appear to have some fullness around his distal Achilles right above his heel. But it is not red or warm. I can move his ankle passively without any pain at all. If I do stretch the area a lot he is a little sore. It is sensitive just to touch the area slightly. But the Achilles is palpable. His Jackson test is negative. He can pressed down on the gas easily and firmly. No sign at all of Achilles disruption. There is no distended veins. His distal sensation capillary refill and pulses are normal. Neuro Sensorium / Orientation: alert Skin Rashes: no rashes MDM MDM MDM Narrative Medical decision making narrative: Patient's x-ray shows some dorsal soft tissue swelling consistent with exam but no sign of bony process. There is no sign of infection. This was relatively quick onset. He has Achilles is clearly clinically intact. However, I wonder if he could have either ligamentous strain or possibly even a plantaris muscle/tendon rupture. Since he is on Xarelto, he would have more bleeding at the rupture site which is normally distal. My suspicion is the relatively quick onset of this with some swelling is more consistent with deeper slight bleeding. This should stop on its own. We will add an Chance wrap for mild compression. He is ambulatory. We talked about pain meds but he did not want anything for pain. We also discussed talked about returning if he gets more swelling, pain, fevers, redness or any other concerns. Certainly return if he has any neuro changes. He should return if he has color change or weakness. Radiography Diagnostic Testing: Clinical Impression(s) from Imaging Studies Foot X-Ray 09/05/21 19:52 IMPRESSION: Dorsal soft tissue swelling. No underlying soft tissue gas or fracture. Electronically Signed: Cami Bill MD at 20:16 EDT , Discharge Plan Triage Chief Complaint: Lower Extremity Injury ED Provider: Lars Khan Dx/Rx/DC Orders Clinical Impression: Pain of left heel Instructions: ED Muscle Strain, Extremity Prescriptions: No Action Breo Ellipta 200-25 mcg/dose blister with device 1 inh INHALATION DAILY Qty: 60 RF: 6 albuterol sulfate [ProAir HFA] 90 mcg/actuation HFA aerosol inhaler 2 puff inhalation Q6H PRN (Reason: shortness of breath or wheezing) Qty: 18 RF: 6 quetiapine 25 MG tablet 25 mg PO 0800,1200 RF: 0 citalopram 40 MG tablet 40 mg PO DAILY RF: 0 baclofen 10 MG tablet 10 mg PO BID PRN (Reason: Headache) RF: 0 quetiapine 150 MG tablet extended release 24 hr 150 mg PO QHS RF: 0 azelastine 205.5 mcg (0.15 %) spray,non-aerosol 1 spray INTRANASAL BID Qty: 30 RF: 11 Prolia 60 mg/mL syringe 60 mg SC [id number] Qty: 1 RF: 1 atorvastatin 20 mg tablet 20 mg PO DAILY Qty: 90 RF: 2 rivaroxaban 20 mg tablet 20 mg PO DAILY Qty: 90 RF: 3 montelukast 10 mg tablet 10 mg PO QHS Qty: 90 RF: 3 Primary Care Provider: Yany Pederson Referrals: aYny Pederson MD [Primary Care Provider] - As Needed Tito Cole DPM [STAFF PHYSICIAN] - 5-7 Days Disposition Disposition: Home, Self Care
== END 2021-09-05 20:48 | disposition home or self-care (01) ==
PROVIDERS: Emergency Provider Emergency Medicine; PCP Internal Medicine; Visit Provider Emergency Medicine
DX: M79.662 Pain in left lower leg (principal); J45.909 Unspecified asthma, uncomplicated; I10 Essential (primary) hypertension; E78.5 Hyperlipidemia, unspecified; Z86.718 Personal history of other venous thrombosis and embolism
CPT/HCPCS: 73630; 99282

== ENCOUNTER 2021-09-22 14:32 | Emergency (ER) | payer MEDICARE, MEDICAID, SELFPAY ==
[2021-09-22 14:34] VITALS: BP 100/68; PULSE 87; RESP 25; TEMP 37.4; O2SAT 98; BMI 22.4
[2021-09-22 14:45] VITALS: PULSE 85; RESP 22; O2SAT 99
[2021-09-22 14:48] VITALS: BP 100/68; PULSE 87; RESP 24; TEMP 37.2; O2SAT 98
[2021-09-22 15:36] VITALS: BP 94/58; PULSE 82; RESP 16; TEMP 37.2; O2SAT 98
--- NOTE | 2021-09-22 15:36 | ED.VIS.DYS ---
HPI History of Present Illness Chief Complaint: Shortness of Breath Informant: patient Onset/Context/Timing Onset: Days (3) Context: gradual Timing: Continuous Quality: Positive for Dyspnea on exertion Worsened by: Exertion Relieved by: Nothing Associated Symptoms Negative for cough, rhinorrhea, ear pain, fever, sore throat, chills, clear sputum, white sputum, yellow sputum or green sputum Chest Pain: Positive for None Narrative Narrative: Patient presents with fever and shortness of breath that has been getting worse over the last 3 days. [facility] and was given a prescription for clindamycin for sinus infection. Patient states he took 1 dose of this this morning and does not feel any better. Patient states his temperature at home was up to 103. Patient states he feels like he cannot catch his breath. Patient states his breathing is worse with any exertion. Patient states nothing seems to help with it. Patient admits to some nausea and vomiting a couple days ago but currently denies any nausea or vomiting. Patient had a COVID-19 test yesterday which was negative. 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 DVT (deep venous thrombosis) Endocarditis Essential (primary) hypertension GERD (gastroesophageal reflux disease) Health care maintenance Hearing loss Hiatal hernia history of broken shoulder History of hemorrhoids Hyperlipidemia Impacted cerumen, right ear Knee pain Kyphoscoliosis Major depressive disorder, recurrent severe without psychotic features Nonhealing surgical wound KULWANT (obstructive sleep apnea) Osteoporosis Pneumonia Rotator cuff disorder Sepsis Severe headache Skin cancer, basal cell Trigger thumb, left thumb Home Medications baclofen 10 mg PO BID PRN 08/12/19 [History Last Taken 10/27/19 09:00] citalopram 40 mg PO DAILY 08/12/19 [History Last Taken 10/26/19 21:00] quetiapine 25 mg PO 0800,1200 08/12/19 [History Last Taken Unknown] quetiapine 150 mg PO QHS 08/12/19 [History Last Taken Unknown] azelastine 205.5 mcg (0.15 %) nasal spray 1 spray INTRANASAL BID #30 ml 07/30/20 [Rx Last Taken Unknown] denosumab 60 mg/mL subcutaneous syringe 60 mg SC [id number] #1 ml 08/17/20 [Rx Last Taken Unknown] atorvastatin 20 mg tablet 20 mg PO DAILY #90 tab 02/07/21 [Rx Last Taken Unknown] albuterol sulfate 90 mcg/actuation aerosol inhaler 2 puff INHALATION Q6H PRN #18 g 07/06/21 [Rx Last Taken Unknown] rivaroxaban 20 mg tablet 20 mg PO DAILY #90 tab 07/15/21 [Rx Last Taken Unknown] montelukast 10 mg tablet 10 mg PO QHS #90 tab 08/19/21 [Rx Last Taken Unknown] fluticasone furoate 200 mcg-vilanterol 25 mcg/dose inhalation powder 1 inh INHALATION DAILY #60 ea 09/01/21 [Rx Last Taken Unknown] clindamycin HCl 300 mg capsule 300 mg PO TID #30 cap 09/21/21 [Rx Last Taken Unknown] Allergy/AdvReac Type Severity Reaction Status Date / Time codeine Allergy Hives Verified 09/01/21 07:47 gluten Allergy Diarrhea Verified 09/01/21 07:47 aspirin [ASA] AdvReac Nausea Verified 09/01/21 07:47 bee venom protein (honey bee) AdvReac Shortness Verified 09/01/21 07:47 of breath prednisone AdvReac Unknown Verified 09/01/21 07:47 CODEINE AdvReac Intermediate nausea, Uncoded 09/01/21 07:47 eyes turn white Family History Daughter Cancer Sister Cancer Father Hypertension Surgical History H/O left inguinal hernia repair History of carpal tunnel release History of colectomy History of colonoscopy (~2016) History of creation of ventriculoperitoneal shunt History of kyphoplasty History of left heart catheterization (09/11/17) History of shoulder surgery Social History housing: house pets and animals: Yes pets and animals: cat(s) and dog(s) Smoking Status: Never smoker second hand exposure: No alcohol intake: never substance use type: does not use ROS ROS ED Constitutional Constitutional ED: Reports fever(s); Denies chills Eyes Eyes: Denies blurry vision or change in vision ENT ENT ED: Denies rhinorrhea or sore throat Cardiovascular Cardiovascular: Denies chest pain or palpitations Respiratory/Chest Respiratory/Chest: Reports dyspnea; Denies cough Gastrointestinal Gastrointestinal: Reports nausea and vomiting Genitourinary Genitourinary ED: Denies dysuria or hematuria Musculoskeletal Musculoskeletal: Denies back pain or neck pain Integumentary Denies abscess or rash Neurologic Neurologic: Denies headache(s) or weakness Allergic/Immunologic Allergic/Immunologic ED: Denies mouth swelling or urticaria EXAM Physical Exam Const Vital Signs: 09/22/21 14:34 09/22/21 14:45 09/22/21 14:48 Temperature 99.4 F H 99 F Temperature Source Temporal Oral Pulse Rate 87 85 87 Respiratory Rate 25 H 22 H 24 H Respiratory Effort Labored Respiratory Depth Shallow Respiratory Pattern Tachypnea Blood Pressure 100/68 100/68 Blood Pressure Mean 78 78 Pulse Ox 98 99 98 Oxygen Delivery Method Room Air Room Air Room Air 09/22/21 15:36 09/22/21 15:59 09/22/21 16:32 Temperature 99 F Temperature Source Oral Pulse Rate 82 87 91 Respiratory Rate 16 20 H 16 Respiratory Effort Respiratory Depth Respiratory Pattern Blood Pressure 94/58 L 92/72 Blood Pressure Mean 70 78 Pulse Ox 98 100 Oxygen Delivery Method Room Air Room Air Positive well nourished and well developed General Appearance ED: well developed and NAD HEENT Reports moist mucous membranes Neck supple and no JVD Resp normal respiratory effort and clear to auscultation bilaterally Cardio regular rate and regular rhythm GI non-tender and non-distended Auscultation: normoactive bowel sounds Palpation: soft Neuro oriented x3, CN's II-XII intact bilaterally and no sensory deficits noted Sensorium / Orientation: alert Motor Exam: strength 5/5 throughout Psych mental status grossly normal MDM MDM MDM Narrative Medical decision making narrative: Patient was given a DuoNeb aerosol here. Portable 1 view chest x-ray was obtained. On my interpretation, lung man are clear. There is normal cardiac silhouette. Bony thorax is normal. There is no acute process noted. Radiologist also interpreted the x-ray and agrees. CBC was within normal limits. Comprehensive metabolic profile was essentially within normal limits. Patient was advised of his findings. Patient was offered another aerosol but declined. Patient was instructed to follow-up with his primary care physician in 3 to 5 days for further evaluation. Patient was instructed to finish his clindamycin as prescribed. Patient understood and was agreeable with the plan. All questions were answered. Lab Data Attestation: I reviewed the patient's lab results. Labs: Laboratory Results - last 24 hr 09/22/21 09/22/21 14:51 14:51 WBC 5.1 RBC 4.76 Hgb 12.9 L Hct 40.0 MCV 84.0 MCH 27.1 MCHC 32.3 RDW Std Deviation 42.5 RDW Coeff of Ilana 13.7 Plt Count 176 MPV 10.9 Immature Gran % (Auto) 0.400 Neut % (Auto) 72.6 H Lymph % (Auto) 14.8 L [place] % (Auto) 10.6 H Eos % (Auto) 1.4 Baso % (Auto) 0.2 Absolute Neuts (auto) 3.7 Absolute Lymphs (auto) 0.75 L Nucleated RBC % 0 Sodium 136 Potassium 3.5 Chloride 104 Carbon Dioxide 19.0 L Anion Gap 13 BUN 19 H Creatinine 0.63 L Estim Creat Clear Calc 95.09 Est GFR (MDRD) Af Amer 165 Est GFR (MDRD) Non-Af 136 BUN/Creatinine Ratio 30.0 H Glucose 64 L Calcium 8.1 L Total Bilirubin 1.40 H AST 61 H ALT 51 Alkaline Phosphatase 57 Total Protein 6.1 L Albumin 3.0 L Globulin 3.1 Albumin/Globulin Ratio 1.0 Radiography Chest X-Ray - ED: 1 View, Read by ED Physician, Read by Radiologist and No Acute Disease Diagnostic Testing: Clinical Impression(s) from Imaging Studies Chest X-Ray 09/22/21 15:50 IMPRESSION: No acute cardiopulmonary pathology Electronically Signed: Tito Nava MD at 16:45 EDT , Discharge Plan Triage Chief Complaint: Shortness of Breath ED Provider: Vasiliy Sanchez Dx/Rx/DC Orders Clinical Impression: Dyspnea, Acute sinusitis, unspecified Instructions: ED Dyspnea Prescriptions: No Action Breo Ellipta 200-25 mcg/dose blister with device 1 inh INHALATION DAILY Qty: 60 RF: 6 albuterol sulfate [ProAir HFA] 90 mcg/actuation HFA aerosol inhaler 2 puff inhalation Q6H PRN (Reason: shortness of breath or wheezing) Qty: 18 RF: 6 clindamycin HCl 300 mg capsule 300 mg PO TID Qty: 30 RF: 0 quetiapine 25 MG tablet 25 mg PO 0800,1200 RF: 0 citalopram 40 MG tablet 40 mg PO DAILY RF: 0 baclofen 10 MG tablet 10 mg PO BID PRN (Reason: Headache) RF: 0 quetiapine 150 MG tablet extended release 24 hr 150 mg PO QHS RF: 0 azelastine 205.5 mcg (0.15 %) spray,non-aerosol 1 spray INTRANASAL BID Qty: 30 RF: 11 Prolia 60 mg/mL syringe 60 mg SC [id number] Qty: 1 RF: 1 atorvastatin 20 mg tablet 20 mg PO DAILY Qty: 90 RF: 2 rivaroxaban 20 mg tablet 20 mg PO DAILY Qty: 90 RF: 3 montelukast 10 mg tablet 10 mg PO QHS Qty: 90 RF: 3 Primary Care Provider: Yany Pederson Referrals: Yany Pederson MD [Primary Care Provider] - 3-5 Days Disposition Disposition: Home, Self Care
--- NOTE | 2021-09-22 15:50 | RAD_ITS ---
STUDY: X-RAY CHEST REASON FOR EXAM: Male, 60 years old. Dyspnea TECHNIQUE: AP portable COMPARISON: 07/04/2021 FINDINGS: There is mild reticulonodular interstitial thickening in the lower lobes. There is no demonstrated pleural abnormality. Borderline cardiomegaly. Normal mediastinum and kai. Normal visualized pulmonary arteries. Normal visualized aortic arch and descending thoracic aorta. Dorsal spine and shoulders demonstrate degenerative change Normal visualized ribs, and clavicles.. There is no demonstrated abnormality of the visualized soft tissue structures of the upper abdomen. No significant change since prior exam RAD/Chest 1 View (Portable) IMPRESSION: No acute cardiopulmonary pathology Electronically Signed: Tito Nava MD at 16:45 EDT ,
[2021-09-22 15:53] LABS: Absolute Lymphocyte Count 0.75 X10^3/uL (0.83-4.51); Absolute Neutrophil Count 3.7 X10^3/uL (2.0-7.7); Basophil# 0.01 X10^3/uL; Basophil% 0.2 % (0-1); Eosinophil# 0.07 X10^3/uL; Eosinophils% 1.4 % (0-5); Hemoglobin 12.9 g/dL (13.0-16.5); Lymphocyte # 0.75 X10^3/ul (0.83-4.51); Lymphocyte % 14.8 % (19-41); Mean Corp Hgb Conc 32.3 g/dL (32-36); Mean Corpuscular Hgb 27.1 pg (27.0-32.0); Mean Platelet Vol. 10.9 fl (6.2-12.0); Monocyte# 0.54 X10^3/uL; Monocyte% 10.6 % (0-10); NRBC Flagged by Analyzer 0 % (0-5); Neutrophil # 3.69 X10^3/uL (2.7-7.7); Neutrophil % 72.6 % (47-70); Platelet Count 176 K/mm3 (150-450); RBC Distribution Width CV 13.7 % (11.6-14.6); RBC Distribution Width SD 42.5 fl (35.1-43.9); Red Blood Count 4.76 M/mm3 (4.6-6.2); White Blood Count 5.1 K/mm3 (4.4-11.0)
[2021-09-22] MEDS: Ipratropium/Albuterol Sulfate 3 ML AMPUL.NEB INHALATION (15:56)
[2021-09-22 15:59] VITALS: PULSE 87; RESP 20
[2021-09-22 16:09] LABS: AST(SGOT) 61 U/L (15-37); Alanine Aminotransfer ALT/SGPT 51 U/L (16-61); Alkaline Phosphatase 57 U/L (45-117); Anion Gap 13 (5-15); BUN 19 mg/dL (7-18); Calcium,Total 8.1 mg/dL (8.5-10.1); Chloride 104 mmol/L (98-107); Creatinine, Serum 0.63 mg/dL (0.70-1.30); EST Glomerular Filtration Rate 136 mL/min (>60); Est Glom Filt Rate - Afr Amer 165 mL/min (>60); Estimated Creatinine Clearance 95.09 ml/min; Globulin 3.1 g/dL (2.2-4.2); Glucose 64 mg/dL (74-106); Potassium 3.5 mmol/L (3.5-5.1); Protein, Total 6.1 g/dL (6.4-8.2); Sodium Level 136 mmol/L (136-145)
[2021-09-22 16:32] VITALS: BP 92/72; PULSE 91; RESP 16; O2SAT 100
== END 2021-09-22 17:37 | disposition home or self-care (01) ==
PROVIDERS: Emergency Provider Emergency Medicine; PCP Internal Medicine; Visit Provider Emergency Medicine
DX: J01.90 Acute sinusitis, unspecified (principal); E78.5 Hyperlipidemia, unspecified; R06.00 Dyspnea, unspecified; I10 Essential (primary) hypertension
CPT/HCPCS: 71045; 80053; 85025; 94640; 99251; 99284; A4216; G0463

== ENCOUNTER 2021-12-24 13:52 | Emergency (ER) | payer MEDICARE, SELFPAY ==
[2021-12-24 13:53] VITALS: BP 112/71; PULSE 82; RESP 18; TEMP 36.9; O2SAT 99; BMI 20.9
--- NOTE | 2021-12-24 14:10 | EKG12_ITS ---
Test Reason : SOB Blood Pressure : / mmHG Vent. Rate : 076 BPM Atrial Rate : 076 BPM P-R Int : 174 ms QRS Dur : 096 ms QT Int : 386 ms P-R-T Axes : 019 035 022 degrees QTc Int : 434 ms Normal sinus rhythm Normal ECG Confirmed by SHERICE STRINGER, SANTANA ([id number]), fan mail editor LYNN JASON ([id number]) on 12/26/2021 11:14:25 AM Referred By: PL Confirmed By:SANTANA SMILEY MD
--- NOTE | 2021-12-24 14:10 | RAD_ITS ---
HISTORY: SOB. TECHNIQUE: XR Chest 1 View. COMPARISON: 07/04/2021. FINDINGS: CARDIOMEDIASTINAL BORDERS: Cardiac silhouette within normal limits in size. Mediastinal contour unremarkable. 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 Mild hazy opacity of the right lung base. PLEURA: No pleural effusion identified. Limited evaluation of the right apex due to positioning. OSSEOUS STRUCTURES: Old bilateral lower rib fractures. Degenerative change.. RAD/Chest 1 View (Portable) IMPRESSION: Mild right basilar opacity, likely pneumonia. Electronically Signed: Rosario Woods MD at 14:24 EDT ,
[2021-12-24 14:35] VITALS: O2SAT 98
[2021-12-24 14:37] VITALS: O2SAT 98
--- NOTE | 2021-12-24 15:16 | EDS_ITS ---
HPI History of Present Illness Chief Complaint: Asthma Informant: patient Narrative Narrative: 2-day history dyspnea and nonproductive cough wheezing. No history of asthma. No tobacco history. No fevers or headache. Using his nebulizers maxing out. Has done well with Kenalog with flares. COVID vaccinated. No sick contacts. Denies COVID infections in the past. 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 DVT (deep venous thrombosis) Endocarditis Essential (primary) hypertension GERD (gastroesophageal reflux disease) Health care maintenance Hearing loss Hiatal hernia history of broken shoulder History of hemorrhoids Hyperlipidemia Impacted cerumen, right ear Knee pain Kyphoscoliosis Major depressive disorder, recurrent severe without psychotic features Nonhealing surgical wound KULWANT (obstructive sleep apnea) Osteoporosis Pneumonia Rotator cuff disorder Sepsis Severe headache Skin cancer, basal cell Trigger thumb, left thumb Home Medications citalopram 40 mg tablet 40 mg PO DAILY depression 08/12/19 [History Last Taken 10/26/19 21:00] quetiapine 150 mg tablet,extended release 24 hr 150 mg PO QHS mental health 08/12/19 [History Last Taken Unknown] denosumab 60 mg/mL subcutaneous syringe (Prolia) 60 mg subcut [id number] #1 mL 08/17/20 [Rx Last Taken Unknown] albuterol sulfate 90 mcg/actuation aerosol inhaler (ProAir HFA) 2 puff inhalation Q6H PRN shortness of breath or wheezing #18 grams 07/06/21 [Rx Last Taken Unknown] rivaroxaban 20 mg tablet 20 mg PO DAILY blood thinner #90 tabs 07/15/21 [Rx Last Taken Unknown] montelukast 10 mg tablet 10 mg PO QHS asthma #90 tabs 08/19/21 [Rx Last Taken Unknown] fluticasone furoate 200 mcg-vilanterol 25 mcg/dose inhalation powder (Breo Ellipta) 1 inh inhalation DAILY #60 ea 09/01/21 [Rx Last Taken Unknown] isosorbide mononitrate 30 mg tablet,extended release 24 hr 30 mg PO DAILY heart #90 tabs 10/14/21 [Rx Last Taken Unknown] atorvastatin 20 mg tablet 20 mg PO DAILY cholesterol #90 tabs 10/19/21 [Rx Last Taken Unknown] quetiapine 25 mg tablet 25 mg PO BID mental health 12/22/21 [History Last Taken Unknown] cefdinir 300 mg capsule 300 mg PO BID #14 caps 12/24/21 [Rx Last Taken Unknown] Allergy/AdvReac Type Severity Reaction Status Date / Time codeine Allergy Hives, Verified 12/24/21 13:53 Nausea gluten Allergy Diarrhea Verified 12/24/21 13:53 aspirin [ASA] AdvReac Nausea Verified 12/24/21 13:53 bee venom protein (honey bee) AdvReac Shortness Verified 12/24/21 13:53 of breath prednisone AdvReac Unknown Verified 12/24/21 13:53 Family History Daughter Cancer Sister Cancer Father Hypertension Surgical History H/O left inguinal hernia repair History of carpal tunnel release History of colectomy History of colonoscopy (~2017) History of creation of ventriculoperitoneal shunt History of kyphoplasty History of left heart catheterization (09/11/17) History of shoulder surgery Social History housing: house pets and animals: Yes pets and animals: cat(s) and dog(s) Smoking Status: Never smoker second hand exposure: No alcohol intake: never substance use type: does not use ROS ROS ED Constitutional Constitutional ED: Denies chills, fever(s) or sweats Eyes Eyes: Denies change in vision ENT ENT ED: Denies dysphagia or sore throat Cardiovascular Cardiovascular: Denies chest pain, leg edema, palpitations or racing heartbeat Respiratory/Chest Respiratory/Chest: Reports cough and dyspnea; Denies dyspnea on exertion Gastrointestinal Gastrointestinal: Denies abdominal pain, diarrhea, nausea or vomiting Genitourinary Genitourinary ED: Denies dysuria, hematuria or urinary frequency Musculoskeletal Musculoskeletal: Denies back pain, extremity pain or neck pain Integumentary Denies rash or wounds Neurologic Neurologic: Denies headache(s), paresthesias or weakness EXAM Physical Exam Const Vital Signs: 12/24/21 13:53 12/24/21 14:35 12/24/21 14:37 Temperature 98.5 F Temperature Source Temporal Pulse Rate 82 Respiratory Rate 18 Respiratory Effort Short of Breath Respiratory Depth Normal Respiratory Pattern Blood Pressure 112/71 Blood Pressure Mean 84 Pulse Ox 99 98 Oxygen Delivery Method Room Air Room Air Room Air 12/24/21 14:37 12/24/21 15:32 Temperature Temperature Source Pulse Rate 80 Respiratory Rate 18 Respiratory Effort Respiratory Depth Respiratory Pattern Normal Blood Pressure Blood Pressure Mean Pulse Ox 98 Oxygen Delivery Method Room Air Positive well nourished and well developed Constitutional Narrative: Nontoxic, no respiratory distress. General Appearance ED: well developed and NAD HEENT Reports moist mucous membranes normocephalic and atraumatic Eyes PERRL, EOMs intact bilaterally and conjunctivae normal General Eye ED: Yes normal appearance of both eyes Neck no lymphadenopathy and supple General: Negative for tenderness Chest Wall Chest: Negative for tenderness Resp normal respiratory effort Resp Narrative: Mild expiratory wheezing bilaterally. No retractions. Effort and Inspection: symmetric chest movement; Negative for respiratory distress Cardio regular rate, regular rhythm and no murmurs Peripheral Pulses: pulses 2+ throughout GI normal to inspection, nondistended, normoactive bowel sounds and non-tender Palpation: Negative for guarding or rebound tenderness present Back/Spine no CVA tenderness and no thoracic nor lumbar tenderness Extremity normal to inspection General Extremety ED: Negative for edema or tenderness General Extremity: Negative for edema Neuro oriented x3 and no sensory deficits noted Sensorium / Orientation: awake and alert Skin no rashes or lesions noted and no wounds MDM MDM MDM Narrative Medical decision making narrative: Patient EKG normal wheezing on exam improved with aerosol treatments. Chest x- ray reviewed myself read by radiology concerns for right side pneumonia. He is in no respiratory distress. Is given Kenalog as requested with this helping him in the past. Clinically is feeling better on reevaluation. He prescription for cefdinir for his pneumonia. He has aerosol treatments at home. Return precaution discussed. COVID testing also obtained negative. All questions were answered. Radiography Diagnostic Testing: Clinical Impression(s) from Imaging Studies Chest X-Ray 12/24/21 14:10 IMPRESSION: Mild right basilar opacity, likely pneumonia. Electronically Signed: Rosario Woods MD at 14:24 EDT , EKG Initial EKG: Attestation: I personally reviewed and interpreted this EKG as follows: Comments: Sinus rate of 76, no ST or T wave changes. Discharge Plan Triage Chief Complaint: Asthma ED Provider: Jermaine Trammell Dx/Rx/DC Orders Clinical Impression: Asthma exacerbation, Pneumonia, Bilateral wheezing Instructions: ED Asthma, Acute (Adult), ED Pneumonia (Adult) Prescriptions: New cefdinir 300 mg capsule 300 mg PO BID Qty: 14 0RF No Action Breo Ellipta 200-25 mcg/dose blister with device 1 inh INHALATION DAILY Qty: 60 6RF albuterol sulfate [ProAir HFA] 90 mcg/actuation HFA aerosol inhaler 2 puff inhalation Q6H PRN (Reason: shortness of breath or wheezing) Qty: 18 6RF citalopram 40 MG tablet 40 mg PO DAILY quetiapine 150 MG tablet extended release 24 hr 150 mg PO QHS quetiapine 25 mg tablet 25 mg PO BID Prolia 60 mg/mL syringe 60 mg SC [id number] Qty: 1 1RF rivaroxaban 20 mg tablet 20 mg PO DAILY Qty: 90 3RF montelukast 10 mg tablet 10 mg PO QHS Qty: 90 3RF isosorbide mononitrate 30 mg tablet extended release 24 hr 30 mg PO DAILY Qty: 90 3RF atorvastatin 20 mg tablet 20 mg PO DAILY Qty: 90 2RF Primary Care Provider: Yany Pederson Referrals: Yany Pederson MD [Primary Care Provider] - 3-5 Days if not improving Activity Restrictions/Additional Instructions: COVID-negative. X-ray concerning right lower lobe pneumonia. Take antibiotic as prescribed. Continue your inhaler. Return if any worsening symptoms. Disposition Disposition: Home, Self Care Discharge Date/Time: 12/24/21 16:59
[2021-12-24] MEDS: Triamcinolone Acetonide 40 MG/ML Vial 80 MG IM (15:26)
[2021-12-24] MEDS: Ipratropium/Albuterol Sulfate 3 ML AMPUL.NEB INHALATION (15:29)
[2021-12-24 15:32] VITALS: PULSE 80; RESP 18
[2021-12-24] MEDS: Cefdinir 300 MG Capsule PO (16:55)
== END 2021-12-24 16:59 | disposition home or self-care (01) ==
PROVIDERS: Emergency Provider Emergency Medicine; PCP Internal Medicine; Visit Provider Emergency Medicine
DX: J45.901 Unspecified asthma with (acute) exacerbation (principal); J18.9 Pneumonia, unspecified organism; E78.5 Hyperlipidemia, unspecified; I10 Essential (primary) hypertension; F17.200 Nicotine dependence, unspecified, uncomplicated; G47.33 Obstructive sleep apnea (adult) (pediatric)
CPT/HCPCS: 71045; 87811; 93005; 94640; 94760; 96372; 99283

== ENCOUNTER 2022-01-26 18:51 | Emergency (ER) | payer MEDICARE, MEDICAID, SELFPAY ==
[2022-01-26 18:52] VITALS: BP 106/62; PULSE 82; RESP 18; TEMP 37.1; O2SAT 95; BMI 20.9
--- NOTE | 2022-01-26 21:58 | EDS_ITS ---
HPI History of Present Illness Chief Complaint: Wound Check Informant: patient Narrative Narrative: Patient had his left second toenail removed today at podiatry because it was bad. He states it has been oozing blood ever since, he states his sock was soaked and he wants it checked out. He is on Xarelto because of a history of DVTs. He denies any systemic symptoms. He is not having a lot of pain. 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 DVT (deep venous thrombosis) Endocarditis Essential (primary) hypertension GERD (gastroesophageal reflux disease) Health care maintenance Hearing loss Hiatal hernia history of broken shoulder History of hemorrhoids Hyperlipidemia Impacted cerumen, right ear Knee pain Kyphoscoliosis Major depressive disorder, recurrent severe without psychotic features Nonhealing surgical wound KULWANT (obstructive sleep apnea) Osteoporosis Pneumonia Rotator cuff disorder Sepsis Severe headache Skin cancer, basal cell Trigger thumb, left thumb Home Medications denosumab 60 mg/mL subcutaneous syringe (Prolia) 60 mg subcut [id number] #1 mL 08/17/20 [Rx Last Taken Unknown] albuterol sulfate 90 mcg/actuation aerosol inhaler (ProAir HFA) 2 puff inhalation Q6H PRN shortness of breath or wheezing #18 grams 07/06/21 [Rx Last Taken Unknown] rivaroxaban 20 mg tablet 20 mg PO DAILY blood thinner #90 tabs 07/15/21 [Rx Last Taken Unknown] montelukast 10 mg tablet 10 mg PO QHS asthma #90 tabs 08/19/21 [Rx Last Taken Unknown] isosorbide mononitrate 30 mg tablet,extended release 24 hr 30 mg PO DAILY heart #90 tabs 10/14/21 [Rx Last Taken Unknown] atorvastatin 20 mg tablet 20 mg PO DAILY cholesterol #90 tabs 10/19/21 [Rx Last Taken Unknown] cefdinir 300 mg capsule 300 mg PO BID #14 caps 12/24/21 [Rx Last Taken Unknown] citalopram 40 mg tablet 40 mg PO DAILY depression #30 tabs 12/26/21 [Rx Last Taken Unknown] quetiapine 150 mg tablet,extended release 24 hr 150 mg PO QHS mental health #60 tabs 12/26/21 [Rx Last Taken Unknown] quetiapine 25 mg tablet 25 mg PO BID mental health #60 tabs 12/26/21 [Rx Last Taken Unknown] fluticasone furoate 200 mcg-vilanterol 25 mcg/dose inhalation powder (Breo Ellipta) 1 inh inhalation DAILY #3 ea 01/02/22 [Rx Last Taken Unknown] Allergy/AdvReac Type Severity Reaction Status Date / Time codeine Allergy Hives, Verified 01/26/22 18:52 Nausea gluten Allergy Diarrhea Verified 01/26/22 18:52 aspirin [ASA] AdvReac Nausea Verified 01/26/22 18:52 bee venom protein (honey bee) AdvReac Shortness Verified 01/26/22 18:52 of breath prednisone AdvReac Unknown Verified 01/26/22 18:52 Family History Daughter Cancer Sister Cancer Father Hypertension Surgical History H/O left inguinal hernia repair History of carpal tunnel release History of colectomy History of colonoscopy (~2016) History of creation of ventriculoperitoneal shunt History of kyphoplasty History of left heart catheterization (09/11/17) History of shoulder surgery Social History housing: house pets and animals: Yes pets and animals: cat(s) and dog(s) Smoking Status: Never smoker second hand exposure: No alcohol intake: never substance use type: does not use ROS ROS ED Constitutional Constitutional ED: Denies chills or fever(s) Musculoskeletal Musculoskeletal: Reports extremity pain; Denies neck pain Integumentary Denies Abrasions, rash or wounds Neurologic Neurologic: Denies paresthesias or weakness Hematologic/Lymphatic Hematologic/Lymphatic: Reports easy bleeding and easy bruising EXAM Physical Exam Const Vital Signs: 01/26/22 18:52 Temperature 98.8 F Temperature Source Temporal Pulse Rate 82 Respiratory Rate 18 Blood Pressure 106/62 Blood Pressure Mean 76 Pulse Ox 95 Oxygen Delivery Method Room Air Positive well nourished and well developed General Appearance ED: well developed and NAD Neck full ROM and supple Back/Spine normal ROM and normal to inspection Extremity Extremity Narrative: Took down the postoperative dressing left second toe. Nailbed exposed, no signs of any infection, no active bleeding, small area that appears to have been the source more distal in the nailbed. Cuticle is intact. There is no discharge. Neuro oriented x3, no focal motor deficits and no sensory deficits noted Sensorium / Orientation: alert Psych mental status grossly normal and thought process normal Skin no wounds Rashes: no rashes MDM MDM MDM Narrative Medical decision making narrative: Patient has a postoperative dressing on with Coban around it, there is no active bleeding from around the right now. I took the Coban off, and there is no bleeding through the gauze around it. I advised the patient that if I took the rest of the gauze off to evaluate this freshly postoperative wound, it is possible that I could restart the bleeding, and he wanted me to take it off anyway. I did this, he did not bleed, and I reassured the patient think the wound looks great. I will have nursing place a fresh dressing on it with a small piece of Surgifoam against it to try to keep it from bleeding anymore, and advised to follow-up podiatry as directed postoperatively. Discharge Plan Triage Chief Complaint: Wound Check ED Provider: Chino Cheema Dx/Rx/DC Orders Clinical Impression: Encounter for postoperative wound check, Postoperative hemorrhage Instructions: ED Post Op Wound Check, Bleeding Prescriptions: No Action albuterol sulfate [ProAir HFA] 90 mcg/actuation HFA aerosol inhaler 2 puff inhalation Q6H PRN (Reason: shortness of breath or wheezing) Qty: 18 6RF fluticasone furoate-vilanterol [Breo Ellipta] 200-25 mcg/dose blister with device 1 inh INHALATION DAILY Qty: 3 3RF cefdinir 300 mg capsule 300 mg PO BID Qty: 14 0RF Prolia 60 mg/mL syringe 60 mg SC [id number] Qty: 1 1RF rivaroxaban 20 mg tablet 20 mg PO DAILY Qty: 90 3RF montelukast 10 mg tablet 10 mg PO QHS Qty: 90 3RF isosorbide mononitrate 30 mg tablet extended release 24 hr 30 mg PO DAILY Qty: 90 3RF atorvastatin 20 mg tablet 20 mg PO DAILY Qty: 90 2RF citalopram 40 mg tablet 40 mg PO DAILY Qty: 30 0RF quetiapine 25 mg tablet 25 mg PO BID Qty: 60 0RF quetiapine 150 mg tablet extended release 24 hr 150 mg PO QHS Qty: 60 0RF Primary Care Provider: Yany Pederson Referrals: Yany Pederson MD [Primary Care Provider] - Tito Cole DPM [Med Staff - Active Staff] - (As directed by your economics department chair or sooner if you have any concerns. Do not change the dressing for at least 24 hours.) Disposition Disposition: Home, Self Care
== END 2022-01-26 22:17 | disposition home or self-care (01) ==
PROVIDERS: Emergency Provider Emergency Medicine; PCP Internal Medicine; Visit Provider Emergency Medicine
DX: Z51.89 Encounter for other specified aftercare (principal); E78.5 Hyperlipidemia, unspecified; I10 Essential (primary) hypertension; Z79.01 Long term (current) use of anticoagulants; Z86.718 Personal history of other venous thrombosis and embolism; L76.21 Postprocedural hemorrhage of skin and subcutaneous tissue following a dermatologic procedure
CPT/HCPCS: 99283

== ENCOUNTER → 2022-02-06 | Outpatient (CLI) | payer MEDICARE, MEDICAID, SELFPAY | END | disposition home or self-care (01) | PROVIDERS: PCP Internal Medicine; Visit Provider Podiatrist | DX: L03.116 Cellulitis of left lower limb (principal) | CPT/HCPCS: 87070; 87205 ==

== ENCOUNTER → 2022-02-08 | Outpatient (CLI) | payer MEDICARE, MEDICAID, SELFPAY ==
[2022-02-08 12:25] LABS: Absolute Lymphocyte Count 1.09 X10^3/uL (0.83-4.51); Absolute Neutrophil Count 2.2 X10^3/uL (2.0-7.7); Basophil# 0.03 X10^3/uL; Basophil% 0.8 % (0-1); Eosinophil# 0.21 X10^3/uL; Eosinophils% 5.3 % (0-5); Hematocrit 39.6 % (40-54); Hemoglobin 12.2 g/dL (13.0-16.5); Lymphocyte # 1.09 X10^3/ul (0.83-4.51); Lymphocyte % 27.3 % (19-41); Mean Corp Hgb Conc 30.8 g/dL (32-36); Mean Corpuscular Hgb 25.7 pg (27.0-32.0); Mean Corpuscular Volume 83.5 fL (80-94); Mean Platelet Vol. 10.4 fl (6.2-12.0); Monocyte# 0.44 X10^3/uL; NRBC Flagged by Analyzer 0 % (0-5); Neutrophil # 2.22 X10^3/uL (2.7-7.7); Neutrophil % 55.3 % (47-70); Platelet Count 208 K/mm3 (150-450); RBC Distribution Width CV 18.6 % (11.6-14.6); RBC Distribution Width SD 56.6 fl (35.1-43.9); Red Blood Count 4.74 M/mm3 (4.6-6.2)
[2022-02-08 12:32] LABS: ALB/GLOB Ratio 0.9 RATIO (0.9-2.4); AST(SGOT) 28 U/L (15-37); Alanine Aminotransfer ALT/SGPT 39 U/L (16-61); Albumin, Serum 2.9 g/dL (3.2-5.0); Alkaline Phosphatase 67 U/L (45-117); Anion Gap 3 (5-15); BUN 16 mg/dL (7-18); BUN/Creat Ratio 25.5 RATIO (10-20); Calcium,Total 8.9 mg/dL (8.5-10.1); Chloride 108 mmol/L (98-107); Cholesterol 126 mg/dL (200); Creatinine, Serum 0.63 mg/dL (0.70-1.30); EST Glomerular Filtration Rate 138 mL/min (>60); Est Glom Filt Rate - Afr Amer 166 mL/min (>60); Globulin 3.1 g/dL (2.2-4.2); Glucose 88 mg/dL (74-106); High Density Lipoprotein 68 mg/dL; Potassium 4.1 mmol/L (3.5-5.1); Sodium Level 140 mmol/L (136-145); Triglycerides 57 mg/dL; Very Low Density Lipoprotein 11 mg/dL (5-40)
[2022-02-08 12:36] LABS: Vitamin D,25 Hydroxy 53.2 ng/mL
== END | disposition home or self-care (01) ==
LOC: BIMLAB 09:22
PROVIDERS: PCP Internal Medicine; Referring Provider Internal Medicine; Visit Provider Internal Medicine
DX: M81.0 Age-related osteoporosis without current pathological fracture (principal); I10 Essential (primary) hypertension; E78.5 Hyperlipidemia, unspecified; J45.40 Moderate persistent asthma, uncomplicated
CPT/HCPCS: 36415; 80053; 80061; 82306; 85025

== ENCOUNTER → 2022-02-23 | Outpatient (CLI) | payer MEDICARE, MEDICAID, SELFPAY ==
--- NOTE | 2022-02-23 08:10 | BD_ITS ---
STUDY: DUAL ENERGY X-RAY ABSORPTIOMETRY / DXA REASON FOR EXAM: Male, 61 years old. Osteoporosis TECHNIQUE: Bone Mineral Density (BMD) measurements of lumbar spine and bilateral hips were obtained. COMPARISON: None. FINDINGS: Lumbar Spine (L1-L4): g/cm2 (0.673) / T-score (-3.8) / Z-score (-3.1) Findings are suggestive of osteoporosis with a high fracture risk. Left Femur Total: g/cm2 (0.615) / T-score (-2.8) / Z-score (-2.3) Left Femoral Neck: g/cm2 (0.473) / T-score (-3.4) / Z-score (-2.4) Right Femur Total: g/cm2 (0.721) / T-score (-2.1) / Z-score (-1.6) Right Femoral Neck: g/cm2 (0.470) / T-score (-3.3) / Z-score (-2.3) BD/Dexa Bone Density Study IMPRESSION: The patient is considered osteoporotic as outlined below according to World [place] Organization (WHO) criteria with a high fracture risk. Reference Information: The T-score is the number of standard deviations above or below the standard which is normal for young adults at their peak bone mineral density. The World Health Organization (WHO) interprets the T-scores as follows: Above -1 Normal bone density Between -1 and -2.5 Osteopenia Equal to / or below -2.5 Osteoporosis As a practical clinical guideline, osteopenia may be graded as follows: Mild -1 through -1.5 Moderate -1.6 through -2.0 Severe -2.1 through -2.4 The Z-score is the number of standard deviations above or below age-matched controls. A Z-score of less than -1.5 would be considered abnormal. References: 1. NIH Osteoporosis and Related Bone Diseases www osteo.org 2. International Society for Clinical Densitometry www iscd.org 3. National Osteoporosis Foundation www nof.org Electronically Signed: Blake Oliveira MD at 15:42 EST ,
== END | disposition home or self-care (01) ==
LOC: OPBD 07:54
PROVIDERS: PCP Internal Medicine; Referring Provider Internal Medicine; Visit Provider Internal Medicine
DX: M81.0 Age-related osteoporosis without current pathological fracture (principal)
CPT/HCPCS: 77080

== ENCOUNTER 2022-05-06 12:35 | Emergency (ER) | payer MEDICARE, MEDICAID, SELFPAY ==
[2022-05-06 12:36] VITALS: BP 139/81; PULSE 87; RESP 18; TEMP 36.9; O2SAT 100; BMI 22.1
--- NOTE | 2022-05-06 14:35 | ED.VIS.LOWEX ---
HPI History of Present Illness HPI Narrative: Left lower extremity tenderness and redness. Chief Complaint: Lower Extremity Injury Informant: patient Occured/Mechanism Mechanism/Context: No injury, No blunt trauma and No MVA Onset/Context/Timing Onset: Today Context: Gradual Onset Timing: Continuous Quality of Pain: Dull and Aching Current Severity: Mild Maximum Severity: Mild Associated Symptoms Associated Symptoms: Negative for Parasthesia, Weakness or Loss of Funtion Narrative Narrative: 61-year-old male history of DVT on Xarelto. States he takes it daily and has not missed a dose. Denies any falls injury or trauma. Today he noted left lower leg redness and tenderness to the skin. Denies any fever or chills. Normal strength and sensation. No prior history. 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 DVT (deep venous thrombosis) Endocarditis Essential (primary) hypertension GERD (gastroesophageal reflux disease) Health care maintenance Hearing loss Hiatal hernia history of broken shoulder History of hemorrhoids Hyperlipidemia Impacted cerumen, right ear Knee pain Kyphoscoliosis Major depressive disorder, recurrent severe without psychotic features Nonhealing surgical wound KULWANT (obstructive sleep apnea) Osteoporosis Pneumonia Rotator cuff disorder Sepsis Severe headache Skin cancer, basal cell Trigger thumb, left thumb Home Medications denosumab 60 mg/mL subcutaneous syringe (Prolia) 60 mg subcut [id number] #1 mL 08/17/20 [Rx Last Taken Unknown] albuterol sulfate 90 mcg/actuation aerosol inhaler (ProAir HFA) 2 puff inhalation Q6H PRN shortness of breath or wheezing #18 grams 07/06/21 [Rx Last Taken Unknown] montelukast 10 mg tablet 10 mg PO QHS asthma #90 tabs 08/19/21 [Rx Last Taken Unknown] isosorbide mononitrate 30 mg tablet,extended release 24 hr 30 mg PO DAILY heart #90 tabs 10/14/21 [Rx Last Taken Unknown] atorvastatin 20 mg tablet 20 mg PO DAILY cholesterol #90 tabs 10/19/21 [Rx Last Taken Unknown] fluticasone furoate 200 mcg-vilanterol 25 mcg/dose inhalation powder (Breo Ellipta) 1 inh inhalation DAILY #3 ea 01/02/22 [Rx Last Taken Unknown] clindamycin HCl 300 mg capsule 300 mg PO BID 02/08/22 [History Last Taken Unknown] albuterol sulfate 90 mcg/actuation breath activated powder inhaler 2 inh inhalation Q4H PRN shortness of breath or wheezing #1 ea 03/04/22 [Rx Last Taken Unknown] citalopram 40 mg tablet 40 mg PO DAILY depression #90 tabs 03/06/22 [Rx Last Taken Unknown] quetiapine 150 mg tablet,extended release 24 hr 150 mg PO QHS mental health #90 tabs 03/06/22 [Rx Last Taken Unknown] quetiapine 25 mg tablet 25 mg PO BID mental health #180 tabs 03/06/22 [Rx Last Taken Unknown] rivaroxaban 20 mg tablet 20 mg PO DAILY blood thinner #90 tabs 04/25/22 [Rx Last Taken Unknown] amoxicillin 875 mg-potassium clavulanate 125 mg tablet 1 tab PO BID 10 days #20 tabs 05/06/22 [Rx Last Taken Unknown] Allergy/AdvReac Type Severity Reaction Status Date / Time codeine Allergy Hives, Verified 04/11/22 09:44 Nausea gluten Allergy Diarrhea Verified 04/11/22 09:44 aspirin [ASA] AdvReac Nausea Verified 04/11/22 09:44 bee venom protein (honey bee) AdvReac Shortness Verified 04/11/22 09:44 of breath prednisone AdvReac Unknown Verified 04/11/22 09:44 Family History Daughter Cancer Sister Cancer Father Hypertension Surgical History H/O left inguinal hernia repair History of carpal tunnel release History of colectomy History of colonoscopy (~2017) History of creation of ventriculoperitoneal shunt History of kyphoplasty History of left heart catheterization (09/11/17) History of shoulder surgery Social History housing: house pets and animals: Yes pets and animals: cat(s) and dog(s) Smoking Status: Never smoker second hand exposure: No alcohol intake: never substance use type: does not use ROS ROS ED ROS Narrative Left lower leg pain and redness. Constitutional Constitutional ED: Denies chills or fever(s) Eyes Eyes: Denies blurry vision ENT ENT ED: Denies ear pain Cardiovascular Cardiovascular: Denies chest pain Respiratory/Chest Respiratory/Chest: Denies cough or dyspnea Gastrointestinal Gastrointestinal: Denies abdominal pain Genitourinary Genitourinary ED: Denies dysuria or hematuria Musculoskeletal Musculoskeletal: Denies arthralgias or back pain Integumentary Denies abscess Neurologic Neurologic: Denies headache(s) Psychiatric Psychiatric: Denies anxiety Endocrine Endocrinology: Denies polydipsia Hematologic/Lymphatic Hematologic/Lymphatic: Denies easy bleeding or easy bruising Allergic/Immunologic Allergic/Immunologic ED: Denies mouth swelling or tongue swelling EXAM Physical Exam Narrative Exam Narrative: 61-year-old male no acute distress. Vital signs stable afebrile. H EENT exam unremarkable. Moist Riis membranes. Lungs clear to auscultation. Heart regular rhythm no murmur. Chest were nontender. Abdomen soft nontender. Moving all 4 extremities. Neurovascularly intact. Normal motor strength. Normal sensation. Full range of motion both upper and lower extremities. His left lower leg on the proximal ash anteriorly below the knee he has an area of redness that is tender to palpation. Clinically looks like cellulitis. There is no lymphangitic streaking. No inguinal lymphadenopathy. No swelling of either the hip knee or ankle joints. He has normal dorsi and plantar flexion of the left foot. Normal DP pulse. Normal femoral pulse. There is no calf pain or swelling. No cords. Exam is consistent with cellulitis. Const Vital Signs: 05/06/22 12:36 Temperature 98.4 F Temperature Source Temporal Pulse Rate 87 Respiratory Rate 18 Blood Pressure 139/81 H Blood Pressure Mean 100 Pulse Ox 100 Oxygen Delivery Method Room Air Positive well nourished and well developed; Negative for cachectic, contractures or unkempt General Appearance ED: well developed and NAD; Negative for unkempt, cachectic or contractures Nutritional Appearance: Negative for cachectic HEENT Reports moist mucous membranes normocephalic and atraumatic; Negative for trauma or tenderness Eyes PERRL General Eye ED: Negative for other Neck full ROM and supple Thyroid: Negative for tender Lymph Lymphatic: Negative for other Chest Wall inspection of chest normal and palpation of chest normal Chest: Negative for other Resp normal respiratory effort, no retractions and clear to auscultation bilaterally Effort and Inspection: Negative for pain with movement Auscultation: Negative for rales, rhonchi or wheezes Cardio regular rate, regular rhythm, S1 normal heart sound, S2 normal heart sound and no murmurs Rate: Negative for bradycardia or tachycardic Rhythm: Negative for abnormal rhythm GI non-tender, non-distended and no masses Inspection: Negative for abdominal distention Auscultation: normoactive bowel sounds Palpation: soft; Negative for tender or guarding Back/Spine no CVA tenderness General Back: Negative for CVA tenderness Cervical Spine: Negative for cervical spine tenderness Thoracic Spine / Upper Back: Negative for thoracic spinal tenderness Lumbar Spine / Lower Back: Negative for lumbar spinal tenderness Extremity full ROM; Negative for normal to inspection Extremity Narrative: Left lower extremity proximal to her left lower leg an area of abrasion with cellulitis. Tender to palpation. Also some varicose veins. Left calf is nontender. No cords or edema. Left foot and ankle are neurovascular intact with normal DP pulse. Dorsi plantarflexion. Left ankle, knee and hip are nontender nonswollen. There is no inguinal lymphadenopathy. No lymphangitic streaking. Exam consistent with left anterior proximal ash cellulitis. General Extremety ED: Yes edema; Negative for cyanosis or weight-bearing difficulty General Extremity: edema; Negative for cyanosis or weight-bearing difficulty Neuro oriented x3, CN's II-XII intact bilaterally, moves all extremities and no sensory deficits noted Sensorium / Orientation: alert, oriented to person, oriented to place and oriented to time; Negative for orientation impaired, confused, lethargic or stuporous Motor Exam: strength 5/5 throughout Psych mental status grossly normal Appearance: Negative for unkempt Mood & Affect: Negative for anxious Skin no wounds Skin Narrative: Left lower leg cellulitis. Lesions: no lesions Rashes: No no rashes Trauma: Negative for abrasion or laceration MDM MDM MDM Narrative Medical decision making narrative: 61-year-old male with left lower leg discomfort. Atraumatic. History of DVT on Xarelto has not missed a dose. Exam is consistent with left lower leg cellulitis. He does not look septic or toxic. It is in a small area in the anterior ash proximally. There is no strength or lymphadenopathy. He will be started on Augmentin 875 twice daily for 10 days first dose given here. He does not need admitted or IV antibiotics. He does not need labs. Clinically this is not a DVT and he is on Xarelto I do not think he needs a noninvasive study not available at this time anyway. We placed on Augmentin twice a day for 10 days. Follow-up with his primary care physician this week if not improving they can always get an ultrasound. Patient knows of its worse and needs to return for further evaluation possible admission but he does not need at this time. He has an allergy to Keflex. He states penicillins worked well for him. I did review the patient's prior records. Discharge Plan Triage Chief Complaint: Lower Extremity Injury ED Provider: Jed Alicea Dx/Rx/DC Orders Clinical Impression: Cellulitis of left leg, History of deep vein thrombosis, Chronic anticoagulation Instructions: ED Cellulitis Prescriptions: New amoxicillin-pot clavulanate 875-125 mg tablet 1 tab PO BID 10 Days Qty: 20 0RF No Action albuterol sulfate [ProAir HFA] 90 mcg/actuation HFA aerosol inhaler 2 puff inhalation Q6H PRN (Reason: shortness of breath or wheezing) Qty: 18 6RF clindamycin HCl 300 mg capsule 300 mg PO BID fluticasone furoate-vilanterol [Breo Ellipta] 200-25 mcg/dose blister with device 1 inh INHALATION DAILY Qty: 3 3RF albuterol sulfate 90 mcg/actuation aerosol powdr breath activated 2 inh inhalation Q4H PRN (Reason: shortness of breath or wheezing) Qty: 1 0RF Prolia 60 mg/mL syringe 60 mg SC [id number] Qty: 1 1RF montelukast 10 mg tablet 10 mg PO QHS Qty: 90 3RF isosorbide mononitrate 30 mg tablet extended release 24 hr 30 mg PO DAILY Qty: 90 3RF atorvastatin 20 mg tablet 20 mg PO DAILY Qty: 90 2RF citalopram 40 mg tablet 40 mg PO DAILY Qty: 90 0RF quetiapine 25 mg tablet 25 mg PO BID Qty: 180 0RF quetiapine 150 mg tablet extended release 24 hr 150 mg PO QHS Qty: 90 0RF rivaroxaban 20 mg tablet 20 mg PO DAILY Qty: 90 3RF Primary Care Provider: Yany Pederson Referrals: Yany Pederson MD [Primary Care Provider] - As soon as possible Activity Restrictions/Additional Instructions: Call and follow-up with your doctor early this coming week. Return to the emergency department if this is getting a lot worse. More swollen much more redness. Fever or streaks up your leg. The antibiotic will take several days to start working. Elevate your leg to decrease swelling. Tylenol for pain. Augmentin 1 pill twice a day for the next 10 days. Disposition Disposition: Home, Self Care
[2022-05-06] MEDS: Amox/Clavulanate 875 MG Tablet PO (14:46)
== END 2022-05-06 14:58 | disposition home or self-care (01) ==
LOC: ED 14:52
PROVIDERS: Emergency Provider Emergency Medicine; PCP Internal Medicine; Visit Provider Emergency Medicine
DX: L03.116 Cellulitis of left lower limb (principal); I10 Essential (primary) hypertension; E78.5 Hyperlipidemia, unspecified; Z79.01 Long term (current) use of anticoagulants; Z86.718 Personal history of other venous thrombosis and embolism
CPT/HCPCS: 99283

== ENCOUNTER 2022-08-07 08:00 | Outpatient (RCR) | payer MEDICARE, MEDICAID, SELFPAY ==
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
--- NOTE | 2022-08-07 10:20 | BH.SGPN.GN ---
Behaviors/Verbalizations/Mental Status: []Pt alert and oriented, casually dressed and groomed. Eye contact good. Motor activity appropriate. Speech within normal limits. Affect constricted, mood anxious. Thoughts linear, logical, no signs of hallucinations or delusions. Client Response/Progress/Benefit: []Pt was an active participant AEB contributing to discussion, taking notes, and engaging in group activity. Connected with the topic of pitfalls and listened to group discussion on barriers that prevent from choosing a healthier path to mental wellness. Group worked together to identify examples of personal pitfalls and pt identified theirs as rumination.? Pt benefited from group as Pt learned to better identify potential barriers to improving mental health symptoms. Pt will continue IOP tx to prevent decompensation, increase distress tolerance skills, and gain healthy supports. ?
--- NOTE | 2022-08-07 11:20 | BH.SGPN.GN ---
Behaviors/Verbalizations/Mental Status: []Pt alert and oriented, neatly dressed and groomed. Eye contact good. Motor activity restless-shaking. Speech within normal limits. Affect constricted, mood depressed and anxious. Thoughts linear, logical, no signs of hallucinations or delusions. Client Response/Progress/Benefit: []Pt receptive of session, engaged throughout AEB actively listening and contributing to discussion, as well as taking notes.? Pt participated in the experiential activity and did well to communicate ideas with peers and manage emotions. Pt and group processed how the emotions and perspective of the group after the break positively impacted pt. Group worked together to identify different coping skills to help manage pitfalls. Pt identified pitfalls they struggle with and shared wanting to work on pitfall of ruminating and ?getting on the hamster wheel? by continuing to come to therapy and ask for help. ?Benefited from identifying personal pitfalls and strategies to overcome these pitfalls. Will continue IOP tx to prevent decompensation, improve emotional regulation skills to manage anxiety, and reduce negative thinking patterns. Narrative Note: []
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
[2022-08-09 09:41] VITALS: BP 112/74; PULSE 86
--- NOTE | 2022-08-09 10:10 | BH.SGPN.GN ---
Behaviors/Verbalizations/Mental Status: []Pt alert and oriented, neatly dressed and groomed. Eye contact good. Motor activity appropriate. Speech within normal limits. Affect constricted, mood euthymic. Thoughts linear, logical, no signs of hallucinations or delusions. Client Response/Progress/Benefit: []Pt was a passive participant in group discussions and activity. Attentive during psychoeducation. Interactive discussion on the definition of perspective, how perspective is formed, and why perspective is important in treatment.? Pt along with peers also identified that perspective can either motivate and encourage treatment or be a barrier to receiving help. Pt shared his perspective today is hopeful and positive. Pt feels that he is already getting better since his IOP admission at the beginning of the week. Pt reports he is benefitting from IOP as it helps pt challenge his ruminations. Will continue in IOP tx to promote mood stability, reduce ruminations, and increase healthy coping skills. Narrative Note: []
--- NOTE | 2022-08-09 11:15 | BH.SGPN.GN ---
Behaviors/Verbalizations/Mental Status: []Pt alert and oriented, casually dressed and groomed. Eye contact good. Motor activity appropriate. Speech within normal limits. Affect congruent, mood anxious. Thoughts linear, logical, no signs of hallucinations or delusions. Client Response/Progress/Benefit: []Pt was attentive and contributed to small group discussion. Pt completed strengths exploration worksheet. Pt able to acknowledge how these strengths are helping pt and can continue to help pt in mental health journey. With some promoting pt able to reflect on how pt?s kindness, empathy, and open mindedness have helped pt in the past and continue to help pt with mental health. Pt worked with group to identify strategies that can help increase utilization of personal strengths and how to challenge one?s perspective in general. Benefited from identifying personal strengths and strategies for enhancing use of identified strengths. Pt to continue IOP tx to prevent decompensation, get support, promote mood stability, and continue to improve consistent skill application. ? Narrative Note: []
--- NOTE | 2022-08-11 09:00 | BH.SGPN.GN ---
Behaviors/Verbalizations/Mental Status: [] Eye contact is good. Motor activity is appropriate. Appearance is casual. Speech is Appropriate. Mood is anxious. Affect is congruent. Thoughts are linear and logical. No evidence of psychosis. Reviewed daily check in sheet and no reports of suicidal ideations or intent. Client Response/Progress/Benefit: [] Pt participated when prompted. Attentive. Shared with the group that he encountered an emotional trigger yesterday which he reports led to his ? thoughts getting highjacked?. Group discussion developed regarding triggers to trauma and painful memories and strategies to manage these triggers which was beneficial to pt. Will continue in IOP to prevent decompensation, provided support, and to increase healthy coping skills. Narrative Note: []
--- NOTE | 2022-08-11 10:05 | BH.SGPN.GN ---
Behaviors/Verbalizations/Mental Status: []Pt alert and oriented, neatly dressed and groomed. Eye contact good. Motor activity appropriate. Speech within normal limits. Affect constricted, mood anxious. Thoughts linear, logical, no signs of hallucinations or delusions. Client Response/Progress/Benefit: []Pt participated through active listening and taking notes. Active participant in experiential activity. Attentive during psychoeducation. Attentive as peers shared types of social supports which included; family, friends, PCP, mental health providers, support groups, pets, ourselves, community classes, etc. Pt shared he has used [employer] for support for years. Attentive as group identified mental health benefits of social support but pt and peers also shared sometimes it seems like they cannot access support. Contributed as peers worked together to identify obstacles to utilizing support. Benefited from increased awareness of mental health benefits of social support and obstacles that prevent one from utilizing support. Will continue IOP tx to reduce anxiety, improve daily functioning, and increase social support. Narrative Note: []
--- NOTE | 2022-08-11 11:10 | BH.SGPN.GN ---
Behaviors/Verbalizations/Mental Status: []Client alert and oriented, casually dressed and groomed. Eye contact good. Motor activity appropriate. Speech within normal limits. Affect congruent, mood anxious and euthymic. Thoughts linear, logical, no signs of hallucinations or delusions. Client Response/Progress/Benefit: []Client was an active participant throughout AEB contributing to discussion, providing personal examples, and taking notes. Client provided input during discussion on the types of support our supports can provide. Client able to identify current support system and barriers that get in the way of using supports by drawing out their own support net. Client reported after identifying what type of supports they receive; they gained awareness that they could benefit from more emotional supports. Client identified steps to achieve this by continuing to practice communicating his emotional needs/wants and letting others know when he is upset or something bothers him. Client seemed to benefit from identifying the type of support client needs to work on improving. Client recommended to continue IOP tx to increase healthy coping, reduce anxiety, and increase overall functioning. Narrative Note: []
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
--- NOTE | 2022-08-23 14:20 | BH.DR.ITP ---
Initial Treatment Plan Patient Information Visit Information: ADMISSION DATE: EXPECTED LOS: 4-6 weeks Problems/Symptoms Problem #1:: Depression Symptom:: Sadness, guilt, suicidal ideation Problem #2:: anxiety Symptom:: Worry, panic, rumination
== END 2022-08-13 23:59 ==
LOC: BHIOP 08:00
PROVIDERS: PCP Internal Medicine; Referring Provider Psychiatry & Neurology Psychiatry; Visit Provider Psychiatry & Neurology Psychiatry
DX: F43.23 Adjustment disorder with mixed anxiety and depressed mood (principal); F41.1 Generalized anxiety disorder
CPT/HCPCS: S9480; 90832; 90853

== ENCOUNTER 2022-08-14 08:25 | Outpatient (RCR) | payer MEDICARE, MEDICAID, SELFPAY ==
[2022-08-14 00:52] VITALS: BP 112/74; PULSE 86
--- NOTE | 2022-08-14 09:00 | BH.SGPN.GN ---
Behaviors/Verbalizations/Mental Status: []Eye contact is fair to good. Motor activity is appropriate. Appearance is casual. Speech is Appropriate. Mood is anxious. Affect is congruent. Thoughts are linear and logical. No evidence of psychosis. Reviewed daily check in sheet and denies any active SI, plan, or intent as of this date. Client Response/Progress/Benefit: []Pt responded well to session, attentive and willing to process with group. Pt reports feeling ?glad it?s Sunday? as he had a stressful weekend. Discussed frustrations that his routine had been interrupted due to his mother needing help with her dryer. Pt shared successfully getting the dryer to work but struggling with feeling his mother had been unappreciative and critical of him. Noted He was able to practice some self-care however and found a trail mix he likes at the local grocery store. Shared this improved his mood and encourage him to try and focus on more of the positives going into a new week. Benefited from supportive feedback structure of the group. Pt will continue IOP tx to prevent decompensation, improve mood stability, and promote healthy change behaviors. Narrative Note: []
--- NOTE | 2022-08-14 10:00 | BH.SGPN.GN ---
Behaviors/Verbalizations/Mental Status: []Pt alert and oriented, casually dressed and groomed. Eye contact fair. Motor activity appropriate. Speech within normal limits. Affect congruent, mood euthymic. Thoughts linear, logical, no signs of hallucinations or delusions. Client Response/Progress/Benefit: []Pt was an engaged participant AEB listening attentively to others and working cooperatively with peers during activity. Attentive during psychoeducation on possible causes to developing and maintain unhealthy coping skills which can impact mental health. Pt participated in interactive discussion identifying common unhealthy coping skills. Able to make connections between experiential activity and importance of having a solid base of internal and external coping skills. Benefited from increased awareness of internal and external coping skills and identifying unhealthy coping skills. Will continue in IOP to improve boundary setting, challenge anxious thoughts, and prevent decompensation.
--- NOTE | 2022-08-14 11:05 | BH.SGPN.GN ---
Behaviors/Verbalizations/Mental Status: []Pt alert and oriented, neatly dressed and groomed. Eye contact good. Motor activity restless. Speech within normal limits. Affect constricted, mood euthymic/anxious. Thoughts linear, logical, no signs of hallucinations or delusions Client Response/Progress/Benefit: []Pt responded well to session, taking notes and contributing. Group discussed the different categories of coping skills which included distraction, emotional release, grounding, self-love, and thought challenging.? Pt participated in creating a coping skills ?menu? from the five categories of coping skills. Pt's coping skill menu included: going for walks, using affirmations, 5-senses, opposite action, and cleaning. Appeared to benefit from increasing repertoire of healthy coping skills. Will continue IOP tx to reduce anxiety, improve daily functioning, and reduce negative thinking patterns. ? Narrative Note: []
--- NOTE | 2022-08-16 09:00 | BH.SGPN.GN ---
Behaviors/Verbalizations/Mental Status: []Pt alert and oriented, casually dressed and groomed. Eye contact good. Motor activity appropriate. Speech within normal limits. Affect congruent, mood anxious. Thoughts linear, logical, no signs of hallucinations or delusions. Reviewed pt?s symptom tracker, no risk for suicidal ideation, plan, or intent. Client Response/Progress/Benefit: []Pt responded well to session, attentive and engaged. Patient reported mental health positive as mental health symptoms are improving with decreased anxiety and depression. Patient noted current stressor is trying to cope with his mom saying that she does not want to live anymore because she is in too much pain since having pulled her muscle. Patient stated it is hard to hear his mom say those things but is trying to understand her perspective and be supportive. Pt appeared to benefit from support from peers. Pt will continue IOP tx to continue use of healthy coping skills, challenge distortions, and prevent decompensation.
--- NOTE | 2022-08-16 10:10 | BH.SGPN.GN ---
Behaviors/Verbalizations/Mental Status: []Eye contact is good. Motor activity is appropriate. Appearance is casual. Speech is Appropriate. Mood is anxious. Affect is congruent. Thoughts are linear and logical. No evidence of psychosis. Client Response/Progress/Benefit: []Pt was an active participant in group discussion and experiential activity, though remaining mostly passive throughout. Attentive during psychoeducation on resilience. Participated in interactive discussion with peers on the definition of resilience and where it comes from. Group identified that resiliency can be impacted by; past experiences, learned behaviors, and current mental health state. Group also worked together to identify the benefits of being resilient and how it is related to mental health. Able to relate experiential activity of group juggle to topics of resilience. Worked well with peers in small group in which they identified factors that contribute to resilience. Benefited from increased awareness of resilience and the factors that contribute to building resilience. Will continue in IOP to prevent decompensation and further promote mood stability, as well as improve ability to manage daily living stressors. Narrative Note: []
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
--- NOTE | 2022-08-18 10:10 | BH.SGPN.GN ---
Behaviors/Verbalizations/Mental Status: [] Client alert and oriented, neatly dressed and groomed. Eye contact good. Motor activity appropriate. Speech within normal limits. Affect congruent, mood euthymic. Thoughts linear, logical, no signs of hallucinations or delusions. Client Response/Progress/Benefit: [] Client connected with topic of Anxiety and participated throughout, providing input and taking notes. Attentive during psychoeducation on different anxiety disorders and participated throughout interactive discussion defining anxiety and identifying cognitive and physical symptoms of anxiety along with safety behaviors. Common cognitive symptoms identified by group included: ?thoughts of dread?, ?mind reading, and fortune telling. Group identified common physical symptoms such as nausea, shakiness and tightness in chest. Client personally identified that they experienced racing thoughts when anxious. Benefited from increased awareness and insight on anxiety and its impact. Plan is to continue in IOP to maintain progress, increase consistency of healthy coping and thought challenge skills, and prevent decompensation. Narrative Note: []
--- NOTE | 2022-08-18 11:20 | BH.SGPN.GN ---
Behaviors/Verbalizations/Mental Status: [] Client alert and oriented, neatly dressed and groomed. Eye contact good. Motor activity appropriate. Speech within normal limits. Affect congruent, mood euthymic. Thoughts linear, logical, no signs of hallucinations or delusions. Client Response/Progress/Benefit: [] Client was an active participant in group discussion AEB providing contributions throughout group and listening attentively to others. Attentive during psychoeducation on mindfulness and ways to utilize mindfulness techniques to improve anxiety management. The group together practiced guided meditation and 5 senses technique during session. Engaged and attentive during group practicing of skills and discussing their benefit. Appeared to benefit from practicing in the moment coping skills and increasing repertoire of anxiety management skills. Client selected mindfulness menu of utilizing the 5 senses and visualization. Client will continue IOP tx to promote continued use of healthy coping skills, further improve communication with supports, and prevent decompensation. Narrative Note: []
--- NOTE | 2022-08-21 09:05 | BH.SGPN.GN ---
Behaviors/Verbalizations/Mental Status: [] Eye contact is good. Motor activity is appropriate. Appearance is casual. Speech is Appropriate. Mood is anxious. Affect is congruent. Thoughts are linear and logical. No evidence of psychosis Client Response/Progress/Benefit: [] Pt particapted when prompted. Emotion for today is ?scared?. Mental health win was attending a [employer] event this weekend. 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 He reports that he is ?trying to stay busy and engaged?. Benefits from group support and encouragement. Will continue IOP to prevent decompensation, provide additional support, and increase strategies to manage significant life changes Narrative Note: []
--- NOTE | 2022-08-21 10:15 | BH.SGPN.GN ---
Behaviors/Verbalizations/Mental Status: []Pt alert and oriented, neatly dressed and groomed. Eye contact good. Motor activity appropriate. Speech within normal limits. Affect constricted, mood anxious. Thoughts linear, logical, no signs of hallucinations or delusions. Client Response/Progress/Benefit: []?Pt was a passive participant in group discussions. Attentive during psychoeducation. Listened during interactive discussions in which peers attempted to define crisis. Pt identified several examples of potential crisis. Group also worked together to identify unhealthy responses to crisis which included; isolation, self-harm, overuse of distraction, avoidance, and lashing out. Pt identified personal warning signs as ruminating, racing thoughts, and lack of interest. Benefited from increased understanding of crisis and awareness of personal responses to crisis. Pt will continue IOP tx to reduce anxiety, improve daily functioning, and increase self-confidence. Narrative Note: []
--- NOTE | 2022-08-21 11:15 | BH.SGPN.GN ---
Behaviors/Verbalizations/Mental Status: []Client alert and oriented, casually dressed and groomed. Eye contact fair. Motor activity appropriate. Speech within normal limits. Affect congruent. Mood anxious. Thoughts linear, logical, no signs of hallucinations or delusions. Client Response/Progress/Benefit: []Client engaged throughout group session AEB providing contributions to discussion and working within the small groups. Appeared more engaged within the small group than in prior sessions which demonstrates progress. Client identified their personal warning signs for crisis and gained further awareness of earliest warning signs. Client created a crisis action plan to help client better manage personal crisis warning signs. Client shared an action plan for their warning sign of increased depression which included: get physically moving, attend a support group, and reach out to his providers for additional help. Client appeared to benefit from creating a crisis action plan and increasing self-awareness. Client to continue IOP tx to continue to improve use of healthy coping skills, reduce rumination, and prevent decompensation. Narrative Note: []
--- NOTE | 2022-08-23 10:10 | BH.SGPN.GN ---
Behaviors/Verbalizations/Mental Status: [] Eye contact is good. Motor activity is appropriate. Appearance is casual. Speech is Appropriate. Mood is anxious. Affect is congruent. Thoughts are linear and logical. No evidence of psychosis. Client Response/Progress/Benefit: [] Pt did not participate in group discussions. Attentive during psychoeducation on the 4 communication styles (Passive, Passive-Aggressive, Aggressive, and Assertive) and the obstacles to effective communication. Attentive during interactive discussion on the benefits of communicating effectively which included; having one's needs met, helping others get their needs met, building connection with others, decreases stress and uncertainty, improved relationships, increased trust, and increased understanding of others. Worked well in small group in which pt and peers identified the benefits and disadvantages to the different communication styles. Benefited from increased understanding of communication styles and how these can impact effective communication. Will continue in IOP to prevent decompensation, provide support, and improve functioning. Narrative Note: []
--- NOTE | 2022-08-23 15:28 | BH.MDN_ITS ---
Multi-Disciplinary Note - Note 45-min Individual Time Started:: 09:05 Date: 08/23/22 Purpose of session/treatment goals addressed:: Used the session to process recent stressful events. Also used the session to continue to develop an anxiety management plan. Eye Contact:: Good Motor Activity:: Appropriate Appearance:: Casual Speech:: Appropriate Mood:: Anxious, Depressed Affect:: Congruent Thoughts:: Linear, Logical, No evidence of hallucinations/delusions noted Staff Interventions:: thought challenging, strengths perspective, other - Pt was seeking reassurance that he was managing his stressors and emotions appropriately. Client Response:: Pt reports that his mother continues to be in the hospital. His mother, who is primary support only family in the area, had back surgery yesterday. Mother called him yesterday and this AM in distress stating that her pain is overwhelming and she doesn't think she will make it. Mother has been in the hospital for a week. Pt reports that it this has increased his anxiety, stress, and he is worried about her health. Pt is primary caregiver as his sister and brother live out of state I don't know if I'm handling this good enough. He is getting positive reassurance from his siblings as well as support at [facility], however he struggles with self-confidence. He reviewed his coping skills with this therapist and asks for feedback on what he could do differently. He is focused on YouTube videos and phone apps that will help with his anxiety. Therapist encouraged him to process his emotions, frustrations, and fears. We discussed that being upset, anxiety, and worried is completely appropriate in his current situation and we worked to normalize his emotions as well discussed outlets for anxiety-reduction content. Risks/Concerns:: no risks or concerns noted. Progress Toward Goals/Plan:: Pt is consistent and engaged in treatment. Medication compliant. Pt is very critical of himself and how he responds to situations feeling like his has to act perfect. Working on normalizing anxiety and stress in the context of his current situation to decrease belief that any distress is him failing to manage his emotions. We are working together on creating an anxiety management plan with internal and external skills. Overall her reports that he benefits greatly from group support and psychoeducation I don't know what I would do without this place and [facility]. Also benefiting from medication changes which help him fall asleep easier and not ruminate. Will continue in IOP to maintain safety, stabilize mood, and improve functioning. Time Stopped:: 09:45
--- NOTE | 2022-08-25 09:00 | BH.SGPN.GN ---
Behaviors/Verbalizations/Mental Status: []Pt alert and oriented, casually dressed and groomed. Eye contact poor. Motor activity appropriate. Speech within normal limits. Affect congruent, mood agitated and anxious. Thoughts linear, logical, no signs of hallucinations or delusions. Reviewed pt?s symptom tracker, no risk for suicidal ideation, plan, or intent. Client Response/Progress/Benefit: []Pt responded well to session, attentive and receptive to feedback. Client shared mental positive as using thought challenging when faced with the realities of his mother?s physical health limitations yesterday. Client shared feeling surprised by how frail she seems and struggling to accept her changes in physical capability. Reports this is also his stressor and was receptive of feedback on ways to practice acceptance as well as validate and cope with his emotions. Reported additional mental positive as spending time at [employer] which is a major support for him. Seemed to benefit from support from peers. Pt will continue IOP tx to increase healthy coping skills, challenge negative and anxious thinking, and prevent decompensation. Narrative Note: []
--- NOTE | 2022-08-25 10:10 | BH.SGPN.GN ---
Behaviors/Verbalizations/Mental Status: [] Eye contact is fair. Motor activity is appropriate. Appearance is casual. Speech is Appropriate. Mood is euthymic. Affect is constricted. Thoughts are linear and logical. No evidence of psychosis. Client Response/Progress/Benefit: [] Pt engaged participant AEB listening to others, engaging in activity, and providing feedback at times. Attentive during psychoeducation and provided insight into obstacles in the way of mental wellness. Pt stated in his current reality he feels overwhelmed because there is so much to do and he struggles with setting boundaries. In his desired reality he wants to be able to set boundaries and focus on taking care of himself. Identified barriers to his desired reality include: feel overwhelmed, too many responsibilities, no boundaries, and difficulty slowing down. Benefited from taking look at current mental health state and obstacles for progress. Will continue in IOP to challenge distorted thoughts, improve boundary setting, and prevent decompensation.
--- NOTE | 2022-08-25 11:15 | BH.SGPN.GN ---
Behaviors/Verbalizations/Mental Status: []Pt alert and oriented, neatly dressed and groomed. Eye contact good. Motor activity appropriate. Speech within normal limits. Affect flat, mood depressed. Thoughts linear, logical, no signs of hallucinations or delusions. Client Response/Progress/Benefit: []Pt an active participant, encouraging peers and contributed as group brainstormed ideas on how to cope with internal barriers that keep Pts stuck from moving towards goals. Able to identify barriers to desired reality. Worked with group to identify strategies to help overcome barriers. Identified personal barriers to desired reality. Pt wants to work on overcoming the barrier of lack of boundaries and feeling overwhelmed by communicating with supports proactively what pt can and cannot do. Benefited from group by identifying obstacles and solutions to desired reality.? Pt to continue IOP tx to reduce ruminations, increase distress tolerance skills, and improve mood stability. Narrative Note: []
--- NOTE | 2022-08-28 09:05 | BH.SGPN.GN ---
Behaviors/Verbalizations/Mental Status: []Pt alert and oriented, neatly dressed and groomed. Eye contact good. Motor activity appropriate. Speech within normal limits. Affect congruent, mood anxious. Thoughts linear, logical, no signs of hallucinations or delusions. Reviewed pt?s symptom tracker, no risk for suicidal ideation, plan, or intent as of 08/28/22 Client Response/Progress/Benefit: []Pt responded well to session, attentive and engaged. Pt reports feeling stressed and glad this morning. Pt is anxious about his mother's ongoing health issues and pt is anxious about her care moving forward. Pt was receptive to group feedback on combatting guilt and accepting help from others. Pt shared his brother is coming home this week and together they will figure out how to best help their mother. Pt gave himself credit for completing household tasks over the weekend. Pt appeared to benefit from peer feedback. Pt will continue IOP tx to promote mood stability, reduce ruminations, and improve daily functioning. Narrative Note: []
--- NOTE | 2022-08-28 10:10 | BH.SGPN.GN ---
Behaviors/Verbalizations/Mental Status: [] Eye contact is good. Motor activity is appropriate. Appearance is casual. Speech is Appropriate. Mood is euthymic. Affect is congruent. Thoughts are linear and logical. No evidence of psychosis. Client Response/Progress/Benefit: [] Client was an active participant during interactive group discussions. Attentive during psychoeducation on the six types of boundaries (physical, emotional, intellectual, sexual, time, and material) AEB note-taking and giving input in group. Along with peers contributed to interactive discussion on defining what a boundary is in mental health. Client along with peers identified challenges to setting boundaries which included; fear of hurting others, lack of confidence, not wanting confrontation, fear of upsetting others, and etc. Client along with peers identified the benefits to setting boundaries such as better mental health, increase self respect, increased time for self-care, and increased confidence. Group discussed the mental health benefits to establishing boundaries at work, school, and home. Client benefited from increased awareness and insight on the importance/benefit to setting health boundaries. Will continue in IOP to prevent decompensation, stabilize anxiety, and increase healthy self care. Narrative Note: []
--- NOTE | 2022-08-28 11:15 | BH.SGPN.GN ---
Behaviors/Verbalizations/Mental Status: [] Eye contact is good. Motor activity is appropriate. Appearance is casual. Speech is Appropriate. Mood is euthymic. Affect is congruent. Thoughts are linear and logical. No evidence of psychosis. Client Response/Progress/Benefit: [] Client responded well to session AEB listening attentively to peers, providing some input, as well as taking notes throughout. Group discussed the different types of boundary styles. Reports connecting most with rigid style of boundary setting with indicating being very firm with their boundaries. Participated in group discussion brainstorming various strategies for improving healthy boundary setting. Client reports wanting to begin using skill of asking for feedback to help gain perspective to improve overall ability to establish and maintain healthy boundaries. Seemed to benefit from increased awareness of how different boundary styles can impact mental health. Will continue IOP tx to increase consistent application of skills, increase self-care and anxiety management, and prevent decompensation. Narrative Note: []
--- NOTE | 2022-08-30 10:05 | BH.SGPN.GN ---
Behaviors/Verbalizations/Mental Status: []Pt alert and oriented, neatly dressed and groomed. Eye contact good. Motor activity appropriate. Speech within normal limits. Affect flat, mood anxious. Thoughts linear, logical, no signs of hallucinations or delusions. Client Response/Progress/Benefit: []Pt receptive of session, actively engaged throughout AEB taking notes and listening to discussion. Appeared to connect with group topic of cognitive distortions and the impact of thought patterns on mental health, coping behaviors, and relationships. Pt reports connecting with distortions of catastrophizing and pt shared he often ruminates negatively. Pt appeared to benefit from gaining insight on distorted thinking patterns and how this impacts overall mental health. Will continue IOP tx to decrease ruminations, improve distress tolerance, and increase self-compassion. Narrative Note: []
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
--- NOTE | 2022-08-30 11:12 | BH.SGPN.GN ---
Behaviors/Verbalizations/Mental Status: []Eye contact is good. Motor activity is appropriate. Appearance is casual. Speech is WNL. Mood is anxious. Affect is congruent. Thoughts are linear and logical. No evidence of psychosis. Client Response/Progress/Benefit: []Pt did well to remain an engaged participant AEB providing input during small group discussion and engaging in activity. Activity involved working with peers to answer questions related to psychoeducation on cognitive distortions and practicing reframing distorted thoughts. Pt collaborated with the group to determine the answers. Identified cognitive distortions pt personally struggles with the most as labelling, overgeneralization, and all or nothing thinking. Able to identify the impact distortions has on pt?s mental health. Benefited from rehearsing ways to challenge/reframe cognitive distortions and by gaining increased insight into examples/definitions of 10 most common cognitive distortions. Will continue IOP to improve anxiety management, challenge distorted thought patterns, and prevent decompensation. Narrative Note: []
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
--- NOTE | 2022-08-30 16:00 | BH.MTP ---
[facility] Treatment Plan - Patient Information Program Physician:: Renu Deleon Primary Therapist:: Nestor Ramos
--- NOTE | 2022-09-01 09:05 | BH.SGPN.GN ---
Behaviors/Verbalizations/Mental Status: []Pt alert and oriented, neatly dressed and groomed. Eye contact good. Motor activity appropriate. Speech within normal limits. Affect congruent, mood euthymic. Thoughts linear, logical, no signs of hallucinations or delusions. Reviewed pt?s symptom tracker, no risk for suicidal ideation, plan, or intent as of 09/01/22 Client Response/Progress/Benefit: []Pt responded well to session, attentive and engaged. Pt reports feeling happy for once this morning. Pt shared his brother is visiting and this has taken a lot of caregiver stress off my shoulders. Pt stated his brother is taking charge and together they are creating a plan to hire a home health aide for their mother. Pt has been caregiving for his mother for a long time and pt is looking forward to some self-care time. Pt appeared to benefit from peer feedback and social connection. Pt will continue IOP tx to prevent decompensation, combat distortions, and improve emotional regulation skills. Narrative Note: []
--- NOTE | 2022-09-01 10:15 | BH.SGPN.GN ---
Behaviors/Verbalizations/Mental Status: []Pt alert and oriented, neatly dressed and groomed. Eye contact good. Motor activity appropriate. Speech within normal limits. Affect flat, mood euthymic. Thoughts linear, logical, no signs of hallucinations or delusions. Client Response/Progress/Benefit: []Pt was a passive participant in group discussions and activities. Attentive during psychoeducation. Pt engaged during interactive discussion in which the group defined self-care and discussed its benefits. ?Worked with peers in a small group to identify myths related to self-care. Pt identified personal barrier of telling himself that he does not deserve it and that it is selfish which keeps pt from practicing self-care. Pt participated in small groups where they worked to bust these self-care myths. Benefited from increased awareness of self-care, its benefits, and the consequences of not utilizing self-care strategies. Will continue IOP tx to prevent decompensation, gain healthy coping skills, and reduce isolation. Narrative Note: []
--- NOTE | 2022-09-01 11:10 | BH.SGPN.GN ---
Behaviors/Verbalizations/Mental Status: []Pt alert and oriented, casually dressed and groomed. Eye contact good. Motor activity appropriate. Speech within normal limits. Affect constricted, mood euthymic. Thoughts linear, logical, no signs of hallucinations or delusions. Client Response/Progress/Benefit: []Pt engaged participant AEB providing input at times and listening attentively to others. Participated in group discussion on the various areas of self-care. Pt completed worksheet identifying current self-care practices and what self-care activities pt wants to start using. Pt selected physical self-care to begin practicing more consistently. Pt plans to do this by starting to exercise. Appeared to benefit from completing the self-care evaluation and gaining insights into current self-care practices, as well as identifying areas in which pt would like to improve upon.?Pt is to continue IOP to continue use of healthy coping, decrease anxiety, and prevent decompensation.
--- NOTE | 2022-09-04 09:00 | BH.SGPN.GN ---
Behaviors/Verbalizations/Mental Status: []Pt alert and oriented, casually dressed and groomed. Eye contact fair. Motor activity appropriate. Speech within normal limits. Affect congruent, mood anxious. Thoughts linear, logical, no signs of hallucinations or delusions. Reviewed pt?s symptom tracker, denies suicidal intention or plan. Client Response/Progress/Benefit: []Pt responded well to session, attentive and receptive to feedback. Client reported that his weekend was not as relaxing as he hoped because his mom did not respond well to being told that she needs to have home health commended help during the day. Client stated he is having a hard time managing when his mom says she does not want to be alive anymore because of losing her independence. Client reported he does recognize he is doing better with managing the stressful time than he would have been doing a few weeks ago. Client stated he is trying to work on setting boundaries and take care of himself but does have a hard time because he worries about his mom. Seemed to benefit from support from peers. Pt will continue IOP tx to improve ability to set boundaries, challenge anxious thoughts, and prevent decompensation.
--- NOTE | 2022-09-04 10:10 | BH.SGPN.GN ---
Behaviors/Verbalizations/Mental Status: []Pt alert and oriented, casually dressed and groomed. Eye contact good. Motor activity appropriate. Speech within normal limits. Affect congruent, mood anxious. Thoughts linear, logical, no signs of hallucinations or delusions. Client Response/Progress/Benefit: []Pt was an active participant in group discussion and activity. Attentive during psychoeducation. Along with peers, pt was able to identify barriers to taking action. Identified several symptoms and stressors that he feels are holding him back from progress such as anxiety, ?should? thoughts, and ruminating on the past. Stated these things have maintained his anxiety and kept him ?stuck?. Pt shared that he wants to begin addressing the impact anxious thoughts have had on his ability to take action. Benefited from increased self-awareness of obstacles. Will continue IOP tx to improve mood management, promote consistent skill application, and further promote anxiety management. Narrative Note: []
--- NOTE | 2022-09-04 11:05 | BH.SGPN.GN ---
Behaviors/Verbalizations/Mental Status: []Pt alert and oriented, neatly dressed and groomed. Eye contact good. Motor activity appropriate. Speech within normal limits. Affect constricted, mood anxious. Thoughts linear, logical, no signs of hallucinations or delusions. Client Response/Progress/Benefit: []Pt responded well to session, taking notes and participating in worksheet discussion. Pt connected with the zones of action/change and that making sustainable change comes from stepping out of one?s comfort zone into the learning zone. Pt set a goal to gain control over his negative self-talk. Pt reported plans to challenge himself to recognize at least one good thing he does each day. Pt identified using supports and skills like positive affirmations and talking with his supports to help with this goal. Appeared to benefit from identifying a small goal to benefit mental health. Will continue IOP tx to reduce ruminations, gain healthy coping skills, and improve daily functioning. Narrative Note: []
--- NOTE | 2022-09-06 11:10 | BH.SGPN.GN ---
Behaviors/Verbalizations/Mental Status: []Pt alert and oriented, casually dressed and groomed. Eye contact good. Motor activity appropriate. Speech within normal limits. Affect constricted, mood depressed and anxious. Thoughts linear, logical, no signs of hallucinations or delusions. Client Response/Progress/Benefit: []Pt was an active participant during activity and discussion AEB providing some input, connecting with peers, as well as taking notes throughout. Pt did well to engage as group worked on identifying characteristics and benefits of adopting a growth mindset. Worked with fellow participants in reframing the example fixed thoughts into growth mindset thoughts. Reframed personal fixed thought of ?I cannot do things? with growth mindset thought of ?There are things I can do. I am able to clean and help others.? Benefitted from discussing benefits of growth mindset and brainstorming strategies for prompting growth-mindset. Pt appeared to benefit from working in small groups to challenge own thoughts and help peers. Pt will continue IOP tx to promote gains, reinforce healthy coping skills, and further combat distortions. Narrative Note: []
--- NOTE | 2022-09-06 11:12 | BH.MDN ---
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 Met with patient to discuss current symptoms and struggles. Eye Contact:: Good Motor Activity:: Appropriate Appearance:: Casual Speech:: Appropriate Mood:: Anxious, Depressed Affect:: Congruent Thoughts:: Linear, Logical, No evidence of hallucinations/delusions noted Staff Interventions:: thought challenging, CBT techniques - reframing, acceptance Client Response:: Pt states I'm holding on for dear life. There are no suicidal ideations, plan, or intent. He uses this description to describe being overwhelmed with recent stressors surrounding his mother's care. Pt and brother have noticed that along with their mother's limited eye sight and physical limitations her memory is beginning to get worse. A home health aide comes into the house daily which had been helpful, however his mother has been increasing irritable. Pt gave a couple examples of his mother getting upset and angry in relation to her memory and loss of her independence. Pt has insight that he is experiencing grief due to the loss of the mom that I've always known. He is beginning to brace himself for her eventual while at the same time caring for her which has taken a significant toll on his mental health. Majority of the session was spend on psychoeducation on radical acceptance. We also role-played communicating more effective with mother due to her memory issues focusing on the patience. Risks/Concerns:: no risks or concerns noted. Progress Toward Goals/Plan:: Pt is staying active with [facility] support 5x weekly which he gets significant benefit. He is also utilizing other reframing and distraction techniques. Overall he has insight that he is experiencing a very significant distressful event in his life and that he is handling it better than I would have years ago, however he continues to have unrealistic demands that he SHOULD be able to leave his issues at the door and put on a smile when around others. This is very important for him when he is at [employer] and around his family. We have been attempting to normalize anger, sadness, and fear rather than focus on pushing it down, however he has very rigid thoughts and expectations regarding how he presents himself to others. He reports that psychoeducation and support in IOP has been very beneficial as he goes through this challenging part of his life. Will continue in IOP to prevent decompensation, provided additional support, and to increase healthy coping strategies. Time Stopped:: 09:55
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
--- NOTE | 2022-09-08 09:00 | BH.SGPN.GN ---
Behaviors/Verbalizations/Mental Status: [] Eye contact is good. Motor activity is appropriate. Appearance is casual. Speech is Appropriate. Mood is anxious. Affect is congruent. Thoughts are linear and logical. No evidence of psychosis. Reviewed daily check in sheet and no reports of suicidal ideations or intent. Client Response/Progress/Benefit: [] Pt participated when prompted. Attentive. Emotion for today is ?positive?. He shared that yesterday?s group on growth vs fixed mindset was very helpful to him. He briefly discussed how this education was beneficial. His check-in was very brief stating ? I?m feeling better?. Benefited from group support. Will continue in IOP to prevent decompensation, provide support, and to increase healthy coping skills. Narrative Note: []
--- NOTE | 2022-09-08 10:06 | BH.SGPN.GN ---
Behaviors/Verbalizations/Mental Status: []Client alert and oriented, casually dressed and groomed. Eye contact good. Motor activity appropriate. Speech within normal limits. Affect congruent, mood anxious, euthymic. Thoughts linear, logical, no signs of hallucinations or delusions. Client Response/Progress/Benefit: []Client receptive to session AEB providing input throughout, listening attentively to others, and taking notes. Attentive throughout psychoeducation on the cognitive triangle and maintenance cycles. Engaged in group discussion reviewing the impact of daily activities and behaviors in either reinforcing unhealthy maintenance cycles and depression or assisting in reducing symptoms (?down? vs ?up? activities). Client identified common ?down? activities they engage in as: sitting around after dinner and ruminating. Common ?Up? activities client identified included: attending [facility], talking to other?s about mental health and wellness, and hanging out with his mother. Appeared to benefit from increased awareness of current behaviors and impact these have on mental health. Recommended to continue IOP tx to stabilize moods, continue to promote thought challenging and self-compassion, and prevent decompensation. Narrative Note: []
--- NOTE | 2022-09-13 10:10 | BH.SGPN.GN ---
Behaviors/Verbalizations/Mental Status: []Eye contact is good. Motor activity is appropriate. Appearance is casual. Speech is Appropriate. Mood is anxious and dysthymic. Affect is congruent. Thoughts are linear and logical. No evidence of psychosis. Client Response/Progress/Benefit: []Pt was attentive throughout group discussion and experiential activity, though remaining mostly passive throughout. Continues to struggle with providing input in larger group discussions. Actively listening and taking notes during psychoeducation on resilience. Participated in interactive discussion with peers on the definition of resilience and where it comes from. Group identified that resiliency can be impacted by; past experiences, learned behaviors, and current mental health state. Group also worked together to identify the benefits of being resilient and how it is related to mental health. Able to relate experiential activity of group juggle to topics of resilience. Worked well with peers in small group in which they identified factors that contribute to resilience. Benefited from increased awareness of resilience and the factors that contribute to building resilience. Will continue in IOP to prevent decompensation and further promote mood stability, as well as improve ability to manage daily living stressors and further reduce anxiety. Narrative Note: []
--- NOTE | 2022-09-13 10:51 | BH.MDN ---
Multi-Disciplinary Note - Note 45-min Individual Time Started:: 09:10 Date: 09/13/22 Purpose of session/treatment goals addressed:: Met with pt to review current symptoms and progress. Addressed treatment plan goals 1 and 2. Eye Contact:: Good Motor Activity:: Appropriate Appearance:: Casual Speech:: Appropriate Mood:: Anxious, Depressed Affect:: Congruent Thoughts:: Linear, Logical, No evidence of hallucinations/delusions noted Staff Interventions:: psychoeducation on: - radical acceptance, grief,, other - allowed pt to vent frustrations and grief reactions, Client Response:: Pt reports that his mother's health continues to decline. Recent physician appointment in which the doctor said she needs 24/ care. Pt's brother remains in town which has been very helpful in arranging care for his mother, however brother is leaving this weekend. Pt is mourning the loss of the mom that he has known his whole life. States her cognitive skills are worsening Family often repeating statements they made moments earlier. Poor eyesight limits her ability to complete any tasks including eating. Its hard seeing her like this. Pt states that support tells him to try to find the positives in the situation however states I can't. Normalized his emotions and we developed some strategies and affirmations regarding his mother's health. He has become focused on the advice to find the positives however it is very challenging and maybe impossible to reframe this situation to identify any positives instead we focused on the time he has with her to continue to make memories and show his appreciation. His father slowly from cancer 30 years ago and current health issues with mother are triggering these feelings as well. Risks/Concerns:: no risks or concerns noted Progress Toward Goals/Plan:: Limited progress noted since last session. Currently our goals in IOP are to prevent decompensation and increase healthy coping strategies during significant life events. Pt often reports unrealistic expectations to Stay positive while managing his mother's health decompensation and feels like a failure if he is unable to be positive. Responds well to psychoeducation on healthy grief reactions and radical acceptance. He utilized his support and has healthy coping skills. Medication compliant and reports significant benefits from IOP and psychoeducation. When he is overwhelmed he less hesitant to try self-care strategies. For example when ruminating yesterday he went for a walk in [facility]. Shared how walking around the store is a healthy coping mechanism and gets my mind off things. Also utilizes TV as a distraction at home watching funny TV shows. Overall her believes that through IOP and [facility] he is managing recent stressors better than I would have. The plan is to continue with IOP for the next 2 weeks to help with support and skill building. Time Stopped:: 09:50
--- NOTE | 2022-09-13 11:10 | BH.SGPN.GN ---
Behaviors/Verbalizations/Mental Status: []Pt alert and oriented, neatly dressed and groomed. Eye contact good. Motor activity appropriate. Speech within normal limits. Affect flat, mood anxious. Thoughts linear, logical, no signs of hallucinations or delusions Client Response/Progress/Benefit: []Pt responded well to session AEB completing the resilience worksheet provided. Pt participated in the discussion and worked cooperatively with group to identify strategies to enhance each of the components discussed. Pt reports belief they already use resilience trait of??taking care of myself.? Pt shared he reaches out for help when he needs it and is social. Pt stated they would like to continue to develop resilience trait of ?accepting that change is a part of living.? Pt seemed to benefit from discussing strategies for improving personal resilience and identifying resilience traits pt already possesses. Progress noted in pt?s report of reduced ruminations. Will continue IOP tx to promote mood stability and combat catastrophizing distortions. ? Narrative Note: []
== END 2022-09-13 23:59 ==
LOC: BHIOP 08:25
PROVIDERS: PCP Internal Medicine; Referring Provider Psychiatry & Neurology Psychiatry; Visit Provider Psychiatry & Neurology Psychiatry
DX: F43.23 Adjustment disorder with mixed anxiety and depressed mood (principal); F41.1 Generalized anxiety disorder; G47.33 Obstructive sleep apnea (adult) (pediatric)
CPT/HCPCS: S9480; 90834; 90853

== ENCOUNTER 2022-09-14 07:41 | Outpatient (RCR) | payer MEDICARE, MEDICAID, SELFPAY ==
[2022-09-14 00:41] VITALS: BP 112/74; PULSE 86
--- NOTE | 2022-09-15 09:00 | BH.SGPN.GN ---
Behaviors/Verbalizations/Mental Status: [] Eye contact is good. Motor activity is appropriate. Appearance is casual. Speech is Appropriate. Mood is anxious. Affect is congruent. Thoughts are linear and logical. No evidence of psychosis. Reviewed daily check in sheet and no reports of suicidal ideations or intent. Client Response/Progress/Benefit: [] Pt participated when prompted. Attentive. Increased anxiety as his brother, who was visiting from out-of-town to help with mother's health struggles, is leaving this weekend. Pt shared that he was appreciative of his brother's help and having the support was also beneficial. Together they were able to arrange for 24/7 care of their mother which has decreased stress, fear, and anxiety for patient. He believes that he beginning to adapt and accept to his mother's current health issues. Benefited from group support, encouragement, and feedback. Will continue in IOP to prevent decompensation, provide support during grief reactions, and increase healthy coping. Narrative Note: []
--- NOTE | 2022-09-15 10:05 | BH.SGPN.GN ---
Behaviors/Verbalizations/Mental Status: []Pt alert and oriented, neatly dressed and groomed. Eye contact good. Motor activity appropriate. Speech within normal limits. Affect stressed, mood anxious. Thoughts linear, logical, no signs of hallucinations or delusions. Client Response/Progress/Benefit: []Pt responded well to session, attentive and providing to discussion. Pt connected with the quote and shared that feeling are good signals that help us see what is wrong, but sometimes lead to unhealthy choices. Pt did not share, but pt nodded a lot while peers were discussing examples of inappropriate guilt. Group discussed other impacts of unmanaged guilt which included withdrawing from relationships and lack of boundaries. Pt participated in activity and struggled at times with accepting help from others. Pt appeared to benefit from learning about the different types of guilt and how unmanaged guilt can impact mental health. Pt will continue IOP tx to promote mood stability, reduce negative thinking patterns, and increase the use of healthy coping skills. Narrative Note: []
--- NOTE | 2022-09-15 11:10 | BH.SGPN.GN ---
Behaviors/Verbalizations/Mental Status: []Pt alert and oriented, casually dressed and groomed. Eye contact good. Motor activity appropriate. Speech within normal limits. Affect congruent, mood euthymic. Thoughts linear, logical, no signs of hallucinations or delusions. Client Response/Progress/Benefit: []Pt passive participant AEB not providing input during group, however did appear to listen attentively to others and engaged in activity. Pt attentive during psychoeducation about different strategies to manage guilt. Pt worked with his small group to identify strategies to manage unhealthy guilt. Pt did not share what guilt thoughts he is struggling with overcoming. Pt worked with small group to use strategies discussed to work through feelings. Pt seemed to benefit from learning about strategies to manage healthy and unhealthy guilt. Pt to continue IOP to increase consistent use of skills, decrease avoidance of anxious situations, and prevent decompensation.
--- NOTE | 2022-09-19 10:10 | BH.SGPN.GN ---
Behaviors/Verbalizations/Mental Status: []Pt alert and oriented, casually dressed and groomed. Eye contact fair. Motor activity appropriate. Speech within normal limits. Affect constricted, mood euthymic. Thoughts linear, logical, no signs of hallucinations or delusions. Client Response/Progress/Benefit: []Pt receptive to session AEB contributing to discussion, as well listening attentively to others, and taking notes. Worked with group to brainstorm the positive and negative aspects of stress on physical and mental health. Group did well to identify the benefits of stress as well as the impact of distress on performance, relationships, and mental health. Pt identified their personal top stressors as: family health problems, mental health, and money problems. Pt seemed to benefit from increased awareness of current stressors and impact stress has on mental health. Recommended to continue IOP tx to improve ability to set boundaries, continue use of healthy coping skills, and prevent decompensation.
--- NOTE | 2022-09-19 10:55 | BH.MDN_ITS ---
Multi-Disciplinary Note - Note 45-min Individual Time Started:: 09:15 Date: 09/19/22 Purpose of session/treatment goals addressed:: Utilized the session to review current symptoms and progress. Addressed treatment plan goals 1 and 2. Eye Contact:: Good Motor Activity:: Appropriate Appearance:: Casual Speech:: Appropriate Mood:: Anxious, Irritable Affect:: Congruent Thoughts:: Linear, Logical, No evidence of hallucinations/delusions noted Staff Interventions:: psychoeducation on: - acceptance., discharge planning, other - worked on anxiety mgmt plan. Client Response:: Pt states I'm doing better than yesterday ... yesterday my anxiety was through the roof. Poor sleep in the past few days mainly triggered by problems with his sleep apnea machine. He was able to get it fixed and reports that his sleep was way better last night. Catastrophizing yesterday regarding his CPAP machine which led to increased irritability. Overall her reports that he is getting feeling less overwhelmed. [place] I [place] and now I'm on the shore. Shared that he believes he is getting closer to accepting the changes in his life especially regarding his mother's health It is what it is. He states that he has adapted and come to terms with his mother's current functioning. I'm happy with where I'm at. Risks/Concerns:: no risks or concerns noted. Progress Toward Goals/Plan:: Progress noted per pt report. We continued to work on his anxiety management plan with the goal to have it completed by the end of the week. Plan is to discharge on 09/22/22. Pt meets with his therapist (Steven at [facility]) weekly and has an appt with his environmental journalist (Saida at ) at the end of the month. He will also continue to attend [facility] support groups 5 days a week. Pt and his siblings have arranged 06/11 care for his mother which has been very beneficial to her and has taken some stress away from patient. Increased confidence in his ability to manage his emotions. Plan to continue in [facility] to maintain gains with plan to discharge on 09/22/22. Time Stopped:: 10:00
--- NOTE | 2022-09-19 11:10 | BH.SGPN.GN ---
Behaviors/Verbalizations/Mental Status: []Eye contact is good. Motor activity is appropriate. Appearance is casual. Speech is Appropriate. Mood is anxious and euthymic. Affect is congruent. Thoughts are linear and logical. No evidence of psychosis. Client Response/Progress/Benefit: []Pt was an active participant in group discussions and experiential activity. Attentive during psychoeducation on the 4 A's (Avoid, adapt, alter, accept) of coping with stress as well as strategies to identify stressors in which one has no control, little control, or a great deal of control over. Shared that he would benefit most from working on accepting what is out of my control in regards to coping with stress of ongoing family issues. Was able to identify the connection between the experimental activity and utilization of stress management skills. Benefited from increased awareness of stress management strategies. Will continue in IOP to maintain stability, prevent decompensation, and continue to improve consistent skill application. Narrative Note: []
--- NOTE | 2022-09-22 09:00 | BH.SGPN.GN ---
Behaviors/Verbalizations/Mental Status: [] Client alert and oriented, casually dressed and groomed. Eye contact good. Motor activity appropriate. Speech within normal limits. Affect constricted, mood anxious. Thoughts linear, logical, no signs of hallucinations or delusions. Reviewed client?s symptom tracker, no risk for suicidal ideation, plan, or intent as of 09/22/22 Client Response/Progress/Benefit: [] Client responded well to session, offering ideas to peers and providing encouragement. Client reports feeling uncertain this morning. Client discussed his recent wins and progress he has made while in IOP. Client said he feels like he has made a lot of progress, but has fears of falling when it comes to his mental health and that certain people set him off. Client appeared to benefit from reflecting on his growth. Client will continue IOP tx as Client continues to struggle with avoidance, negative self-talk, and managing emotions. Narrative Note: []
--- NOTE | 2022-09-22 10:10 | BH.SGPN.GN ---
Behaviors/Verbalizations/Mental Status: [] Eye contact is good. Motor activity is appropriate. Appearance is casual. Speech is Appropriate. Mood is anxious/irritable. Affect is congruent. Thoughts are linear and logical. No evidence of psychosis Client Response/Progress/Benefit: [] Pt did not participate in group discussions. Attentive during psychoeducation. Engaged during experiential activity in which he was tasked with managing emotions related to accepting limited control of the activity. Attentive during interactive discussion as group worked to define and better understand the role and benefits of acceptance in mental health. Along with peers worked to identify barriers to acceptance which include; feeling out of control, feeling like one is giving up, leads to uncertainty of lack of control, can lead to feeling like a failure, makes one feel weak or vulnerable, and several others. Benefited from increased insight of the benefits and barriers to acceptance in mental health. Plan is to continue in IOP to prevent decompensation, increase healthy coping,provide support, and stabilize mood. Narrative Note: []
--- NOTE | 2022-09-22 14:25 | BH.MDN ---
Multi-Disciplinary Note - Note 30-min Individual Time Started:: 11:00 Date: 09/15/22 Purpose of session/treatment goals addressed:: Pt requested to speak to this therapist prior to his anticipated discharge today. Eye Contact:: Good Motor Activity:: Restless Appearance:: Casual Speech:: Appropriate Mood:: Anxious, Irritable, Depressed Affect:: Congruent Thoughts:: Linear, Logical, No evidence of hallucinations/delusions noted Staff Interventions:: psychoeducation on: - acceptance, discharge planning, other - Pt reported decompensation and was unsure about discharge today. Client Response:: Pt reports that he is not doing well. He was set to discharge from [facility] today as his insurance company had denied request for additional IOP days. We had discussed this on 09/19/22 and pt was upset however agreeable. He reports decompensation in the past few days and received an upsetting phone call this AM. Pt states I just learned that my skin cancer has come back. Catastrophizing stating I feel like I can never go outside again. Its just one thing after another. His mother's health and cognition also continue to decline and she can be difficult to manage. He shared his mother was yelling at him yesterday regarding picking up paper at local store. Additional stressor of skin cancer has him concerned that he will continue to decompensate. Absolute thinking and catastrophizing. He states that his knee is also deteriorating and I may not even walk again. He is struggling to incorporate reframing and coping skills. Very fixated on getting worse. I don't know what to do . Things just keep happening to me Hopelessness. Attempted to reframe and point our progress which he acknowledged however is upset. He was upset at insurance company and recently called them regarding their refusal to extend his days. The woman on the phone said I need more time. Unfortunately it would appear that he spoke with customer service and not anyone in the pre-authorization department. Risks/Concerns:: no risks or concerns noted. Progress Toward Goals/Plan:: Regression since last visit due in large part to additional stressors (dx of skin cancer and knee pain). These new stressors have led to catastrophizing and ruminations that he is going decompensate further and be back to where he was prior to starting the program. Restlessness. Racing thoughts. Increased irritability. The plan was for discharge this AM from [facility] however due to current decompensation it would not be beneficial to discharge pt is his current state. Struggles to incorporate skills due to irritability however we developed a plan in which pt will remain in IOP until next week which lessened his anxiety and worry. Therapist will attempt to obtain more days through his insurance company. Time Stopped:: 11:30
--- NOTE | 2022-09-25 09:05 | BH.SGPN.GN ---
Behaviors/Verbalizations/Mental Status: [] Eye contact is good. Motor activity is appropriate. Appearance is casual. Speech is Appropriate. Mood is anxious/irritable. Affect is congruent. Thoughts are linear and logical. No evidence of psychosis. Client Response/Progress/Benefit: [] Pt participated when prompted. Attentive. Shared with the group increased stress and frustration over the weekend. Briefly elaborated on his struggles and stressors which primarily revolved around his mother?s health, his caregiver roles, and his health. Shared that he struggles the most during the weekends ? thanks God its Sunday? mainly b/c he doesn?t have the support of [facility] and other appointments and routines. Pt has verbalized struggles in the past week with increased ruminations, fear, worry, and anger. Benefited from group support, encouragement, and feedback. Will continue in IOP as he benefits from additional support, routine, encouragement, and psychoeducation. Narrative Note: []
--- NOTE | 2022-09-25 10:05 | BH.SGPN.GN ---
Behaviors/Verbalizations/Mental Status: []Pt alert and oriented, casually dressed and groomed. Eye contact good. Motor activity appropriate. Speech within normal limits. Affect constricted, mood anxious. Thoughts linear, logical, no signs of hallucinations or delusions. Client Response/Progress/Benefit: []Pt was an active participant AEB contributing to discussion when prompted taking and engaging in group activity. Connected with the topic of pitfalls and listened to group discussion on internal and external barriers that prevent from choosing a healthier path to mental wellness. Pt at times appearing to struggle with following along in group due to hearing issues. Group worked together to identify examples of personal internal pitfalls and pt identified his as struggling with rumination and preoccupation when facing a new or unexpected stressor.? Pt benefited from group as Pt learned to better identify and normalize potential barriers to improving mental health symptoms. Pt will continue IOP tx to prevent decompensation, increase stress and anxiety management skills, and provide emotional support as pt processes new medical concerns. ? Narrative Note: []
--- NOTE | 2022-09-25 11:10 | BH.SGPN.GN ---
Behaviors/Verbalizations/Mental Status: []Pt alert and oriented, neatly dressed and groomed. Eye contact fair. Motor activity appropriate. Speech within normal limits. Affect constricted, mood anxious. Thoughts linear, logical, no signs of hallucinations or delusions. Client Response/Progress/Benefit: []Pt receptive of session, engaged throughout AEB actively listening and contributing to discussion, as well as taking notes.? Pt participated in the experiential activity and did well to communicate ideas with peers and manage emotions. Pt and group processed how being open-minded and having good communication positively impacted the group. Group worked together to identify different coping skills to help manage pitfalls. Pt identified pitfalls they struggle with and shared wanting to work on pitfall of catastrophizing by ?catching myself before I go down that path.? Benefited from identifying personal pitfalls and strategies to overcome these pitfalls. Will continue IOP tx to reinforce healthy coping skills and provide support through current stressors. Narrative Note: []
--- NOTE | 2022-09-29 09:02 | BH.SGPN.GN ---
Behaviors/Verbalizations/Mental Status: []Eye contact good. Motor activity appropriate. Speech within normal limits. Affect congruent, mood anxious and agitated. Thoughts linear, logical, no signs of hallucinations or delusions. Reviewed client?s symptom tracker, no risk for suicidal ideation, plan, or intent as of 09/29/2022. Client Response/Progress/Benefit: []Client responded well to session, attentive and willing to process with group. Shared struggling with significant anxiety and frustration today. Notes this is related to his mother?s health and his sister visiting for that purpose. Discussed receiving criticism from his sister which had been an unexpected stressor and then feeling frustrated that she later asked pt to come visit. Reports difficulties in managing stressors outside his control and appeared to benefit from supportive feedback and encouragement provided by the group. Recommended continued IOP tx to continue to increase overall functioning, increase distress tolerance, and increase thought challenging. Narrative Note: []
--- NOTE | 2022-09-29 10:10 | BH.SGPN.GN ---
Behaviors/Verbalizations/Mental Status: []Pt alert and oriented, neatly dressed and groomed. Eye contact good. Motor activity restless-pt's baseline. Speech within normal limits. Affect flat, mood anxious. Thoughts linear, logical, no signs of hallucinations or delusions. Client Response/Progress/Benefit: []Pt was a passive participant in group discussion but engaged during experiential activity. Attentive during psychoeducation on possible causes to developing and maintain unhealthy coping skills which can impact mental health. Pt listened during interactive discussion identifying common unhealthy coping skills. Able to make connections between experiential activity (folder towers) and importance of having a solid base of internal and external coping skills. Benefited from increased awareness of internal and external coping skills and identifying unhealthy coping skills. Pt will continue in IOP for social support, improve daily functioning, and increase emotional regulation skills. ??? Narrative Note: []
--- NOTE | 2022-09-29 12:01 | BH.MDN ---
Multi-Disciplinary Note - Note 60-min Individual Time Started:: 11:00 Date: 09/29/22 Purpose of session/treatment goals addressed:: Pt reported during 1st group begin overwhelmed for the past couple of days. Met with pt to process thoughts and struggles. Eye Contact:: Good, Fair Appearance:: Casual Speech:: Appropriate Mood:: Anxious, Irritable, Depressed Affect:: Congruent Thoughts:: Linear, Logical, No evidence of hallucinations/delusions noted Staff Interventions:: thought challenging, CBT techniques, strengths perspective Client Response:: Pt reported feeling overwhelmed over the last several days. Mom is getting worse. Sister is in town and according to pt is also overwhelmed with pt's rapid decline. According to pt his sister has not been home since his mother's recent hospitalization and decline so this is all new to her. Pt feels that his sister has been mean and often times confrontational with him which has led severe ruminations, worry, anger, and stress. Pt has been unable to get things out of my head. States I was thinking about going inpatient. He denies suicidal ideations, plan, or intent. Denies passive thoughts of . Denies panic attacks. He primary concern is stress and manaing ruminating thoughts. He shared that he has not been taking time for himself, utilizing coping strategies, and is engaging in arguments with his sister and mother (who appears to have dementia). Engaging and argument with mother with severe memory issues is not beneficial to either. Pt was able to take some deep breaths and we developed a plan of him to set boundaries with sister, take respite from his mother (sister is living at the house and they have 24/7), and implement self-care strategies (go to [employer] this weekend, go to [employer] to clothes shop, set aside time to watch funny shows, etc.). Reviewed acceptance strategies and affirmations. He was initially reluctant to obtain respite stating what if this is the last time I will be with my sister and mother together Insight that he is burning out and cannot maintain at his current unrealistic expectations. Normalized caregiver's taking respite. Risks/Concerns:: Denies ideations, plan, or intent. No psychosis. Primary concerns is stress related to family events which he is ruminating. Does not present as danger to self or others. Contemplated voluntary admission when stressed however decided against it. Based on what he discussed he does not meet criteria for admissions as he is looking for respite. Sister is leaving next week which will provide some relief. Progress Toward Goals/Plan:: Pt reports regression as mentioned above. He has decreased effective self-care and coping strategies. Struggling with acceptance and setting unrealistic boundaries. Responded well to session and plan was set to return to self-care, boundary setting, affirmations for acceptance, and normalizing respite as caregiver. Plan is to continue in IOP to prevent decompensation and increase healthy coping. Time Stopped:: 11:55
--- NOTE | 2022-10-02 09:00 | BH.SGPN.GN ---
Behaviors/Verbalizations/Mental Status: [] Eye contact is good. Motor activity is appropriate. Appearance is casual. Speech is Appropriate. Mood is anxious/irritable. Affect is congruent. Thoughts are linear and logical. No evidence of psychosis. Reviewed daily check in sheet and no reports of suicidal ideations or intent. Client Response/Progress/Benefit: [] Pt participated when prompted. Attentive. Emotion for today is good. Mental health win was limited time with stressful support over the weekend. Completed self-care and coping strategies over the weekend which helped minimize his distress. Asked feedback from the group as he has been ruminating extensively on something that his sister had verbalized to him. According to pt his sister often tells him You'll be OK when mom passes. He is not sure why she keeps telling him this and finds it to be very triggering. Why say that? Group provided feedback regarding communicating his concerns with his sister and/or strategies to accept and process his frustrations. Will continue in IOP to prevent decompensation, provide support, and increase coping skills. Narrative Note: []
--- NOTE | 2022-10-02 10:12 | BH.SGPN.GN ---
Behaviors/Verbalizations/Mental Status: []Pt alert and oriented, appropriate grooming/appearance. Eye contact fair. Motor activity appropriate. Speech within normal limits. Affect congruent, mood depressed and anxious. Thoughts linear, logical, no signs of hallucinations or delusions. Client Response/Progress/Benefit: []Pt first day of IOP tx, she was an active participant in group discussions. Attentive during psychoeducation. Attentive during interactive discussions in which peers attempted to define crisis. Pt identified some examples of potential crisis. Group also worked together to identify unhealthy responses to crisis which included; isolation, self-harm, substance abuse, avoidance, and lashing out. Pt identified personal warning signs as increased confusion, rumination, and feeling overwhelmed. Benefited from increased understanding of crisis and awareness of personal responses to crisis. Pt will continue IOP tx to prevent decompensation and continue to promote healthy skill application, as well as improve mood stability. Narrative Note: []
--- NOTE | 2022-10-02 14:35 | BH.MDN_ITS ---
Multi-Disciplinary Note - Note 30-min Individual Time Started:: 11:30 Date: 10/02/22 Purpose of session/treatment goals addressed:: Met with pt to review progress and current symptoms. Therapist has been checking in with patient every day in the program to provide support, encourage consistent use of skills, and minimize decompensation. Eye Contact:: Good Motor Activity:: Appropriate Appearance:: Casual Speech:: Appropriate Mood:: Anxious Affect:: Congruent Thoughts:: Linear, Logical, No evidence of hallucinations/delusions noted Staff Interventions:: thought challenging, psychoeducation on: - acceptance, resilency,, strengths perspective Client Response:: Pt followed through with coping and respite strategies discussed on 09/29/22 and reports feeling less overwhelmed. He continues to ruminate on conversations with his sister she keeps telling me that when mom dies I will be OK. Pt states I don't know why she keeps bringing that up. Pt believes that he has accepted that his mother's health will continue to decline, however prefers not to focus on this unless its necessary. Agreeable to assertively communicating with his sister he concerns and then set boundaries for his own self-care. We reviewed his coping strategies for this week and praised him for his use of the skills. Risks/Concerns:: no risks or concerns noted. Progress Toward Goals/Plan:: Progress noted. Followed through with coping strategies and respite over the weekend. Limited time with sister who has been a stressor recently. According to pt she is very focused on the negatives and oft en makes statement which impact pt's self-esteem such as you talk to loud. Pt will ruminate on this which impacts his thoughts, feelings, and actions. I don't talk in groups because I thought I was too loud. He was reassured that his voice is WNL. Progress noted from last week. Less overwhelmed and more hopeful. Progress noted on acceptance and challenging unrealistic expectations. Recent crises and change have been significantly impactful to his mood. Current plan to to re-assess his progress later this week. If he continues to be stable plan is to discharge. Time Stopped:: 12:00
--- NOTE | 2022-10-06 09:00 | BH.SGPN.GN ---
Behaviors/Verbalizations/Mental Status: [] Eye contact is good. Motor activity is appropriate. Appearance is casual. Speech is Appropriate. Mood is anxious. Affect is congruent. Thoughts are linear and logical. No evidence of psychosis. Reviewed daily check in sheet and no reports of suicidal ideations or intent. Client Response/Progress/Benefit: [] Pt participated when prompted. Attentive. Daily symptom tracker notes 04/20 for depression, anxiety, and irritability. Pt continues to reports significant anxiety and grief related to his mother's health. Its hard to see my mom like this. Shared feelings of guilt that he gets overwhelmed and irritable with her. 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 Thanks I needed that. Group provided reassurance that he was managing this stressors and caring for his mother the best he could which was beneficial. He was able to identify coping plan for this weekend as weekends are tough for me. Group provided support and additional suggestions/feedback to improve parts of his plan. Today is scheduled to be pt's last day in [facility]. He is very apprehensive about this and will meet with therapist after group to further discuss. Narrative Note: []
--- NOTE | 2022-10-06 10:35 | BH.MDN_ITS ---
Multi-Disciplinary Note - Note 30-min Individual Time Started:: 10:00 Date: 10/06/22 Purpose of session/treatment goals addressed:: Reviewed current symptoms and progress in IOP. Discharge planning. Eye Contact:: Good Motor Activity:: Appropriate Appearance:: Casual Speech:: Appropriate Mood:: Anxious Affect:: Congruent Thoughts:: Linear, Logical, No evidence of hallucinations/delusions noted Staff Interventions:: discharge planning, strengths perspective Client Response:: Pt continues to cope with his mother's failing health which has been challenging. There are days in which he manages well and other's where he struggles. Its hard to see her like this. Several very overwhelming interactions and events this week which he ruminates on. He is able to re- direct his thinking to be more realistic and not punish himself for not being able to identify positives or seeing the bright side of things. During our talk today he was able to verbalize acceptance affirmations, normalize his sadness/grief, acknowledge the need for self-care, and verbalize that self-care is not selfish b/c he mother is struggling. We reviewed the anxiety mgmt plan that we created, which includes radical acceptance skills. Risks/Concerns:: no risks or concerns noted. Progress Toward Goals/Plan:: Plan is for patient to discharge today. He continues to experience grief reactions related to his mother's health, however as noted above increased skills, support, and education during this difficult time have lead to progress accepting this crisis and normalizing his emotions and struggles. Plan is to discharge pt from [facility] level of care as he has reached maximum benefit. Pt has completed anxiety mgmt plan and is able to identify common stress reactions to grief/crisis. Two weeks into his IOP admission pt was faced with significant stressor (mother's hospitalization, decompensating health, and need for 24/7 care) which significantly impacted overall progress. [facility] was beneficial in providing support as well as skills during this difficult time. Overall pt's scores on the DSM-5 outcomes increased or worsened since admissions, however this is to be expected due to experiencing significant event after admission. Overall scores increased 73%. Pt scores on the depression and anxiety domains also increased. Pt has a strong aftercare plan and he is linked with counseling 2x monthly, psychiatrist, and attended [facility] support groups 5 days per week. Time Stopped:: 10:30
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
--- NOTE | 2022-10-06 11:10 | BH.SGPN.GN ---
Behaviors/Verbalizations/Mental Status: []Pt alert and oriented, casually dressed, appropriately groomed. Eye contact good. Motor activity appropriate. Speech within normal limits. Affect congruent, mood euthymic. Thoughts linear, logical, no signs of hallucinations or delusions. Client Response/Progress/Benefit: []Pt was engaged during discussion and willing to complete the worksheet challenging them to develop a personal SMART goal. Pt chose the goal of reading his handout from individual therapy at least one time a day. Pt stated this will benefit them by reminding them of skills that are helpful. Pt able to identify barriers that could get in the way of accomplishing his goal. Pt receptive to identifying solutions for these barriers and willing to begin working on this goal. Benefited from this group by developing a short-term SMART goal related to mental health. Pt has made treatment progress since starting IOP and will discharge today.
== END 2022-10-06 13:35 | disposition home or self-care (01) ==
LOC: BHIOP 07:41
PROVIDERS: PCP Internal Medicine; Referring Provider Psychiatry & Neurology Psychiatry; Visit Provider Psychiatry & Neurology Psychiatry
DX: F43.23 Adjustment disorder with mixed anxiety and depressed mood (principal); F41.1 Generalized anxiety disorder
CPT/HCPCS: S9480; 90832; 90834; 90837; 90853

== ENCOUNTER 2022-10-14 10:27 | Emergency (ER) | payer MEDICARE, MEDICAID, SELFPAY ==
[2022-10-14 10:30] VITALS: BP 136/90; PULSE 91; RESP 21; TEMP 36.6; O2SAT 100; BMI 21.9
[2022-10-14 10:32] VITALS: BP 136/90; PULSE 91; RESP 24; TEMP 36.6; O2SAT 100
[2022-10-14 10:33] VITALS: O2SAT 100
--- NOTE | 2022-10-14 10:40 | ED.VIS.DYS ---
HPI History of Present Illness Chief Complaint: Shortness of Breath Detail of Chief Complaint: Shortness of breath Informant: patient Narrative Narrative: Patient presents to the emergency department with complaint of shortness of breath that started this morning. Patient states that he went to urgent care where they called EMS to bring him to the emergency department. Patient has history of asthma and history of DVT and on rivaroxaban. Patient has been compliant with his medications. Patient states he has had a slight cough and no fever. Patient denies chest pain. Patient denies recent travel or surgery. 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 DVT (deep venous thrombosis) Endocarditis Essential (primary) hypertension GERD (gastroesophageal reflux disease) Health care maintenance Hearing loss Hiatal hernia history of broken shoulder History of hemorrhoids Hyperlipidemia Impacted cerumen, right ear Knee pain Kyphoscoliosis Major depressive disorder, recurrent severe without psychotic features Nonhealing surgical wound KULWANT (obstructive sleep apnea) Osteoporosis Pneumonia Rotator cuff disorder Sepsis Severe headache Skin cancer, basal cell Trigger thumb, left thumb Home Medications denosumab 60 mg/mL subcutaneous syringe (Prolia) 60 mg subcut [id number] #1 mL 08/17/20 [Rx Last Taken Unknown] albuterol sulfate 90 mcg/actuation aerosol inhaler (ProAir HFA) 2 puff inhalation Q6H PRN shortness of breath or wheezing #18 grams 07/06/21 [Rx Last Taken Unknown] isosorbide mononitrate 30 mg tablet,extended release 24 hr 30 mg PO DAILY heart #90 tabs 10/14/21 [Rx Last Taken Unknown] albuterol sulfate 90 mcg/actuation breath activated powder inhaler 2 inh inhalation Q4H PRN shortness of breath or wheezing #1 ea 03/04/22 [Rx Last Taken Unknown] rivaroxaban 20 mg tablet 20 mg PO DAILY blood thinner #90 tabs 01/10/23 [Rx Last Taken Unknown] atorvastatin 20 mg tablet 20 mg PO DAILY cholesterol #90 tabs 06/09/22 [Rx Last Taken Unknown] citalopram 40 mg tablet 40 mg PO DAILY depression #90 tabs 06/09/22 [Rx Last Taken Unknown] quetiapine 25 mg tablet 25 mg PO BID mental health #180 tabs 06/09/22 [Rx Last Taken Unknown] montelukast 10 mg tablet 10 mg PO QHS asthma #90 tabs 07/21/22 [Rx Last Taken Unknown] quetiapine 200 mg tablet,extended release 24 hr (Seroquel XR) 200 mg PO QHS 08/09/22 [History Last Taken Unknown] fluticasone furoate 200 mcg-vilanterol 25 mcg/dose inhalation powder (Breo Ellipta) 1 inh inhalation DAILY #3 ea 08/31/22 [Rx Last Taken Unknown] Allergy/AdvReac Type Severity Reaction Status Date / Time codeine Allergy Hives, Verified 10/14/22 10:30 Nausea gluten Allergy Diarrhea Verified 10/14/22 10:30 aspirin [ASA] AdvReac Nausea Verified 10/14/22 10:30 bee venom protein (honey bee) AdvReac Shortness Verified 10/14/22 10:30 of breath prednisone AdvReac Unknown Verified 10/14/22 10:30 Family History Daughter Cancer Sister Cancer Father Hypertension Surgical History H/O left inguinal hernia repair History of carpal tunnel release History of colectomy History of colonoscopy (~2017) History of creation of ventriculoperitoneal shunt History of kyphoplasty History of left heart catheterization (09/11/17) History of shoulder surgery Social History housing: house pets and animals: Yes pets and animals: cat(s) and dog(s) Smoking Status: Never smoker second hand exposure: No alcohol intake: never substance use type: does not use ROS ROS ED Review of Systems ROS Unobtainable: other Constitutional Constitutional ED: Reports lethargy; Denies chills, fever(s), sweats or weight loss Eyes Eyes: Denies blurry vision, change in vision or diplopia ENT ENT ED: Denies rhinorrhea or sore throat Cardiovascular Cardiovascular: Denies chest pain, orthopnea or racing heartbeat Respiratory/Chest Respiratory/Chest: Reports cough, dyspnea and dyspnea on exertion; Denies orthopnea or sputum Gastrointestinal Gastrointestinal: Denies abdominal pain, diarrhea, nausea or vomiting Genitourinary Genitourinary ED: Denies dysuria, hematuria or urinary frequency Musculoskeletal Musculoskeletal: Denies arthralgias, back pain, myalgias or neck pain Integumentary Denies abscess, Abrasions or rash Neurologic Neurologic: Denies headache(s) or weakness Psychiatric Psychiatric: Denies anxiety, depression or suicidal thoughts Endocrine Endocrinology: Denies polydipsia, polyphagia or polyuria Hematologic/Lymphatic Hematologic/Lymphatic: Denies easy bleeding, easy bruising or lymphadenopathy Allergic/Immunologic Allergic/Immunologic ED: Denies mouth swelling, tongue swelling or urticaria EXAM Physical Exam Const Vital Signs: 10/14/22 10:30 10/14/22 10:32 10/14/22 10:33 Temperature 98 F 98 F Temperature Source Oral Oral Pulse Rate 91 91 Respiratory Rate 21 H 24 H Respiratory Effort Short of Breath Accessory Muscle Use Respiratory Pattern Tachypnea Blood Pressure 136/90 H 136/90 H Blood Pressure Mean 105 105 Pulse Ox 100 100 Oxygen Delivery Method Room Air Room Air Room Air 10/14/22 10:46 10/14/22 12:02 10/14/22 12:02 Temperature 97 F L Temperature Source Temporal Pulse Rate 92 103 H 103 H Respiratory Rate 22 H 24 H 24 H Respiratory Effort Respiratory Pattern Tachypnea Blood Pressure 137/68 H 137/68 H Blood Pressure Mean 91 91 Pulse Ox 94 95 Oxygen Delivery Method Room Air Room Air 10/14/22 12:12 Temperature 99.9 F H Temperature Source Oral Pulse Rate Respiratory Rate Respiratory Effort Respiratory Pattern Blood Pressure Blood Pressure Mean Pulse Ox Oxygen Delivery Method Positive well nourished and well developed General Appearance ED: well developed and NAD HEENT Reports TM's clear and moist mucous membranes normocephalic and atraumatic; Negative for trauma or tenderness Tympanic Membrane ED: Yes TM's clear Eyes PERRL and EOMs intact bilaterally General Eye ED: Negative for pale conjunctiva or scleral icterus Neck no lymphadenopathy, supple and no JVD General: Negative for tenderness Chest Wall inspection of chest normal and palpation of chest normal Chest: Negative for tenderness Resp normal respiratory effort and clear to auscultation bilaterally Effort and Inspection: Negative for respiratory distress or pain with movement Auscultation: Negative for rhonchi, wheezes or diminished lung sounds Cardio regular rate, regular rhythm, S1 normal heart sound, S2 normal heart sound and no murmurs Peripheral Pulses: pulses 2+ throughout GI normal to inspection, nondistended, normoactive bowel sounds, soft to palpation, non-tender, non-distended and no masses Back/Spine no CVA tenderness and no thoracic nor lumbar tenderness Extremity normal to inspection General Extremety ED: Negative for edema General Extremity: Negative for edema Neuro oriented x3, CN's II-XII intact bilaterally, no sensory deficits noted and gait normal Sensorium / Orientation: awake, alert, oriented to person, oriented to place and oriented to time Motor Exam: strength 5/5 throughout and strength abnormal Psych mental status grossly normal Skin no rashes or lesions noted and no wounds MDM MDM MDM Narrative Medical decision making narrative: Patient presents via EMS with complaint of dyspnea. He does have history of asthma. Patient believes he had a fever at home but none documented here. Patient had a negative COVID and flu test at urgent care. I did obtain a chest x-ray here that was normal. I did give him a DuoNeb aerosol and an albuterol aerosol he is feeling improved although still slightly tachypneic. I did ask about anxiety and he does have history of anxiety but does not think he feels anxious. Patient thinks maybe is coming down with a bug. Clinically he looks well. I feel he can be discharged to home. Patient advised to return if increasing shortness of breath or condition should worsen anyway. We talked about adding prednisone however he states he does not tolerate prednisone and cannot take it. Radiography Chest X-Ray - ED: 1 View Diagnostic Testing: Clinical Impression(s) from Imaging Studies Chest X-Ray 10/14/22 11:20 IMPRESSION: No radiographic evidence of acute cardiopulmonary disease. Electronically Signed: Emmy Aguiar MD at 11:46 EDT , 1 view chest x-ray obtained interpreted by myself no acute disease process. Radiology in agreement. Discharge Plan Triage Chief Complaint: Shortness of Breath ED Provider: Gayathri Cheema Dx/Rx/DC Orders Clinical Impression: Acute asthmatic bronchitis Instructions: ED Bronchitis with Wheezing (Adult) Prescriptions: No Action albuterol sulfate [ProAir HFA] 90 mcg/actuation HFA aerosol inhaler 2 puff inhalation Q6H PRN (Reason: shortness of breath or wheezing) Qty: 18 6RF fluticasone furoate-vilanterol [Breo Ellipta] 200-25 mcg/dose blister with device 1 inh INHALATION DAILY Qty: 3 3RF albuterol sulfate 90 mcg/actuation aerosol powdr breath activated 2 inh inhalation Q4H PRN (Reason: shortness of breath or wheezing) Qty: 1 0RF Prolia 60 mg/mL syringe 60 mg SC [id number] Qty: 1 1RF isosorbide mononitrate 30 mg tablet extended release 24 hr 30 mg PO DAILY Qty: 90 3RF rivaroxaban 20 mg tablet 20 mg PO DAILY Qty: 90 3RF quetiapine 25 mg tablet 25 mg PO BID Qty: 180 0RF citalopram 40 mg tablet 40 mg PO DAILY Qty: 90 0RF atorvastatin 20 mg tablet 20 mg PO DAILY Qty: 90 2RF montelukast 10 mg tablet 10 mg PO QHS Qty: 90 3RF quetiapine [Seroquel XR] 200 mg Tablet Extended Release 24 Hr 200 mg PO QHS [facility]errals: Yany Pederson MD [Med Staff - Active Staff] - 3-5 Days Disposition Disposition: Home, Self Care Discharge Date/Time: 10/14/22 13:11
[2022-10-14] MEDS: Ipratropium/Albuterol Sulfate 3 ML AMPUL.NEB INHALATION (10:45)
[2022-10-14] MEDS: Albuterol 2.5 MG/3 ML VIAL.NEB. INHALATION (10:45)
[2022-10-14 10:46] VITALS: PULSE 92; RESP 22
--- NOTE | 2022-10-14 11:20 | RAD_ITS ---
INDICATION: dyspnea EXAMINATION/TECHNIQUE: X-RAY - XR Chest 2 views COMPARISON: Prior study dated: December 24, 2021 FINDINGS: LINES/DEVICES: There is a ventriculoperitoneal catheter projecting over the soft tissues of the left neck, the left hemithorax and the visualized left upper abdomen. LUNGS: No consolidation, edema or effusion. No pneumothorax. MEDIASTINUM AND CARDIOVASCULAR STRUCTURES: Cardiac silhouette not enlarged. Central airways and mediastinal contour are unremarkable. BONES AND SOFT TISSUES: Unremarkable. RAD/Chest 1 View (Portable) IMPRESSION: No radiographic evidence of acute cardiopulmonary disease. Electronically Signed: Emmy Aguiar MD at 11:46 EDT ,
[2022-10-14 12:02] VITALS: BP 137/68; PULSE 103; RESP 24; TEMP 36.1; O2SAT 94; O2SAT 95
[2022-10-14 12:12] VITALS: TEMP 37.7
[2022-10-14] MEDS: Acetaminophen 500 MG Tablet 1000 MG PO (12:18)
--- NOTE | 2022-10-14 13:11 | ED.RN ---
devulcan[employer] charger talked to pt's mother. is getting a ride for pt. pt to waiting room.
== END 2022-10-14 13:11 | disposition home or self-care (01) ==
PROVIDERS: Emergency Provider Emergency Medicine; Visit Provider Emergency Medicine
DX: J45.909 Unspecified asthma, uncomplicated (principal); I10 Essential (primary) hypertension; E78.5 Hyperlipidemia, unspecified; Z86.718 Personal history of other venous thrombosis and embolism; Z79.01 Long term (current) use of anticoagulants; M81.0 Age-related osteoporosis without current pathological fracture; F32.A Depression, unspecified
CPT/HCPCS: 71045; 94640; 99284

== ENCOUNTER → 2023-03-12 | Outpatient (CLI) | payer MEDICARE, MEDICAID, SELFPAY ==
--- NOTE | 2023-03-12 16:20 | RAD_ITS ---
STUDY: X-RAY - THORACIC SPINE REASON FOR EXAM: Male, 62 years old. Pain. TECHNIQUE: 3 view(s) of the thoracic spine were obtained. COMPARISON: Thoracic spine CT dated February 06, 2017 FINDINGS: Marked osteopenia. Increased kyphosis. Moderate thoracolumbar scoliosis. Stable anterior wedge compression deformity of a midthoracic vertebral body status post kyphoplasty. Anterior wedge compression deformity of a separate thoracic vertebral body in the lower thoracic spine. Diffuse intervertebral disc space narrowing with osteophyte formation. [employer] shunt and clips unchanged. RAD/Thoracic Spine 3 Views IMPRESSION: Stable osteopenia, diffuse moderate to marked thoracolumbar spondylosis, indeterminate anterior wedge compression deformities of 2 thoracic vertebral bodies, one with kyphoplasty, and no new findings. Electronically Signed: Amaury Garnett MD at 14:15 EST ,
== END | disposition home or self-care (01) ==
LOC: RAD 16:14
PROVIDERS: Referring Provider Anesthesiology Pain Medicine; Visit Provider Anesthesiology Pain Medicine
DX: M47.814 Spondylosis without myelopathy or radiculopathy, thoracic region (principal)
CPT/HCPCS: 72072

== ENCOUNTER → 2023-07-16 | Outpatient (CLI) | payer MEDICARE, MEDICAID, SELFPAY ==
[2023-07-16 18:16] LABS: Absolute Lymphocyte Count 1.32 X10^3/uL (0.83-4.51); Absolute Neutrophil Count 3.3 X10^3/uL (2.0-7.7); Basophil# 0.02 X10^3/uL; Basophil% 0.4 % (0-1); Eosinophil# 0.13 X10^3/uL; Eosinophils% 2.5 % (0-5); Hematocrit 38.8 % (40-54); Hemoglobin 12.1 g/dL (13.0-16.5); Lymphocyte # 1.32 X10^3/ul (0.83-4.51); Mean Corp Hgb Conc 31.2 g/dL (32-36); Mean Corpuscular Hgb 26.5 pg (27.0-32.0); Mean Corpuscular Volume 84.9 fL (80-94); Mean Platelet Vol. 9.5 fl (6.2-12.0); Monocyte# 0.47 X10^3/uL; Monocyte% 8.9 % (0-10); NRBC Flagged by Analyzer 0 % (0-5); Neutrophil # 3.31 X10^3/uL (2.7-7.7); Neutrophil % 62.8 % (47-70); Platelet Count 220 K/mm3 (150-450); RBC Distribution Width CV 17.1 % (11.6-14.6); RBC Distribution Width SD 52.9 fl (35.1-43.9); Red Blood Count 4.57 M/mm3 (4.6-6.2); White Blood Count 5.3 K/mm3 (4.4-11.0)
[2023-07-16 18:17] LABS: Internal QC Validated? YES +Cl - CLEAR BKGD; Monotest Negative (Negative); Record Kit Lot#, Mono 13231163
[2023-07-16 18:33] LABS: Anion Gap 4 (5-15); BUN 19 mg/dL (7-18); BUN/Creat Ratio 32.4 RATIO (10-20); Calcium,Total 8.9 mg/dL (8.5-10.1); Chloride 109 mmol/L (98-107); Creatinine, Serum 0.59 mg/dL (0.70-1.30); EST Glomerular Filtration Rate 148 mL/min (>60); Est Glom Filt Rate - Afr Amer 179 mL/min (>60); Glucose 98 mg/dL (74-106); Potassium 4.1 mmol/L (3.5-5.1); Sodium Level 142 mmol/L (136-145)
== END | disposition home or self-care (01) ==
PROVIDERS: Referring Provider Nurse Practitioner Family; Visit Provider Nurse Practitioner Family
DX: R50.9 Fever, unspecified (principal)
CPT/HCPCS: 36415; 80048; 85025; 86308

== ENCOUNTER 2023-10-17 14:36 | Emergency (ER) | payer MEDICARE, MEDICAID, SELFPAY ==
[2023-10-17 14:37] VITALS: BP 128/91; PULSE 100; RESP 32; TEMP 36.9; O2SAT 99
[2023-10-17 15:04] VITALS: O2SAT 98
--- NOTE | 2023-10-17 15:31 | ED.VIS.DYS ---
HPI History of Present Illness Chief Complaint: Shortness of Breath Detail of Chief Complaint: Asthma flare after being exposed to someone smoking. Informant: patient Onset/Context/Timing Onset: Today and Hours Context: gradual Timing: Continuous Quality: Positive for Wheezing Current Severity: Mild Maximum Severity: Mild Worsened by: Nothing Relieved by: Nothing Associated Symptoms Negative for cough, rhinorrhea, white sputum, yellow sputum or green sputum Chest Pain: Positive for None Narrative Narrative: 62-year-old male history of asthma. Reportedly on Xarelto. Says that he was exposed to someone smoking today. And injury he was exposed to smoke he started having an asthma flare with the wheezing and shortness of breath. Denies any chest pain. No recent cough or fever. Has not recently been ill. Said he was fine the day in the last several days so he had the smoke exposure today. He has had similar episodes in the past. He denies any leg pain or swelling. No chest pain or hemoptysis. PE Risk Factors: Negative for Cancer, OCP + Smoking + > 35, Prior DVT or PE, Recent immobilization, Recent surgery or Recent travel Prior similar symptoms: Yes Recent Illness/Hospitalization: No PFSH [facility] Medical History Contact with and (suspected) exposure to other viral communicable diseases Acute sinusitis, unspecified Cerumen impaction Decreased hearing of right ear Osteoporosis Health care maintenance Bipolar depression De Quervain's tenosynovitis, left Trigger thumb, left thumb Anxiety disorder, unspecified Major depressive disorder, recurrent severe without psychotic features Hiatal hernia Impacted cerumen, right ear Sepsis Chronic seasonal allergic rhinitis Pneumonia Bilateral hearing loss due to cerumen impaction 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 Skin cancer, basal cell Nonhealing surgical wound Cancer of the skin, basal cell Severe headache History of hemorrhoids Arthritis Hearing loss Congenital hydrocephalus Anxiety and depression Hyperlipidemia Shortness of breath Endocarditis Chronic iron deficiency anemia DVT (deep venous thrombosis) GERD (gastroesophageal reflux disease) Colon cancer Essential (primary) hypertension Kyphoscoliosis Allergic rhinitis KULWANT (obstructive sleep apnea) history of broken shoulder Knee pain Asthma Rotator cuff disorder Home Medications ?Medication ?Instructions ?Recorded ?Last Taken ?Type denosumab 60 mg/mL subcutaneous 60 mg subcut [id number] #1 mL 08/17/20 Unknown Rx syringe (Prolia) albuterol sulfate 90 mcg/actuation 2 puff inhalation Q6H PRN 07/06/21 Unknown Rx aerosol inhaler (ProAir HFA) shortness of breath or wheezing #18 grams isosorbide mononitrate 30 mg 30 mg PO DAILY heart #90 tabs 10/14/21 Unknown Rx tablet,extended release 24 hr albuterol sulfate 90 mcg/actuation 2 inh inhalation Q4H PRN shortness 03/04/22 Unknown Rx breath activated powder inhaler of breath or wheezing #1 ea atorvastatin 20 mg tablet 20 mg PO DAILY cholesterol #90 tabs 06/09/22 Unknown Rx citalopram 40 mg tablet 40 mg PO DAILY depression #90 tabs 06/09/22 Unknown Rx albuterol sulfate 2.5 mg/3 mL 2.5 mg (3 mL) inhalation Q6H #75 mL 01/14/23 Unknown Rx (0.083 %) solution for nebulization montelukast 10 mg tablet 10 mg PO QHS asthma #90 tabs 06/26/23 Unknown Rx guaifenesin 1,200 mg tablet, 1,200 mg PO Q12H #60 tabs 08/07/23 Unknown Rx extended release 12 hr ferrous gluconate 324 mg (38 mg mg PO 08/20/23 Unknown History iron) tablet fluticasone furoate 200 1 inh inhalation DAILY #3 ea 08/20/23 Unknown Rx mcg-vilanterol 25 mcg/dose inhalation powder (Breo Ellipta) quetiapine 150 mg tablet,extended 150 mg PO QHS 08/20/23 Unknown History release 24 hr quetiapine 50 mg tablet,extended 50 mg PO QHS 08/20/23 Unknown History release 24 hr rivaroxaban 20 mg tablet 20 mg PO DAILY blood thinner #90 08/22/23 Unknown Rx tabs Allergy/AdvReac Type Severity Reaction Status Date / Time codeine Allergy Hives, Verified 10/17/23 14:39 Nausea gluten Allergy Diarrhea Verified 10/17/23 14:39 aspirin (ASA) AdvReac Nausea Verified 10/17/23 14:39 bee venom protein (honey bee) AdvReac Shortness Verified 10/17/23 14:39 of breath prednisone AdvReac Unknown Verified 10/17/23 14:39 Family History Daughter Cancer Sister Cancer Father Hypertension Surgical History History of left heart catheterization (09/11/17) History of creation of ventriculoperitoneal shunt History of shoulder surgery History of carpal tunnel release H/O left inguinal hernia repair History of kyphoplasty History of colectomy History of colonoscopy (~2017) Social History housing: house pets and animals: Yes pets and animals: cat(s) and dog(s) Smoking Status: Never smoker second hand exposure: No alcohol intake: never substance use type: does not use ROS ROS ED ROS Narrative Denies recent illness. Review of Systems ROS Unobtainable: Denies due to encephalopathy Constitutional Constitutional ED: Denies chills or fever(s) Eyes Eyes: Denies blurry vision ENT ENT ED: Denies ear pain Cardiovascular Cardiovascular: Denies chest pain Respiratory/Chest Respiratory/Chest: Reports dyspnea; Denies cough Gastrointestinal Gastrointestinal: Denies abdominal pain Genitourinary Genitourinary ED: Denies dysuria or hematuria Musculoskeletal Musculoskeletal: Denies arthralgias or back pain Integumentary Denies abscess or Abrasions Neurologic Neurologic: Denies headache(s) Psychiatric Psychiatric: Denies anxiety or depression Endocrine Endocrinology: Denies cold intolerance Hematologic/Lymphatic Hematologic/Lymphatic: Denies easy bleeding, easy bruising or lymphadenopathy Allergic/Immunologic Allergic/Immunologic ED: Denies mouth swelling, tongue swelling or urticaria EXAM Physical Exam Narrative Exam Narrative: Well-appearing 62-year-old male. Vital signs stable afebrile. Pulse oxPresent on room air no signs hypoxia. H EENT exam unremarkable. Mytrex members. Neck nontender no JVD. No lymphadenopathy. Lungs prolonged expiratory phase bilaterally. Expiratory wheezes bilaterally. No rales or rhonchi. Heart regular rhythm no murmur rate about 90. Chest wall and ribs nontender. Abdomen soft nontender. Back nontender. Significant kyphosis. Moving all 4 extremities. Nontender no edema. Neurologically is awake and alert no focal motor deficits. Const Vital Signs: 10/17/23 14:37 10/17/23 15:04 10/17/23 15:33 Temperature 98.5 F Temperature Source Temporal Pulse Rate 100 81 Respiratory Rate 32 H 18 Respiratory Effort Short of Breath Blood Pressure 128/91 H 129/81 H Blood Pressure Mean 103 97 Pulse Ox 99 96 Oxygen Delivery Method Room Air Room Air 10/17/23 15:37 Temperature Temperature Source Pulse Rate 94 Respiratory Rate 16 Respiratory Effort Blood Pressure Blood Pressure Mean Pulse Ox Oxygen Delivery Method Positive well nourished and well developed; Negative for obese, cachectic, contractures or unkempt General Appearance ED: well developed and NAD; Negative for unkempt, cachectic, contractures or pallor Nutritional Appearance: Negative for cachectic or obese HEENT Reports moist mucous membranes; Denies dry mucous membranes Negative for atraumatic, trauma or tenderness Mouth ED: No dry mucous membranes Mouth: No dry mucous membranes Eyes PERRL and EOMs intact bilaterally General Eye ED: Negative for pale conjunctiva, scleral icterus or other Neck no lymphadenopathy, supple, no meningeal signs and no JVD General: Negative for tenderness or other Lymph Lymphatic: Negative for other Chest Wall Chest: Negative for other Resp No normal respiratory effort and No clear to auscultation bilaterally Resp Narrative: Prolonged expiratory phase. Bilateral expiratory wheezing. No rales or rhonchi. Equal symmetrical. Auscultation: wheezes; Negative for rales or rhonchi Cardio regular rate, regular rhythm, S1 normal heart sound, S2 normal heart sound and no murmurs Rate: Negative for bradycardia or tachycardic Rhythm: Negative for abnormal rhythm GI non-tender, non-distended and no masses Palpation: soft; Negative for tender, guarding or rebound tenderness present Back/Spine no CVA tenderness Extremity normal to inspection General Extremety ED: Negative for edema or tenderness General Extremity: Negative for edema Neuro oriented x3 and CN's II-XII intact bilaterally Speech: speech normal Motor Exam: strength 5/5 throughout Psych mental status grossly normal Appearance: Negative for unkempt Attitude: No agitated Mood & Affect: Negative for depressed Thought Process: normal thought process Skin no wounds and skin turgor normal General Skin Exam: Negative for jaundice or pallor Lesions: no lesions Rashes: no rashes Trauma: Negative for abrasion or laceration MDM MDM MDM Narrative Medical decision making narrative: 62-year-old male was is a smoker and started wheezing. Will be treated with a DuoNeb aerosol. EKG was performed in triage I do not feel this is to be cardiac. Chest x-ray will be obtained. States he has a reaction to prednisone I will clear that with him. Repeat exam patient is doing well at 3:57 PM. Received his DuoNeb aerosol. I was then given initially prednisone he said he cannot take steroids because his reaction to them. So that was held off. Patient be discharged home and uses inhaler as needed. History & Record Review Discussion w/independent historian: Patient Radiography Chest X-Ray - ED: 1 View, Read by ED Physician, Read by Radiologist, Heart, Lungs, Mediastinum, Bony Structures, No Acute Disease and Chronic Changes Diagnostic Testing: Clinical Impression(s) from Imaging Studies Chest X-Ray 10/17/23 15:40 IMPRESSION: No radiographic evidence of acute cardiopulmonary disease. Electronically Signed: Rene Mcgee MD at 15:50 EDT , Chest x-ray portable, single view turnabout myself and radiologist shows no acute process. Normal cardiac silhouette. Normal lung man. He does have significant scoliosis of his thoracic spine. Rhythm Strip Rhythm Strip: Sinus Rhythm Rate: 97 Ectopy: PVC(s) EKG Initial EKG: Attestation: I personally reviewed and interpreted this EKG as follows: Interpretation: Sinus Rhythm and No Acute Injury Pattern Comments: Normal sinus rhythm rate 97 no acute signs of RI or ischemia. Frequent PVCs. Bigeminy. Discharge Plan Triage Chief Complaint: Shortness of Breath ED Provider: Jed Alicea Dx/Rx/DC Orders Clinical Impression: Asthma exacerbation Instructions: Asthma Prescriptions: No Action albuterol sulfate [ProAir HFA] 90 mcg/actuation HFA aerosol inhaler 2 puff inhalation Q6H PRN (Reason: shortness of breath or wheezing) Qty: 18 6RF albuterol sulfate 90 mcg/actuation aerosol powdr breath activated 2 inh inhalation Q4H PRN (Reason: shortness of breath or wheezing) Qty: 1 0RF albuterol sulfate 2.5 mg /3 mL (0.083 %) solution for nebulization 2.5 mg inhalation Q6H Qty: 75 0RF ferrous gluconate 324 mg (38 mg iron) tablet PO quetiapine 150 mg tablet extended release 24 hr 150 mg PO QHS quetiapine 50 mg tablet extended release 24 hr 50 mg PO QHS fluticasone furoate-vilanterol [Breo Ellipta] 200-25 mcg/dose blister with device 1 inh INHALATION DAILY Qty: 3 3RF Prolia 60 mg/mL syringe 60 mg SC [id number] Qty: 1 1RF isosorbide mononitrate 30 mg tablet extended release 24 hr 30 mg PO DAILY Qty: 90 3RF citalopram 40 mg tablet 40 mg PO DAILY Qty: 90 0RF atorvastatin 20 mg tablet 20 mg PO DAILY Qty: 90 2RF montelukast 10 mg tablet 10 mg PO QHS Qty: 90 3RF guaifenesin 1,200 mg tablet extended release 12hr 1,200 mg PO Q12H Qty: 60 6RF rivaroxaban 20 mg tablet 20 mg PO DAILY Qty: 90 3RF Primary Care Provider: [facility] Kezia Lawton Referrals: [facility] Kezia Lawton [Primary Care Provider] - 3-5 Days if not improving Activity Restrictions/Additional Instructions: Use your inhaler as needed. Follow-up if not improving or return if worse. Print Language: German Disposition Disposition: Home, Self Care
[2023-10-17 15:33] VITALS: BP 129/81; PULSE 81; RESP 18; O2SAT 96
[2023-10-17] MEDS: Ipratropium/Albuterol Sulfate 3 ML AMPUL.NEB INHALATION (15:36)
[2023-10-17 15:37] VITALS: PULSE 94; RESP 16
--- NOTE | 2023-10-17 15:38 | EKG12_ITS ---
Test Reason : SOB Blood Pressure : / mmHG Vent. Rate : 097 BPM Atrial Rate : 097 BPM P-R Int : 144 ms QRS Dur : 084 ms QT Int : 368 ms P-R-T Axes : 029 058 030 degrees QTc Int : 467 ms Sinus rhythm with frequent Premature ventricular complexes in a pattern of bigeminy Otherwise normal ECG Confirmed by SHERICE STRINGER, SANTANA ([id number]), international editorial producer LYNN JASON ([id number]) on 10/19/2023 9:29:38 AM Referred By: ATUL/GENO Confirmed By:SANTANA SMILEY MD
--- NOTE | 2023-10-17 15:40 | RAD_ITS ---
INDICATION: dyspnea EXAMINATION/TECHNIQUE: X-RAY - XR Chest 1 View COMPARISON: Prior study dated: 10/14/2022 FINDINGS: LINES/DEVICES: [Ventriculoperitoneal shunt. LUNGS: No consolidation, edema or effusion. No pneumothorax. MEDIASTINUM AND CARDIOVASCULAR STRUCTURES: Cardiac silhouette not enlarged. Central airways and mediastinal contour are unremarkable. BONES AND SOFT TISSUES: Old healed fracture of the proximal left humerus. RAD/Chest 1 View (Portable) IMPRESSION: No radiographic evidence of acute cardiopulmonary disease. Electronically Signed: Rene Mcgee MD at 15:50 EDT ,
[2023-10-17 16:02] VITALS: BP 128/91; PULSE 76; RESP 20; TEMP 36.6; O2SAT 96
== END 2023-10-17 16:07 | disposition home or self-care (01) ==
PROVIDERS: Emergency Provider Emergency Medicine; Visit Provider Emergency Medicine
DX: J45.901 Unspecified asthma with (acute) exacerbation (principal); I10 Essential (primary) hypertension; E78.5 Hyperlipidemia, unspecified; Z79.01 Long term (current) use of anticoagulants; F17.200 Nicotine dependence, unspecified, uncomplicated
CPT/HCPCS: 71045; 93005; 94640; 99282

== ENCOUNTER 2023-10-19 13:59 | Emergency (ER) | payer MEDICARE, MEDICAID, SELFPAY ==
[2023-10-19 13:59] VITALS: BP 106/81; PULSE 93; RESP 22; TEMP 36.2; O2SAT 91
[2023-10-19 14:02] VITALS: BP 106/81; PULSE 85; RESP 14; TEMP 37; O2SAT 99; BMI 20.9
--- NOTE | 2023-10-19 14:31 | EDS_ITS ---
HPI <ROCHELLE Gómez - Last Filed: 10/19/23 14:54> History of Present Illness Chief Complaint: Shortness of Breath Narrative Narrative: 62-year-old male with past medical history of asthma, DVT on Xarelto states 2 days ago he was around someone smoking which caused his asthma to flare with wheezing and dyspnea. He has no fever, chills, or chest pain. He has a slight cough. He was evaluated in the emergency room on the day of symptom onset 10/16 and had a normal chest x-ray is reasonable to trend time with steroids but he feels like his symptoms are not improving despite using his albuterol inhaler and nebulizer. [facility] <ROCHELLE Gómez - Last Filed: 10/19/23 14:54> [facility] Medical History Contact with and (suspected) exposure to other viral communicable diseases Acute sinusitis, unspecified Cerumen impaction Decreased hearing of right ear Osteoporosis Health care maintenance Bipolar depression De Quervain's tenosynovitis, left Trigger thumb, left thumb Anxiety disorder, unspecified Major depressive disorder, recurrent severe without psychotic features Hiatal hernia Impacted cerumen, right ear Sepsis Chronic seasonal allergic rhinitis Pneumonia Bilateral hearing loss due to cerumen impaction 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 Skin cancer, basal cell Nonhealing surgical wound Cancer of the skin, basal cell Severe headache History of hemorrhoids Arthritis Hearing loss Congenital hydrocephalus Anxiety and depression Hyperlipidemia Shortness of breath Endocarditis Chronic iron deficiency anemia DVT (deep venous thrombosis) GERD (gastroesophageal reflux disease) Colon cancer Essential (primary) hypertension Kyphoscoliosis Allergic rhinitis KULWANT (obstructive sleep apnea) history of broken shoulder Knee pain Asthma Rotator cuff disorder Home Medications ?Medication ?Instructions ?Recorded ?Last Taken ?Type denosumab 60 mg/mL subcutaneous 60 mg subcut [id number] #1 mL 08/17/20 Unknown Rx syringe (Prolia) albuterol sulfate 90 mcg/actuation 2 puff inhalation Q6H PRN 07/06/21 Unknown Rx aerosol inhaler (ProAir HFA) shortness of breath or wheezing #18 grams isosorbide mononitrate 30 mg 30 mg PO DAILY heart #90 tabs 10/14/21 Unknown Rx tablet,extended release 24 hr albuterol sulfate 90 mcg/actuation 2 inh inhalation Q4H PRN shortness 03/04/22 Unknown Rx breath activated powder inhaler of breath or wheezing #1 ea atorvastatin 20 mg tablet 20 mg PO DAILY cholesterol #90 tabs 06/09/22 Unknown Rx citalopram 40 mg tablet 40 mg PO DAILY depression #90 tabs 06/09/22 Unknown Rx albuterol sulfate 2.5 mg/3 mL 2.5 mg (3 mL) inhalation Q6H #75 mL 01/14/23 Unknown Rx (0.083 %) solution for nebulization montelukast 10 mg tablet 10 mg PO QHS asthma #90 tabs 06/26/23 Unknown Rx guaifenesin 1,200 mg tablet, 1,200 mg PO Q12H #60 tabs 08/07/23 Unknown Rx extended release 12 hr ferrous gluconate 324 mg (38 mg mg PO 08/20/23 Unknown History iron) tablet fluticasone furoate 200 1 inh inhalation DAILY #3 ea 08/20/23 Unknown Rx mcg-vilanterol 25 mcg/dose inhalation powder (Breo Ellipta) quetiapine 150 mg tablet,extended 150 mg PO QHS 08/20/23 Unknown History release 24 hr quetiapine 50 mg tablet,extended 50 mg PO QHS 08/20/23 Unknown History release 24 hr rivaroxaban 20 mg tablet 20 mg PO DAILY blood thinner #90 08/22/23 Unknown Rx tabs albuterol sulfate 2.5 mg/3 mL 2.5 mg (3 mL) inhalation Q4H PRN 10/17/23 Unknown Rx (0.083 %) solution for nebulization #25 vials Allergy/AdvReac Type Severity Reaction Status Date / Time codeine Allergy Hives, Verified 10/19/23 13:59 Nausea gluten Allergy Diarrhea Verified 10/19/23 13:59 aspirin (ASA) AdvReac Nausea Verified 10/19/23 13:59 bee venom protein (honey bee) AdvReac Shortness Verified 10/19/23 13:59 of breath prednisone AdvReac Unknown Verified 10/19/23 13:59 Family History Daughter Cancer Sister Cancer Father Hypertension Surgical History History of left heart catheterization (09/11/17) History of creation of ventriculoperitoneal shunt History of shoulder surgery History of carpal tunnel release H/O left inguinal hernia repair History of kyphoplasty History of colectomy History of colonoscopy (~2017) Social History housing: house pets and animals: Yes pets and animals: cat(s) and dog(s) Smoking Status: Never smoker second hand exposure: No alcohol intake: never substance use type: does not use ROS <ROCHELLE Gómez - Last Filed: 10/19/23 14:54> ROS ED ROS Narrative Constitutional: Negative for fever, chills, malaise. CVS: Negative for palpitations, chest pain, syncope. Respiratory: Positive for wheezing and dyspnea. GI: Negative for abdominal pain, nausea, vomiting. EXAM <ROCHELLE Gómez - Last Filed: 10/19/23 14:54> Physical Exam Narrative Exam Narrative: CONST: Patient sitting in no acute distress. EYES: Normal inspection. NECK: Normal inspection. RESP: Mild expiratory wheezing throughout. CVS: Regular rate and rhythm, no murmur, no gallop. Back: Kyphosis. SKIN: Color normal, no rash, warm, dry, intact. EXTREMITIES: Normal appearance, no pedal edema. NEURO: Alert and answering questions appropriately. PSYCH: Normal affect. Const Vital Signs: 10/19/23 13:59 10/19/23 14:02 10/19/23 14:39 Temperature 97.1 F L 98.6 F Temperature Source Temporal Oral Pulse Rate 93 85 Respiratory Rate 22 H 14 Respiratory Effort Normal Short of Breath Respiratory Depth Normal Respiratory Pattern Normal Blood Pressure 106/81 H 106/81 H Blood Pressure Mean 89 89 Pulse Ox 91 99 Oxygen Delivery Method Room Air Room Air Room Air 10/19/23 15:28 Temperature 98 F Temperature Source Pulse Rate 79 Respiratory Rate 14 Respiratory Effort Respiratory Depth Respiratory Pattern Blood Pressure 110/62 Blood Pressure Mean 78 Pulse Ox 97 Oxygen Delivery Method <Dr. Rogerio Montano MD - Last Filed: 10/19/23 16:00> Physical Exam Const Vital Signs: 10/19/23 13:59 10/19/23 14:02 10/19/23 14:39 Temperature 97.1 F L 98.6 F Temperature Source Temporal Oral Pulse Rate 93 85 Respiratory Rate 22 H 14 Respiratory Effort Normal Short of Breath Respiratory Depth Normal Respiratory Pattern Normal Blood Pressure 106/81 H 106/81 H Blood Pressure Mean 89 89 Pulse Ox 91 99 Oxygen Delivery Method Room Air Room Air Room Air 10/19/23 15:28 Temperature 98 F Temperature Source Pulse Rate 79 Respiratory Rate 14 Respiratory Effort Respiratory Depth Respiratory Pattern Blood Pressure 110/62 Blood Pressure Mean 78 Pulse Ox 97 Oxygen Delivery Method [facility] <ROCHELLE Gómez - Last Filed: 10/19/23 14:54> [facility] Narrative Medical decision making narrative: Patient presents with an asthma exacerbation x 2 days after being around someone smoking. He appears well and nontoxic. He is speaking full sentences in no distress and has normal vital signs. Initially he was 91% on room air in triage but during my exam is 99% on room air. Lungs have mild expiratory wheezing throughout. He had a negative chest x-ray at his visit 2 days ago and I do not think repeat labs or imaging are indicated as he has no fever, chest pain, or significant cough. He was treated with IM Kenalog because he states oral prednisone causes vomiting. He will continue his inhalers and nebulizer treatments at home and return precautions were discussed. <Dr. Rogerio Montano MD - Last Filed: 10/19/23 16:00> [facility] Narrative Medical decision making narrative: Patient presents with an asthma exacerbation x 2 days after being around someone smoking. He appears well and nontoxic. He is speaking full sentences in no distress and has normal vital signs. Initially he was 91% on room air in triage but during my exam is 99% on room air. Lungs have mild expiratory wheezing throughout. He had a negative chest x-ray at his visit 2 days ago and I do not think repeat labs or imaging are indicated as he has no fever, chest pain, or significant cough. He was treated with IM Kenalog because he states oral prednisone causes vomiting. He will continue his inhalers and nebulizer treatments at home and return precautions were discussed. I have personally performed a face to face assessment of the patient and have reviewed the JASON Note. I performed a substantive portion of the visit including all aspects of the following. My bustos findings include: History is remarkable for exacerbation of asthma for the past 2 days. He was around someone who had been smoking. He does not appear toxic. He is in no respiratory distress. His pulse ox was only 91% initially. He denies rhinorrhea, congestion postnasal drainage. Denies sore throat. Nu[place] productive cough. Exam is remarkable for respiratory rate of 22. He is afebrile. Pulse ox 91% on room air. He is kyphotic. He does not appear in any distress. HEENT exam is remarkable for Cravey boggy mucosa consistent with allergic rhinitis. Lungs after treatment reveals no wheeze rales rhonchi. Heart is regular. Rate is normal. Is no murmur, gallop or rub. Medical Decision Making patient was treated with aerosols and Kenalog. Patient was discharged home in stable improved condition. In my opinion there is no indication for chest x-ray. There is no indication for blood work either. Mr. Davis is well-known to me. I have not seen him; however, for many years. Other additions or changes: [None] Discharge Plan Triage Chief Complaint: Shortness of Breath ED Midlevel Provider: Summer Prado ED Provider: Rogerio Montano Dx/Rx/DC Orders Clinical Impression: Asthma exacerbation, Allergic rhinitis, Kyphosis (acquired) (postural) Instructions: Asthma Action Plan Prescriptions: No Action albuterol sulfate [ProAir HFA] 90 mcg/actuation HFA aerosol inhaler 2 puff inhalation Q6H PRN (Reason: shortness of breath or wheezing) Qty: 18 6RF albuterol sulfate 90 mcg/actuation aerosol powdr breath activated 2 inh inhalation Q4H PRN (Reason: shortness of breath or wheezing) Qty: 1 0RF albuterol sulfate 2.5 mg /3 mL (0.083 %) solution for nebulization 2.5 mg inhalation Q6H Qty: 75 0RF ferrous gluconate 324 mg (38 mg iron) tablet PO quetiapine 150 mg tablet extended release 24 hr 150 mg PO QHS quetiapine 50 mg tablet extended release 24 hr 50 mg PO QHS fluticasone furoate-vilanterol [Breo Ellipta] 200-25 mcg/dose blister with device 1 inh INHALATION DAILY Qty: 3 3RF albuterol sulfate 2.5 mg /3 mL (0.083 %) solution for nebulization 2.5 mg inhalation Q4H PRN Qty: 25 0RF Rx Instructions: Use q4 hours and PRN for wheezing Prolia 60 mg/mL syringe 60 mg SC [id number] Qty: 1 1RF isosorbide mononitrate 30 mg tablet extended release 24 hr 30 mg PO DAILY Qty: 90 3RF citalopram 40 mg tablet 40 mg PO DAILY Qty: 90 0RF atorvastatin 20 mg tablet 20 mg PO DAILY Qty: 90 2RF montelukast 10 mg tablet 10 mg PO QHS Qty: 90 3RF guaifenesin 1,200 mg tablet extended release 12hr 1,200 mg PO Q12H Qty: 60 6RF rivaroxaban 20 mg tablet 20 mg PO DAILY Qty: 90 3RF Primary Care Provider: [facility] Kezia [place] - Activity Restrictions/Additional Instructions: You were treated with a Kenalog injection. Continue your inhalers and nebulizer machine every 4-6 hours as needed. Please be reevaluated if your symptoms worsen. Print Language: Nepali Disposition Disposition: Home, Self Care Discharge Date/Time: 10/19/23 15:29
[2023-10-19 14:39] VITALS: O2SAT 97
[2023-10-19] MEDS: Triamcinolone Acetonide 40 MG/ML Vial IM (14:57)
[2023-10-19 15:28] VITALS: BP 110/62; PULSE 79; RESP 14; TEMP 36.6; O2SAT 97
== END 2023-10-19 15:29 | disposition home or self-care (01) ==
PROVIDERS: Emergency Provider Emergency Medicine; Visit Provider Emergency Medicine
DX: J45.901 Unspecified asthma with (acute) exacerbation (principal); I10 Essential (primary) hypertension; M40.209 Unspecified kyphosis, site unspecified; J30.9 Allergic rhinitis, unspecified; E78.5 Hyperlipidemia, unspecified; Z86.718 Personal history of other venous thrombosis and embolism; G47.33 Obstructive sleep apnea (adult) (pediatric); Z79.01 Long term (current) use of anticoagulants
CPT/HCPCS: 99282

== ENCOUNTER 2023-10-22 21:02 | Emergency (ER) | payer MEDICARE, MEDICAID, SELFPAY ==
[2023-10-22 21:03] VITALS: BP 119/86; PULSE 100; RESP 18; TEMP 36.6; O2SAT 97; BMI 20.6
--- NOTE | 2023-10-22 21:07 | CT_ITS ---
EXAM: CT HEAD WITHOUT INTRAVENOUS CONTRAST CLINICAL INDICATION: FALL,ON XEROLTO TECHNIQUE: Multiple axial images were obtained of the head without intravenous contrast. This CT exam was performed using one or more of the following dose reduction techniques: automated exposure control, adjustment of the mA and/or kV according to patient size, and/or use of iterative reconstruction technique. COMPARISON: No relevant prior studies available. FINDINGS: BRAIN AND EXTRA-AXIAL SPACES: Focus of apparent cystic encephalomalacia or perhaps a cystic lesion eccentric to the left involving the corpus callosum and cingulate gyrus region. Thinning and/or dysgenesis of the corpus callosum. Dysmorphic appearance of the ventricles. Asymmetric volume loss on the left with cortical thickening in the right frontal lobe. Patent basal cisterns. No evidence of acute intracranial hemorrhage or pathologic extra-axial fluid. BONES/JOINTS: Degenerative changes in the partially visualized cervical spine. Right parietal jun hole craniotomy. No discrete lytic or blastic abnormalities. SOFT TISSUES: Mild anterior frontal scalp soft tissue swelling. SINUSES: No significant findings. MASTOID AIR CELLS: No significant effusion. ORBITS: Bilateral ocular lens extraction presumptively for the treatment of cataracts. Otherwise, no acute orbital pathology. TUBES, LINES AND DEVICES: Left parietal ventriculoperitoneal shunt catheter with additional orphan catheter segment in the left side of the scalp. CT/Brain/Head without Contrast IMPRESSION: No evidence of acute intracranial hemorrhage or pathologic extra-axial fluid. Likely chronic congenital changes. Correlate with prior imaging if available. Electronically Signed: Raul Duarte DO at 21:36 EDT ,
--- NOTE | 2023-10-22 22:23 | EX.ED.DYSGE1 ---
HPI History of Present Illness Chief Complaint: Fall Informant: patient Narrative Narrative: Patient is a 62-year-old male with past medical history of hypertension and obstructive sleep apnea congenital hydrocephalus and DVT currently on Xarelto. He states that few hours prior to arrival he was walking when he tripped and fell striking his head on the sidewalk. He denies any loss of consciousness. He states he was able to get back up and ambulate but that he struck his head and is on a blood thinner and has concern for underlying brain bleed and therefore comes in for evaluation. 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 Skin cancer, basal cell Nonhealing surgical wound Cancer of the skin, basal cell Severe headache History of hemorrhoids Arthritis Hearing loss Congenital hydrocephalus Anxiety and depression Hyperlipidemia Shortness of breath Endocarditis Chronic iron deficiency anemia DVT (deep venous thrombosis) GERD (gastroesophageal reflux disease) Colon cancer Essential (primary) hypertension Kyphoscoliosis Allergic rhinitis KULWANT (obstructive sleep apnea) history of broken shoulder Knee pain Asthma Rotator cuff disorder Home Medications ?Medication ?Instructions ?Recorded ?Last Taken ?Type denosumab 60 mg/mL subcutaneous 60 mg subcut [id number] #1 mL 08/17/20 Unknown Rx syringe (Prolia) albuterol sulfate 90 mcg/actuation 2 puff inhalation Q6H PRN 07/06/21 Unknown Rx aerosol inhaler (ProAir HFA) shortness of breath or wheezing #18 grams isosorbide mononitrate 30 mg 30 mg PO DAILY heart #90 tabs 10/14/21 Unknown Rx tablet,extended release 24 hr albuterol sulfate 90 mcg/actuation 2 inh inhalation Q4H PRN shortness 03/04/22 Unknown Rx breath activated powder inhaler of breath or wheezing #1 ea atorvastatin 20 mg tablet 20 mg PO DAILY cholesterol #90 tabs 06/09/22 Unknown Rx citalopram 40 mg tablet 40 mg PO DAILY depression #90 tabs 06/09/22 Unknown Rx albuterol sulfate 2.5 mg/3 mL 2.5 mg (3 mL) inhalation Q6H #75 mL 01/14/23 Unknown Rx (0.083 %) solution for nebulization montelukast 10 mg tablet 10 mg PO QHS asthma #90 tabs 06/26/23 Unknown Rx guaifenesin 1,200 mg tablet, 1,200 mg PO Q12H #60 tabs 08/07/23 Unknown Rx extended release 12 hr ferrous gluconate 324 mg (38 mg mg PO 08/20/23 Unknown History iron) tablet fluticasone furoate 200 1 inh inhalation DAILY #3 ea 08/20/23 Unknown Rx mcg-vilanterol 25 mcg/dose inhalation powder (Breo Ellipta) quetiapine 150 mg tablet,extended 150 mg PO QHS 08/20/23 Unknown History release 24 hr quetiapine 50 mg tablet,extended 50 mg PO QHS 08/20/23 Unknown History release 24 hr rivaroxaban 20 mg tablet 20 mg PO DAILY blood thinner #90 08/22/23 Unknown Rx tabs albuterol sulfate 2.5 mg/3 mL 2.5 mg (3 mL) inhalation Q4H PRN 10/17/23 Unknown Rx (0.083 %) solution for nebulization #25 vials Allergy/AdvReac Type Severity Reaction Status Date / Time codeine Allergy Hives, Verified 10/22/23 21:08 Nausea gluten Allergy Diarrhea Verified 10/22/23 21:08 aspirin (ASA) AdvReac Nausea Verified 10/22/23 21:08 bee venom protein (honey bee) AdvReac Shortness Verified 10/22/23 21:08 of breath prednisone AdvReac Unknown Verified 10/22/23 21:08 Family History Daughter Cancer Sister Cancer Father Hypertension Surgical History History of left heart catheterization (09/11/17) History of creation of ventriculoperitoneal shunt History of shoulder surgery History of carpal tunnel release H/O left inguinal hernia repair History of kyphoplasty History of colectomy History of colonoscopy (~2016) Social History (Reviewed 10/19/23 @ 14:39 by Michelle Benítez housing: house pets and animals: Yes pets and animals: cat(s) and dog(s) Smoking Status: Never smoker second hand exposure: No alcohol intake: never substance use type: does not use ROS ROS ED Constitutional Constitutional ED: Denies chills or fever(s) Eyes Eyes: Denies blurry vision or change in vision ENT ENT ED: Denies sore throat Cardiovascular Cardiovascular: Reports other Details: Negative syncope ; Denies chest pain Respiratory/Chest Respiratory/Chest: Denies cough or dyspnea Gastrointestinal Gastrointestinal: Denies abdominal pain, diarrhea, nausea or vomiting Genitourinary Genitourinary ED: Denies dysuria Musculoskeletal Musculoskeletal: Denies back pain, myalgias or neck pain Integumentary Reports Abrasions; Denies rash Neurologic Neurologic: Denies headache(s) Hematologic/Lymphatic Hematologic/Lymphatic: Reports easy bleeding and easy bruising EXAM Physical Exam Const Vital Signs: 10/22/23 21:03 10/22/23 22:33 Temperature 97.8 F Temperature Source Temporal Pulse Rate 100 Respiratory Rate 18 Respiratory Effort Normal Respiratory Depth Normal Respiratory Pattern Normal Blood Pressure 119/86 H Blood Pressure Mean 97 Pulse Ox 97 Oxygen Delivery Method Room Air Positive well nourished and well developed General Appearance ED: well developed HEENT HEENT Narrative: Patient has a 2 x 2 hematoma to the right sided portion of the forehead consistent with his fall. There are superficial abrasions over top of this area. No secondary findings to suggest infection. No signs of depressed or basilar skull fracture. Eyes PERRL and EOMs intact bilaterally Eyes Narrative: No hyphema noted Neck supple Neck Narrative: No bony deformity or step-off of the cervical spine no midline tenderness to palpation Chest Wall palpation of chest normal Resp normal respiratory effort and clear to auscultation bilaterally Resp Narrative: Breath sounds are diminished throughout but overall clear to auscultation without signs of respiratory distress Cardio regular rate and regular rhythm GI normal to inspection, nondistended, normoactive bowel sounds, non-tender, non-distended and no masses Auscultation: normoactive bowel sounds Palpation: soft Back/Spine Back/Spine Narrative: No bony deformity or step-off of the thoracic or lumbar spine no midline tenderness to palpation Extremity Extremity Narrative: Patient has a superficial skin tear to the lateral aspect of the right elbow. Otherwise pelvis is stable there is no shortening or external rotation of either lower extremity. No obvious bony deformity or joint effusion noted. Patient has full active range of motion of the upper extremities. Neuro oriented x3 and CN's II-XII intact bilaterally Sensorium / Orientation: alert Psych mental status grossly normal Skin Skin Narrative: Hematoma to the right side of the forehead as documented above with superficial abrasions at that site as well as skin tear to the right elbow all without signs of infection MDM MDM MDM Narrative Medical decision making narrative: Patient reported mechanical fall therefore there is no need for cardiac or syncope workup. He is on blood thinners however and struck his head and there is concern for skull fracture versus subdural or subarachnoid hemorrhage. A CT scan was obtained which revealed no acute finding. There is concern for also potential pelvic fracture or elbow fracture but based on the pelvis being stable and patient having full active range of motion without obvious bony deformity or joint effusion I feel this is less likely and therefore do not feel the need to have x-rays obtained. Also the patient's wounds are superficial there is no need for suturing or Dermabond and therefore as imaging shows no signs of underlying trauma he is otherwise safe for discharge. History & Record Review Discussion w/independent historian: Patient Radiography Diagnostic Testing: Clinical Impression(s) from Imaging Studies Brain CT 10/22/23 21:07 IMPRESSION: No evidence of acute intracranial hemorrhage or pathologic extra-axial fluid. Likely chronic congenital changes. Correlate with prior imaging if available. Electronically Signed: Raul Duarte DO at 21:36 EDT , Discharge Plan Triage Chief Complaint: Fall ED Provider: Francesco Yancey Dx/Rx/DC Orders Clinical Impression: Closed head injury, Traumatic hematoma of forehead, Skin tear of right elbow without complication, Current use of chcf anticoagulation, Essential (primary) hypertension Instructions: ED Head Injury (Adult), ED Hematoma, ED Skin Tear (Skin Avulsion) Prescriptions: No Action albuterol sulfate [ProAir HFA] 90 mcg/actuation HFA aerosol inhaler 2 puff inhalation Q6H PRN (Reason: shortness of breath or wheezing) Qty: 18 6RF albuterol sulfate 90 mcg/actuation aerosol powdr breath activated 2 inh inhalation Q4H PRN (Reason: shortness of breath or wheezing) Qty: 1 0RF albuterol sulfate 2.5 mg /3 mL (0.083 %) solution for nebulization 2.5 mg inhalation Q6H Qty: 75 0RF ferrous gluconate 324 mg (38 mg iron) tablet PO quetiapine 150 mg tablet extended release 24 hr 150 mg PO QHS quetiapine 50 mg tablet extended release 24 hr 50 mg PO QHS fluticasone furoate-vilanterol [Breo Ellipta] 200-25 mcg/dose blister with device 1 inh INHALATION DAILY Qty: 3 3RF albuterol sulfate 2.5 mg /3 mL (0.083 %) solution for nebulization 2.5 mg inhalation Q4H PRN Qty: 25 0RF Rx Instructions: Use q4 hours and PRN for wheezing Prolia 60 mg/mL syringe 60 mg SC [id number] Qty: 1 1RF isosorbide mononitrate 30 mg tablet extended release 24 hr 30 mg PO DAILY Qty: 90 3RF citalopram 40 mg tablet 40 mg PO DAILY Qty: 90 0RF atorvastatin 20 mg tablet 20 mg PO DAILY Qty: 90 2RF montelukast 10 mg tablet 10 mg PO QHS Qty: 90 3RF guaifenesin 1,200 mg tablet extended release 12hr 1,200 mg PO Q12H Qty: 60 6RF rivaroxaban 20 mg tablet 20 mg PO DAILY Qty: 90 3RF Primary [facility] - Activity Restrictions/Additional Instructions: Your head CT reveals no sign of skull fracture or brain bleed. Your wounds do not need sutured or closed. Please wash them with soap and water to prevent infection and you may cover them with a large bandage if you feel the need. Return to the ER should you have any further concerns Print Language: Ukrainian Disposition Disposition: Home, Self Care Discharge Date/Time: 10/22/23 22:34
== END 2023-10-22 22:34 | disposition home or self-care (01) ==
PROVIDERS: Emergency Provider Emergency Medicine; Visit Provider Emergency Medicine
DX: S00.83XA Contusion of other part of head, initial encounter (principal); E78.5 Hyperlipidemia, unspecified; Z79.01 Long term (current) use of anticoagulants; I10 Essential (primary) hypertension; Z86.718 Personal history of other venous thrombosis and embolism; K21.9 Gastro-esophageal reflux disease without esophagitis; J45.909 Unspecified asthma, uncomplicated; S51.011A Laceration without foreign body of right elbow, initial encounter; W01.0XXA Fall on same level from slipping, tripping and stumbling without subsequent striking against object, initial encounter
CPT/HCPCS: 70450; 99282

== ENCOUNTER → 2023-10-25 | Outpatient (CLI) | payer MEDICARE, MEDICAID, SELFPAY ==
[2023-10-25 17:33] LABS: Absolute Lymphocyte Count 0.83 X10^3/uL (0.83-4.51); Absolute Neutrophil Count 2.8 X10^3/uL (2.0-7.7); Basophil# 0.03 X10^3/uL; Basophil% 0.7 % (0-1); Eosinophil# 0.19 X10^3/uL; Eosinophils% 4.3 % (0-5); Hematocrit 36.7 % (40-54); Hemoglobin 11.3 g/dL (13.0-16.5); Lymphocyte # 0.83 X10^3/ul (0.83-4.51); Lymphocyte % 18.9 % (19-41); Mean Corp Hgb Conc 30.8 g/dL (32-36); Mean Corpuscular Volume 87.6 fL (80-94); Mean Platelet Vol. 9.7 fl (6.2-12.0); Monocyte# 0.48 X10^3/uL; Monocyte% 10.9 % (0-10); NRBC Flagged by Analyzer 0 % (0-5); Neutrophil # 2.84 X10^3/uL (2.7-7.7); Neutrophil % 64.7 % (47-70); Platelet Count 236 K/mm3 (150-450); RBC Distribution Width CV 14.8 % (11.6-14.6); RBC Distribution Width SD 47.7 fl (35.1-43.9); Red Blood Count 4.19 M/mm3 (4.6-6.2); White Blood Count 4.4 K/mm3 (4.4-11.0)
[2023-10-25 18:07] LABS: Vitamin B12 378 pg/mL (211-911); Vitamin D,25 Hydroxy 47.9 ng/mL
[2023-10-25 18:32] LABS: AST(SGOT) 19 U/L (15-37); Alanine Aminotransfer ALT/SGPT 20 U/L (16-61); Albumin, Serum 2.9 g/dL (3.2-5.0); Alkaline Phosphatase 71 U/L (45-117); Anion Gap 6 (5-15); BUN 19 mg/dL (7-18); Calcium,Total 8.9 mg/dL (8.5-10.1); Chloride 110 mmol/L (98-107); Cholesterol 121 mg/dL (200); Creatinine, Serum 0.53 mg/dL (0.70-1.30); EST Glomerular Filtration Rate 167 mL/min (>60); Est Glom Filt Rate - Afr Amer 202 mL/min (>60); Ferritin 6 ng/mL (26-388); Folates, (Folic Acid) > 100.00 ng/mL (3.1-55.4); Free T3 1.7 pg/mL (2.18-3.98); Glucose 83 mg/dL (74-106); High Density Lipoprotein 66 mg/dL; Iron 31 ug/dL (65-175); Iron Binding Capacity,Total 286 ug/dL (250-450); Magnesium 2.1 mg/dL (1.6-2.6); PERCENT IRON SATURATION 10.8 % (15.0-55.0); Potassium 4.4 mmol/L (3.5-5.1); Protein, Total 5.9 g/dL (6.4-8.2); Sodium Level 142 mmol/L (136-145); T4 Free Direct 1.22 ng/dL (0.76-1.46); Thyroid Stim Hormone (TSH) 1.96 uIU/mL (0.358-3.74); Triglycerides 38 mg/dL; Very Low Density Lipoprotein 8 mg/dL (5-40)
[2023-10-30 03:07] LABS: Thyroglobulin Antibody < 1.0 IU/mL (0.0-0.9); Thyroid Peroxidase AB < 9 IU/mL (0-34); Zinc, Plasma or Serum 77 ug/dL (44-115)
== END | disposition home or self-care (01) ==
LOC: VSLAB 13:03
PROVIDERS: PCP Family Medicine; Visit Provider Family Medicine
DX: D64.9 Anemia, unspecified (principal); R73.01 Impaired fasting glucose; I10 Essential (primary) hypertension; E78.5 Hyperlipidemia, unspecified; R94.6 Abnormal results of thyroid function studies; E56.8 Deficiency of other vitamins; K90.9 Intestinal malabsorption, unspecified
CPT/HCPCS: 36415; 80053; 80061; 82306; 82607; 82728; 82746; 83036; 83540; 83550; 83735; 84439; 84443; 84481; 84630; 85025; 86376; 86800

== ENCOUNTER 2023-11-11 18:38 | Emergency (ER) | payer MEDICARE, MEDICAID, SELFPAY ==
[2023-11-11 18:41] VITALS: BP 119/87; PULSE 94; RESP 18; TEMP 36.9; O2SAT 98; BMI 21.3
--- NOTE | 2023-11-11 18:54 | CT_ITS ---
STUDY: CT FACIAL BONES WITHOUT CONTRAST REASON FOR EXAM: Male, 63 years old. left facial trauma RADIATION DOSAGE (If Supplied By Facility): CTDIvol = ( 29.38 ) mGy, DLP = ( 635.61 ) mGycm TECHNIQUE: The patient was scanned in a multi detector CT scanner. Sagittal and coronal images were reconstructed. Individualized dose optimization techniques were used for this CT. COMPARISON: None. FINDINGS: There is left premaxillary and periorbital soft tissue swelling.. Normal orbital garza and orbital contents. Normal nasal bones and anterior nasal spine. Normal facial bones. There is no demonstrated fracture. Mild mucosal thickening of the right maxillary sinus. CT/Sinus/Facial Bone IMPRESSION: Left premaxillary and periorbital soft tissue swelling without evidence for associated acute facial bone fracture.. Mild right maxillary sinus disease likely chronic Electronically Signed: Tito Nava MD at 20:42 EDT ,
--- NOTE | 2023-11-11 18:54 | CT_ITS ---
EXAM: CT HEAD WITHOUT INTRAVENOUS CONTRAST CLINICAL INDICATION: trauma/fall TECHNIQUE: Multiple axial images were obtained of the head without intravenous contrast. This CT exam was performed using one or more of the following dose reduction techniques: automated exposure control, adjustment of the mA and/or kV according to patient size, and/or use of iterative reconstruction technique. RADIATION DOSE: CTDIvol = 37.35 mGy, DLP = 1552.29 mGy-cm COMPARISON: 7.8.24 FINDINGS: BRAIN AND EXTRA-AXIAL SPACES: There is diffuse thinning of the corpus callosum. No intra- or extra-axial hemorrhage. BONES/JOINTS: Right posterior craniotomy jun hole. Stable cystic lesion that abuts the TEST BAKER shunt catheter. Degenerative changes of the mandibular condyles. SOFT TISSUES: Soft tissue swelling and hematoma overlying the left maxilla. No visible fracture. SINUSES: Unremarkable as visualized. Clear. MASTOID AIR CELLS: Unremarkable. Clear. ORBITS: Visualized globes, extraocular muscles, optic nerves and retrobulbar fat appear unremarkable. TUBES, LINES AND DEVICES: Left TEST BAKER shunt catheter. Tip in the third ventricle. Along the left side of the neck, there is an abandoned TEST BAKER shunt catheter. CT/Brain/Head without Contrast IMPRESSION: Soft tissue swelling and hematoma overlying the left maxilla. No visible fracture. Electronically Signed: Benny Abarca MD at 19:36 EDT Reading Location ID and State: [facility] / [place] , Service support ,
--- NOTE | 2023-11-11 19:11 | RAD_ITS ---
EXAM: XR LEFT SHOULDER COMPLETE, 2 OR MORE VIEWS CLINICAL INDICATION: injury TECHNIQUE: Two or more views of the left shoulder. COMPARISON: 10.17.23 cxr FINDINGS: BONES/JOINTS: There is downward displacement of the humerus in relation to the glenoid. This can suggest a partial dislocation or large joint effusion. Old healed proximal humeral fracture. No sclerotic or destructive changes observed. SOFT TISSUES: Unremarkable. No soft tissue swelling or gas. No radiopaque foreign body. RAD/Shoulder min 2 Views IMPRESSION: There is downward displacement of the humerus in relation to the glenoid. This can suggest a partial dislocation or large joint effusion. Electronically Signed: Benny Abarca MD at 19:54 EDT Reading Location ID and State: [facility] / [place] , Service support ,
--- NOTE | 2023-11-11 20:01 | ED.VIS.FALL ---
HPI HPI - Fall History of Present Illness Chief Complaint: Fall Informant: patient Narrative Narrative: 63-year-old male states he was walking on a sidewalk and he fell. Unsure if he tripped and his new sneakers or if he hit a crack in the concrete. He states he had no prodromal symptoms or dizziness or any other symptoms of a medical reason for the fall. States he fell onto his face. Injured his face/head, left shoulder, left wrist. No loss consciousness, no amnesia for any part of the event, no recent illness. He has a headache and no nausea or vomiting. 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 He also has a [employer] shunt because of congenital hydrocephalus. He has had no major issues with that lately. 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 Skin cancer, basal cell Nonhealing surgical wound Cancer of the skin, basal cell Severe headache History of hemorrhoids Arthritis Hearing loss Congenital hydrocephalus Anxiety and depression Hyperlipidemia Shortness of breath Endocarditis Chronic iron deficiency anemia DVT (deep venous thrombosis) GERD (gastroesophageal reflux disease) Colon cancer Essential (primary) hypertension Kyphoscoliosis Allergic rhinitis KULWANT (obstructive sleep apnea) history of broken shoulder Knee pain Asthma Rotator cuff disorder Home Medications ?Medication ?Instructions ?Recorded ?Last Taken ?Type denosumab 60 mg/mL subcutaneous 60 mg subcut [id number] #1 mL 08/17/20 Unknown Rx syringe (Prolia) albuterol sulfate 90 mcg/actuation 2 puff inhalation Q6H PRN 07/06/21 Unknown Rx aerosol inhaler (ProAir HFA) shortness of breath or wheezing #18 grams isosorbide mononitrate 30 mg 30 mg PO DAILY heart #90 tabs 10/14/21 Unknown Rx tablet,extended release 24 hr albuterol sulfate 90 mcg/actuation 2 inh inhalation Q4H PRN shortness 03/04/22 Unknown Rx breath activated powder inhaler of breath or wheezing #1 ea atorvastatin 20 mg tablet 20 mg PO DAILY cholesterol #90 tabs 06/09/22 Unknown Rx citalopram 40 mg tablet 40 mg PO DAILY depression #90 tabs 06/09/22 Unknown Rx albuterol sulfate 2.5 mg/3 mL 2.5 mg (3 mL) inhalation Q6H #75 mL 01/14/23 Unknown Rx (0.083 %) solution for nebulization montelukast 10 mg tablet 10 mg PO QHS asthma #90 tabs 06/26/23 Unknown Rx guaifenesin 1,200 mg tablet, 1,200 mg PO Q12H #60 tabs 08/07/23 Unknown Rx extended release 12 hr ferrous gluconate 324 mg (38 mg mg PO 08/20/23 Unknown History iron) tablet fluticasone furoate 200 1 inh inhalation DAILY #3 ea 08/20/23 Unknown Rx mcg-vilanterol 25 mcg/dose inhalation powder (Breo Ellipta) quetiapine 150 mg tablet,extended 150 mg PO QHS 08/20/23 Unknown History release 24 hr quetiapine 50 mg tablet,extended 50 mg PO QHS 08/20/23 Unknown History release 24 hr rivaroxaban 20 mg tablet 20 mg PO DAILY blood thinner #90 08/22/23 Unknown Rx tabs albuterol sulfate 2.5 mg/3 mL 2.5 mg (3 mL) inhalation Q4H PRN 10/17/23 Unknown Rx (0.083 %) solution for nebulization #25 vials Allergy/AdvReac Type Severity Reaction Status Date / Time Penicillins Allergy Mild Rash Verified 11/11/23 18:40 codeine Allergy Hives, Verified 11/11/23 18:40 Nausea gluten Allergy Diarrhea Verified 11/11/23 18:40 aspirin (ASA) AdvReac Nausea Verified 11/11/23 18:40 bee venom protein (honey bee) AdvReac Shortness Verified 11/11/23 18:40 of breath prednisone AdvReac Unknown Verified 11/11/23 18:40 Family History Daughter Cancer Sister Cancer Father Hypertension Surgical History History of left heart catheterization (09/11/17) History of creation of ventriculoperitoneal shunt History of shoulder surgery History of carpal tunnel release H/O left inguinal hernia repair History of kyphoplasty History of colectomy History of colonoscopy (~2017) Social History housing: house pets and animals: Yes pets and animals: cat(s) and dog(s) Smoking Status: Never smoker second hand exposure: No alcohol intake: never substance use type: does not use ROS ROS ED Constitutional Constitutional ED: Denies chills or fever(s) Eyes Eyes: Denies change in vision or diplopia ENT ENT ED: Reports facial pain; Denies ear pain, epistaxis or rhinorrhea Cardiovascular Cardiovascular: Denies chest pain or palpitations Respiratory/Chest Respiratory/Chest: Denies cough or dyspnea Gastrointestinal Gastrointestinal: Denies abdominal pain, diarrhea, melena, nausea or vomiting Genitourinary Genitourinary ED: Denies dysuria or hematuria Musculoskeletal Musculoskeletal: Reports extremity pain; Denies back pain or neck pain Integumentary Reports Abrasions; Denies abscess, laceration or rash Neurologic Neurologic: Reports headache(s); Denies confusion, paresthesias or weakness EXAM Physical Exam Const Vital Signs: 11/11/23 18:41 11/11/23 18:57 Temperature 98.4 F Temperature Source Oral Pulse Rate 94 Respiratory Rate 18 Respiratory Effort Normal Non-Labored Respiratory Depth Normal Respiratory Pattern Normal Blood Pressure 119/87 H Blood Pressure Mean 97 Pulse Ox 98 Oxygen Delivery Method Room Air Room Air Positive well nourished and well developed General Appearance ED: well developed and NAD HEENT Reports TM's clear and nasal mucous membranes and turbinates normal HEENT Narrative: Hematoma and tenderness left maxilla without crepitance or instability. No intraoral injury or dental tenderness. No epistaxis or nasal bone tenderness. Mild tenderness at the left zygomatic arch but there is no deformity there. There is no enophthalmos or proptosis, the eye appears to be atraumatic. There is an abrasion in the left maxillary area as well as an abrasion to the left superior orbital brim which is mildly tender. No Gamez sign. No CSF otorhinorrhea. No hemotympanum. Face and Sinus: facial tenderness Tympanic Membrane ED: Yes TM's clear Eyes PERRL and EOMs intact bilaterally Visual Acuity: other Other Details: no entrapment or pain with extraocular movements Neck full ROM and supple General: Negative for tenderness Chest Wall inspection of chest normal and palpation of chest normal Chest: symmetrical chest wall rise; Negative for crepitus or tenderness Resp normal respiratory effort and clear to auscultation bilaterally Percussion: other equal BS bilat Cardio no murmurs Rate: regular rate Rhythm: regular rhythm GI normal to inspection, nondistended, normoactive bowel sounds, soft to palpation and non-tender Back/Spine normal ROM Cervical Spine: Negative for cervical spine tenderness Thoracic Spine / Upper Back: Negative for thoracic spinal tenderness Lumbar Spine / Lower Back: Negative for lumbar spinal tenderness Extremity normal to inspection and full ROM Extremity Narrative: Tender at the left mid and distal clavicle as well as a proximal humerus and acromioclavicular joint, the entire area. There is no deformity. Limited range of motion due to pain. There is a small partial skin tear x2 left dorsal wrist and dorsal hand over 2nd MC, no bony tenderness, excellent range of motion throughout the elbow, wrist, hand and fingers. Right upper extremity and both lower extremities move fully without any pain or injury. General Extremety ED: Yes tenderness Neuro oriented x3, CN's II-XII intact bilaterally, moves all extremities, no focal motor deficits and no sensory deficits noted Celio Coma Scale: document GCS findings Spontaneous Obeys Commands Oriented 15 Sensorium / Orientation: awake and alert Psych mental status grossly normal and thought process normal Mood & Affect: anxious Skin Skin Narrative: See above. Injuries to the left face, left shoulder, left forearm/wrist. Lesions: no lesions Rashes: no rashes MDM MDM MDM Narrative Medical decision making narrative: Three-view x-ray series of the left shoulder shows that there is some downward displacement of his humeral head compared with prior old films in 2020, I do not see any acute fracture. The shape of the humerus and the acromion are normal compared with the old x-rays. CT of the head and facial bones were obtained I reviewed the images and report which I agree with, they are negative for any acute fractures or intracranial injury. Stable shunt. His abrasions were cleansed and dressed with bacitracin, there is nothing repairable. In reevaluating his left shoulder, he is able to move it pretty well. Given this, my suspicion is that the x-ray findings may actually be age-related and not acute injury, however am not able to rule out the latter. I discussed this with him. He states he does not want a sling. He was given some Tylenol, nurses to cleanse and dress his abrasions and skin tears that are small, and he was given appropriate discharge instructions to follow-up. Radiography Diagnostic Testing: Clinical Impression(s) from Imaging Studies Brain CT 11/11/23 18:54 IMPRESSION: Soft tissue swelling and hematoma overlying the left maxilla. No visible fracture. Electronically Signed: Benny Abarca MD at 19:36 EDT , Shoulder X-Ray 11/11/23 19:11 IMPRESSION: There is downward displacement of the humerus in relation to the glenoid. This can suggest a partial dislocation or large joint effusion. Electronically Signed: Benny Abarca MD at 19:54 EDT , Discharge Plan Triage Chief Complaint: Fall ED Provider: Chino Cheema Dx/Rx/DC Orders Clinical Impression: Closed head injury without concussion, Contusion of face, Multiple skin tears, Injury of shoulder, left, Fall, accidental Instructions: Black Eye, ED Skin Tear (Skin Avulsion) Prescriptions: No Action albuterol sulfate [ProAir HFA] 90 mcg/actuation HFA aerosol inhaler 2 puff inhalation Q6H PRN (Reason: shortness of breath or wheezing) Qty: 18 6RF albuterol sulfate 90 mcg/actuation aerosol powdr breath activated 2 inh inhalation Q4H PRN (Reason: shortness of breath or wheezing) Qty: 1 0RF albuterol sulfate 2.5 mg /3 mL (0.083 %) solution for nebulization 2.5 mg inhalation Q6H Qty: 75 0RF ferrous gluconate 324 mg (38 mg iron) tablet PO quetiapine 150 mg tablet extended release 24 hr 150 mg PO QHS quetiapine 50 mg tablet extended release 24 hr 50 mg PO QHS fluticasone furoate-vilanterol [Breo Ellipta] 200-25 mcg/dose blister with device 1 inh INHALATION DAILY Qty: 3 3RF albuterol sulfate 2.5 mg /3 mL (0.083 %) solution for nebulization 2.5 mg inhalation Q4H PRN Qty: 25 0RF Rx Instructions: Use q4 hours and PRN for wheezing Prolia 60 mg/mL syringe 60 mg SC [id number] Qty: 1 1RF isosorbide mononitrate 30 mg tablet extended release 24 hr 30 mg PO DAILY Qty: 90 3RF citalopram 40 mg tablet 40 mg PO DAILY Qty: 90 0RF atorvastatin 20 mg tablet 20 mg PO DAILY Qty: 90 2RF montelukast 10 mg tablet 10 mg PO QHS Qty: 90 3RF guaifenesin 1,200 mg tablet extended release 12hr 1,200 mg PO Q12H Qty: 60 6RF rivaroxaban 20 mg tablet 20 mg PO DAILY Qty: 90 3RF Primary Care Provider: Mine Monae Referrals: Mikel Novoa DO [Med Staff - Active Staff] - 1 Week if not improving (for reevaluation of left shoulder) Mine Monae DO [Primary Care Provider] - Print Language: Grenadian Disposition Disposition: Home, Self Care
[2023-11-11 20:47] VITALS: PULSE 80; RESP 16; O2SAT 100
[2023-11-11 20:49] VITALS: BP 113/81; PULSE 80; RESP 16; TEMP 36.9; O2SAT 100
== END 2023-11-11 20:55 | disposition home or self-care (01) ==
PROVIDERS: Emergency Provider Emergency Medicine; PCP Family Medicine; Visit Provider Emergency Medicine
DX: S00.83XA Contusion of other part of head, initial encounter (principal); Q03.9 Congenital hydrocephalus, unspecified; F31.81 Bipolar II disorder; J44.9 Chronic obstructive pulmonary disease, unspecified; F33.2 Major depressive disorder, recurrent severe without psychotic features; I82.621 Acute embolism and thrombosis of deep veins of right upper extremity; W22.8XXA Striking against or struck by other objects, initial encounter; W10.1XXA Fall (on)(from) sidewalk curb, initial encounter; I10 Essential (primary) hypertension; E78.5 Hyperlipidemia, unspecified; S09.90XA Unspecified injury of head, initial encounter; S61.419A Laceration without foreign body of unspecified hand, initial encounter; S61.519A Laceration without foreign body of unspecified wrist, initial encounter; S40.912A Unspecified superficial injury of left shoulder, initial encounter; M81.0 Age-related osteoporosis without current pathological fracture; F41.9 Anxiety disorder, unspecified; K44.9 Diaphragmatic hernia without obstruction or gangrene; M19.90 Unspecified osteoarthritis, unspecified site; J30.89 Other allergic rhinitis; D50.9 Iron deficiency anemia, unspecified; G47.33 Obstructive sleep apnea (adult) (pediatric); Z79.899 Other long term (current) drug therapy; Z79.84 Long term (current) use of oral hypoglycemic drugs; Z79.51 Long term (current) use of inhaled steroids; Z85.828 Personal history of other malignant neoplasm of skin; Z85.038 Personal history of other malignant neoplasm of large intestine; Z79.01 Long term (current) use of anticoagulants; Z98.2 Presence of cerebrospinal fluid drainage device
CPT/HCPCS: 70450; 70486; 73030; 99282

== ENCOUNTER → 2023-11-20 | Outpatient (CLI) | payer MEDICARE, MEDICAID, SELFPAY ==
--- NOTE | 2023-11-20 10:27 | RAD_ITS ---
STUDY: X-RAY - LEFT ANKLE REASON FOR EXAM: Male, 63 years old. Fall TECHNIQUE: 3 view(s) of the ankle. COMPARISON: Comparison is made with prior examination dated May 12, 2014. FINDINGS: Normal visualized distal tibia and fibula. Normal medial and lateral malleoli. Normal tibiotalar articulation and ankle mortise. Calcaneal spurs. The visualized subtalar, talonavicular, calcaneocuboid and tarsal articulations are normal. Soft tissue swelling. RAD/Ankle min 3 Views IMPRESSION: Calcaneal spurs. Soft tissue swelling. Electronically Signed: Blake Oliveira MD at 11:23 EDT ,
--- NOTE | 2023-11-20 10:27 | RAD_ITS ---
STUDY: X-RAY - LEFT FOOT CLINICAL: Male, 63 years old. Swelling. No known injury. TECHNIQUE: 3 view(s) of the foot. COMPARISON: Comparison is made with prior study dated September 05, 2021. FINDINGS: Calcaneal spurs. Normal visualized subtalar, talonavicular, calcaneocuboid, tarsal and tarsometatarsal articulations. Normal metatarsi. Normal metatarsophalangeal joint of the great toe. Normal tibial and fibular sesamoid bones. Normal interphalangeal joint of the great toe. Normal phalanges of the great toe. Normal second through fifth metatarsophalangeal joints. Normal interphalangeal joints and phalanges of the lesser toes. Soft tissue swelling. RAD/Foot min 3 Views IMPRESSION: Soft tissue swelling. Electronically Signed: Blake Oliveira MD at 11:23 EDT ,
== END | disposition home or self-care (01) ==
LOC: MTRAD 10:17
PROVIDERS: PCP Family Medicine; Referring Provider Physician Assistant; Visit Provider Physician Assistant
DX: M79.89 Other specified soft tissue disorders (principal); W19.XXXA Unspecified fall, initial encounter; M77.32 Calcaneal spur, left foot
CPT/HCPCS: 73610; 73630

== ENCOUNTER 2023-12-08 19:53 | Emergency (ER) | payer MEDICARE, MEDICAID, SELFPAY ==
[2023-12-08 19:55] VITALS: BP 133/77; PULSE 134; RESP 24; TEMP 36.6; O2SAT 96; BMI 20.6
--- NOTE | 2023-12-08 20:27 | EDS_ITS ---
HPI History of Present Illness Chief Complaint: Shortness of Breath Informant: patient Onset/Context/Timing Onset: Days (3) Context: gradual Timing: Continuous Quality: Positive for Dyspnea on exertion and Orthopnea Worsened by: Exertion and Lying flat Relieved by: Nothing Associated Symptoms Negative for cough, rhinorrhea, post nasal drip, ear pain, fever, sore throat, chills, sweats, clear sputum, white sputum, yellow sputum or green sputum Chest Pain: Positive for Intermittent (Lasting approximately 1 second) and Sharp Narrative Narrative: Patient presents with shortness of breath that has been getting worse over the last 3 days. Patient states it is gradually getting worse. Patient states his breathing is worse when he exerts himself and when he lays flat. Patient states that nothing seems to help his breathing. Patient denies any wheezing. Patient states he does have a history of asthma but this feels different. Patient states he is on Xarelto for DVTs in his right arm. Patient states he had a episode of chest pain that lasted 1 second. Patient states it was sharp. Patient states that this occurred when he has an extra heartbeat. PE Risk Factors: Positive for Cancer and Prior DVT or PE; Negative for Recent immobilization, Recent surgery or Recent travel [facility] Medical History Contusion of right shoulder Sprain of left foot Left ankle sprain Frequent unifocal PVCs Contact with and (suspected) exposure to other viral communicable diseases Acute sinusitis, unspecified Cerumen impaction Decreased hearing of right ear Osteoporosis Health care maintenance Bipolar depression De Quervain's tenosynovitis, left Trigger thumb, left thumb Anxiety disorder, unspecified Major depressive disorder, recurrent severe without psychotic features Hiatal hernia Impacted cerumen, right ear Sepsis Chronic seasonal allergic rhinitis Pneumonia Bilateral hearing loss due to cerumen impaction 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 Skin cancer, basal cell Nonhealing surgical wound Cancer of the skin, basal cell Severe headache History of hemorrhoids Arthritis Hearing loss Congenital hydrocephalus Anxiety and depression Hyperlipidemia Shortness of breath Endocarditis Chronic iron deficiency anemia DVT (deep venous thrombosis) GERD (gastroesophageal reflux disease) Colon cancer Essential (primary) hypertension Kyphoscoliosis Allergic rhinitis KULWANT (obstructive sleep apnea) history of broken shoulder Knee pain Asthma Rotator cuff disorder Home Medications ?Medication ?Instructions ?Recorded ?Last Taken ?Type denosumab 60 mg/mL subcutaneous 60 mg subcut [id number] #1 mL 08/17/20 Unknown Rx syringe (Prolia) albuterol sulfate 90 mcg/actuation 2 puff inhalation Q6H PRN 07/06/21 Unknown Rx aerosol inhaler (ProAir HFA) shortness of breath or wheezing #18 grams isosorbide mononitrate 30 mg 30 mg PO DAILY heart #90 tabs 10/14/21 Unknown Rx tablet,extended release 24 hr atorvastatin 20 mg tablet 20 mg PO DAILY cholesterol #90 tabs 06/09/22 Unknown Rx citalopram 40 mg tablet 40 mg PO DAILY depression #90 tabs 06/09/22 Unknown Rx montelukast 10 mg tablet 10 mg PO QHS asthma #90 tabs 06/26/23 Unknown Rx guaifenesin 1,200 mg tablet, 1,200 mg PO Q12H #60 tabs 08/07/23 Unknown Rx extended release 12 hr fluticasone furoate 200 1 inh inhalation DAILY #3 ea 08/20/23 Unknown Rx mcg-vilanterol 25 mcg/dose inhalation powder (Breo Ellipta) rivaroxaban 20 mg tablet 20 mg PO DAILY blood thinner #90 08/22/23 Unknown Rx tabs albuterol sulfate 2.5 mg/3 mL 2.5 mg (3 mL) inhalation Q4H PRN 10/17/23 Unknown Rx (0.083 %) solution for nebulization #25 vials ferrous gluconate 324 mg (38 mg 324 mg PO DAILY 11/26/23 Unknown History iron) tablet levomefolate 15 mg-algal oil 1 cap PO DAILY 11/26/23 Unknown History 90.314 mg capsule (L-Methylfolate Forte) quetiapine 150 mg tablet,extended 200 mg PO QHS 11/26/23 Unknown History release 24 hr Allergy/AdvReac Type Severity Reaction Status Date / Time Penicillins Allergy Mild Rash Verified 12/08/23 19:55 codeine Allergy Hives, Verified 12/08/23 19:55 Nausea gluten Allergy Diarrhea Verified 12/08/23 19:55 aspirin (ASA) AdvReac Nausea Verified 12/08/23 19:55 bee venom protein (honey bee) AdvReac Shortness Verified 12/08/23 19:55 of breath prednisone AdvReac Unknown Verified 12/08/23 19:55 Family History Daughter Cancer Sister Cancer Father Hypertension Surgical History History of left heart catheterization (09/11/17) History of creation of ventriculoperitoneal shunt History of shoulder surgery History of carpal tunnel release H/O left inguinal hernia repair History of kyphoplasty History of colectomy History of colonoscopy (~2016) Social History housing: house pets and animals: Yes pets and animals: cat(s) and dog(s) Smoking Status: Never smoker second hand exposure: No alcohol intake: never substance use type: does not use ROS ROS ED Constitutional Constitutional ED: Denies chills or fever(s) Eyes Eyes: Denies blurry vision or change in vision ENT ENT ED: Denies rhinorrhea or sore throat Cardiovascular Cardiovascular: Reports chest pain; Denies palpitations Respiratory/Chest Respiratory/Chest: Reports dyspnea; Denies cough Gastrointestinal Gastrointestinal: Denies nausea or vomiting Genitourinary Genitourinary ED: Denies dysuria or hematuria Musculoskeletal Musculoskeletal: Denies back pain or neck pain Integumentary Denies abscess or rash Neurologic Neurologic: Denies headache(s) or weakness Allergic/Immunologic Allergic/Immunologic ED: Denies mouth swelling or urticaria EXAM Physical Exam Const Vital Signs: 12/08/23 19:55 12/08/23 20:08 12/08/23 21:06 Temperature 98 F Temperature Source Temporal Pulse Rate 134 H 88 Respiratory Rate 24 H 20 H Respiratory Effort Short of Breath Respiratory Depth Shallow Respiratory Pattern Tachypnea Normal Blood Pressure 133/77 H Blood Pressure Mean 95 Pulse Ox 96 Oxygen Delivery Method Room Air Room Air 12/08/23 21:54 12/08/23 23:00 Temperature Temperature Source Pulse Rate 102 H 91 Respiratory Rate 26 H 23 H Respiratory Effort Respiratory Depth Respiratory Pattern Blood Pressure 146/94 H 149/103 H Blood Pressure Mean 111 118 Pulse Ox 99 98 Oxygen Delivery Method Room Air Room Air Positive well nourished and well developed General Appearance ED: well developed and NAD HEENT Reports moist mucous membranes atraumatic Neck supple and no JVD Resp normal respiratory effort and clear to auscultation bilaterally Cardio regular rate and regular rhythm GI non-tender and non-distended Palpation: soft Neuro oriented x3, CN's II-XII intact bilaterally and no sensory deficits noted [place] Coma Scale: document GCS findings Spontaneous Obeys Commands Oriented 15 Sensorium / Orientation: alert Speech: speech normal Motor Exam: strength 5/5 throughout Psych mental status grossly normal MDM MDM MDM Narrative Medical decision making narrative: Differential diagnosis includes cardiac dysrhythmia, cardiac ischemia, pneumo terri, viral illness, bronchitis, electrolyte abnormality, dehydration, and pulmonary embolism. EKG will be obtained to assess for cardiac dysrhythmia and cardiac ischemia. CBC will be obtained to assess for leukocytosis and anemia. Basic metabolic profile will be obtained to assess for electrolyte abnormality and renal function. High-sensitivity troponin will be obtained to assess for cardiac ischemia. D-dimer will be obtained to assess for pulmonary embolism. Lab Data Attestation: I reviewed the patient's lab results. Lab results narrative: CBC was reviewed. There is a mild anemia with a hemoglobin of 10.0 and hematocrit 32.7. The remainder is within normal limits. PT with INR and PTT were reviewed. Pro time was 38.9 and INR is 4.0. PTT was also elevated at 44.0. D-dimer was reviewed and was elevated at 0.81. Basic metabolic profile was reviewed and was essentially within normal limits. Initial high-sensitivity troponin was reviewed and was normal at 5. Labs: Laboratory Results - last 24 hr 12/08/23 21:04 WBC 4.9 RBC 3.74 L Hgb 10.0 L Hct 32.7 L MCV 87.4 MCH 26.7 L MCHC 30.6 L RDW Std Deviation 50.9 H RDW Coeff of Ilana 16.1 H Plt Count 266 MPV 9.4 Immature Gran % (Auto) 0.200 Neut % (Auto) 59.1 Lymph % (Auto) 22.0 [place] % (Auto) 10.6 H Eos % (Auto) 7.3 H Baso % (Auto) 0.8 Absolute Neuts (auto) 2.9 Absolute Lymphs (auto) 1.08 Nucleated RBC % 0 PT 38.9 H INR 4.0 H* APTT 44.0 H D-Dimer Quant (PE/DVT) 0.81 H* Sodium 144 Potassium 4.0 Chloride 112 H Carbon Dioxide 27.0 Anion Gap 5 BUN 22 H Creatinine 0.60 L Estim Creat Clear Calc 89.93 Est GFR (MDRD) Af Amer 174 Est GFR (MDRD) Non-Af 144 BUN/Creatinine Ratio 36.7 H Glucose 121 H Calcium 8.2 L Troponin I High Sens 5 EKG Initial EKG: Comments: EKG was obtained. On my independent interpretation, shows normal sinus rhythm with occasional PVCs with a rate of 87. There are nonspecific ST-T wave changes noted. NV interval, QRS interval, QTc intervals are all within normal limits. [place] was normal. Prior EKG tracings: available for review Prior: Unchanged (11/26/2023) Additional Tests and Interventions Additional Tests or Interventions: Because of the elevated D-dimer, CTA of the chest was obtained. Treatment and Re-Evaluation :: Patient was given a DuoNeb aerosol here. Patient was advised of his initial findings. Patient is feeling better on reevaluation. Care of the patient was turned over the oncoming physician pending CT scan results and repeat troponin. If these are both negative, patient can be discharged home. Patient understood and was agreeable with the plan. All questions were answered. Discharge Plan Triage Chief Complaint: Shortness of Breath ED Provider: Vasiliy Sanchez Dx/Rx/DC Orders Clinical Impression: Dyspnea, Essential (primary) hypertension Instructions: ED Dyspnea Prescriptions: No Action albuterol sulfate [ProAir HFA] 90 mcg/actuation HFA aerosol inhaler 2 puff inhalation Q6H PRN (Reason: shortness of breath or wheezing) Qty: 18 6RF fluticasone furoate-vilanterol [Breo Ellipta] 200-25 mcg/dose blister with device 1 inh INHALATION DAILY Qty: 3 3RF quetiapine 150 mg tablet extended release 24 hr 200 mg PO QHS ferrous gluconate 324 mg (38 mg iron) tablet 324 mg PO DAILY levomefolate-algal oil [L-Methylfolate Forte] 15-90.314 mg capsule 1 cap PO DAILY albuterol sulfate 2.5 mg /3 mL (0.083 %) solution for nebulization 2.5 mg inhalation Q4H PRN Qty: 25 0RF Rx Instructions: Use q4 hours and PRN for wheezing Prolia 60 mg/mL syringe 60 mg SC [id number] Qty: 1 1RF isosorbide mononitrate 30 mg tablet extended release 24 hr 30 mg PO DAILY Qty: 90 3RF citalopram 40 mg tablet 40 mg PO DAILY Qty: 90 0RF atorvastatin 20 mg tablet 20 mg PO DAILY Qty: 90 2RF montelukast 10 mg tablet 10 mg PO QHS Qty: 90 3RF guaifenesin 1,200 mg tablet extended release 12hr 1,200 mg PO Q12H Qty: 60 6RF rivaroxaban 20 mg tablet 20 mg PO DAILY Qty: 90 3RF Primary Care Provider: Mine Monae Referrals: Mine Monae DO [Primary Care Provider] - 5-7 Days Print Language: Russian
--- NOTE | 2023-12-08 20:56 | EKG12_ITS ---
Test Reason : SOB Blood Pressure : / mmHG Vent. Rate : 087 BPM Atrial Rate : 087 BPM P-R Int : 158 ms QRS Dur : 086 ms QT Int : 376 ms P-R-T Axes : 019 011 034 degrees QTc Int : 452 ms Sinus rhythm with frequent Premature ventricular complexes Cannot rule out Septal infarct , age undetermined Abnormal ECG Confirmed by Lebron Sal ([id number]), assignment editor LYNN JASON ([id number]) on 12/10/2023 10:53:46 AM Referred By: VONNIE Confirmed By:Lebron Sal
[2023-12-08] MEDS: Ipratropium/Albuterol Sulfate 3 ML AMPUL.NEB INHALATION (21:04)
[2023-12-08 21:06] VITALS: PULSE 88; RESP 20
[2023-12-08 21:20] LABS: Absolute Lymphocyte Count 1.08 X10^3/uL (0.83-4.51); Absolute Neutrophil Count 2.9 X10^3/uL (2.0-7.7); Basophil# 0.04 X10^3/uL; Basophil% 0.8 % (0-1); Eosinophil# 0.36 X10^3/uL; Eosinophils% 7.3 % (0-5); Hematocrit 32.7 % (40-54); Lymphocyte # 1.08 X10^3/ul (0.83-4.51); Mean Corp Hgb Conc 30.6 g/dL (32-36); Mean Corpuscular Hgb 26.7 pg (27.0-32.0); Mean Corpuscular Volume 87.4 fL (80-94); Mean Platelet Vol. 9.4 fl (6.2-12.0); Monocyte# 0.52 X10^3/uL; Monocyte% 10.6 % (0-10); NRBC Flagged by Analyzer 0 % (0-5); Neutrophil # 2.91 X10^3/uL (2.7-7.7); Neutrophil % 59.1 % (47-70); Platelet Count 266 K/mm3 (150-450); RBC Distribution Width CV 16.1 % (11.6-14.6); RBC Distribution Width SD 50.9 fl (35.1-43.9); Red Blood Count 3.74 M/mm3 (4.6-6.2); White Blood Count 4.9 K/mm3 (4.4-11.0)
[2023-12-08 21:31] LABS: Prothrombin Time (Protime)PT. 38.9 SECONDS (11.7-14.9)
[2023-12-08 21:40] LABS: Anion Gap 5 (5-15); BUN 22 mg/dL (7-18); BUN/Creat Ratio 36.7 RATIO (10-20); Calcium,Total 8.2 mg/dL (8.5-10.1); Chloride 112 mmol/L (98-107); EST Glomerular Filtration Rate 144 mL/min (>60); Est Glom Filt Rate - Afr Amer 174 mL/min (>60); Estimated Creatinine Clearance 89.93 ml/min; Glucose 121 mg/dL (74-106); Sodium Level 144 mmol/L (136-145); Troponin-I HS (w/2H Reflex) 5 pg/mL (3.0-78.0)
[2023-12-08 21:49] LABS: D-Dimer Quantitative (DVT/PE) 0.81 FEU/ug/m (0.27-0.49)
--- NOTE | 2023-12-08 21:51 | CT_ITS ---
INDICATION: Chest pain for 3 days. Elevated D-dimer COMPARISON: Chest radiograph 10/17/2023. A radiation dose optimization technique was used for this scan. RADIATION DOSAGE (If Supplied By Facility): CTDIvol/DLP = ( 2.69 ) / ( 164.60 ) mGy/mGycm FINDINGS: Contrast enhanced serial CTA axial images through the chest and abdomen, extending below the bilateral lower renal poles, with coronal and sagittal reformatted series. In addition, there are dedicated coronal and sagittal MIP reformatted series provided. IV Contrast dosage and agent: 75 cc [id number] IV. AORTA/GREAT VESSELS: No acute thoracoabdominal aortic abnormality. Ectatic thoracic aorta. Major abdominal ostia are patent. LUNG PARENCHYMA/PLEURA: Small bilateral pleural effusions with adjacent atelectasis. No pneumothorax. CHEST/ABDOMINAL WALL: Left SHOTBLASTER shunt catheter tubing traverses the left anterior chest wall and coiling within the left upper quadrant of the abdomen, incompletely imaged. MEDIASTINUM: Distal pulmonary artery branch vessel evaluation is suboptimal secondary to poor timing of contrast bolus as well as respiratory motion, however, there are no obvious large proximal pulmonary artery filling defects. LIVER/STOMACH: Moderate to large hiatal hernia with prominent GE junction and surgical clips, suggesting possibility of gastric pull-through. LYMPH NODE: Lower esophageal adenopathy measuring up to 13 mm in the short axis on axial image 119 of series 2. PANCREAS: No peripancreatic fat stranding. BOWEL/MESENTERY: No dilated bowel loops. No significant free fluid. No free air. GALLBLADDER: No pericholecystic fat stranding. URINARY COLLECTING SYSTEM/ KIDNEYS: No evidence of urinary collecting system obstruction. No significant renal parenchymal abnormality. BONES: Multiple bilateral old rib fractures as well as old sternal fracture. Multilevel lower thoracic vertebral body compression deformities, with T8 methacrylate cement. CT/CTA Chest W/WO Contrast IMPRESSION: Multilevel lower thoracic vertebral body compression deformities, with T8 vertebral body containing methacrylate cement, although remaining deformities are of uncertain chronicity. Cannot exclude acute compression fracture. Moderate to large hiatal hernia with prominent GE junction and surgical clips, suggesting possibility of gastric pull-through. However, there is distal paraesophageal adenopathy as above. Recommend comparison with previous imaging to document long-term stability versus follow-up evaluation as neoplastic process is not excluded. Distal pulmonary artery branch vessel evaluation is suboptimal secondary to timing of contrast bolus as well as respiratory motion, however, there is no obvious large proximal pulmonary embolus. Left SHOTBLASTER shunt catheter tubing traverses the left anterior chest wall and coiling within the left upper quadrant of the abdomen, incompletely imaged. Electronically Signed: Kenyon Cheng MD at 0:35 EDT ,
[2023-12-08 21:54] VITALS: BP 146/94; PULSE 102; RESP 26; O2SAT 99
[2023-12-08 23:00] VITALS: BP 149/103; PULSE 91; RESP 23; O2SAT 98
[2023-12-08 23:16] LABS: Reflex Troponin-HS? (from REC) Y
[2023-12-08 23:38] LABS: Troponin-I HS 5 pg/mL (3.0-78.0)
[2023-12-09 01:00] VITALS: BP 146/95; PULSE 83; RESP 23; TEMP 37.1; O2SAT 97
== END 2023-12-09 01:14 | disposition home or self-care (01) ==
PROVIDERS: Emergency Provider Emergency Medicine; PCP Family Medicine; Visit Provider Emergency Medicine
DX: R06.02 Shortness of breath (principal); I10 Essential (primary) hypertension; E78.5 Hyperlipidemia, unspecified; Z86.718 Personal history of other venous thrombosis and embolism; Z79.01 Long term (current) use of anticoagulants; Z85.038 Personal history of other malignant neoplasm of large intestine; Z85.828 Personal history of other malignant neoplasm of skin; Z79.899 Other long term (current) drug therapy; F41.8 Other specified anxiety disorders; Z90.49 Acquired absence of other specified parts of digestive tract
CPT/HCPCS: 71275; 80048; 84484; 85025; 85379; 85610; 85730; 93005; 94640; 99284; Q9967; A4216

== ENCOUNTER → 2023-12-21 | Outpatient (CLI) | payer MEDICARE, MEDICAID, SELFPAY ==
--- NOTE | 2023-12-21 13:29 | RAD_ITS ---
STUDY: X-RAY CHEST REASON FOR EXAM: Male, 63 years old. Persistent cough TECHNIQUE: PA and lateral views of the chest. COMPARISON: Comparison is made with prior study dated October 17, 2023. FINDINGS: A left-sided ventriculoperitoneal shunt tube is seen. Mild increased linear density at the lung bases suggestive of scarring. Blunting of the left costophrenic angle. Normal size heart. Normal mediastinum and kai. Normal visualized pulmonary arteries. Normal visualized aortic arch and descending thoracic aorta. There is demineralization of the osseous structures. Increased kyphosis. Prior prior vertebroplasty of a mid dorsal vertebra with loss of height. Normal visualized ribs, clavicles, and shoulders. Surgical clips are seen in the epigastric region. RAD/Chest PA and Lateral IMPRESSION: Left-sided ventriculoperitoneal shunt tube is seen. Increased kyphosis with demineralization of the thoracic vertebrae and loss of height of the thoracic vertebrae. Prior vertebroplasty. Stable mild scarring at the lung bases with blunting of the left costophrenic angle. Electronically Signed: Blake Oliveira MD at 14:00 EDT ,
== END | disposition home or self-care (01) ==
LOC: MTRAD 13:23
PROVIDERS: Referring Provider Physician Assistant Surgical; Visit Provider Physician Assistant Surgical
DX: U07.1 COVID-19 (principal)
CPT/HCPCS: 71046

== ENCOUNTER → 2023-12-25 | Outpatient (CLI) | payer MEDICARE, MEDICAID, SELFPAY ==
--- NOTE | 2023-12-25 08:07 | ECHOD_ITS ---
Reason For Study: Frequent PVCs Procedure This was a 2D Doppler, Color Flow transthoracic echocardiogram. Exam performed in department. Left Ventricle Normal LV size. Left ventricular systolic function is normal. The left ventricular ejection fraction is 55 %. Stage 1 diastolic dysfunction. No regional wall motion abnormalities noted. Right Ventricle Normal RV size. Normal systolic function. Atria Normal left atrium. Normal right atrium. Mitral Valve Normal mitral valve. Tricuspid Valve Normal tricuspid valve. Mild (1+) tricuspid valve insufficiency. Pulmonary artery systolic pressure is 30 mmHg. Aortic Valve Trisinus/trileaflet aortic valve. Pulmonic Valve Normal pulmonic valve. Great Vessels Normal aortic root. The pulmonary artery is normal size. Normal inferior vena cava. Pericardium/Pleural No pericardial effusion. MMode/2D Measurements & Calculations LVIDd: 4.5 cm IVSd: 0.84 cm Ao root diam: 3.6 cm LVIDs: 3.5 cm LVPWd: 0.84 cm RVDd: 3.9 cm FS: 23.7 % LAV(MOD-bp): 37.3 ml LVAd ap4: 23.6 cm2 SV(MOD-sp4): 32.9 ml LAV(MOD-bp) Indexed: 24.6 ml/m2 LVLd ap4: 7.4 cm LAV(MOD-sp2): 23.3 ml EDV(MOD-sp4): 62.0 ml LAV(MOD-sp4): 56.3 ml EDV(sp4-el): 63.6 ml LVAs ap4: 14.9 cm2 LVLs ap4: 6.5 cm ESV(MOD-sp4): 29.1 ml ESV(sp4-el): 29.0 ml EF(MOD-sp4): 53.1 % EF(sp4-el): 54.4 % SV(sp4-el): 34.6 ml LA A4 area: 20.2 cm2 LA dimension(2D): 2.4 cm RA A4 area: 14.5 cm2 TAPSE: 2.5 cm Time Measurements MV dec time: 0.20 sec Doppler Measurements & Calculations MV E max faisal: 64.5 cm/sec Lat Peak E' Faisal: 14.2 cm/sec Med Peak E' Faisal: 5.9 cm/sec MV A max faisal: 74.2 cm/sec E/E' lat: 4.5 E/E' med: 10.9 MV E/A: 0.87 Ao V2 max: 140.8 cm/sec LV V1 max: 105.5 cm/sec MV dec slope: 326.9 cm/sec2 Ao max P.9 mmHg LV V1 max P.4 mmHg Ao V2 mean: 103.7 cm/sec Ao mean P.6 mmHg Ao V2 VTI: 27.2 cm PA V2 max: 91.5 cm/sec TR max faisal: 263.5 cm/sec TR max P.8 mmHg ECHO/Echo Complete Interpretation Summary Normal LV size. Left ventricular systolic function is normal. The left ventricular ejection fraction is 55 %. Stage 1 diastolic dysfunction. Mild (1+) tricuspid valve insufficiency. Pulmonary artery systolic pressure is 30 mmHg. Ordering Physician: Prince Pisano Referring Physician: Kezia Lewis Performed By: Rita Pisano, TELLO, RVT
== END | disposition home or self-care (01) ==
LOC: CVS 08:07
PROVIDERS: Referring Provider Nurse Practitioner Family; Visit Provider Nurse Practitioner Family
DX: I49.3 Ventricular premature depolarization (principal)
CPT/HCPCS: 93306

== ENCOUNTER 2024-01-11 08:30 | Outpatient (RCR) | payer MEDICARE, MEDICAID, SELFPAY ==
--- NOTE | 2023-11-20 10:24 | HP.PTEVAL_ITS ---
Patient's Visit Information Visit Information Visit Information: KIT PALAFOX is a 63 year old M referred to Physical Therapy by Mine Monae DO with a diagnosis of Frequent falls. Date of Evaluation: 11/20/23 Physical Therapist: Fly Laboy DPT Visit Plan Frequency: 2x /Week Duration: 6 Weeks Plan: Add in BLE strengthening as tolerated. Keep an eye on L ankle as is swollen and sore. Progress dynamic and static balance with focus eyes open/closed. I talked to him about possibly using a rollator for stability and progressing back to cane once doing better. Subjective Subjective: Pt. is here today for his initial evaluation with diagnosis of frequent falls. He reports falling 3 times in the last few weeks. He reports hitting his head on the second fall and his face is currently bruised. Pt. is also complaining about increased L ankle pain and swelling. He reports most of his pain at medial malleolus. He also reports several times about being fearful of falling again. He asked about a CAM boot as well. Pt. has not tried any exercises yet due to fear of making it worse. 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 He is hopeful to improve his balance, reduce risk for future falls. Pain L ankle: Pain Intensity (Out of 10): 5 Pain Intensity Range: 2 and 7 Objective Objective: POSTURE: Pt. has general flexed posture large thoracic kyphosis. PALPATION: Pt. has marked pain at medial distal tibia along medial malleolus on the L side. There is also marked swelling throughout his distal LLE. He denies any imaging of his L ankle at this point in time. NEURO: Normal sensation and normal DTR of BLEs. ROM: L ankle: DF 8deg increase in distal tibia, PF 31deg. Normal knee ROM bilaterally. Normal hip ROM bilaterally. LLE: ankle: DF 12.7##, PF 17.2# knee: ext 14.7#, flexion 16.7#; hip: flexion 16.3# RLE: ankle: DF 14.5#, PF 23.8# knee: ext 29.8#, flexion 15.2#; hip: flexion 18.5# GAIT: pt. ambulates with SPC with decreased step length bilaterally. Pt. reports being very hesitant and fearful with gait. Pt. reports increased L ankle pain with gait. pt. was also visibly fatigued after walking ~150 feet. Needed sitting rest periods. TU.1 sec without AD, 18.3sec with SPC. FGA: 12/30 Balance/Special Test Scores Functional Gait Assessment Score: 12 % Disability: 60.0000 Lower Extremity Functional Score: 61 30 Second Chair Rise Test Seconds: 2 Goals Goal 1:: LTG: Pt. to be I with HEP. Goal Time Frame: 4-6 Weeks Goal 2:: LTG: Pt. to be able to ambulate with SPC without increase in L ankle pain Goal Time Frame: 4-6 Weeks Goal 3:: LTG: Pt. to have increased BLE strength increased by 5# throughout. Goal Time Frame: 4-6 Weeks Goal 4:: LTG: Pt. to have improved TUG time to less than 12 seconds. Goal Time Frame: 4-6 Weeks Goal 5:: LTG: Pt. to have improved FGA to greater than 17/30 indicating increased functional stability. Goal Time Frame: 4-6 Weeks Rehabilitation Potential Physical Therapy Diagnosis: Pt. has signs and symptoms consistent with frequent falls. Pt. has marked increased L ankle pain, decreased balance, overall decreased strength as well as decreased stability with gait. Pt. would benefit from PT to address the above limitations progressing back to all recreational activities with reduced risk for future falls. Rehabilitation Potential: Good Anticipated Interventions Patient/Client Instruction: Educate patient on: Condition, Plan of Care, Risk Factors and Benefits of Fitness Program For the Purpose of:: To facilitate caregiver knowledge, To improve self management, To prevent re-injury, To improve ability to perform tasks related to life management and To improve tolerance to ADL's Therapeutic Exercise to Include: Strength training, Power training, Endurance training, Balance training, Body mechanics and Gait and locomotor training For the Purpose of:: To decrease pain, To increase ROM, To improve nutrient delivery to tissue, To increase oxygenation perfusion, To improve gait and locomotor functions, To improve health of tissue, To decrease soft tissue restriction, To improve balance and To improve safety with gait Text: Thank you for the opportunity to evaluate your patient. For Medicare and Medicare HMO plans, please review the plan of care and approve it. It will need to be FAXED BACK to us at [phone] for Medicare purposes. For Medicare only, by signing this I certify the plan of care. Please let me know if there are questions or concerns regarding this plan of care. Physician Signature: Dat e:
== END 2024-01-11 19:00 | disposition home or self-care (01) ==
LOC: PT 08:30
PROVIDERS: PCP Family Medicine; Referring Provider Family Medicine; Visit Provider Family Medicine
DX: R29.6 Repeated falls (principal); Z91.81 History of falling
CPT/HCPCS: 97110; 97161; 97530

== ENCOUNTER → 2024-02-26 | Outpatient (CLI) | payer MEDICARE, MEDICAID, SELFPAY ==
[2024-02-26 11:05] LABS: Anion Gap 3 (5-15); BUN 22 mg/dL (7-18); BUN/Creat Ratio 37.8 RATIO (10-20); Calcium,Total 8.4 mg/dL (8.5-10.1); Chloride 112 mmol/L (98-107); Creatinine, Serum 0.58 mg/dL (0.70-1.30); EST Glomerular Filtration Rate 149 mL/min (>60); Est Glom Filt Rate - Afr Amer 181 mL/min (>60); Glucose 89 mg/dL (74-106); Potassium 3.6 mmol/L (3.5-5.1); Sodium Level 143 mmol/L (136-145)
[2024-02-26 11:06] LABS: BNP,B-Type NATRIURETIC PEPTIDE 57.8 pg/mL (0-100)
== END | disposition home or self-care (01) ==
PROVIDERS: PCP Nurse Practitioner Family; Referring Provider Nurse Practitioner Family; Visit Provider Nurse Practitioner Family
DX: I49.3 Ventricular premature depolarization (principal); R06.09 Other forms of dyspnea
CPT/HCPCS: 36415; 80048; 83880